=== PATIENT | male | born 1955 | race Caucasian/White ===

== ENCOUNTER 2017-03-28 17:18 | Inpatient (IN) | payer OTHER ==
[~2017-03-28] VITALS: Ht 160 cm; Wt 82.6 kg
[2017-03-28] MEDS ORDERED: ALBUTEROL 0.083% NEBU SOLN 3 ML VIAL INH STA (17:51)
[2017-03-28] MEDS ORDERED: OSELTAMIVIR PHOSPHATE 75 MG CAP PO STA (18:10)
[2017-03-28] MEDS ORDERED: OMEP40CA41 PO (18:14)
[2017-03-28] MEDS ORDERED: ASPI-461 PO (18:14)
[2017-03-28] MEDS ORDERED: ULT50 PO (18:14)
[2017-03-28] MEDS ORDERED: HYDR-4383 PO (18:14)
[2017-03-28] MEDS ORDERED: LPR25 PO (18:14)
[2017-03-28] MEDS ORDERED: GABA1CAP4 PO (18:14)
[2017-03-28] MEDS ORDERED: LPT40 PO (18:14)
--- NOTE | 2017-03-28 18:33 | DIAGNOSTIC IMAGING REPORT ---
SINGLE VIEW CHEST CLINICAL HISTORY: Dyspnea. FINDINGS: An AP, portable, upright chest radiograph is compared to study dated 07/19/2014. The examination is degraded by portable technique and patient rotation. The cardiomediastinal silhouette is unremarkable. Emphysema and chronic interstitial thickening are similar to previous. There is patchy airspace consolidation at the left lung base. The right lung appears clear. No large pleural effusion or pneumothorax is seen. The skeletal structures are osteopenic. The bony thorax is grossly intact. IMPRESSION: 1. Emphysema. 2. Patchy airspace consolidation is seen at the left lung base. Correlate clinically for evidence of pneumonia/aspiration pneumonitis. Radiographic follow-up to resolution is recommended. Electronically signed by: Pasquale Andrea M.D. 03/28/2017 6:32 PM Dictated Date/Time: 03/28/2017 6:31 PM
[2017-03-28 19:01] LABS: BASO % 0.5 %; BASO ABS # 0.03 K/uL (0-0.2); EOS % 1.4 %; EOS ABS # 0.09 K/uL (0-0.5); HEMATOCRIT 38.6 % (42-52); HEMOGLOBIN 13.5 g/dL (14.0-18.0); IG# 0.02 K/uL (0.00-0.02); LYMPH % 18.8 %; LYMPH ABS # 1.21 K/uL (1.2-3.4); MEAN CELL VOLUME 100.5 fL (80-100); MEAN CORPUSCULAR HEMOGLOBIN 35.2 pg (25-34); MEAN PLATELET VOLUME 9.1 fL (7.4-10.4); MONO % 16.6 %; MONO ABS # 1.07 K/uL (0.11-0.59); NEUT % 62.4 %; NEUT ABS # 4.03 K/uL (1.4-6.5); PLATELET COUNT 229 K/uL (130-400); RED CELL DISTRIBUTION WIDTH CV 12.7 % (11.5-14.5); RED CELL DISTRIBUTION WIDTH SD 46.1 fL (36.4-46.3); WHITE BLOOD COUNT 6.45 K/uL (4.8-10.8)
[2017-03-28] MEDS ORDERED: LEVAQUIN 750MG / 150ML D5W IV STA (19:08)
[2017-03-28] MEDS ORDERED: SODIUM CHLORIDE 0.9% 1000ML 1,000 ML IV STA (19:08)
[2017-03-28 19:09] LABS: INR 1.1 (0.9-1.1); PTT PATIENT 23.3 SECONDS (21.0-31.0)
[2017-03-28 19:24] LABS: INFLUENZA B ANTIGEN Neg for Influ B (NEG)
[2017-03-28 19:29] LABS: ALBUMIN 3.6 gm/dl (3.4-5.0); ALT/SGPT 27 U/L (12-78); BLOOD UREA NITROGEN 17 mg/dl (7-18); CARBON DIOXIDE 26 mmol/L (21-32); GLUCOSE 93 mg/dl (70-99); POTASSIUM 4.1 mmol/L (3.5-5.1); SODIUM 134 mmol/L (136-145)
[2017-03-28 19:33] LABS: ALKALINE PHOSPHATASE 83 U/L (45-117); AST/SGOT 25 U/L (15-37); TOTAL PROTEIN 7.8 gm/dl (6.4-8.2)
--- NOTE | 2017-03-28 20:06 | History and Physical ---
History & Physical Date & Time of Service: Mar 28, 2017 at 19:50 Chief Complaint: Cold, Shakey, Low Pulse Ox Primary Care Physician: No Doctor, Assigned History of Present Illness Source: patient, family 61 year old male with CAD, COPD, GERD with bleeding ulcers, previous TIA, chronic back pain referred from urgent care with persistent cough and hypoxia. Patient went to bed feeling well, woke up at 2am with persistent dry cough, associated with trouble breathing and lightheadedness. No falls 2/2 to dizziness. No chest pain or palpitations. He describes having chills, but did not measure temp. Denies any sore throat, nasal congestion, sinus pressure, but does have significant myalgias. Was feeling nauseous but no vomiting. Appetite diminished and patient admits to minimal fluid intake, but no abdominal discomfort. Decreased urine output, but no UTI symptoms. No change in BM. Patient has chronic knee swelling, which worsened recently, but no significant lower leg swelling. He describes orthopnea, but no PND. Describes recent weight gain. Patient called son to take him to urgent care in the afternoon, and son noted he was struggling to breath and had increased work of breathing with conversation and ambulation. Patient denies feeling dyspneic at baseline, but does so with coughing. Urgent care referred to hospital for sats of 86% at rest post breathing treatment. Sick contacts include daughter with bronchitis and her boyfriend who has the flu. ROS is unremarkable except as noted above. Past Medical/Surgical History Medical Problems: CAD COPD GERD with bleeding ulcers Carotid stenosis TIA Osteoarthritis Chronic lower back pain Slipped intervertebral disc Surgical Problems: Back surgery Tonsillectomy Family History Diabetes mellitus Heart disease Mom had DM, cardiac issues. Dad had HTN Social History Smoking Status: Current Every Day Smoker (smokes 1/2 ppd x 50 years) Smokeless Tobacco Use: No Drug Use: marijuana Marital Status: single Occupational Status: unemployed Multi-Drug Resistant Organisms History of MDRO: No Allergies Coded Allergies: Propoxyphene (Verified Allergy, Intermediate, unsure, 01/07/14) RASH Home Medications Scheduled Aspirin (Aspirin), 81 MG PO DAILY Atorvastatin (Lipitor), 40 MG PO DAILY Gabapentin (Gabapentin), 300 MG PO TID Hydrocodone/Acetaminophen ([place] 10/325 Tab), 1 TAB PO Q6H Metoprolol Tartrate (Lopressor), 25 MG PO DAILY Omeprazole (Prilosec), 40 MG PO DAILY Tramadol HCl (Tramadol HCl), 50 MG PO BID Physical Exam Vital Signs Date Time Temp Pulse Resp B/P (MAP) Pulse Ox O2 Delivery O2 Flow Rate FiO2 03/28/17 19:05 121 21 107/75 95 Nasal Cannula 3.0 03/28/17 18:19 95 Nasal Cannula 2.0 03/28/17 17:52 107 03/28/17 17:39 91 Room Air 03/28/17 17:38 109 22 110/78 88 Room Air 03/28/17 17:22 37.2 121 26 116/75 91 Room Air General Appearance: WD/WN, + mild distress (seconcary to peristent coughing) Head: normocephalic, atraumatic Eyes: normal inspection ENT: hearing grossly normal, pharynx normal, + pertinent finding (moist mucous membranes) Neck: supple, no adenopathy Respiratory/Chest: no respiratory distress, no accessory muscle use, + decreased breath sounds, + rales Cardiovascular: regular rate, rhythm, no edema, normal peripheral pulses Abdomen/GI: normal bowel sounds, non tender, soft Back: normal inspection, + pertinent finding (chornic pain on palpation, unchanged from baseline) Extremities/Musculoskelatal: no calf tenderness, normal capillary refill, no pedal edema Neurologic/Psych: alert, normal mood/affect, oriented x 3 Skin: normal color, warm/dry, no rash Diagnostics Laboratory Results Results Past 24 Hours Test 03/28/17 18:40 03/28/17 19:10 Range/Units White Blood Count 6.45 4.8-10.8 K/uL Red Blood Count 3.84 4.7-6.1 M/uL Hemoglobin 13.5 14.0-18.0 g/dL Hematocrit 38.6 42-52 % Mean Corpuscular Volume 100.5 80-100 fL Mean Corpuscular Hemoglobin 35.2 25-34 pg Mean Corpuscular Hemoglobin Concent 35.0 32-36 g/dl Platelet Count 229 130-400 K/uL Mean Platelet Volume 9.1 7.4-10.4 fL Neutrophils (%) (Auto) 62.4 % Lymphocytes (%) (Auto) 18.8 % Monocytes (%) (Auto) 16.6 % Eosinophils (%) (Auto) 1.4 % Basophils (%) (Auto) 0.5 % Neutrophils # (Auto) 4.03 1.4-6.5 K/uL Lymphocytes # (Auto) 1.21 1.2-3.4 K/uL Monocytes # (Auto) 1.07 0.11-0.59 K/uL Eosinophils # (Auto) 0.09 0-0.5 K/uL Basophils # (Auto) 0.03 0-0.2 K/uL RDW Standard Deviation 46.1 36.4-46.3 fL RDW Coefficient of Variation 12.7 11.5-14.5 % Immature Granulocyte % (Auto) 0.3 % Immature Granulocyte # (Auto) 0.02 0.00-0.02 K/uL Prothrombin Time 11.2 9.0-12.0 SECONDS Prothromb Time International Ratio 1.1 0.9-1.1 Activated Partial Thromboplast Time 23.3 21.0-31.0 SECONDS Partial Thromboplastin Ratio 0.9 Sodium Level 134 136-145 mmol/L Potassium Level 4.1 3.5-5.1 mmol/L Chloride Level 101 98-107 mmol/L Carbon Dioxide Level 26 21-32 mmol/L Anion Gap 7.0 3-11 mmol/L Blood Urea Nitrogen 17 7-18 mg/dl Creatinine 1.10 0.60-1.40 mg/dl Est Creatinine Clear Calc Drug Dose 67.0 ml/min Estimated GFR () 83.5 Estimated GFR (Non- 72.1 BUN/Creatinine Ratio 15.6 10-20 Random Glucose 93 70-99 mg/dl Calcium Level 9.0 8.5-10.1 mg/dl Total Bilirubin 0.6 0.2-1 mg/dl Aspartate Amino Transf (AST/SGOT) 25 15-37 U/L Alanine Aminotransferase (ALT/SGPT) 27 12-78 U/L Alkaline Phosphatase 83 45-117 U/L Troponin I < 0.015 0-0.045 ng/ml Total Protein 7.8 6.4-8.2 gm/dl Albumin 3.6 3.4-5.0 gm/dl Globulin 4.2 2.5-4.0 gm/dl Albumin/Globulin Ratio 0.9 0.9-2 Influenza Type A Antigen POS for Influ A NEG Influenza Type B Antigen Neg for Influ B NEG Urine Color DK YELLOW Urine Appearance CLEAR CLEAR Urine pH 6.0 4.5-7.5 Urine Specific Okay 1.032 1.000-1.030 Urine Protein TRACE NEG Urine Glucose (UA) NEG NEG Urine Ketones 1+ NEG Urine Occult Blood NEG NEG Urine Nitrite NEG NEG Urine Bilirubin NEG NEG Urine Urobilinogen POS NEG Urine Leukocyte Esterase NEG NEG Urine WBC (Auto) 1-5 0-5 /hpf Urine RBC (Auto) 0-4 0-4 /hpf Urine Hyaline Casts (Auto) 1-5 0-5 /lpf Urine Epithelial Cells (Auto) 10-20 0-5 /lpf Urine Bacteria (Auto) NEG NEG Diagnostic Radiology SINGLE VIEW CHEST CLINICAL HISTORY: Dyspnea. FINDINGS: An AP, portable, upright chest radiograph is compared to study dated 07/19/2014. The examination is degraded by portable technique and patient rotation. The cardiomediastinal silhouette is unremarkable. Emphysema and chronic interstitial thickening are similar to previous. There is patchy airspace consolidation at the left lung base. The right lung appears clear. No large pleural effusion or pneumothorax is seen. The skeletal structures are osteopenic. The bony thorax is grossly intact. IMPRESSION: 1. Emphysema. 2. Patchy airspace consolidation is seen at the left lung base. Correlate clinically for evidence of pneumonia/aspiration pneumonitis. Radiographic follow-up to resolution is recommended. Impression Assessment and Plan 61 year old male with CAD, COPD, GERD with bleeding ulcers, previous TIA, chronic back pain referred from urgent care with persistent cough and hypoxia. COPD exacerbation secondary to pneumonia with acute hypoxic respiratory failure - CXR: patchy airspace consolidation seen at the left lung base concerning for pneumonia/aspiration pneumonitis. - O2 via NC per protocol, wean as tolerated - PO Levaquin - Prednisone 40mg daily - DuoNebs - Trend CBC, procal ordered Influenza A - Tamiflu CAD - Continue Aspirin, metoprolol, atrovastatin GERD with h/o bleeding ulcers - PO pantoprazole Chronic back pain - Continue home meds: gabapentin, Gladwin, tramadol Tobacco Abuse - smoking cessation education provided - Nicotine patch ordered VTE ppx - Enoxaparin SC FULL CODE Resident Physician Supervision Note: I was present with Dr. Gurrola during the history and exam. I discussed the case with the resident and agree with the findings and plan as documented in the note. Any exceptions or clarifications are listed here: 61 y/o M Hx COPD, CAD - presenting with URI symptoms - hypoxic on arrival to ER - (+) influ A and PNM confirmed on CXR. Pt states all symptoms were of acute onset early AM OE AAO x 3 S1,2 R, tachy Poor air movement, wheezing in all bennett NT, ND No CCE P: Will treat for INflu, PNM and COPD exacerbation Levaquin should be adequate coverage as timing of PNM does not support a post viral process - should be kept in mind if improvement is minimal It may be that this individual will require home 02 No current evidence of ACS - cont ASA, Bblocker, Statin Smoking cessation is advised Documented By: Mundo Saenz Level of Care Med/Surg Advanced Directives Existing Advance Directive: No Existing Living Will: No Existing Power of Binder Stripper Machine: No Existing Health Care Proxy: Yes (Son Milad) Resuscitation Status FULL RESUSCITATION VTE Prophylaxis VTE Risk Assessment Done? Y/N: Yes Risk Level: Moderate Given or contraindicated: Enoxaparin (Lovenox)SQ Resident Tracking Resident Involvement: Resident Care Provided Care Provided: Adult Hospital Medicine
[2017-03-28] MEDS ORDERED: ENOXAPARIN 40 MG/0.4 ML SYR SQ SCH (20:45)
[2017-03-28] MEDS ORDERED: POLYETHYLENE (MIRALAX) 17 GM PACK PO PRN (20:45)
[2017-03-28] MEDS ORDERED: ONDANSETRON INJ 2 MG/ML 2 ML VIAL IV PRN (20:45)
[2017-03-28] MEDS ORDERED: ALUMINUM/MAGNESIUM/SIMETH (MAALOX MAX) 30 ML UDC PO PRN (20:45)
[2017-03-28] MEDS ORDERED: MAGNESIUM HYDROXIDE SUSP 30 ML UDC PO PRN (20:45)
[2017-03-28] MEDS ORDERED: ACETAMINOPHEN 325 MG TAB PO PRN (20:45)
[2017-03-28 22:22] VITALS: O2SAT 95; Ht 160 cm; Wt 82.6 kg
[2017-03-28 22:50] VITALS: BP 101/63; PULSE 105; TEMP 36.9; O2SAT 92
--- NOTE | 2017-03-28 23:10 | EMERGENCY ROOM VISIT NOTE ---
History Report prepared by Jaylen: Ayleen Rojas Under the Supervision of: Dr. Sebas Adame D.O. First contact with patient: 17:43 Chief Complaint: RESPIRATORY PROBLEMS Stated Complaint: COLD, SHAKEY, LOW PULSE OX Nursing Triage Summary: Pt was seen at [facility]. Given Neb for wheezing and RA Sat 88%. Pt sounded worse after per reports from [facility] Relative.ai. History of Present Illness The patient is a 61 year old male who presents to the Emergency Room with complaints of worsening respiratory problems since 2am today. The patient states that he developed cough, congestion, rhinorrhea, chills, nausea, shortness of breath, dizziness, and generalized body aches. This has worsened throughout the day. He rates his pain as a 9/10 in severity. He went to [facility] and states that he had a fever there. He was found to be 88% on room air. He was sent to the ED for further evaluation. The patient has a history of COPD. Pt denies change in vision, sore throat, chest pain, vomiting, diarrhea, abdominal pain, pain with urination, and melena. His family has been sick with the flu. He was tested for the flu at [facility] and it was negative. Source of History: patient Onset: earlier today Position: other (global) Symptom Intensity: 9/10 Quality: ache Timing: worsening Associated Symptoms: + fevers, + chills, + cough, + SOB, + nausea, No sorethroat, No chest pain, No vomiting, No abdominal pain, No melena, No diarrhea, No urinary symptoms Note: Pt notes congestion, rhinorrhea, dizziness, and generalized body aches. Review of Systems See HPI for pertinent positives & negatives. A total of 10 systems reviewed and were otherwise negative. Past Medical & Surgical Medical Problems: (1) Chronic lower back pain (2) COPD exacerbation (3) Influenza (4) Pneumonia (5) Slipped intervertebral disc Surgical Problems: (1) Previous back surgery Family History Diabetes mellitus Heart disease Social History Smoking Status: Current Every Day Smoker Drug Use: marijuana Marital Status: single Occupation Status: unemployed Current/Historical Medications Scheduled Aspirin (Aspirin), 81 MG PO DAILY Atorvastatin (Lipitor), 40 MG PO DAILY Gabapentin (Gabapentin), 300 MG PO TID Hydrocodone/Acetaminophen ([place] 10/325 Tab), 1 TAB PO Q6H Metoprolol Tartrate (Lopressor), 25 MG PO DAILY Omeprazole (Prilosec), 40 MG PO DAILY Tramadol HCl (Tramadol HCl), 50 MG PO BID Allergies Coded Allergies: Propoxyphene (Verified Allergy, Intermediate, unsure, 01/07/14) RASH Physical Exam Vital Signs Date Time Temp Pulse Resp B/P (MAP) Pulse Ox O2 Delivery O2 Flow Rate FiO2 03/28/17 19:05 121 21 107/75 95 Nasal Cannula 3.0 03/28/17 18:19 95 Nasal Cannula 2.0 03/28/17 17:52 107 03/28/17 17:39 91 Room Air 03/28/17 17:38 109 22 110/78 88 Room Air 03/28/17 17:22 37.2 121 26 116/75 91 Room Air Physical Exam GENERAL: Sitting up in bed, alert, disheveled, ill appearing, minimal distress, non-toxic EYE EXAM: normal conjunctiva. OROPHARYNX: no exudate, no erythema, lips, buccal mucosa, and tongue normal and mucous membranes are moist NECK: supple, no nuchal rigidity, no adenopathy, non-tender LUNGS: Coarse breath sounds bilateral bases. Normal chest wall mechanics HEART: Tachycardic, no murmurs, S1 normal and S2 normal ABDOMEN: abdomen soft, non-tender, normo-active bowel sounds, no masses, no rebound or guarding. BACK: Back is symmetrical on inspection and there is no deformity, no midline tenderness, no CVA tenderness. SKIN: no rashes and no bruising UPPER EXTREMITIES: upper extremities are grossly normal. LOWER EXTREMITIES: No pitting edema. Calves equal bilaterally. NEURO EXAM: Normal sensorium, cranial nerves II-XII grossly intact, normal speech, no gross weakness of arms, no gross weakness of legs. Medical Decision & Procedures ER Provider Diagnostic Interpretation: Radiology results as stated below per my review and the radiologist's interpretation: SINGLE VIEW CHEST CLINICAL HISTORY: Dyspnea. FINDINGS: An AP, portable, upright chest radiograph is compared to study dated 07/19/2014. The examination is degraded by portable technique and patient rotation. The cardiomediastinal silhouette is unremarkable. Emphysema and chronic interstitial thickening are similar to previous. There is patchy airspace consolidation at the left lung base. The right lung appears clear. No large pleural effusion or pneumothorax is seen. The skeletal structures are osteopenic. The bony thorax is grossly intact. IMPRESSION: 1. Emphysema. 2. Patchy airspace consolidation is seen at the left lung base. Correlate clinically for evidence of pneumonia/aspiration pneumonitis. Radiographic follow-up to resolution is recommended. Electronically signed by: Pasquale Andrea M.D. 03/28/2017 6:32 PM Dictated Date/Time: 03/28/2017 6:31 PM Laboratory Results 03/28/17 18:40 Red Blood Count 3.84, Mean Corpuscular Volume 100.5, Mean Corpuscular Hemoglobin 35.2, Mean Corpuscular Hemoglobin Concent 35.0, Mean Platelet Volume 9.1, Neutrophils (%) (Auto) 62.4, Lymphocytes (%) (Auto) 18.8, Monocytes (%) ( Auto) 16.6, Eosinophils (%) (Auto) 1.4, Basophils (%) (Auto) 0.5, Neutrophils # (Auto) 4.03, Lymphocytes # (Auto) 1.21, Monocytes # (Auto) 1.07, Eosinophils # ( Auto) 0.09, Basophils # (Auto) 0.03 03/28/17 18:40 Test 03/28/17 18:40 03/28/17 19:10 White Blood Count 6.45 K/uL (4.8-10.8) Red Blood Count 3.84 M/uL (4.7-6.1) Hemoglobin 13.5 g/dL (14.0-18.0) Hematocrit 38.6 % (42-52) Mean Corpuscular Volume 100.5 fL (80-100) Mean Corpuscular Hemoglobin 35.2 pg (25-34) Mean Corpuscular Hemoglobin Concent 35.0 g/dl (32-36) Platelet Count 229 K/uL (130-400) Mean Platelet Volume 9.1 fL (7.4-10.4) Neutrophils (%) (Auto) 62.4 % Lymphocytes (%) (Auto) 18.8 % Monocytes (%) (Auto) 16.6 % Eosinophils (%) (Auto) 1.4 % Basophils (%) (Auto) 0.5 % Neutrophils # (Auto) 4.03 K/uL (1.4-6.5) Lymphocytes # (Auto) 1.21 K/uL (1.2-3.4) Monocytes # (Auto) 1.07 K/uL (0.11-0.59) Eosinophils # (Auto) 0.09 K/uL (0-0.5) Basophils # (Auto) 0.03 K/uL (0-0.2) RDW Standard Deviation 46.1 fL (36.4-46.3) RDW Coefficient of Variation 12.7 % (11.5-14.5) Immature Granulocyte % (Auto) 0.3 % Immature Granulocyte # (Auto) 0.02 K/uL (0.00-0.02) Prothrombin Time 11.2 SECONDS (9.0-12.0) Prothromb Time International Ratio 1.1 (0.9-1.1) Activated Partial Thromboplast Time 23.3 SECONDS (21.0-31.0) Partial Thromboplastin Ratio 0.9 Anion Gap 7.0 mmol/L (3-11) Est Creatinine Clear Calc Drug Dose 67.0 ml/min Estimated GFR () 83.5 Estimated GFR (Non- 72.1 BUN/Creatinine Ratio 15.6 (10-20) Calcium Level 9.0 mg/dl (8.5-10.1) Total Bilirubin 0.6 mg/dl (0.2-1) Aspartate Amino Transf (AST/SGOT) 25 U/L (15-37) Alanine Aminotransferase (ALT/SGPT) 27 U/L (12-78) Alkaline Phosphatase 83 U/L (45-117) Troponin I < 0.015 ng/ml (0-0.045) Total Protein 7.8 gm/dl (6.4-8.2) Albumin 3.6 gm/dl (3.4-5.0) Globulin 4.2 gm/dl (2.5-4.0) Albumin/Globulin Ratio 0.9 (0.9-2) Influenza Type A Antigen POS for Influ A (NEG) Influenza Type B Antigen Neg for Influ B (NEG) Urine Color DK YELLOW Urine Appearance CLEAR (CLEAR) Urine pH 6.0 (4.5-7.5) Urine Specific [place] 1.032 (1.000-1.030) Urine Protein TRACE (NEG) Urine Glucose (UA) NEG (NEG) Urine Ketones 1+ (NEG) Urine Occult Blood NEG (NEG) Urine Nitrite NEG (NEG) Urine Bilirubin NEG (NEG) Urine Urobilinogen POS (NEG) Urine Leukocyte Esterase NEG (NEG) Urine WBC (Auto) 1-5 /hpf (0-5) Urine RBC (Auto) 0-4 /hpf (0-4) Urine Hyaline Casts (Auto) 1-5 /lpf (0-5) Urine Epithelial Cells (Auto) 10-20 /lpf (0-5) Urine Bacteria (Auto) NEG (NEG) Laboratory results per my review. Medications Administered Medications (Trade) Dose Ordered Sig/Darshan Route Start Time Stop Time Status Last Admin Dose Admin Albuterol Sulfate (Ventolin 0.083% 2.5MG/3ML Neb) 2.5 mg NOW STAT INH 03/28/17 17:51 03/28/17 17:55 DC 03/28/17 18:25 2.5 MG Oseltamivir Phosphate (Tamiflu Cap) 75 mg NOW STAT PO 03/28/17 18:10 03/28/17 18:11 DC 03/28/17 18:25 75 MG Sodium Chloride 1,000 ml @ 999 mls/hr Q1H1M STAT IV 03/28/17 19:08 03/28/17 20:08 DC 03/28/17 19:38 999 MLS/HR Levofloxacin (Levaquin / D5W) 750 mg NOW STAT IV 03/28/17 19:08 03/28/17 19:09 DC 03/28/17 19:38 750 MG ECG Indication: weakness Rate (beats per minute): 99 Rhythm: normal sinus Findings: RBBB, left axis deviation Change: Patient's electrocardiogram interpreted by me. ED Course ED COURSE: Vital signs were reviewed and showed hypoxic, tachycardic. The patients medical record was reviewed The above diagnostic studies were performed and reviewed. ED treatments and interventions as stated above. 1743: The patient was evaluated in room C11B. A complete history and physical examination was performed. 175: Albuterol sulfate 2.5 mg INH 0: Tamiflu 75 mg PO 1907: Levofloxacin 750 mg IV, NSS 1000 ml @ 999 mls/hr IV 4: Upon reevaluation, the patient is resting more comfortably. I discussed my findings with the patient and he understands and agrees with the treatment plan. Based on the patients age, coexisting illnesses, exam and lab findings the decision to treat as an inpatient was made. The patient remained stable while under my care. The patient will be evaluated for further management. 1926: I spoke with Dr. Saenz. We discussed the patient's case. The patient will be evaluated by the [facility] for further management. Medical Decision Differential diagnoses includes but is not limited to pneumonia, bronchitis, COPD/Asthma exacerbation, pneumothorax, pulmonary embolism, congestive heart failure, acute coronary syndrome. Patient is a 61-year-old male who presents to ER for shortness of breath and hypoxia. Patient is to symptoms starting within the past 24 hours and productive cough. CBC all BMP, LFTs, bilirubin and troponin was negative. UA was unremarkable. Influenza A was positive. Chest x-ray supports a pneumonia. Patient was given Tamiflu and Levaquin. Due to the hypoxia his discussed with internal medicine patient was admitted for pneumonia associated with hypoxia and influenza. Medication Reconcilliation Current Medication List: was personally reviewed by me Blood Pressure Screening Patient's blood pressure: Normal blood pressure Consults Time Called: 1924 Consulting Physician: Dr. Saezn Returned Call: [address] Saenz. We discussed the patient's case. The patient will be evaluated by the [facility] for further management. Impression Primary Impression: Influenza Additional Impressions: Hypoxia Pneumonia Scribe Attestation The scribe's documentation has been prepared under my direction and personally reviewed by me in its entirety. I confirm that the note above accurately reflects all work, treatment, procedures, and medical decision making performed by me. Departure Information Dispostion Being Evaluated By Hospitalist Referrals No Doctor, Assigned (PCP) Patient Instructions My [facility] Problem Qualifiers Additional Impressions: Pneumonia Pneumonia type: due to unspecified organism Laterality: unspecified laterality Lung location: unspecified part of lung Qualified Codes: J18.9 - Pneumonia, unspecified organism
[2017-03-28] MEDS ORDERED: IV FLUIDS COMPLETED PRN (23:45)
[2017-03-29] MEDS: HYDROCODONE/ACETAMI 10/325 TAB PO SCH ×3 (02:45→14:44)
[2017-03-29] MEDS: GABAPENTIN 300 MG CAP PO SCH ×3 (05:33→14:44)
[2017-03-29] MEDS: TRAMADOL HCL 50 MG TAB PO SCH ×2 (05:34→08:41)
[2017-03-29 06:18] LABS: HEMATOCRIT 37.7 % (42-52); HEMOGLOBIN 12.6 g/dL (14.0-18.0); MEAN CELL VOLUME 101.3 fL (80-100); MEAN CORPUSCULAR HEMOGLOBIN 33.9 pg (25-34); MEAN CORPUSCULAR HGB CONC 33.4 g/dl (32-36); MEAN PLATELET VOLUME 9.2 fL (7.4-10.4); PLATELET COUNT 206 K/uL (130-400); RED CELL DISTRIBUTION WIDTH SD 47.9 fL (36.4-46.3)
--- NOTE | 2017-03-29 06:51 | Family Medicine Progress Note ---
Progress Note Date of Service Mar 29, 2017.
[2017-03-29 06:56] LABS: CREATININE 1.01 mg/dl (0.60-1.40); POTASSIUM 3.7 mmol/L (3.5-5.1)
[2017-03-29] MEDS: ALBUT/IPRATROP 3MG/0.5MG NEB 3 ML VIAL INH SCH ×3 (07:25→11:41)
[2017-03-29 07:34] VITALS: PULSE 110; O2SAT 89
[2017-03-29 07:43] VITALS: BP 125/74; PULSE 93; TEMP 36.7; O2SAT 100
[2017-03-29] MEDS ORDERED: ASPIRIN 81 MG ECTAB PO SCH (08:00)
[2017-03-29] MEDS ORDERED: OSELTAMIVIR PHOSPHATE 75 MG CAP PO SCH (08:00)
[2017-03-29] MEDS ORDERED: PANTOprazole SOD 40 MG TAB PO SCH (08:00)
[2017-03-29] MEDS ORDERED: ATORVASTATIN 40 MG TAB PO SCH (08:00)
[2017-03-29] MEDS ORDERED: METOPROLOL TARTRATE 25 MG TAB PO SCH (08:00)
[2017-03-29] MEDS ORDERED: NICOTINE 14 MG/24 HR TDSY TD SCH (08:00)
[2017-03-29] MEDS ORDERED: LEVOFLOXACIN 750 MG TAB PO SCH (11:00)
[2017-03-29 11:44] VITALS: PULSE 91; O2SAT 91
[2017-03-29] MEDS ORDERED: LVQ750 PO (14:06)
[2017-03-29] MEDS ORDERED: PRD20 PO (14:06)
[2017-03-29] MEDS ORDERED: TMF75 PO (14:06)
--- NOTE | 2017-03-29 14:14 | Discharge Instructions ---
Discharge Instructions Date of Service Mar 29, 2017. Admission Reason for Admission: Copd Exacerbation; Influenza; Pneumonia Discharge Discharge Diagnosis / Problem: Flu and Pneumonia Discharge Goals Goal(s): Improve function, Improve disease control Activity Recommendations Activity Limitations: per Instructions/Follow-up section . Instructions / Follow-Up Instructions / Follow-Up You were diagnosed with the flu and pneumonia while in the hospital We will be discharging you with medication to treat the flu as well as the pneumonia. Please take these as prescribed. You may return to work when you feel that you are able to. I would take the new few days to recover from your illness. Please rest and drink plenty of fluids. Please follow up with your PCP next week for further management of your illness. If you experience any worsening shortness of breath, chest pain or dizziness then please come back to the emergency department. Current Hospital Diet Patient's current hospital diet: AHA Diet (Heart Healthy) Discharge Diet Recommended Diet: Regular Diet Pending Studies Studies pending at discharge: no Medical Emergencies . Who to Call and When: Medical Emergencies: If at any time you feel your situation is an emergency, please call 911 immediately. . Non-Emergent Contact Non-Emergency issues call your: Primary Care Provider . . "Provider Documentation" section prepared by Elroy Noe. . VTE Core Measure Inpt VTE Proph given/why not?: Enoxaparin (Lovenox)SQ
[2017-03-29] MEDS ORDERED: VNTHFA/IN INH (14:21)
[2017-03-29 14:29] VITALS: BP 125/74; PULSE 91; TEMP 36.7; O2SAT 91
--- NOTE | 2017-03-29 16:31 | Discharge Summary ---
Discharge Summary Date of Service Mar 29, 2017. Discharge Summary Admission Date: Mar 28, 2017 at 20:49 Discharge Date: Mar 29, 2017 Discharge Disposition: Home Principal Diagnosis: Flu and Pneumonia Medication Reconciliation New Medications: Albuterol Hfa (Ventolin Hfa) 200 Puffs/14840 Mcg Aers 2-4 PUFFS INH Q6H PRN for Shortness of Breath, #1 INHALER Levofloxacin (Levofloxacin) 750 Mg Tab 750 MG PO DAILY@11 for 6 Days, #6 TAB Oseltamivir Phosphate (Tamiflu) 75 Mg Cap 75 MG PO BID for 5 Days, #9 CAP Prednisone (Prednisone) 20 Mg Tab 40 MG PO HS for 5 Days, #10 TAB Continued Medications: Aspirin (Aspirin) 81 Mg Tab 81 MG PO DAILY Atorvastatin (Lipitor) 40 Mg Tab 40 MG PO DAILY Gabapentin (Gabapentin) 300 Mg Cap 300 MG PO TID Hydrocodone/Acetaminophen ([place] 10/325 Tab) 1 Tab Tab 1 TAB PO Q6H Metoprolol Tartrate (Lopressor) 25 Mg Tab 25 MG PO DAILY Omeprazole (Prilosec) 40 Mg Cap 40 MG PO DAILY Tramadol HCl (Tramadol HCl) 50 Mg Tab 50 MG PO BID Discharge Exam Patient feeling much better Still with a persistent cough Has been ambulating and tolerating PO Lives with daughter who helps looks after him Review of Systems: Constitutional: No fever, No chills Respiratory: + cough, No sputum, No shortness of breath, No dyspnea on exertion Cardiovascular: No chest pain, No edema, No palpitations Abdomen: No pain, No nausea, No vomiting, No diarrhea, No constipation Musculoskeletal: No joint pain, No muscle pain Genitourinary - Male: No hematuria, No dysuria Physical Exam: General Appearance: WD/WN, no apparent distress ENT: hearing grossly normal, pharynx normal Neck: supple, no JVD, trachea midline Respiratory/Chest: no respiratory distress, no accessory muscle use, + crackles (mild crackles at the bases) Cardiovascular: regular rate, rhythm, no edema, normal peripheral pulses Abdomen / GI: normal bowel sounds, non tender, soft Extremities: normal inspection, no calf tenderness, normal range of motion, non-tender Neurologic/Psychiatric: no motor/sensory deficits, normal mood/affect, oriented x 3 Skin: normal color, warm/dry, no rash Hospital Course 61 year old male with CAD, COPD, GERD with bleeding ulcers, previous TIA, chronic back pain referred from urgent care with persistent cough and hypoxia. COPD exacerbation secondary to pneumonia with acute hypoxic respiratory failure - CXR: patchy airspace consolidation seen at the left lung base concerning for pneumonia/aspiration pneumonitis. - O2 via NC per protocol, wean as tolerated - PO Levaquin discharged on 7 day course - Prednisone 40mg daily ----> discharged on 40mg daily for 5 days - Discharged with albuterol inhaler prn for shortness of breath - CBC normal and procal normal Influenza A - Tamiflu---> discharged to finish 5 day course CAD - Continue Aspirin, metoprolol, atrovastatin GERD with h/o bleeding ulcers - PO pantoprazole Chronic back pain - Continue home meds: gabapentin, [place], tramadol Tobacco Abuse - smoking cessation education provided - Nicotine patch ordered Dispo: discharged home with care of daughter, will follow up with PCP next week Total Time Spent: Less than 30 minutes This includes examination of the patient, discharge planning, medication reconciliation, and communication with other providers. Discharge Instructions Please refer to the electronic Patient Visit Report (Discharge Instructions) for additional information. History Resident Physician Supervision Note: I was present with Dr. Noe during the history and exam. I discussed the case with the resident and agree with the findings and plan as documented in the note. Any exceptions or clarifications are listed here. Pt evaluated following ambulation around the floors with a cane (100+ft). Pt reports significant improvement in SOB to baseline and decreased myalgias and fatigue. General Appearance: no apparent distress, obese Respiratory: chest non-tender, no respiratory distress, decreased breath sounds , crackles (b/l bases, mildly) Cardiovascular: normal peripheral pulses, regular rate, rhythm, no murmur Gastrointestinal: normal bowel sounds, non tender, soft, no organomegaly Assessment/Plan 61 y/o male h/o COPD, CAD, GERD, TIA p/w cough and hypoxia COPD exacerbation w/ underlying PNA and influenza - complete course of levofloxacin, Tamiflu, prednisone burst. Albuterol PRN CAD - continue ASA, metoprolol, atrovastatin GERD with h/o bleeding ulcers - resume pantoprazole
== END 2017-03-29 15:04 | disposition home or self-care (01) | DRG 193 ==
LOC: C.EDB 17:20 → C.MS4W 20:49 → ENRESERV 21:39
PROVIDERS: ADMIT Internal Medicine; ATTEND Internal Medicine
DX: J10.00 Influenza due to other identified influenza virus with unspecified type of pneumonia (principal); J96.01 Acute respiratory failure with hypoxia; J44.0 Chronic obstructive pulmonary disease with (acute) lower respiratory infection; J44.1 Chronic obstructive pulmonary disease with (acute) exacerbation; J69.0 Pneumonitis due to inhalation of food and vomit; I25.10 Atherosclerotic heart disease of native coronary artery without angina pectoris; K21.9 Gastro-esophageal reflux disease without esophagitis; G89.29 Other chronic pain; M54.9 Dorsalgia, unspecified; F17.200 Nicotine dependence, unspecified, uncomplicated; F12.90 Cannabis use, unspecified, uncomplicated; Z86.73 Personal history of transient ischemic attack (TIA), and cerebral infarction without residual deficits; Z87.19 Personal history of other diseases of the digestive system; Z79.82 Long term (current) use of aspirin; Z79.891 Long term (current) use of opiate analgesic; Z79.899 Other long term (current) drug therapy; Z82.49 Family history of ischemic heart disease and other diseases of the circulatory system; Z83.3 Family history of diabetes mellitus

== ENCOUNTER 2018-03-04 09:10 | Inpatient (IN) ==
[2018-03-04] MEDS ORDERED: ACETAMINOPHEN 500 MG TAB PO STA (09:22)
[2018-03-04] MEDS ORDERED: ONDANSETRON INJ 2 MG/ML 2 ML VIAL IV STA (09:22)
[2018-03-04] MEDS ORDERED: ALBUTEROL 0.083% NEBU SOLN 3 ML VIAL NEB STA ×2 (09:22→10:14)
[2018-03-04] MEDS ORDERED: SODIUM CHLORIDE 0.9% 500 ML IV SCH (09:30)
[2018-03-04] MEDS: HYDROmorphone INJ 0.5 MG/0.5 ML SYR IV PRN ×3 (09:36→15:09)
[2018-03-04 09:38] LABS: Appearance Urine Clear (Clear); Bilirubin Urine Negative (Negative); Color Urine Yellow; Glucose Urine UA Negative (Negative); Ketones Urine Negative (Negative); Leukocyte Esterase Urine Negative (Negative); Nitrite Urine Negative (Negative); Protein Urine Negative (Negative); Specific Gravity Urine 1.008 (1.000-1.030); Urobilinogen Urine Negative (Negative)
[2018-03-04 09:40] LABS: Basophils # (auto) 0.06 K/uL (0-0.2); Basophils % (auto) 0.4 %; Eosinophils # (auto) 0.33 K/uL (0-0.5); Eosinophils % (auto) 2.3 %; Hematocrit (blood only) 38.8 % (42-52); Hemoglobin 12.7 g/dL (14.0-18.0); Immature Granulocytes # (auto) 0.06 K/uL (0.00-0.02); Immature Granulocytes % (auto) 0.4 %; Lymphocytes # (auto) 1.69 K/uL (1.2-3.4); Lymphocytes % (auto) 11.8 %; Mean Corpuscular Hgb Conc 32.7 g/dL (32-36); Mean Corpuscular Volume 102.1 fL (80-100); Monocytes # (auto) 1.58 K/uL (0.11-0.59); Monocytes % (auto) 11.1 %; Neutrophils # (auto) 10.57 K/uL (1.4-6.5); Platelet Count 307 K/uL (130-400); RDW Coefficient of Variation 13.9 % (11.5-14.5); RDW Standard Deviation 51.6 fL (36.4-46.3); White Blood Count 14.29 K/uL (4.8-10.8)
--- NOTE | 2018-03-04 09:56 | XRay Report ---
XR chest 1V portable CLINICAL HISTORY: Fever COMPARISON STUDY: 03/28/2017 FINDINGS: The cardiac and mediastinal contours remain stable. There is persistent interstitial thicke david. There is no lobar consolidation. There are no pleural effusions. Postsurgical changes are prese nt within the cervical spine.[ IMPRESSION: Persistent interstitial thickening, most pronounced at the left lung base. Given the stab ility, this is likely chronic. If there is clinical concern over the presence of an acute inflammator y process, then radiographic follow-up should be obtained. Electronically signed by: Alton Purcell M.D. 03/04/2018 9:55 AM
[2018-03-04 10:01] LABS: Alanine Aminotransferase 19 U/L (12-78); Albumin Level 3.8 gm/dl (3.4-5.0); Aspartate Aminotransferase 12 U/L (15-37); BUN Creatinine Ratio 14.5 (10-20); Blood Urea Nitrogen 14 mg/dl (7-18); Carbon Dioxide 24 mmol/L (21-32); Chloride 104 mmol/L (98-107); Creatinine Clr Calc Pharmacy 75.3 ml/min; Est GFR (African American) 95.4; Est GFR (Non-African American) 82.3; Glucose 109 mg/dl (70-99); Potassium 3.8 mmol/L (3.5-5.1); Sodium 138 mmol/L (136-145)
[2018-03-04 10:06] LABS: Alkaline Phosphatase 89 U/L (45-117); Bilirubin,Total 0.4 mg/dl (0.2-1); Globulin 3.9 gm/dl (2.5-4.0); Total Protein 7.7 gm/dl (6.4-8.2); Troponin I < 0.015 ng/ml (0-0.045)
[2018-03-04] MEDS ORDERED: PIPERACILLIN/TAZOBACTAM 4.5 GM/120 ML BAG IV ONE (10:14)
[2018-03-04] MEDS ORDERED: levoFLOXacin 500 MG TAB PO STA (10:14)
[2018-03-04] MEDS ORDERED: PIPERACILL/TAZOBAC CONSULT ACTIVE PRN (10:14)
[2018-03-04] MEDS ORDERED: SODIUM CHLORIDE 0.9% 1000ML 500 ML IV ONE (10:15)
[2018-03-04] MEDS ORDERED: levoFLOXacin 250 MG TABLET PO ONE (10:17)
[2018-03-04] MEDS ORDERED: SODIUM CHLORIDE 0.9% 1000ML 1,000 ML IV ONE (10:54)
[2018-03-04] MEDS ORDERED: OPTIRAY 320 125ml IV PRN (11:10)
--- NOTE | 2018-03-04 11:19 | CT Scan Report ---
CT ANGIOGRAM OF THE CHEST CLINICAL HISTORY: Atypical chest pain COMPARISON STUDY: Chest x-ray dated 03/04/2018 TECHNIQUE: Following the IV administration of 94 mL of Optiray-320, CT angiogram of the thorax was pe rformed from the thoracic inlet to the lung bases utilizing the pulmonary embolus protocol. Images ar e reviewed in the axial, sagittal, and coronal planes. IV contrast was administered without complicat ion. MIP imaging was performed. A dose lowering technique was utilized adhering to the principles of ALARA. CT DOSE: 475.15 mGycm FINDINGS: There is a hiatal hernia present. There is mild distal esophageal thickening. There is a small amount of fluid within the distal esophagus. There are mildly enlarged mediastinal lymph nodes measuring up to 12 mm in short axis. There is no ev idence of pathologic hilar adenopathy. There is a right axillary lymph node the upper limits of wilder l in size. There was no evidence of thoracic aortic dilatation. There were no pulmonary artery filling defects to indicate acute pulmonary embolism. No pleural effusions are visualized. There is respiratory motion artifact. There is dependent atelectatic change. There is pulmonary emphy sema. There is subpleural interstitial thickening. IMPRESSION: 1. No evidence of acute pulmonary embolism 2. Mild unexplained mediastinal lymphadenopathy 3. Emphysema with subpleural interstitial thickening 4. Hiatal hernia with distal esophageal thickening Electronically signed by: Alton Purcell M.D. 03/04/2018 11:17 AM
--- NOTE | 2018-03-04 11:36 | History & Physical Report ---
Date of Service March 04, 2018 Assessment & Plan (1) Sepsis: Pt has decreased blood pressure and urine output in er, with WBC of 14 thousand and CXR changes may make this sepsis from pneumonia (2) Pneumonia: will have treatment for pneumonia with pseudomonas risk, Cefepime and Levaquin, will do MRSA nasal swab and pending blood cultures (3) COPD exacerbation: PT sounds like a mild COPD exacerbation, will have on duonebs and recommend outpt diagnositic evaluation, son provided information that he gave his dad his Edouard mcbride and his father had improved breathing. 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 He is unaware of any formal testing for thrombophilia however at this time History of Present Illness Primary Care Provider: Gideon Lopez DO Patient presents with weakness shortness of breath and low blood pressure. He feels similar to when he was here with pneumonia. The patient does not know much about his own health. 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 In the ER patient did have low blood pressure elevated white blood cell count chronic changes on his chest x-ray which could be pneumonitis his clinical exam is consistent with possible sepsis and COPD he otherwise denies any other medical problems outside of his normal chronic musculoskeletal back pain Allergies Allergy/AdvReac Type Severity Reaction Status Date / Time propoxyphene Allergy Intermediate unsure Verified 03/04/18 09:34 Home Medications Home Medications Medication Instructions Recorded Confirmed Type apixaban [Eliquis] 5 mg PO BID 03/04/18 03/04/18 History aspirin [Aspir-Low] 81 mg PO QAM 03/04/18 03/04/18 History atorvastatin 40 mg PO QAM 03/04/18 03/04/18 History cyclobenzaprine 10 mg PO BID 03/04/18 03/04/18 History furosemide 40 mg PO QAM 03/04/18 03/04/18 History hydrocodone-acetaminophen 1 tab PO Q6H PRN 03/04/18 03/04/18 History metformin 500 mg PO BID 03/04/18 03/04/18 History metoprolol succinate 25 mg PO BID 03/04/18 03/04/18 History omeprazole 40 mg PO QAM 03/04/18 03/04/18 History tamsulosin 0.4 mg PO BID 03/04/18 03/04/18 History Past Med/Surg History Medical History Chronic lower back pain (Chronic) Acute exacerbation of chronic low back pain (Acute) Back strain (Acute) COPD exacerbation Chronic lower back pain (Acute) Fall (Acute) Hypertension (Acute) Hypoxia (Acute) Influenza Low back pain (Acute) Neck pain (Acute) Pneumonia TIA (transient ischemic attack) Thrombophilia Surgical History Previous back surgery Social History marital status: Single Current Living Situation: Alone current occupational status: unemployed Feels Safe at Home: Yes Smoking Status: Current some day smoker Review of Systems ROS: well nourished well developed. No double vision blurry vision No problems with speech or patient has difficulty swallowing due to sore throat No palpitations, chest pain or pressure No dyspnea on exertion and some audible wheezing No abdominal pain nausea vomiting diarrhea changes in appetite or weight No burning urine urine frequency darkening of color No new focal joint pain or muscle pain chronic back pain No skin rashes or oral lesions No unusual bruising or bleeding No new focused back pain or new numbness or new loss of strength he does get weakness of his legs with persistent standing or walking No changes in memory or confusion Physical Exam 2 Vital Signs (Past 24 Hours): Last Vital Signs Temp 36.9 C 03/04/18 10:15 Pulse 94 H 03/04/18 11:13 Resp 16 03/04/18 11:13 BP 91/63 L 03/04/18 11:13 Pulse Ox 92 03/04/18 11:13 The patient appeared well nourished and normally developed. He is in mild distress Vital signs as documented. Blood pressure is low he did however take his medications including diuretic and metoprolol this a.m. Head exam is unremarkable. No scleral icterus or corneal arcus noted posterior pharynx is extremely dry mucous membrane erythema without exudate Neck is without jugular venous distension, thyromegaly, or lymphademopathy there is a scar in the sternal notch which he says is from cervical spine surgery Lungs are diminished breath sounds throughout coarse expiratory wheezing in the left lung decreased air movement in the right lung Cardiac exam reveals Rhythm is regular. First and second heart sounds normal. No murmurs, rubs or gallops. Abdominal exam reveals normal bowel sounds, no masses, no organomegaly mildly protuberant abdomen which he says is normal for him Extremities are nonedematous and both pedal pulses are normal. No swelling cords or Homans sign Neurologic exam is A&Ox3, no focal deficits, strength is equal bilateral but he fatigues easily Skin is warm Dry without bruises or lesions Results & Data Diagnostic Findings CT chest IMPRESSION: 1. No evidence of acute pulmonary embolism 2. Mild unexplained mediastinal lymphadenopathy 3. Emphysema with subpleural interstitial thickening 4. Hiatal hernia with distal esophageal thickening
[2018-03-04 13:55] LABS: Influenza A virus by PCR Neg for Influ A (Neg); Influenza B virus by PCR Neg for Influ B (Neg)
[2018-03-04] MEDS: SODIUM CHLORIDE 0.9% 1000ML 1,000 ML IV SCH (15:45)
[2018-03-04] MEDS ORDERED: HYDROmorphone INJ 0.5 MG/0.5 ML SYR IV PRN (20:03)
[2018-03-04] MEDS ORDERED: GLUCAGON FOR INJ 1 MG VIAL SQ PRN (20:03)
[2018-03-04] MEDS ORDERED: CARBOHYDRATES FOR HYPOGLYCEMIA PO PRN (20:03)
[2018-03-04] MEDS ORDERED: DEXTROSE 50% 50 ML SYRINGE IV PRN (20:03)
[2018-03-04] MEDS ORDERED: ONDANSETRON INJ 2 MG/ML 2 ML VIAL IV PRN (20:03)
[2018-03-04] MEDS ORDERED: GLUCOSE 40% GEL 15 GM TUBE PO PRN (20:03)
[2018-03-04] MEDS ORDERED: GLUCOSE 10 TABS/TUBE PO PRN (20:03)
[2018-03-04] MEDS ORDERED: ACETAMINOPHEN 325 MG TAB PO PRN (20:03)
[2018-03-04] MEDS: CYCLOBENZAPRINE HCL 10 MG TAB PO SCH (21:23)
[2018-03-04] MEDS: INSULIN ASPART 100 UNITS/ML 3 ML PEN SC SCH (21:23)
[2018-03-04] MEDS: APIXABAN 5 MG TABLET PO SCH (21:23)
[2018-03-04] MEDS: CEFEPIME 2,000 MG in SYRINGE 7.5 ML IV SCH (21:23)
[2018-03-04] MEDS: SENNA 8.6 MG TAB PO SCH (22:10)
[2018-03-05] MEDS: SODIUM CHLORIDE 0.9% 1000ML 1,000 ML IV SCH ×2 (00:23→08:16)
[2018-03-05] MEDS: CEFEPIME 2,000 MG in SYRINGE 7.5 ML IV SCH ×2 (04:58→13:28)
[2018-03-05] MEDS: ALBUT/IPRATROP 3MG/0.5MG NEB 3 ML VIAL NEB SCH ×3 (07:03→19:35)
[2018-03-05 07:35] LABS: BUN Creatinine Ratio 12.9 (10-20); Calcium 8.5 mg/dl (8.5-10.1); Creatinine Clr Calc Pharmacy 76.9 ml/min; Est GFR (African American) 97.8; Est GFR (Non-African American) 84.4; Potassium 3.9 mmol/L (3.5-5.1)
[2018-03-05] MEDS: TRAMADOL HCL 50 MG TABLET PO PRN (07:46)
[2018-03-05] MEDS: METOPROLOL SUCC 25MG EXT REL TAB PO SCH ×2 (07:47→20:04)
[2018-03-05] MEDS: CYCLOBENZAPRINE HCL 10 MG TAB PO SCH ×2 (07:47→20:02)
[2018-03-05] MEDS: SENNA 8.6 MG TAB PO SCH ×2 (07:47→20:04)
[2018-03-05] MEDS: APIXABAN 5 MG TABLET PO SCH ×2 (07:47→20:03)
[2018-03-05] MEDS: ASPIRIN 81 MG ECTAB PO SCH (07:48)
[2018-03-05] MEDS: INSULIN ASPART 100 UNITS/ML 3 ML PEN SC SCH ×4 (07:50→20:03)
[2018-03-05] MEDS: PANTOprazole 40 MG TAB PO SCH (08:13)
[2018-03-05 08:37] LABS: Estimated Average Glucose 134 mg/dl
[2018-03-05 08:46] LABS: Basophils # (auto) 0.03 K/uL (0-0.2); Basophils % (auto) 0.3 %; Eosinophils # (auto) 0.46 K/uL (0-0.5); Eosinophils % (auto) 4.5 %; Hematocrit (blood only) 34.2 % (42-52); Immature Granulocytes # (auto) 0.07 K/uL (0.00-0.02); Immature Granulocytes % (auto) 0.7 %; Lymphocytes # (auto) 2.19 K/uL (1.2-3.4); Lymphocytes % (auto) 21.6 %; Mean Corpuscular Volume 103.6 fL (80-100); Mean Platelet Volume 9.9 fL (7.4-10.4); Monocytes % (auto) 10.8 %; Neutrophils # (auto) 6.29 K/uL (1.4-6.5); Neutrophils % (auto) 62.1 %; Platelet Count 253 K/uL (130-400); RDW Coefficient of Variation 13.9 % (11.5-14.5); RDW Standard Deviation 52.4 fL (36.4-46.3); White Blood Count 10.14 K/uL (4.8-10.8)
[2018-03-05 08:47] LABS: Mean Corpuscular Hgb Conc 32.2 g/dL (32-36)
[2018-03-05] MEDS: LEVOFLOXACIN/D5W 750 MG/150 ML BAG IV SCH (09:57)
[2018-03-05] MEDS: HYDROCODONE/ACETAMINOPHEN 10/325 TAB PO PRN ×2 (11:56→21:39)
--- NOTE | 2018-03-05 14:30 | Family Medicine Progress Note ---
Date of Service March 05, 2018 Assessment & Plan (1) Sepsis: (1) Sepsis: - Initially presented with hypotension, elevated WBC, and concerning lung exam - Significant improvement with IV Cefepime and IV Levaquin - NSS @ 125mls/hr - Believed to be 2/2 CAP / COPD exacerbation - Blood Cultures pending (2) Pneumonia: - Initial hypoxic respiratory failure - CXR: Persistent interstitial thickening, most pronounced at the left lung base. Given the stability, this is likely chronic. If there is clinical concern over the presence of an acute inflammatory process, then radiographic follow-up should be obtained. - CTA Chest: 1. No evidence of acute pulmonary embolism 2. Mild unexplained mediastinal lymphadenopathy 3. Emphysema with subpleural interstitial thickening 4. Hiatal hernia with distal esophageal thickening - IV Levaquin (3) COPD exacerbation: - Emphysema on CTA Chest - IV Solumedrol 40mg IV q8h - Duonebs - IV Levaquin (4) Chronic lower back pain: - Continue home flexeril - PRN IV Dilaudid 0.5mg q3h (5) Hypertension: - Continue home metoprolol - Hold Lasix --> Resume tomorrow AM (6) Diabetes: - SSI - Hold home metformin (7) Hiatal hernia: - Continue home Omeprazole - Patient unaware of diagnosis seen on CTA Chest. Will have patient follow up with GI as outpatient for endoscopy evaluation due to distal esophageal thickening and hernia with GERD symptoms. Patient states he has previously had gastric ulcers with endoscopic evaluation at least 15 years ago. (8) DVT prophylaxis: - Continue home Eliquis (indication was previous DVT/PE in April 2017) (2) Pneumonia: (3) COPD exacerbation: (4) Chronic lower back pain: (5) Diabetes: (6) Hiatal hernia: (7) DVT prophylaxis: Supervising Physician Co-Signing Physician Notes I personally examined the patient and verified all cody points of history and exam, discussed case, and agree with decision making with Dr Alarcon. Feeling much better, still wheezing, but breathing is easier. Vitals noted, he is 90% on room air at rest. In general he is awake alert oriented x3 fatigued appearing but otherwise in no acute distress. HEENT normal cephalic atraumatic mucous membranes are moist. Lungs are diminished air entry with faint scattered expiratory wheezing. Septic picture now improved COPD exacerbation�continue nebulizers distill antibiotics down to Levaquin alone , steroids to help with the wheezing, continue to wean oxygen as possible. Hopefully home tomorrow Physical Exam 2 Vital Signs (Past 24 Hours): Last Vital Signs Temp 36.6 C 03/05/18 11:40 Pulse 80 03/05/18 11:40 Resp 18 03/05/18 11:40 BP 125/75 03/05/18 11:40 Pulse Ox 96 03/05/18 11:40 Resident Activity Tracking Resident Involvement: Resident Care Provided Care Provided: [facility] Medicine _ (1) Pneumonia Aspiration pneumonia type: Laterality: right Lung location: lower lobe of lung Pneumonia type: due to unspecified organism Qualified Code(s): J18.1 - Lobar pneumonia, unspecified organism
--- NOTE | 2018-03-05 15:14 | Emergency Department Note ---
Entered by Rola Strauss acting as a scribe for History of Present Illness General Chief complaint: Illness Time Seen by Provider: 03/04/18 09:16 Source: patient History of Present Illness Onset (ago): day(s) (this morning) Pain Consistency: + other (sudden) Maximum Pain Intensity: 8 Quality: + other (illness) Relieved By: not by medication (pain medication) Associated symptoms: + denies other symptoms (diarrhea), + cough, + fever/ chills (chills) and + other (body aches, back ache) The patient is a 62 year old male who presents to the Emergency Room with complaints of sudden illness starting this morning. The patient states that last night he woke up in the middle of the night and thought he had to move his bowels. He states that he was certain that he was going to have diarrhea, but when he tried to go, he didn�t have to. He states that when he woke up this morning he was having body aches, chills, and a cough. The patient complains of a back ache, but notes that he always has that. He notes that he took one of his pain medications 15 minutes before the ambulance arrived this morning. The patient denies ever having this before, getting his flu shot this year, taking Tylenol/Ibuprofen, and being around anyone who has been ill. Home Medications Home Medications Medication Instructions Recorded Confirmed Type apixaban [Eliquis] 5 mg PO BID 03/04/18 03/04/18 History aspirin [Aspir-Low] 81 mg PO QAM 03/04/18 03/04/18 History atorvastatin 40 mg PO QAM 03/04/18 03/04/18 History cyclobenzaprine 10 mg PO BID 03/04/18 03/04/18 History furosemide 40 mg PO QAM 03/04/18 03/04/18 History hydrocodone-acetaminophen 1 tab PO Q6H PRN 03/04/18 03/04/18 History metformin 500 mg PO BID 03/04/18 03/04/18 History metoprolol succinate 25 mg PO BID 03/04/18 03/04/18 History omeprazole 40 mg PO QAM 03/04/18 03/04/18 History tamsulosin 0.4 mg PO BID 03/04/18 03/04/18 History Allergies Allergy/AdvReac Type Severity Reaction Status Date / Time propoxyphene Allergy Intermediate unsure Verified 03/04/18 09:34 Past Med/Surg History Medical History Chronic lower back pain (Chronic) Acute exacerbation of chronic low back pain (Acute) Back strain (Acute) COPD exacerbation Chronic lower back pain (Acute) Fall (Acute) Hypertension (Acute) Hypoxia (Acute) Influenza Low back pain (Acute) Neck pain (Acute) Pneumonia TIA (transient ischemic attack) Thrombophilia Surgical History Previous back surgery Social History marital status: Single Current Living Situation: Alone current occupational status: unemployed Other Information That Helps Us Care for You: No Feels Safe at Home: Yes Safety Concerns: Feels Safe At This Time Smoking Status: Current some day smoker Tobacco Type: cigarettes Cigarettes per Day: 3 Do You Dip or Chew Tobacco: No Hx Alcohol Use: No Hx Substance Use: No Beliefs That Will Affect Care: None Communication Ability: Effective Review of Systems See HPI for pertinent positives & negatives. and A total of 10 systems reviewed and were otherwise negative Physical Exam Vital Signs Vital Signs - 24 hr 03/04/18 15:26 03/04/18 15:32 03/04/18 16:02 Temperature Temperature Source Pulse Rate 83 90 76 Pulse Rate [Right Finger] Pulse Rhythm [Right Finger] Pulse Strength [Right Finger] Respiratory Rate 18 22 17 Respiratory Effort / Characteristics Respiratory Depth Respiratory Pattern Blood Pressure 96/52 L 102/63 117/60 Blood Pressure [Left Arm] Blood Pressure Mean 66 76 79 Blood Pressure Mean [Left Arm] Blood Pressure Position [Left Arm] Pulse Oximetry 98 98 96 Oxygen Delivery Method Oxygen Flow Rate 03/04/18 16:31 03/04/18 17:31 03/04/18 18:26 Temperature Temperature Source Pulse Rate 69 68 126 H Pulse Rate [Right Finger] Pulse Rhythm [Right Finger] Pulse Strength [Right Finger] Respiratory Rate 15 12 27 H Respiratory Effort / Characteristics Respiratory Depth Respiratory Pattern Blood Pressure 128/74 101/72 126/72 Blood Pressure [Left Arm] Blood Pressure Mean 92 81 90 Blood Pressure Mean [Left Arm] Blood Pressure Position [Left Arm] Pulse Oximetry 98 96 97 Oxygen Delivery Method Oxygen Flow Rate 03/04/18 19:15 03/04/18 20:10 03/04/18 23:10 Temperature 36.5 C 36.9 C Temperature Source Oral Oral Pulse Rate Pulse Rate [Right Finger] 66 70 Pulse Rhythm [Right Finger] Regular Pulse Strength [Right Finger] Normal Respiratory Rate 18 20 Respiratory Effort / Characteristics Spontaneous Spontaneous Labored Respiratory Depth Normal Normal Respiratory Pattern Regular Regular Blood Pressure Blood Pressure [Left Arm] 114/69 113/66 Blood Pressure Mean Blood Pressure Mean [Left Arm] 84 81 Blood Pressure Position [Left Arm] Lying Pulse Oximetry 98 96 Oxygen Delivery Method Nasal Cannula Nasal Cannula Oxygen Flow Rate 2 2 03/04/18 23:49 03/05/18 00:03 03/05/18 04:26 Temperature 36.9 C Temperature Source Oral Pulse Rate 69 Pulse Rate [Right Finger] 80 Pulse Rhythm [Right Finger] Pulse Strength [Right Finger] Respiratory Rate 20 Respiratory Effort / Characteristics Labored Respiratory Depth Normal Respiratory Pattern Regular Blood Pressure Blood Pressure [Left Arm] 111/53 L Blood Pressure Mean Blood Pressure Mean [Left Arm] 72 Blood Pressure Position [Left Arm] Lying Pulse Oximetry 97 Oxygen Delivery Method Nasal Cannula Nasal Cannula Oxygen Flow Rate 2 3 03/05/18 07:04 03/05/18 07:15 03/05/18 07:21 Temperature 36.6 C Temperature Source Oral Pulse Rate 60 Pulse Rate [Right Finger] 73 69 Pulse Rhythm [Right Finger] Pulse Strength [Right Finger] Respiratory Rate 16 20 Respiratory Effort / Characteristics Spontaneous Respiratory Depth Respiratory Pattern Blood Pressure Blood Pressure [Left Arm] 130/78 Blood Pressure Mean Blood Pressure Mean [Left Arm] 95 Blood Pressure Position [Left Arm] Pulse Oximetry 98 97 Oxygen Delivery Method Nasal Cannula Nasal Cannula Oxygen Flow Rate 3 2 03/05/18 08:00 03/05/18 11:23 03/05/18 11:40 Temperature 36.6 C Temperature Source Oral Pulse Rate Pulse Rate [Right Finger] 89 80 Pulse Rhythm [Right Finger] Pulse Strength [Right Finger] Respiratory Rate 16 18 Respiratory Effort / Characteristics SOB on Exertion Non-Labored Spontaneous Respiratory Depth Respiratory Pattern Blood Pressure Blood Pressure [Left Arm] 125/75 Blood Pressure Mean Blood Pressure Mean [Left Arm] 91 Blood Pressure Position [Left Arm] Pulse Oximetry 91 96 Oxygen Delivery Method Room Air Nasal Cannula Nasal Cannula Room Air Oxygen Flow Rate 2 2 03/05/18 12:00 Temperature Temperature Source Pulse Rate Pulse Rate [Right Finger] Pulse Rhythm [Right Finger] Pulse Strength [Right Finger] Respiratory Rate Respiratory Effort / Characteristics Non-Labored Spontaneous Respiratory Depth Normal Respiratory Pattern Regular Blood Pressure Blood Pressure [Left Arm] Blood Pressure Mean Blood Pressure Mean [Left Arm] Blood Pressure Position [Left Arm] Pulse Oximetry Oxygen Delivery Method Nasal Cannula Oxygen Flow Rate 2 GENERAL: Awake, alert, well-appearing, in no distress HENT: Normocephalic, atraumatic. Oropharynx unremarkable. EYES: Normal conjunctiva. Sclera non-icteric. NECK: Supple. No nuchal rigidity. FROM. No masses. RESPIRATORY: Clear to auscultation. No wheezes. No rales. Normal respiratory effort. CARDIAC: Normal rate. Normal rhythm. No murmurs. No rubs. Extremities warm and well perfused. Pulses equal. No JVD. GI: Soft, non-distended. Mild diffuse tenderness to palpation. No rebound or guarding. No masses. RECTAL: Deferred. MUSCULOSKELETAL: Atraumatic. Chest examination reveals no tenderness. The back is symmetrical on inspection without obvious abnormality. There is no CVA tenderness to palpation. No joint edema. LOWER EXTREMITIES: Calves are equal size bilaterally and non-tender. No edema. No discoloration. NEURO: Normal sensorium. No sensory or motor deficits noted. Course 0918: Past medical records reviewed. The patient was evaluated in room C12B, and a complete history and physical examination were performed. 1026: I reevaluated the patient and updated him on his test results. I discussed the treatment plan with him. He verbally agrees and understands. 1053: I reviewed the patient's case with Dr. Marycarmen WINTER Hospitalist. He will evaluate the patient for further management. Consultations Consultation #1: I reviewed the patient's case with Dr. Marycarmen WINTER Hospitalist. He will evaluate the patient for further management. Time: 10:53 Administered Medications Hydrocodone Bitart/Acetaminophen ([place] 10/325) 1 tab PO Q6H PRN PRN Reason: Pain Stop: 03/18/18 20:02 Last Admin: 03/05/18 11:56 Dose: 1 tab Albuterol (Duoneb) 3 ml NEB QIDR JUSTO Stop: 04/04/18 07:59 Last Admin: 03/05/18 11:22 Dose: 3 ml Admin: 03/05/18 07:03 Dose: 3 ml Apixaban (Eliquis) 5 mg PO BID [facility] Stop: 04/03/18 20:59 Last Admin: 03/05/18 07:47 Dose: 5 mg Admin: 03/04/18 21:23 Dose: 5 mg Aspirin (Ecotrin Ectab) 81 mg PO QAM JUSTO Stop: 04/04/18 08:59 Last Admin: 03/05/18 07:48 Dose: 81 mg Cyclobenzaprine HCl (Flexeril) 10 mg PO BID JUSTO Stop: 04/03/18 20:59 Last Admin: 03/05/18 07:47 Dose: 10 mg Admin: 03/04/18 21:23 Dose: 10 mg Levofloxacin/Dextrose (Levaquin/D5w) 750 mg in 150 mls @ 100 mls/hr IV Q24H JUSTO Stop: 03/11/18 09:59 Last Infusion: 03/05/18 11:48 Dose: 0 mls/hr Admin: 03/05/18 09:57 Dose: 100 mls/hr Cefepime HCl 2,000 mg/ Syringe 20 mls @ 5.5 mls/min IV Q8H JUSTO Stop: 03/11/18 20:59 Last Admin: 03/05/18 13:28 Dose: 5.5 mls/min Admin: 03/05/18 04:58 Dose: 5.5 mls/min Admin: 03/04/18 21:23 Dose: 5.5 mls/min Insulin Aspart (Novolog Flexpen) 0 units SC ACHS [facility] Stop: 04/03/18 20:59 Last Admin: 03/05/18 11:57 Dose: Not Given Admin: 03/05/18 07:50 Dose: Not Given Admin: 03/04/18 21:23 Dose: Not Given Ioversol (Optiray 320 125ml) 94 ml IV ONCE PRN PRN Reason: Interaction Checking Stop: 03/08/18 11:09 Last Admin: 03/04/18 11:11 Dose: 94 ml Metoprolol Succinate (Toprol Xl) 25 mg PO BID [facility] Stop: 04/04/18 08:59 Last Admin: 03/05/18 07:47 Dose: 25 mg Pantoprazole Sodium (Protonix) 40 mg PO DAILY [facility] Stop: 04/04/18 08:59 Last Admin: 03/05/18 08:13 Dose: 40 mg Sennosides (Senokot) 8.6 mg PO BID JUSTO Stop: 04/03/18 21:44 Last Admin: 03/05/18 07:47 Dose: 8.6 mg Admin: 03/04/18 22:10 Dose: 8.6 mg Tramadol HCl (Ultram) 100 mg PO Q6 PRN PRN Reason: Pain Stop: 04/03/18 21:37 Last Admin: 03/05/18 07:46 Dose: 100 mg Discontinued Medications Acetaminophen (Tylenol) 1,000 mg PO NOW STA Stop: 03/04/18 09:23 Last Admin: 03/04/18 09:37 Dose: 1,000 mg Albuterol (Ventolin 0.083% 2.5mg/3ml) 2.5 mg NEB NOW STA Stop: 03/04/18 09:23 Last Admin: 03/04/18 09:37 Dose: 2.5 mg Albuterol (Ventolin 0.083% 2.5mg/3ml) 2.5 mg NEB NOW STA Stop: 03/04/18 10:15 Last Admin: 03/04/18 10:18 Dose: 2.5 mg Hydromorphone HCl (Dilaudid) 0.5 mg IV Q15M PRN PRN Reason: Pain Stop: 03/18/18 09:21 Last Admin: 03/04/18 15:09 Dose: 0.5 mg Admin: 03/04/18 10:12 Dose: 0.5 mg Admin: 03/04/18 09:36 Dose: 0.5 mg Sodium Chloride (Nss) 500 mls @ 999 mls/hr IV .Q31M JUSTO Stop: 03/04/18 10:00 Last Infusion: 03/04/18 10:07 Dose: 0 mls/hr Admin: 03/04/18 09:36 Dose: 999 mls/hr Piperacillin Sod/Tazobactam Sod (Zosyn) 4.5 gm in 120 mls @ 240 mls/hr IV NOW ONE Stop: 03/04/18 10:43 Last Infusion: 03/04/18 10:49 Dose: 0 mls/hr Admin: 03/04/18 10:19 Dose: 240 mls/hr Sodium Chloride (Nss 1000ml) 500 mls @ 999 mls/hr IV .Q31M ONE Stop: 03/04/18 10:45 Last Infusion: 03/04/18 11:01 Dose: 0 mls/hr Admin: 03/04/18 10:30 Dose: 999 mls/hr Sodium Chloride (Nss 1000ml) 1,000 mls @ 999 mls/hr IV .Q1H1M ONE Stop: 03/04/18 11:54 Last Infusion: 03/04/18 12:31 Dose: 0 mls/hr Admin: 03/04/18 11:18 Dose: 999 mls/hr Sodium Chloride (Nss 1000ml) 1,000 mls @ 125 mls/hr IV .Q8H JUSTO Stop: 03/05/18 05:44 Last Infusion: 03/05/18 01:13 Dose: Admin: 03/04/18 15:45 Dose: 125 mls/hr Sodium Chloride (Nss 1000ml) 1,000 mls @ 125 mls/hr IV .Q8H JUSTO Stop: 03/05/18 12:02 Last Admin: 03/05/18 08:16 Dose: Not Given Infusion: 03/05/18 08:14 Dose: 0 mls/hr Admin: 03/05/18 00:23 Dose: 125 mls/hr Levofloxacin (Levaquin) 500 mg PO NOW STA Stop: 03/04/18 10:15 Last Admin: 03/04/18 10:19 Dose: Not Given Levofloxacin (Levaquin) Confirm Administered Dose 500 mg PO .STK-MED ONE Stop: 03/04/18 10:18 Last Admin: 03/04/18 10:19 Dose: 500 mg Ondansetron HCl (Zofran) 4 mg IV NOW STA Stop: 03/04/18 09:23 Last Admin: 03/04/18 09:36 Dose: 4 mg Medical Decision Making Differential Diagnosis Differential diagnosis: Etiologies such as biliary colic, cholecystitis, hepatitis, pancreatitis, cardiac disease, pancreatitis, gastritis, peptic ulcer disease, appendicitis, cystitis, diverticulitis, mesenteric ischemia, inflammatory bowel disease, ileus , bowel obstruction, testicular torsion, aortic pathology, shingles, as well as others were considered. Medical Records Attestation: I reviewed the patient's medical records. Home Medications Current Medication List: was personally reviewed by me Laboratory Data Attestation: I reviewed the patient's lab results. Result diagrams: 03/05/18 06:38 03/05/18 06:38 Lab Results 03/04/18 03/04/18 03/04/18 Range/Units 09:00 09:00 09:00 WBC 14.29 H (4.8-10.8) K/uL RBC 3.80 L (4.7-6.1) M/uL Hgb 12.7 L (14.0-18.0) g/dL Hct 38.8 L (42-52) % MCV 102.1 H (80-100) fL MCH 33.4 (25-34) pg MCHC 32.7 (32-36) g/dL RDW Std Deviation 51.6 H (36.4-46.3) fL RDW Coeff of [place] 13.9 (11.5-14.5) % Plt Count 307 (130-400) K/uL MPV 10.0 (7.4-10.4) fL Immature Gran % (Auto) 0.4 % Neut % (Auto) 74.0 % Lymph % (Auto) 11.8 % [place] % (Auto) 11.1 % Eos % (Auto) 2.3 % Baso % (Auto) 0.4 % Immature Gran # (Auto) 0.06 H (0.00-0.02) K/uL Neut # (Auto) 10.57 H (1.4-6.5) K/uL Lymph # (Auto) 1.69 (1.2-3.4) K/uL [place] # (Auto) 1.58 H (0.11-0.59) K/uL Eos # (Auto) 0.33 (0-0.5) K/uL Baso # (Auto) 0.06 (0-0.2) K/uL Sodium 138 (136-145) mmol/L Potassium 3.8 (3.5-5.1) mmol/L Chloride 104 (98-107) mmol/L Carbon Dioxide 24 (21-32) mmol/L Anion Gap 10.0 (3-11) BUN 14 (7-18) mg/dl Creatinine 0.98 (0.6-1.4) mg/dl Est Cr Clr Drug Dosing 75.3 ml/min Est GFR ( Amer) 95.4 Est GFR (Non-Af Amer) 82.3 BUN/Creatinine Ratio 14.5 (10-20) Glucose 109 H (70-99) mg/dl POC Glucose (70-99) Estimat Average Glucose mg/dl Hemoglobin A1c (4.5-5.6) % POC Lactic Acid Jony (0.90-1.70) mmol/L Calcium 9.0 (8.5-10.1) mg/dl Total Bilirubin 0.4 (0.2-1) mg/dl AST 12 L (15-37) U/L ALT 19 (12-78) U/L Alkaline Phosphatase 89 (45-117) U/L Troponin I < 0.015 (0-0.045) ng/ml Total Protein 7.7 (6.4-8.2) gm/dl Albumin 3.8 (3.4-5.0) gm/dl Globulin 3.9 (2.5-4.0) gm/dl Albumin/Globulin Ratio 1.0 (0.9-2) Procalcitonin (0-0.5) ng/ml Urine Color Urine Appearance (Clear) Urine pH (4.5-7.5) Ur Specific [place] (1.000-1.030) Urine Protein (Negative) Urine Glucose (UA) (Negative) Urine Ketones (Negative) Urine Blood (Negative) Urine Nitrite (Negative) Urine Bilirubin (Negative) Urine Urobilinogen (Negative) Ur Leukocyte Esterase (Negative) Influenza Type A Ag Neg for Influ A (Neg) Influenza Type A (PCR) (Neg) Influenza Type B Ag Neg for Influ B (Neg) Influenza Type B (PCR) (Neg) 03/04/18 03/04/18 03/04/18 Range/Units 09:00 09:14 10:03 WBC (4.8-10.8) K/uL RBC (4.7-6.1) M/uL Hgb (14.0-18.0) g/dL Hct (42-52) % MCV (80-100) fL MCH (25-34) pg MCHC (32-36) g/dL RDW Std Deviation (36.4-46.3) fL RDW Coeff of [place]ore[place] (11.5-14.5) % Plt Count (130-400) K/uL MPV (7.4-10.4) fL Immature Gran % (Auto) % Neut % (Auto) % Lymph % (Auto) % [place] % (Auto) % Eos % (Auto) % Baso % (Auto) % Immature Gran # (Auto) (0.00-0.02) K/uL Neut # (Auto) (1.4-6.5) K/uL Lymph # (Auto) (1.2-3.4) K/uL [place] # (Auto) (0.11-0.59) K/uL Eos # (Auto) (0-0.5) K/uL Baso # (Auto) (0-0.2) K/uL Sodium (136-145) mmol/L Potassium (3.5-5.1) mmol/L Chloride (98-107) mmol/L Carbon Dioxide (21-32) mmol/L Anion Gap (3-11) BUN (7-18) mg/dl Creatinine (0.6-1.4) mg/dl Est Cr Clr Drug Dosing ml/min Est GFR ( Amer) Est GFR (Non-Af Amer) BUN/Creatinine Ratio (10-20) Glucose (70-99) mg/dl POC Glucose (70-99) Estimat Average Glucose mg/dl Hemoglobin A1c (4.5-5.6) % POC Lactic Acid Jony 2.08 H (0.90-1.70) mmol/L Calcium (8.5-10.1) mg/dl Total Bilirubin (0.2-1) mg/dl AST (15-37) U/L ALT (12-78) U/L Alkaline Phosphatase (45-117) U/L Troponin I (0-0.045) ng/ml Total Protein (6.4-8.2) gm/dl Albumin (3.4-5.0) gm/dl Globulin (2.5-4.0) gm/dl Albumin/Globulin Ratio (0.9-2) Procalcitonin (0-0.5) ng/ml Urine Color Yellow Urine Appearance Clear (Clear) Urine pH 5.0 (4.5-7.5) Ur Specific [place] 1.008 (1.000-1.030) Urine Protein Negative (Negative) Urine Glucose (UA) Negative (Negative) Urine Ketones Negative (Negative) Urine Blood Negative (Negative) Urine Nitrite Negative (Negative) Urine Bilirubin Negative (Negative) Urine Urobilinogen Negative (Negative) Ur Leukocyte Esterase Negative (Negative) Influenza Type A Ag (Neg) Influenza Type A (PCR) Neg for Influ A (Neg) Influenza Type B Ag (Neg) Influenza Type B (PCR) Neg for Influ B (Neg) 03/04/18 03/04/18 03/05/18 Range/Units 20:12 21:03 06:38 WBC (4.8-10.8) K/uL RBC (4.7-6.1) M/uL Hgb (14.0-18.0) g/dL Hct (42-52) % MCV (80-100) fL MCH (25-34) pg MCHC (32-36) g/dL RDW Std Deviation (36.4-46.3) fL RDW Coeff of [place]oree (11.5-14.5) % Plt Count (130-400) K/uL MPV (7.4-10.4) fL Immature Gran % (Auto) % Neut % (Auto) % Lymph % (Auto) % [place] % (Auto) % Eos % (Auto) % Baso % (Auto) % Immature Gran # (Auto) (0.00-0.02) K/uL Neut # (Auto) (1.4-6.5) K/uL Lymph # (Auto) (1.2-3.4) K/uL [place] # (Auto) (0.11-0.59) K/uL Eos # (Auto) (0-0.5) K/uL Baso # (Auto) (0-0.2) K/uL Sodium 139 (136-145) mmol/L Potassium 3.9 (3.5-5.1) mmol/L Chloride 108 H (98-107) mmol/L Carbon Dioxide 26 (21-32) mmol/L Anion Gap 5.0 (3-11) BUN 12 (7-18) mg/dl Creatinine 0.96 (0.6-1.4) mg/dl Est Cr Clr Drug Dosing 76.9 ml/min Est GFR ( Amer) 97.8 Est GFR (Non-Af Amer) 84.4 BUN/Creatinine Ratio 12.9 (10-20) Glucose 103 H (70-99) mg/dl POC Glucose 128 H (70-99) Estimat Average Glucose mg/dl Hemoglobin A1c (4.5-5.6) % POC Lactic Acid Jony (0.90-1.70) mmol/L Calcium 8.5 (8.5-10.1) mg/dl Total Bilirubin (0.2-1) mg/dl AST (15-37) U/L ALT (12-78) U/L Alkaline Phosphatase (45-117) U/L Troponin I (0-0.045) ng/ml Total Protein (6.4-8.2) gm/dl Albumin (3.4-5.0) gm/dl Globulin (2.5-4.0) gm/dl Albumin/Globulin Ratio (0.9-2) Procalcitonin < 0.05 (0-0.5) ng/ml Urine Color Urine Appearance (Clear) Urine pH (4.5-7.5) Ur Specific [place] (1.000-1.030) Urine Protein (Negative) Urine Glucose (UA) (Negative) Urine Ketones (Negative) Urine Blood (Negative) Urine Nitrite (Negative) Urine Bilirubin (Negative) Urine Urobilinogen (Negative) Ur Leukocyte Esterase (Negative) Influenza Type A Ag (Neg) Influenza Type A (PCR) (Neg) Influenza Type B Ag (Neg) Influenza Type B (PCR) (Neg) 03/05/18 03/05/18 03/05/18 Range/Units 06:38 06:38 07:31 WBC 10.14 (4.8-10.8) K/uL RBC 3.30 L (4.7-6.1) M/uL Hgb 11.0 L (14.0-18.0) g/dL Hct 34.2 L (42-52) % MCV 103.6 H (80-100) fL MCH 33.3 (25-34) pg MCHC 32.2 (32-36) g/dL RDW Std Deviation 52.4 H (36.4-46.3) fL RDW Coeff of [place]ore[place] 13.9 (11.5-14.5) % Plt Count 253 (130-400) K/uL MPV 9.9 (7.4-10.4) fL Immature Gran % (Auto) 0.7 % Neut % (Auto) 62.1 % Lymph % (Auto) 21.6 % [place] % (Auto) 10.8 % Eos % (Auto) 4.5 % Baso % (Auto) 0.3 % Immature Gran # (Auto) 0.07 H (0.00-0.02) K/uL Neut # (Auto) 6.29 (1.4-6.5) K/uL Lymph # (Auto) 2.19 (1.2-3.4) K/uL [place] # (Auto) 1.10 H (0.11-0.59) K/uL Eos # (Auto) 0.46 (0-0.5) K/uL Baso # (Auto) 0.03 (0-0.2) K/uL Sodium (136-145) mmol/L Potassium (3.5-5.1) mmol/L Chloride (98-107) mmol/L Carbon Dioxide (21-32) mmol/L Anion Gap (3-11) BUN (7-18) mg/dl Creatinine (0.6-1.4) mg/dl Est Cr Clr Drug Dosing ml/min Est GFR ( Amer) Est GFR (Non-Af Amer) BUN/Creatinine Ratio (10-20) Glucose (70-99) mg/dl POC Glucose 106 H (70-99) Estimat Average Glucose 134 mg/dl Hemoglobin A1c 6.3 H (4.5-5.6) % POC Lactic Acid Jony (0.90-1.70) mmol/L Calcium (8.5-10.1) mg/dl Total Bilirubin (0.2-1) mg/dl AST (15-37) U/L ALT (12-78) U/L Alkaline Phosphatase (45-117) U/L Troponin I (0-0.045) ng/ml Total Protein (6.4-8.2) gm/dl Albumin (3.4-5.0) gm/dl Globulin (2.5-4.0) gm/dl Albumin/Globulin Ratio (0.9-2) Procalcitonin (0-0.5) ng/ml Urine Color Urine Appearance (Clear) Urine pH (4.5-7.5) Ur Specific [place] (1.000-1.030) Urine Protein (Negative) Urine Glucose (UA) (Negative) Urine Ketones (Negative) Urine Blood (Negative) Urine Nitrite (Negative) Urine Bilirubin (Negative) Urine Urobilinogen (Negative) Ur Leukocyte Esterase (Negative) Influenza Type A Ag (Neg) Influenza Type A (PCR) (Neg) Influenza Type B Ag (Neg) Influenza Type B (PCR) (Neg) 03/05/18 Range/Units 11:22 WBC (4.8-10.8) K/uL RBC (4.7-6.1) M/uL Hgb (14.0-18.0) g/dL Hct (42-52) % MCV (80-100) fL MCH (25-34) pg MCHC (32-36) g/dL RDW Std Deviation (36.4-46.3) fL RDW Coeff of [place]oree (11.5-14.5) % Plt Count (130-400) K/uL MPV (7.4-10.4) fL Immature Gran % (Auto) % Neut % (Auto) % Lymph % (Auto) % [place] % (Auto) % Eos % (Auto) % Baso % (Auto) % Immature Gran # (Auto) (0.00-0.02) K/uL Neut # (Auto) (1.4-6.5) K/uL Lymph # (Auto) (1.2-3.4) K/uL [place] # (Auto) (0.11-0.59) K/uL Eos # (Auto) (0-0.5) K/uL Baso # (Auto) (0-0.2) K/uL Sodium (136-145) mmol/L Potassium (3.5-5.1) mmol/L Chloride (98-107) mmol/L Carbon Dioxide (21-32) mmol/L Anion Gap (3-11) BUN (7-18) mg/dl Creatinine (0.6-1.4) mg/dl Est Cr Clr Drug Dosing ml/min Est GFR ( Amer) Est GFR (Non-Af Amer) BUN/Creatinine Ratio (10-20) Glucose (70-99) mg/dl POC Glucose 133 H (70-99) Estimat Average Glucose mg/dl Hemoglobin A1c (4.5-5.6) % POC Lactic Acid Jony (0.90-1.70) mmol/L Calcium (8.5-10.1) mg/dl Total Bilirubin (0.2-1) mg/dl AST (15-37) U/L ALT (12-78) U/L Alkaline Phosphatase (45-117) U/L Troponin I (0-0.045) ng/ml Total Protein (6.4-8.2) gm/dl Albumin (3.4-5.0) gm/dl Globulin (2.5-4.0) gm/dl Albumin/Globulin Ratio (0.9-2) Procalcitonin (0-0.5) ng/ml Urine Color Urine Appearance (Clear) Urine pH (4.5-7.5) Ur Specific [place] (1.000-1.030) Urine Protein (Negative) Urine Glucose (UA) (Negative) Urine Ketones (Negative) Urine Blood (Negative) Urine Nitrite (Negative) Urine Bilirubin (Negative) Urine Urobilinogen (Negative) Ur Leukocyte Esterase (Negative) Influenza Type A Ag (Neg) Influenza Type A (PCR) (Neg) Influenza Type B Ag (Neg) Influenza Type B (PCR) (Neg) Imaging Data Radiologist's Impression: Radiology results as stated below per my review and the radiologist's interpretation: XR chest 1V portable CLINICAL HISTORY: Fever COMPARISON STUDY: 03/28/2017 FINDINGS: The cardiac and mediastinal contours remain stable. There is persistent interstitial thickening. There is no lobar consolidation. There are no pleural effusions. Postsurgical changes are present within the cervical spine.[ IMPRESSION: Persistent interstitial thickening, most pronounced at the left lung base. Given the stability, this is likely chronic. If there is clinical concern over the presence of an acute inflammatory process, then radiographic follow-up should be obtained. Electronically signed by: Alton Purcell M.D. 03/04/2018 9:[address] ANGIOGRAM OF THE CHEST CLINICAL HISTORY: Atypical chest pain COMPARISON STUDY: Chest x-ray dated 03/04/2018 TECHNIQUE: Following the IV administration of 94 mL of [id number]-320, CT angiogram of the thorax was performed from the thoracic inlet to the lung bases utilizing the pulmonary embolus protocol. Images are reviewed in the axial, sagittal, and coronal planes. IV contrast was administered without complication. MIP imaging was performed. A dose lowering technique was utilized adhering to the principles of ALARA. CT DOSE: 475.15 mGycm FINDINGS: There is a hiatal hernia present. There is mild distal esophageal thickening. There is a small amount of fluid within the distal esophagus. There are mildly enlarged mediastinal lymph nodes measuring up to 12 mm in short axis. There is no evidence of pathologic hilar adenopathy. There is a right axillary lymph node the upper limits of normal in size. There was no evidence of thoracic aortic dilatation. There were no pulmonary artery filling defects to indicate acute pulmonary embolism. No pleural effusions are visualized. There is respiratory motion artifact. There is dependent atelectatic change. There is pulmonary emphysema. There is subpleural interstitial thickening. IMPRESSION: 1. No evidence of acute pulmonary embolism 2. Mild unexplained mediastinal lymphadenopathy 3. Emphysema with subpleural interstitial thickening 4. Hiatal hernia with distal esophageal thickening Electronically signed by: Alton Purcell M.D. 03/04/2018 11:17 AM ECG Data Attestation: I personally reviewed and interpreted this ECG as follows: Indication: abdominal pain Rate (beats per minute): 109 Rhythm: sinus tachycardia Findings: + RBBB; no ST depression and no ST elevation Blood Pressure Blood Pressure Findings: Low blood pressure Blood Pressure Disposition: further management by hospitalist MDM Narrative This is a 62-year-old male who presents to the emergency department complaining of shortness of breath. Patient appears to have pneumonia on his chest x-ray. He is also hypotensive and was given breathing treatments as well as Solu- Medrol as well as breathing treatments. Repeat examination revealed improvement the patient's symptoms. I did discuss the case with the hospitalist service who agreed to admit the patient. Patient was in agreement with the treatment plan. Impression & Plan Hypotension, Pneumonia Discharge Plan Visit Data *Final* Discharge Date/Time: 03/04/18 18:31 Chief Complaint: Illness ED Provider: Rubin Simmons Discharge Problem: Hypotension, Pneumonia Patient Disposition: Admitted As Inpatient Discharge Instructions Interventions: ED Discharge Assessment Last Done: 03/04/18 18:31 The scribe's documentation has been prepared under my direction and personally reviewed by me in its entirety. I confirm that the note above accurately reflects all work, treatment, procedures, and medical decision making performed by me.
[2018-03-05] MEDS: methylPREDNISolone 40 MG in SYRINGE 0 ML IV SCH (21:39)
[2018-03-06] MEDS: methylPREDNISolone 40 MG in SYRINGE 0 ML IV SCH ×2 (05:38→13:35)
[2018-03-06] MEDS: ALBUT/IPRATROP 3MG/0.5MG NEB 3 ML VIAL NEB SCH ×3 (07:03→11:23)
[2018-03-06 07:04] LABS: Hematocrit (blood only) 36.8 % (42-52); Mean Corpuscular Hgb Conc 32.6 g/dL (32-36); Mean Corpuscular Volume 101.9 fL (80-100); Mean Platelet Volume 9.5 fL (7.4-10.4); Platelet Count 258 K/uL (130-400); RDW Coefficient of Variation 13.7 % (11.5-14.5); RDW Standard Deviation 51.3 fL (36.4-46.3); Red Blood Count 3.61 M/uL (4.7-6.1); White Blood Count 8.22 K/uL (4.8-10.8)
[2018-03-06] MEDS: SODIUM CHLORIDE 0.9% 1000ML 1,000 ML IV SCH (07:05)
[2018-03-06 07:30] LABS: BUN Creatinine Ratio 12.8 (10-20); Calcium 9.3 mg/dl (8.5-10.1); Creatinine Clr Calc Pharmacy 70.2 ml/min; Est GFR (African American) 85.8; Potassium 4.3 mmol/L (3.5-5.1)
[2018-03-06] MEDS: INSULIN ASPART 100 UNITS/ML 3 ML PEN SC SCH ×2 (08:37→12:23)
[2018-03-06] MEDS: APIXABAN 5 MG TABLET PO SCH (08:37)
[2018-03-06] MEDS: METOPROLOL SUCC 25MG EXT REL TAB PO SCH (08:38)
[2018-03-06] MEDS: PANTOprazole 40 MG TAB PO SCH (08:38)
[2018-03-06] MEDS: ASPIRIN 81 MG ECTAB PO SCH (08:38)
[2018-03-06] MEDS: SENNA 8.6 MG TAB PO SCH (08:38)
[2018-03-06] MEDS: CYCLOBENZAPRINE HCL 10 MG TAB PO SCH (08:38)
[2018-03-06] MEDS: HYDROCODONE/ACETAMINOPHEN 10/325 TAB PO PRN (08:42)
[2018-03-06] MEDS: TRAMADOL HCL 50 MG TABLET PO PRN (09:55)
[2018-03-06] MEDS: LEVOFLOXACIN/D5W 750 MG/150 ML BAG IV SCH (09:56)
--- NOTE | 2018-03-06 15:14 | Discharge Summary ---
Date of Service March 06, 2018 Admission HPI Per Admitting Provider Patient presents with weakness shortness of breath and low blood pressure. He feels similar to when he was here with pneumonia. The patient does not know much about his own health. 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 In the ER patient did have low blood pressure elevated white blood cell count chronic changes on his chest x-ray which could be pneumonitis his clinical exam is consistent with possible sepsis and COPD he otherwise denies any other medical problems outside of his normal chronic musculoskeletal back pain Admission Exam Per Admitting Provider The patient appeared well nourished and normally developed. He is in mild distress Vital signs as documented. Blood pressure is low he did however take his medications including diuretic and metoprolol this a.m. Head exam is unremarkable. No scleral icterus or corneal arcus noted posterior pharynx is extremely dry mucous membrane erythema without exudate Neck is without jugular venous distension, thyromegaly, or lymphademopathy there is a scar in the sternal notch which he says is from cervical spine surgery Lungs are diminished breath sounds throughout coarse expiratory wheezing in the left lung decreased air movement in the right lung Cardiac exam reveals Rhythm is regular. First and second heart sounds normal. No murmurs, rubs or gallops. Abdominal exam reveals normal bowel sounds, no masses, no organomegaly mildly protuberant abdomen which he says is normal for him Extremities are nonedematous and both pedal pulses are normal. No swelling cords or Homans sign Neurologic exam is A&Ox3, no focal deficits, strength is equal bilateral but he fatigues easily Skin is warm Dry without bruises or lesions Principal Diagnosis Pneumonia Discharge Exam General: In NAD CV: RRR, no m/r/g Pulm: bibasilar wheezing appreciated, equal breath sounds bilaterally Abdomen: +BS, NTTP in all quadrants, non-distended LE: no LE pitting edema, no calf tenderness to palpation Discharge Data Allergies Allergy/AdvReac Type Severity Reaction Status Date / Time propoxyphene Allergy Intermediate unsure Verified 03/04/18 09:34 Consultations 03/04/18 10:54 ED Decision to Admit Stat 03/04/18 20:03 Consult Case Management - Discharge Planning Routine Ordered Studies 03/04/18 10:13 CT angio chest PE protocol Stat Hospital Course (1) Sepsis: (1) Sepsis: 2/2 PNA - Initially presented with hypotension, elevated WBC, hypoxia and concerning lung exam - improved throughout hospitalization - CXR: Persistent interstitial thickening, most pronounced at the left lung base. - CTA Chest: 1. No evidence of acute pulmonary embolism 2. Mild unexplained mediastinal lymphadenopathy 3. Emphysema with subpleural interstitial thickening 4. Hiatal hernia with distal esophageal thickening - Received IV Cefepime and IV Levaquin --> narrowed to levaquin given clinical improvement --> discharged with zithromax - Received IVF initially for hypotension - Blood Cultures NGTD (3) COPD exacerbation: pt unaware of COPD hx - Emphysema on CTA Chest - Received IV Solumedrol 40mg IV q8h --> transitioned to prednisone taper course on discharge - Received Duonebs -->discharged with albuterol inh prn - Started on spiriva - recommend PCP follow up with PFT to further evaluate extent of COPD and treatment (4) Chronic lower back pain: - Continued home flexeril and PRN IV Dilaudid 0.5mg q3h (5) Hypertension: - Continued home metoprolol; lasix was held due to initial hypotension and restarted on discharge (6) Diabetes: - SSI home metformin was held but restarted on discharge (7) Hiatal hernia: - Continued home Omeprazole - Patient unaware of diagnosis seen on CTA Chest. Will have patient follow up with GI as outpatient for endoscopy evaluation due to distal esophageal thickening and hernia with GERD symptoms. Patient states he has previously had gastric ulcers with endoscopic evaluation at least 15 years ago. (8) DVT prophylaxis: - Continued home Eliquis (indication was previous DVT/PE in April 2017) (2) Pneumonia: (3) COPD exacerbation: (4) Chronic lower back pain: (5) Diabetes: (6) Hiatal hernia: (7) DVT prophylaxis: Total Time Total Time Spent Total Time Spent (In Minutes): <30 Discharge Plan Discharge Items Patient Disposition: Home - Self-Care Reason For Visit: SEPSIS Discharge Diagnosis: Pneumonia Condition: Good Discharge Goals: Decrease discomfort, Diagnostic testing and Therapeutic intervention Activity: Resume your previous activity Non-emergency contact: Primary Care Provider Call non-emergency contact if: you have any medication questions, your symptoms worsen and your temperature is above 100.5 Follow-up/Referrals: Gideon Lopez DO [Primary Care Provider] - 03/11/18 2:30 pm (Please, follow up with Dr. Lopez on Sunday at 2:30 pm. *If you need to change this appointment, call the office at [phone].) Diet: Carb Consistent or DM2 Addtl Provider Instructions: Please take azithromycin 500mg (2 pills tomorrow) then 250mg daily for the next 4 days Take prednisone 40mg (4 pills of 10mg each) for the next 2 days starting tomorrow (03/07-03/08) then 30mg (3 pills) for the following 2 days (03/09-03/10) then 20mg (2 pills) for the next 2 days (03/11-03/12) then 10mg (1 pill) for the next 2 days (03/13-03/14) Please use albuterol inhaler prescribed as needed 2 puffs every 4-6 hours Usse spiriva inhaler 2 puffs daily regardless of whether or not you feel short of breath Please continue taking your remaining home medications as prescribed prior to your hospitalization Follow up with your primary care doctor in 1-2 days and discuss having a pulmonary function test for concern of having copd Prescriptions: New prednisone 10 mg tablet 10 mg PO DAILY Qty: 20 RF: 0 azithromycin [Zithromax Z-Jose De Jesus] 250 mg tablet See Label Instructions .ROUTE .COMPLEX Qty: 6 RF: 0 tiotropium bromide [Spiriva Respimat] 2.5 mcg/actuation mist 2 inha INH DAILY Qty: 4 RF: 0 albuterol sulfate 90 mcg/actuation HFA aerosol inhaler 2 inha INH QID PRN (Reason: shortness of breath or wheezing) Qty: 8 RF: 0 Continue cyclobenzaprine 10 mg tablet 10 mg PO BID RF: 0 furosemide 40 mg tablet 40 mg PO QAM RF: 0 atorvastatin 40 mg tablet 40 mg PO QAM RF: 0 metformin 500 mg tablet 500 mg PO BID RF: 0 hydrocodone-acetaminophen 10-325 mg tablet 1 tab PO Q6H PRN (Reason: Pain) RF: 0 omeprazole 40 mg capsule,delayed release(DR/EC) 40 mg PO QAM RF: 0 aspirin 81 mg tablet,delayed release (DR/EC) 81 mg PO QAM RF: 0 tamsulosin 0.4 mg capsule 0.4 mg PO BID RF: 0 metoprolol succinate 25 mg tablet extended release 24 hr 25 mg PO BID RF: 0 apixaban 5 mg tablet 5 mg PO BID RF: 0 Visit Report Forms: My [facility] Stand-Alone Forms: My [facility] Discharge Orders: Discharge Order (Routine); Ordered 03/06/18 Ordered By: Colton Giraldo Admission Data Admit Date/Time: 03/04/18 11:16 Attending Provider: Sebas Preston Admit Provider: Juan Jose Castro Primary Care Provider: Gideon Lopez Other Providers: Juan Jose Castro Service: Telemetry Other Interventions: Discharge Summary Assessment (RN) Last Done: 03/06/18 14:06 Pending Studies at Discharge: No DC Date/Time DO NOT enter until pt leaves facility: 03/06/18 15:30 Supervising Physician Co-Signing Physician Notes I personally examined the patient and verified all cody points of history and exam, discussed case, and agree with decision making with Dr Giraldo. Feeling better, breathing better wants to go home Vitals noted, in general he is in no distress, his lungs are somewhat quiet overall clear may be a faint scattered wheeze better than before no accessory muscle use good effort Presumed COPD exacerbation�stable for home. Finish out a course of Zithromax tapering steroids, treat empirically as moderate COPD with Spiriva daily and as needed albuterol, PFTs as an outpatient once it can be arranged. Resident Activity Tracking Resident Involvement: Resident Care Provided Care Provided: Adult Hospital Medicine
== END 2018-03-06 15:30 | disposition home or self-care (01) ==
LOC: ED 09:10 → 2N 11:16 → SUATTDRO 11:16 → 2N 18:31

== ENCOUNTER 2018-12-09 14:39 | Inpatient (IN) ==
[2018-12-09] MEDS ORDERED: SODIUM CHLORIDE 0.9% 500 ML IV ONE ×2 (14:55→17:33)
[2018-12-09 15:09] LABS: Hematocrit (blood only) 45.4 % (42-52); Hemoglobin 15.4 g/dL (14.0-18.0); Mean Corpuscular Hgb Conc 33.9 g/dL (32-36); Mean Corpuscular Volume 103.2 fL (80-100); Mean Platelet Volume 10.3 fL (7.4-10.4); Nucleated RBC # (auto) 0.17 K/uL (0-0); Nucleated RBC % (auto) 1.9 %; Platelet Count 152 K/uL (130-400); RDW Coefficient of Variation 15.7 % (11.5-14.5); RDW Standard Deviation 59.6 fL (36.4-46.3); White Blood Count 9.21 K/uL (4.8-10.8)
--- NOTE | 2018-12-09 15:27 | XRay Report ---
XR chest 1V portable CLINICAL HISTORY: Atypical chest pain COMPARISON STUDY: 09/16/2018 FINDINGS: The cardiac and mediastinal contours remain stable. There is mild chronic asymmetric inters titial thickening. There is no focal pulmonary consolidation. There is no overt failure. There are no pleural effusions. Postsurgical changes are present within the cervical spine.[ IMPRESSION: Stable mild asymmetric interstitial thickening. No acute findings. Electronically signed by: Alton Purcell M.D. 12/09/2018 3:26 PM
--- NOTE | 2018-12-09 15:38 | Emergency Department Note ---
Entered by Marian Carrillo acting as a scribe for History of Present Illness General Chief complaint: Hyperglycemia Time Seen by Provider: 12/09/18 14:39 Source: patient History of Present Illness Provider complaint: Hyperglycemia Onset (ago): hour(s) 2 Radiation: non-radiation Relieved By: + none Exacerbated By: + none Associated symptoms: + denies other symptoms (Diarrhea), + cough and + syncope; no fever/chills and no nausea/vomiting The patient is a 63 year old male who presents to the Emergency Room with complaints of hyperglycemia that began about 2 hours ago. According to EMS the patient experienced a syncopal episode where his eyes rolled back in his eyes. The patient states the symptoms do not radiate anywhere else on the body and are not relieved nor exacerbated by anything specific. The patient reports experiencing a cough but denies any fever/chills. The patient denies experiencing any nausea/vomiting/diarrhea. The patient mentioned that he is on 20mg of Prednisone 3x daily for a brain aneurysm and the patient denies taking Insulin. Home Medications Home Medications Medication Instructions Recorded Confirmed Type apixaban 5 mg PO BID 03/04/18 12/09/18 History aspirin 81 mg PO QAM 03/04/18 12/09/18 History atorvastatin 40 mg PO QAM 03/04/18 12/09/18 History furosemide 40 mg PO QAM 03/04/18 12/09/18 History hydrocodone-acetaminophen 1 tab PO Q6H PRN 03/04/18 12/09/18 History metoprolol succinate 25 mg PO QAM 03/04/18 12/09/18 History omeprazole 40 mg PO QAM 03/04/18 12/09/18 History tamsulosin 0.8 mg PO HS 03/04/18 12/09/18 History sennosides [Senokot] 8.6 mg PO HS #30 tab 09/16/18 12/09/18 Rx metformin 500 mg tablet 500 mg PO TID tab 10/07/18 12/09/18 History docusate sodium [Colace] 200 mg PO HS 10/10/18 12/09/18 History prednisone 20 mg tablet 20 mg PO TID 30 Days #90 tab 10/29/18 12/09/18 Rx topiramate 25 mg tablet 25 mg PO BID 90 Days #180 tab 12/02/18 12/09/18 Rx albuterol sulfate 2 inha INH QID PRN 12/09/18 12/09/18 History cyclobenzaprine 5 mg PO TID PRN 12/09/18 12/09/18 History Allergies Allergy/AdvReac Type Severity Reaction Status Date / Time propoxyphene Allergy Intermediate unsure Verified 12/09/18 17:21 acetaminophen Allergy . Verified 12/09/18 17:21 [From [facility]] Past Med/Surg History Medical History Back strain Chronic lower back pain Chronic obstructive pulmonary disease last exacerbation 3 wks ago during humidity. [facility] Hypertension Hypoxia Neck pain PVD (peripheral vascular disease) Ruptured lumbar disc TIA (transient ischemic attack) Thrombophilia Surgical History History of back surgery History of eye surgery History of neck surgery Hx of tonsillectomy Family History Unknown Diabetes Mother Diabetes Heart disease Father Hypertension Social History Preferred Language: [place] Verdean Communication Ability: Effective Assistant Corporation Counsel Required: No Beliefs That Will Affect Care: None marital status: Current Living Situation: Family Current Living Situation Comment: WITH SON current occupational status: unemployed and retired Other Information That Helps Us Care for You: No Feels Safe at Home: Yes Safety Concerns: Feels Safe At This Time Smoking Status: Former smoker Tobacco Type: cigarettes ; Cigarettes Per Day: 1/2 PPD ; Do You Dip or Chew Tobacco: Yes ; Smoking End Date: 11/09/18 ; Second Hand Exposure: Yes ; Tobacco Cessation Education Requested by Patient: No (refused) Hx Alcohol Use: Yes Alcohol type: beer Hx Substance Use: Yes substance use type: marijuana Last Used Substance: Days (ago) Last Used Substance Other:: about a week Review of Systems See HPI for pertinent positives & negatives. and A total of 10 systems reviewed and were otherwise negative Physical Exam Vital Signs Vital Signs - 24 hr 12/09/18 14:52 12/09/18 14:54 12/09/18 15:15 Temperature 36.6 C Temperature Source Oral Sepsis Recent Fever Within 48 Hours No Sepsis New/Unexplained Change in Mental Status No Sepsis Action Taken by Nursing No Action Required Pulse Rate 114 H 136 H 115 H Pulse Rate from SpO2 Sensor 114 H 115 H Respiratory Rate 18 18 18 Blood Pressure 110/73 110/73 Blood Pressure Mean 85 85 Pulse Oximetry 92 93 92 Oxygen Delivery Method Room Air 12/09/18 15:30 12/09/18 15:38 12/09/18 15:39 Temperature Temperature Source Sepsis Recent Fever Within 48 Hours Sepsis New/Unexplained Change in Mental Status Sepsis Action Taken by Nursing Pulse Rate 114 H 115 H 112 H Pulse Rate from SpO2 Sensor 116 H 116 H 112 H Respiratory Rate 20 19 17 Blood Pressure 141/88 H Blood Pressure Mean 105 Pulse Oximetry 92 95 94 Oxygen Delivery Method Room Air 12/09/18 16:00 12/09/18 16:01 12/09/18 17:44 Temperature Temperature Source Sepsis Recent Fever Within 48 Hours Sepsis New/Unexplained Change in Mental Status Sepsis Action Taken by Nursing Pulse Rate 103 H 105 H 103 H Pulse Rate from SpO2 Sensor 103 H 106 H Respiratory Rate 17 15 27 H Blood Pressure 116/86 Blood Pressure Mean 96 Pulse Oximetry 94 94 Oxygen Delivery Method 12/09/18 17:45 12/09/18 17:46 12/09/18 18:00 Temperature Temperature Source Sepsis Recent Fever Within 48 Hours Sepsis New/Unexplained Change in Mental Status Sepsis Action Taken by Nursing Pulse Rate 99 H 99 H 84 Pulse Rate from SpO2 Sensor 101 H 98 H 88 Respiratory Rate 18 17 17 Blood Pressure 169/93 H 169/100 H Blood Pressure Mean 118 123 Pulse Oximetry 95 95 94 Oxygen Delivery Method 12/09/18 18:01 12/09/18 18:30 12/09/18 19:13 Temperature Temperature Source Sepsis Recent Fever Within 48 Hours Sepsis New/Unexplained Change in Mental Status Sepsis Action Taken by Nursing Pulse Rate 90 88 Pulse Rate from SpO2 Sensor 91 H 90 86 Respiratory Rate 16 16 Blood Pressure 197/147 H 178/111 H Blood Pressure Mean 163 133 Pulse Oximetry 95 95 94 Oxygen Delivery Method GENERAL: Awake, alert, fatigued-appearing, in no distress HENT: Normocephalic, atraumatic. Oropharynx with dry mucous membranes and otherwise unremarkable. EYES: Normal conjunctiva. Sclera non-icteric. EOMI. No nystamgus. PEARRL. NECK: Supple. No nuchal rigidity. FROM. No JVD. RESPIRATORY: CTAB. CARDIAC: Tachycardic rate, normal rhythm. Extremities warm and well perfused. Pulses equal. ABDOMEN: Soft, non-distended. No tenderness to palpation. No rebound or guarding. No masses. RECTAL: Deferred. MUSCULOSKELETAL: Chest examination reveals no tenderness. The back is symmetrical on inspection without obvious abnormality. There is no CVA tenderness to palpation. No joint edema. LOWER EXTREMITIES: Calves are equal size bilaterally and non-tender. No edema. No discoloration. NEURO: Normal sensorium. No sensory or motor deficits noted. 4+/5 strength of left lower extremity strength otherwise 5/5 strength and SILT. Cerebellar function intact, including finger to nose, alternating palms. SKIN: No rash or jaundice noted. Course 1445: Past medical records reviewed. The patient was evaluated in room C10. A complete history and physical exam was performed. 1644: I reevaluated and discussed test results with the patient. The patient is agreeable to stay in the hospital. 1732: I spoke with Dr. Bettencourt- Hospitalist about the patient's case and he will accept the patient for further evaluation. Administered Medications Hydrocodone Bitart/Acetaminophen (Amory 10/325) 1 tab PO Q6H PRN PRN Reason: Pain Stop: 12/23/18 20:38 Last Admin: 12/10/18 00:16 Dose: 1 tab Documented by: [id number] Apixaban (Eliquis) 5 mg PO BID JUSTO Stop: 01/08/19 20:59 Last Admin: 12/09/18 21:49 Dose: 5 mg Documented by: [id number] Docusate Sodium (Colace) 200 mg PO HS JUSTO Stop: 01/08/19 20:59 Last Admin: 12/09/18 21:40 Dose: Not Given Documented by: [id number] Potassium Chloride/Dextrose/Sod Cl (D5nss + 20meq Kcl) 20 meq in 1,000 mls @ 125 mls/hr IV .Q8H JUSTO Stop: 01/08/19 22:15 Last Admin: 12/09/18 22:54 Dose: 125 mls/hr Documented by: [id number] Ioversol (Optiray 320 125ml) 119 ml IV ONCE PRN PRN Reason: Interaction Checking Stop: 12/13/18 16:25 Last Admin: 12/09/18 16:27 Dose: 119 ml Documented by: [id number] Prednisone (Prednisone) 20 mg PO BID [facility] Stop: 01/08/19 20:59 Last Admin: 12/09/18 21:41 Dose: 20 mg Documented by: [id number] Sennosides (Senokot) 8.6 mg PO HS [facility] Stop: 01/08/19 20:59 Last Admin: 12/09/18 21:41 Dose: Not Given Documented by: [id number] Tamsulosin HCl (Flomax) 0.8 mg PO [facility] Stop: 01/08/19 20:59 Last Admin: 12/09/18 21:41 Dose: 0.8 mg Documented by: [id number] Topiramate (Topamax) 25 mg PO BID [facility] Stop: 01/08/19 20:59 Last Admin: 12/09/18 21:41 Dose: 25 mg Documented by: [id number] Discontinued Medications Sodium Chloride (Nss) 500 mls @ 999 mls/hr IV .Q31M ONE Stop: 12/09/18 15:25 Last Infusion: 12/09/18 16:10 Dose: 0 mls/hr Documented by: [id number] Admin: 12/09/18 15:38 Dose: 999 mls/hr Documented by: [id number] Sodium Chloride (Nss) 500 mls @ 999 mls/hr IV .Q31M ONE Stop: 12/09/18 18:03 Last Infusion: 12/09/18 18:49 Dose: 0 mls/hr Documented by: [id number] Admin: 12/09/18 17:43 Dose: 999 mls/hr Documented by: [id number] Sodium Chloride (Nss 1000ml) 1,000 mls @ 999 mls/hr IV .Q1H1M ONE Stop: 12/09/18 20:18 Last Infusion: 12/09/18 22:54 Dose: 0 mls/hr Documented by: [id number] Admin: 12/09/18 21:34 Dose: 999 mls/hr Documented by: [id number] Insulin Human Regular 250 (units/ Sodium Chloride) 250 mls @ 2 mls/hr IV .Q24H JUSTO; Protocol Stop: 01/08/19 21:29 Last Admin: 12/09/18 21:49 Dose: 2 units/hr, 2 mls/hr Documented by: [id number] Cosigned by: [id number] Sodium Chloride (Nss 1000ml) 1,000 mls @ 999 mls/hr IV .Q1H1M JUSTO Stop: 12/09/18 22:15 Last Admin: 12/09/18 21:53 Dose: Not Given Documented by: [id number] Insulin Human Regular 5 units/ (Syringe) 5 mls @ 30 mls/min IV NOW ONE Stop: 12/09/18 21:31 Last Admin: 12/09/18 21:48 Dose: 30 mls/min Documented by: [id number] Cosigned by: [id number] Insulin Aspart (Novolog Flexpen) 0 units SC ONE ONE Stop: 12/09/18 22:31 Last Admin: 12/09/18 23:08 Dose: Not Given Documented by: [id number] Cosigned by: [id number] Medical Decision Making Differential Diagnosis Differential diagnosis: Etiologies such as vasovagal event, infection, anemia, hypoglycemia, hypovolemia, electrolyte abnormalities, dysrhythmias, cardiac ischemia, cardiac tamponade, valvular heart disease, structural heart disease, seizure, vascular stenosis/dissection, pulmonary embolism, intracerebral event, toxicological process, neurologic event, as well as others were entertained. Medical Records Attestation: I reviewed the patient's medical records. Home Medications Current Medication List: was personally reviewed by me Laboratory Data Attestation: I reviewed the patient's lab results. Result diagrams: 12/09/18 15:02 12/09/18 16:52 Lab Results 12/09/18 12/09/18 12/09/18 Range/Units 15:02 15:02 15:02 WBC 9.21 (4.8-10.8) K/uL RBC 4.40 L (4.7-6.1) M/uL Hgb 15.4 (14.0-18.0) g/dL Hct 45.4 (42-52) % MCV 103.2 H (80-100) fL MCH 35.0 H (25-34) pg MCHC 33.9 (32-36) g/dL RDW Std Deviation 59.6 H (36.4-46.3) fL RDW Coeff of Loree 15.7 H (11.5-14.5) % Plt Count 152 (130-400) K/uL MPV 10.3 (7.4-10.4) fL Absolute Nucleated RBC 0.17 H (0-0) K/uL Nucleated RBC % (auto) 1.9 % Neutrophils % (Manual) 82.3 % Lymphocytes % (Manual) 6.2 % Monocytes % (Manual) 5.3 % Myelocytes % (Man) 6.2 % Neutrophils # (Manual) 7.58 H (1.4-6.5) K/uL Total Absolute Neuts 7.58 H (1.4-6.5) K/uL Lymphocytes # (Manual) 0.57 L (1.2-3.4) K/uL Total Abs Lymphocytes 0.57 L (1.2-3.4) K/uL Monocytes # (Manual) 0.49 (0.11-0.59) K/uL Myelocytes # (Manual) 0.57 H (0-0) K/uL Sodium 127 L (136-145) mmol/L Potassium (3.5-5.1) mmol/L Chloride 91 L (98-107) mmol/L Carbon Dioxide 25 (21-32) mmol/L Anion Gap 11.0 (3-11) BUN 39 H (7-18) mg/dl Creatinine 1.72 H (0.6-1.4) mg/dl Est Cr Clr Drug Dosing 46.8 ml/min Est GFR ( Amer) 48.0 Est GFR (Non-Af Amer) 41.4 BUN/Creatinine Ratio 22.5 H (10-20) Glucose 610 H* (70-99) mg/dl POC Glucose (70-99) Osmolality 320 H (280-300) mOsm/kg Calcium 9.2 (8.5-10.1) mg/dl Phosphorus 3.4 (2.5-4.9) mg/dl Magnesium (1.8-2.4) mg/dl Total Bilirubin 0.6 (0.2-1) mg/dl Direct Bilirubin (0-0.2) mg/dl AST (15-37) U/L ALT 63 (12-78) U/L Alkaline Phosphatase 71 (45-117) U/L Troponin I 0.018 (0-0.045) ng/ml Total Protein 7.4 (6.4-8.2) gm/dl Albumin 3.4 (3.4-5.0) gm/dl Globulin 4.0 (2.5-4.0) gm/dl Albumin/Globulin Ratio 0.9 (0.9-2) Lipase 144 (73-393) U/L Beta-Hydroxybutyric Acd TNP TSH 0.653 (0.300-4.500) uIu/ml Urine Color Urine Appearance (Clear) Urine pH (4.5-7.5) Ur Specific [place] (1.000-1.030) Urine Protein (Negative) Urine Glucose (UA) (Negative) Urine Ketones (Negative) Urine Blood (Negative) Urine Nitrite (Negative) Urine Bilirubin (Negative) Urine Urobilinogen (Negative) Ur Leukocyte Esterase (Negative) 12/09/18 12/09/18 12/09/18 Range/Units 15:02 15:41 16:52 WBC (4.8-10.8) K/uL RBC (4.7-6.1) M/uL Hgb (14.0-18.0) g/dL Hct (42-52) % MCV (80-100) fL MCH (25-34) pg MCHC (32-36) g/dL RDW Std Deviation (36.4-46.3) fL RDW Coeff of Loree (11.5-14.5) % Plt Count (130-400) K/uL MPV (7.4-10.4) fL Absolute Nucleated RBC (0-0) K/uL Nucleated RBC % (auto) % Neutrophils % (Manual) % Lymphocytes % (Manual) % Monocytes % (Manual) % Myelocytes % (Man) % Neutrophils # (Manual) (1.4-6.5) K/uL Total Absolute Neuts (1.4-6.5) K/uL Lymphocytes # (Manual) (1.2-3.4) K/uL Total Abs Lymphocytes (1.2-3.4) K/uL Monocytes # (Manual) (0.11-0.59) K/uL Myelocytes # (Manual) (0-0) K/uL Sodium (136-145) mmol/L Potassium 4.3 (3.5-5.1) mmol/L Chloride (98-107) mmol/L Carbon Dioxide (21-32) mmol/L Anion Gap (3-11) BUN (7-18) mg/dl Creatinine (0.6-1.4) mg/dl Est Cr Clr Drug Dosing ml/min Est GFR ( Amer) Est GFR (Non-Af Amer) BUN/Creatinine Ratio (10-20) Glucose (70-99) mg/dl POC Glucose (70-99) Osmolality (280-300) mOsm/kg Calcium (8.5-10.1) mg/dl Phosphorus Cancelled (2.5-4.9) mg/dl Magnesium 2.0 (1.8-2.4) mg/dl Total Bilirubin (0.2-1) mg/dl Direct Bilirubin 0.1 (0-0.2) mg/dl AST 12 L (15-37) U/L ALT (12-78) U/L Alkaline Phosphatase (45-117) U/L Troponin I (0-0.045) ng/ml Total Protein (6.4-8.2) gm/dl Albumin (3.4-5.0) gm/dl Globulin (2.5-4.0) gm/dl Albumin/Globulin Ratio (0.9-2) Lipase (73-393) U/L Beta-Hydroxybutyric Acd TSH Cancelled (0.300-4.500) uIu/ml Urine Color Yellow Urine Appearance Clear (Clear) Urine pH 5.0 (4.5-7.5) Ur Specific [place] 1.030 (1.000-1.030) Urine Protein Negative (Negative) Urine Glucose (UA) 3+ H (Negative) Urine Ketones Negative (Negative) Urine Blood Negative (Negative) Urine Nitrite Negative (Negative) Urine Bilirubin Negative (Negative) Urine Urobilinogen Negative (Negative) Ur Leukocyte Esterase Negative (Negative) 12/09/18 12/09/18 Range/Units 17:18 19:12 WBC (4.8-10.8) K/uL RBC (4.7-6.1) M/uL Hgb (14.0-18.0) g/dL Hct (42-52) % MCV (80-100) fL MCH (25-34) pg MCHC (32-36) g/dL RDW Std Deviation (36.4-46.3) fL RDW Coeff of Loree (11.5-14.5) % Plt Count (130-400) K/uL MPV (7.4-10.4) fL Absolute Nucleated RBC (0-0) K/uL Nucleated RBC % (auto) % Neutrophils % (Manual) % Lymphocytes % (Manual) % Monocytes % (Manual) % Myelocytes % (Man) % Neutrophils # (Manual) (1.4-6.5) K/uL Total Absolute Neuts (1.4-6.5) K/uL Lymphocytes # (Manual) (1.2-3.4) K/uL Total Abs Lymphocytes (1.2-3.4) K/uL Monocytes # (Manual) (0.11-0.59) K/uL Myelocytes # (Manual) (0-0) K/uL Sodium (136-145) mmol/L Potassium (3.5-5.1) mmol/L Chloride (98-107) mmol/L Carbon Dioxide (21-32) mmol/L Anion Gap (3-11) BUN (7-18) mg/dl Creatinine (0.6-1.4) mg/dl Est Cr Clr Drug Dosing ml/min Est GFR ( Amer) Est GFR (Non-Af Amer) BUN/Creatinine Ratio (10-20) Glucose (70-99) mg/dl POC Glucose 413 H* 377 H* (70-99) Osmolality (280-300) mOsm/kg Calcium (8.5-10.1) mg/dl Phosphorus (2.5-4.9) mg/dl Magnesium (1.8-2.4) mg/dl Total Bilirubin (0.2-1) mg/dl Direct Bilirubin (0-0.2) mg/dl AST (15-37) U/L ALT (12-78) U/L Alkaline Phosphatase (45-117) U/L Troponin I (0-0.045) ng/ml Total Protein (6.4-8.2) gm/dl Albumin (3.4-5.0) gm/dl Globulin (2.5-4.0) gm/dl Albumin/Globulin Ratio (0.9-2) Lipase (73-393) U/L Beta-Hydroxybutyric Acd TSH (0.300-4.500) uIu/ml Urine Color Urine Appearance (Clear) Urine pH (4.5-7.5) Ur Specific [place] (1.000-1.030) Urine Protein (Negative) Urine Glucose (UA) (Negative) Urine Ketones (Negative) Urine Blood (Negative) Urine Nitrite (Negative) Urine Bilirubin (Negative) Urine Urobilinogen (Negative) Ur Leukocyte Esterase (Negative) Imaging Data Radiologist's Impression: Radiology results as stated below per my review and the radiologist's interpretation: XR chest 1V portable CLINICAL HISTORY: Atypical chest pain COMPARISON STUDY: 09/16/2018 FINDINGS: The cardiac and mediastinal contours remain stable. There is mild chronic asymmetric interstitial thickening. There is no focal pulmonary consolidation. There is no overt failure. There are no pleural effusions. Postsurgical changes are present within the cervical spine.[ IMPRESSION: Stable mild asymmetric interstitial thickening. No acute findings. Electronically signed by: Alton Purcell M.D. 12/09/2018 3:[address] angio head w con CLINICAL HISTORY: 63 years-old Male presenting with syncope, h/o temporal arteritis. TECHNIQUE: Multidetector CT angiography of the head was performed after the administration of intravenous contrast. 3-D volumetric and/or maximum intensity projection (MIP) images were subsequently reconstructed for review. IV contrast: 119 mL of Optiray 320. One or more dose lowering techniques were used cons istent with the principles of ALARA (as low as reasonably achievable), including automatic exposure control, mA or kV adjustment to individual patient size, and/or use of iterative reconstruction. COMPARISON: 09/16/2018. CT DOSE (mGy.cm): The estimated cumulative dose is 1146.53. FINDINGS: Cruise Staff Member topogram: Anterior cervical fusion hardware. Anterior circulation: Atherosclerosis of the cavernous segments of the internal carotid arteries. Intracranial portions of the internal carotid arteries patent to the level of the termini. 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 Anterior cerebral arteries patent. Middle cerebral arteries patent. Redemonstration of the saccular outpouching at the left middle cerebral artery bifurcation measuring 2 x 2 mm. This is unchanged from prior. Anterior communicating artery patent. Posterior circulation: Codominant vertebral arteries. Intradural portions of the vertebral arteries patent. Posterior inferior cerebellar arteries patent. Basilar artery patent. Anterior inferior cerebellar arteries poorly visualized. Superior cerebellar arteries patent. Posterior cerebral arteries patent. Right posterior communicating artery (P-comm) patent. Left P-comm hypoplastic or apl astic. Dural venous sinuses: Patent. Other: Poor opacification of the anterior branch of the left temporal artery. Right temporal artery patent. Calvarium intact. IMPRESSION: 1. Poor opacification of the anterior branch of the left temporal artery could imply occlusion or stenoses. This appearance is new from prior. 2. 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 3. No evidence of focal vessel occlusion or significant stenosis of the intracranial arteries. Electronically signed by: Bijan Cisneros M.D. 12/09/2018 4:[address] angio neck with con CLINICAL HISTORY: Syncope. History of temporal arteritis COMPARISON STUDY: 09/16/2018 TECHNIQUE: CT angiography was performed from the aortic arch to the skull base. MIP imaging was performed. The patient was scanned in a dynamic helical fashion during intravenous administration of 119 cc of Optiray 320. A dose lowering technique was utilized adhering to the principles of ALARA. CT DOSE: Technique: CT angiogram of the carotid and vertebral arteries was obtained using intravenous contrast and 3-D reconstruction. NASCET criteria was utilized. Findings: The right carotid revealed no evidence of aneurysm and no evidence of dissection. There is no evidence of hemodynamic significant stenosis. The left carotid revealed no evidence of hemodynamic significant stenosis. There is no evidence of aneurysm. There is no evidence of dissection. Atheromatous changes are present in both carotid bulbs There is no evidence of hemodynamically significant vertebral stenosis. There is no evidence of vertebral dissection. IMPRESSION: 1. Atheromatous changes of both carotid bulbs. No evidence of hemodynamically significant carotid stenosis 2. No evidence of vertebral artery stenosis 3. No evidence of dissection Electronically signed by: Alton Purcell M.D. 12/09/2018 4:[address] head/brain wo con CLINICAL HISTORY: Syncope. History of temporal arteritis. COMPARISON STUDY: 09/16/2018 TECHNIQUE: Axial CT of the brain is performed from the vertex to the skull base. IV contrast was not administered for this examination. A dose lowering technique was utilized adhering to the principles of ALARA. CT DOSE: 1146.53 mGy.cm FINDINGS: No intra or extra-axial mass lesions are visualized. There is no CT evidence of acute cortical infarction. There is no evidence of midline shift. There is no acute hemorrhage. No calvarial fractures are visualized. There are patchy minor matter hypodensities likely on a small vessel basis. There is no evidence of pathologic ventricular dilatation. There is no evidence of acute sinusitis IMPRESSION: No acute intracranial findings Electronically signed by: Alotn Purcell M.D. 12/09/2018 4:44 PM ECG Data Attestation: I personally reviewed and interpreted this ECG as follows: Indication: other (Hyperglycemia) Rate (beats per minute): 125 Rhythm: sinus tachycardia Findings: + RBBB and + left axis deviation; no PAC, no PVC and no acute ischemic change Blood Pressure Blood Pressure Findings: Normal blood pressure Blood Pressure Disposition: further management by hospitalist OMAR Dsouza The patient is a pleasant 63-year-old gentleman with a past medical history of NIDDM 2, temporal arteritis on prednisone for the past 3 months at 60 mg daily. Who presents emergency department with syncopal episode after he attempted to walk to the bathroom per hpi. On arrival the patient is fatigued appearing but no acute distress, afebrile, tachycardic in 120s and otherwise stable vital signs. The patient appears chronically dry. Patient has no new focal neuro deficits but does have persistence of left lower extremity weakness for which he has been undergoing physical therapy. EKG demonstrates right bundle branch block with no overt acute ischemia. CXR negative for acute process. WBC, H/H, platelets wnl. Glucose 610 however chemistry without acidosis. Serum Osm only lightly elevated at 320 therefore not c/w HHS. Cr 1.7 increased from september c/w patient's clinically dry appearance. Sodium 127 corrects to ~135 given hyperglycemia. LFTs and electrolytes unremarkable. Electrolytes and LFTs oth erwise unremarkable Troponin negative. CT head and CTA head and neck performed and demonstrates "poor opacification of the anterior branch of the left temporal artery could imply occlusion or stenoses" and is new from prior, in the setting of his diagnosis of temporal arteritis already on prednisone. 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 Results reviewed with the patient and he is agreeable with plan for admission for further control of his glucose and hydration. Of note, he does clearly express that he "hates needles" and will not use SC insulin. He also refuses it here. Thus will defer glucose correction to admitting team. Case d/w Dr. Bettencourt, [facility] hospitalist, who will evaluate the patient for admission. Impression & Plan Syncope, Temporal arteritis, Acute on chronic renal insufficiency, Acute dehydration, Acute hyperglycemia Discharge Plan Visit Data *Final* Discharge Date/Time: 12/09/18 20:06 Chief Complaint: Hyperglycemia ED Provider: Efren Gomez Discharge Problem: Syncope, Temporal arteritis, Acute on chronic renal insufficiency, Acute dehydration, Acute hyperglycemia Patient Disposition: Admitted As Inpatient Discharge Instructions Interventions: ED Discharge Assessment Last Done: 12/09/18 20:06 The scribe's documentation has been prepared under my direction and personally reviewed by me in its entirety. I confirm that the note above accurately reflects all work, treatment, procedures, and medical decision making performed by me.
[2018-12-09 16:07] LABS: Appearance Urine Clear (Clear); Bilirubin Urine Negative (Negative); Blood Urine Negative (Negative); Color Urine Yellow; Glucose Urine UA 3+ (Negative); Ketones Urine Negative (Negative); Leukocyte Esterase Urine Negative (Negative); Nitrite Urine Negative (Negative); Protein Urine Negative (Negative); Urobilinogen Urine Negative (Negative)
[2018-12-09 16:14] LABS: Alanine Aminotransferase 63 U/L (12-78); Albumin Globulin Ratio 0.9 (0.9-2); Albumin Level 3.4 gm/dl (3.4-5.0); Alkaline Phosphatase 71 U/L (45-117); BUN Creatinine Ratio 22.5 (10-20); Bilirubin,Total 0.6 mg/dl (0.2-1); Blood Urea Nitrogen 39 mg/dl (7-18); Calcium 9.2 mg/dl (8.5-10.1); Carbon Dioxide 25 mmol/L (21-32); Chloride 91 mmol/L (98-107); Creatinine Clr Calc Pharmacy 46.8 ml/min; Est GFR (Non-African American) 41.4; Glucose 610 mg/dl (70-99); Lipase 144 U/L (73-393); Phosphorus 3.4 mg/dl (2.5-4.9); Sodium 127 mmol/L (136-145); Thyroid Stimulating Hormone 0.653 uIu/ml (0.300-4.500); Total Protein 7.4 gm/dl (6.4-8.2); Troponin I 0.018 ng/ml (0-0.045)
[2018-12-09] MEDS ORDERED: OPTIRAY 320 125ml IV PRN (16:26)
--- NOTE | 2018-12-09 16:45 | CT Scan Report ---
CT head/brain wo con CLINICAL HISTORY: Syncope. History of temporal arteritis. COMPARISON STUDY: 09/16/2018 TECHNIQUE: Axial CT of the brain is performed from the vertex to the skull base. IV contrast was not administered for this examination. A dose lowering technique was utilized adhering to the principles of ALARA. CT DOSE: 1146.53 mGy.cm FINDINGS: No intra or extra-axial mass lesions are visualized. There is no CT evidence of acute cortical infarc tion. There is no evidence of midline shift. There is no acute hemorrhage. No calvarial fractures ar e visualized. There are patchy minor matter hypodensities likely on a small vessel basis. There is no evidence of pathologic ventricular dilatation. There is no evidence of acute sinusitis IMPRESSION: No acute intracranial findings Electronically signed by: Alton Purcell M.D. 12/09/2018 4:44 PM
--- NOTE | 2018-12-09 16:48 | CT Scan Report ---
CT angio head w con CLINICAL HISTORY: 63 years-old Male presenting with syncope, h/o temporal arteritis. TECHNIQUE: Multidetector CT angiography of the head was performed after the administration of intrave nous contrast. 3-D volumetric and/or maximum intensity projection (MIP) images were subsequently sg nstructed for review. IV contrast: 119 mL of Optiray 320. One or more dose lowering techniques were u sed consistent with the principles of ALARA (as low as reasonably achievable), including automatic ex posure control, mA or kV adjustment to individual patient size, and/or use of iterative reconstructio n. COMPARISON: 09/16/2018. CT DOSE (mGy.cm): The estimated cumulative dose is 1146.53. FINDINGS: Mica Patcher topogram: Anterior cervical fusion hardware. Anterior circulation: Atherosclerosis of the cavernous segments of the internal carotid arteries. Int racranial portions of the internal carotid arteries patent to the level of the termini. A questionabl e blister type aneurysm may be present at the left internal carotid artery in the cavernous segment, unchanged. Anterior cerebral arteries patent. Middle cerebral arteries patent. Redemonstration of the saccular outpouching at the left middle cerebral artery bifurcation measuring 2 x 2 mm. This is unch anged from prior. Anterior communicating artery patent. Posterior circulation: Codominant vertebral arteries. Intradural portions of the vertebral arteries p atent. Posterior inferior cerebellar arteries patent. Basilar artery patent. Anterior inferior cerebe llar arteries poorly visualized. Superior cerebellar arteries patent. Posterior cerebral arteries pat ent. Right posterior communicating artery (P-comm) patent. Left P-comm hypoplastic or aplastic. Dural venous sinuses: Patent. Other: Poor opacification of the anterior branch of the left temporal artery. Right temporal artery p atent. Calvarium intact. IMPRESSION: 1. Poor opacification of the anterior branch of the left temporal artery could imply occlusion or st enoses. This appearance is new from prior. 2. 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 3. No evidence of focal vessel occlusion or significant stenosis of the intracranial arteries. Electronically signed by: Bijan Cisneros M.D. 12/09/2018 4:47 PM
--- NOTE | 2018-12-09 16:49 | CT Scan Report ---
CT angio neck with con CLINICAL HISTORY: Syncope. History of temporal arteritis COMPARISON STUDY: 09/16/2018 TECHNIQUE: CT angiography was performed from the aortic arch to the skull base. MIP imaging was perfo rmed. The patient was scanned in a dynamic helical fashion during intravenous administration of 119 c c of Optiray 320. A dose lowering technique was utilized adhering to the principles of ALARA. CT DOSE: Technique: CT angiogram of the carotid and vertebral arteries was obtained using intravenous contrast and 3-D reconstruction. NASCET criteria was utilized. Findings: The right carotid revealed no evidence of aneurysm and no evidence of dissection. There is no evidenc e of hemodynamic significant stenosis. The left carotid revealed no evidence of hemodynamic significant stenosis. There is no evidence of an eurysm. There is no evidence of dissection. Atheromatous changes are present in both carotid bulbs There is no evidence of hemodynamically significant vertebral stenosis. There is no evidence of verte bral dissection. IMPRESSION: 1. Atheromatous changes of both carotid bulbs. No evidence of hemodynamically significant carotid brandon nosis 2. No evidence of vertebral artery stenosis 3. No evidence of dissection Electronically signed by: Alton Purcell M.D. 12/09/2018 4:48 PM
[2018-12-09 17:20] LABS: ALC (manual) 0.57 K/uL (1.2-3.4); ANC (manual) 7.58 K/uL (1.4-6.5); Lymphocytes # (manual) 0.57 K/uL (1.2-3.4); Lymphocytes % (manual) 6.2 %; Monocytes # (manual) 0.49 K/uL (0.11-0.59); Monocytes % (manual) 5.3 %; Myelocytes # (manual) 0.57 K/uL (0-0); Myelocytes % (manual) 6.2 %; Neutrophils # (manual) 7.58 K/uL (1.4-6.5); Neutrophils % (manual) 82.3 %
[2018-12-09 17:28] LABS: Bilirubin Direct 0.1 mg/dl (0-0.2)
[2018-12-09 17:46] LABS: Potassium 4.3 mmol/L (3.5-5.1)
[2018-12-09] MEDS: SODIUM CHLORIDE 0.9% 1000ML 1,000 ML IV ONE ×2 (20:03→21:34)
[2018-12-09] MEDS ORDERED: ALUMINUM/MAGNESIUM SUSP 30 ML UDC PO PRN (20:39)
[2018-12-09] MEDS ORDERED: ONDANSETRON INJ 2 MG/ML 2 ML VIAL IV PRN (20:39)
[2018-12-09] MEDS ORDERED: SODIUM CHLORIDE 0.9% 1000ML 1,000 ML IV SCH ×2 (20:39→21:15)
[2018-12-09] MEDS ORDERED: MAGNESIUM HYDROXIDE SUSP 30 ML UDC PO PRN (20:39)
[2018-12-09] MEDS ORDERED: CYCLOBENZAPRINE HCL 5 MG TAB PO PRN (20:39)
[2018-12-09] MEDS ORDERED: ALBUTEROL HFA 8 GM INHALER INH PRN (20:39)
[2018-12-09] MEDS ORDERED: INSULIN HUMAN REGULAR PER UNIT 5 UNITS in SYRINGE 4.95 ML IV ONE (21:30)
[2018-12-09] MEDS ORDERED: INSULIN REGULAR 250 UNITS in SODIUM CHLORIDE 0.9% 247.5 ML IV SCH (21:30)
--- NOTE | 2018-12-09 21:36 | History & Physical Report ---
Date of Service December 09, 2018 Assessment & Plan (1) Acute hyperglycemia: Given his prior A1c on record is 6.1%, I suspect his current hyperglycemia spiraled out of control because of his steroids for the presumed temporal arteritis. At this point he definitely appears to be in the vicious cycle of hyperglycemic dehydration. Will need to utilize aggressive IV fluids, as well as conservative IV insulin with close follow-up, to correct his volume deficit and then correct the hyperglycemia. We will give an additional liter of saline, and then put him on D5 saline with 20 of K per liter at 125 an hour adjusting as needed, and start an insulin drip a little bit lower than stress factors would suggest with a 5 unit bolus and then starting the drip at 2 units an hour, so as to not overcorrect with insulin rather than correcting the volume deficit as well. See below otherwise (2) Acute dehydration: Fluids as above, although he is listed as having valvular heart disease including aortic stenosis, he denies ever having had pulmonary edema that he is aware of, his family member who also used to work in a fpc and seems to have some clinical acuity also does not recall him ever having had pulmonary edema. Obviously he needs aggressive fluids for his primary problem, will does need to watch him closely. (3) Acute on chronic renal insufficiency: Due to volume depletionanticipate improvement with IV fluids (4) Headache: This seems to be the crux of his issue. He started with severe headaches in about September, there was significant concern about temporal arteritis, although the headache seems to be more frontal or bitemporal rather than unilateral, and while he describes visual problems, he mostly describes them as preceding floaters or blurred vision as often as it is during the headache. He had a temporal artery biopsy that was negative, and although these can have false negatives, clinically I wonder if the headaches are more migrainous. Patient also notes that he was on steroids for a while with no improvement in the headache, and that once neurology started him on Topamax he is started to have an improvement in his headache pattern. We will drop the prednisone slightly to 40 mg total on the day instead of 60 while getting this issue better sorted out, and ask neurology for some input on the etiology of the headache. (5) Type 2 diabetes mellitus: Last A1c in February was 6.1, it is likely that his abrupt worsening relates to the steroids. We will reduce steroids slightly as above to allow for a little bit easier sugar control but still suppress inflammation if there truly is a vasculitis at play, otherwise insulin drip as above. Patient was extremely adamant that he would not allow subcutaneous insulin. I discussed that if were able to get him off of the steroids is likely that we could affect reasonable control with oral agents alone, and that right now he is so metabolically out of control that an insulin drip makes sense clinically as well, but we did discuss there could be a "in between" where insulin is still needed but the drip is no longer necessary that for a short period of time subcu may be the best option. 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 Continue anticoagulation (7) Cerebral aneurysm: He has been seen at tertiary care, while apparently there is an approximately 1% risk of rupture with his type of aneurysm on reviewing the consult note, the patient notes that the overall conclusion was that intervention would be more risk than benefit. (8) Coronary artery disease: Asymptomatic. Continue home meds (9) Valvular heart disease: See aboveshe is listed as having aortic stenosis but denies ever having had pulmonary edema. Given his cardinal presenting problems require significant IV fluids, and people who are hyperglycemic dehydration with type 2 diabetes can often be 8 to 10 L down, we will continue with IV fluids, more gently than if he did not have concern on valvular heart disease, but will mostly does watch him closely and stop fluids should he start to show any signs of developing pulmonary edema. (10) Back pain: Chronic. Continue home meds (11) Anxiety: (12) Asthma: Seems to be asymptomatic (13) Right bundle branch block: (14) DVT prophylaxis: Anticoagulated as per his chronic venous thromboembolic disease (15) Discharge planning issues: Admit to [facility] under the [facility] hospitalist service. Once we have him doing better I anticipate that he will be able to be discharged to home, likely with home nursing and outpatient PT. He immediately shows 0 interest in even consideration for a rehab stay. He recently moved to the [facility], and would like to establish a PCP in [facility]. Will ask navigator to help us with this as well. History of Present Illness Primary Care Provider: NO PCP Allergies Allergy/AdvReac Type Severity Reaction Status Date / Time propoxyphene Allergy Intermediate unsure Verified 12/09/18 17:21 acetaminophen Allergy . Verified 12/09/18 17:21 [From Nghia] Home Medications Home Medications Medication Instructions Recorded Confirmed Type apixaban 5 mg PO BID 03/04/18 12/09/18 History aspirin 81 mg PO QAM 03/04/18 12/09/18 History atorvastatin 40 mg PO QAM 03/04/18 12/09/18 History furosemide 40 mg PO QAM 03/04/18 12/09/18 History hydrocodone-acetaminophen 1 tab PO Q6H PRN 03/04/18 12/09/18 History metoprolol succinate 25 mg PO QAM 03/04/18 12/09/18 History omeprazole 40 mg PO QAM 03/04/18 12/09/18 History tamsulosin 0.8 mg PO HS 03/04/18 12/09/18 History sennosides [Senokot] 8.6 mg PO HS #30 tab 09/16/18 12/09/18 Rx metformin 500 mg tablet 500 mg PO TID tab 10/07/18 12/09/18 History docusate sodium [Colace] 200 mg PO HS 10/10/18 12/09/18 History prednisone 20 mg tablet 20 mg PO TID 30 Days #90 tab 10/29/18 12/09/18 Rx topiramate 25 mg tablet 25 mg PO BID 90 Days #180 tab 12/02/18 12/09/18 Rx albuterol sulfate 2 inha INH QID PRN 12/09/18 12/09/18 History cyclobenzaprine 5 mg PO TID PRN 12/09/18 12/09/18 History Past Med/Surg History Medical History Back strain Chronic lower back pain Chronic obstructive pulmonary disease last exacerbation 3 wks ago [address] [facility] Hypertension Hypoxia Neck pain PVD (peripheral vascular disease) Ruptured lumbar disc TIA (transient ischemic attack) Thrombophilia Surgical History History of back surgery 1979' History of eye surgery History of neck surgery Hx of tonsillectomy Family History Unknown Diabetes Mother Diabetes Heart disease Father Hypertension Social History Preferred Language: Japanese Communication Ability: Effective Auto Bumper Straightener Required: No Beliefs That Will Affect Care: None marital status: Current Living Situation: Family Current Living Situation Comment: WITH SON current occupational status: unemployed and retired Other Information That Helps Us Care for You: No Feels Safe at Home: Yes Safety Concerns: Feels Safe At This Time Smoking Status: Former smoker Tobacco Type: cigarettes ; Cigarettes Per Day: 1/2 PPD ; Do You Dip or Chew Tobacco: Yes ; Smoking End Date: 11/09/18 ; Second Hand Exposure: Yes ; Tobacco Cessation Education Requested by Patient: No (refused) Hx Alcohol Use: Yes Alcohol type: beer Hx Substance Use: Yes substance use type: marijuana Last Used Substance: Days (ago) Last Used Substance Other:: about a week Results & Data Vital Signs (Past 12 Hours) Vital Signs Temp Pulse Pulse Resp BP BP Pulse Ox 12/09/18 20:49 97.7 F 108 H 20 149/95 H 96 12/09/18 20:06 90 18 178/111 H 93 12/09/18 19:13 178/111 H 94 12/09/18 18:30 88 16 197/147 H 95 12/09/18 18:01 90 16 95 12/09/18 18:00 84 17 169/100 H 94 12/09/18 17:46 99 H 17 95 12/09/18 17:45 99 H 18 169/93 H 95 12/09/18 17:44 103 H 27 H 12/09/18 16:01 105 H 15 94 12/09/18 16:00 103 H 17 116/86 94 12/09/18 15:39 112 H 17 94 12/09/18 15:38 115 H 19 141/88 H 95 12/09/18 15:30 114 H 20 92 12/09/18 15:15 115 H 18 92 12/09/18 14:54 97.9 F 136 H 18 110/73 93 12/09/18 14:52 114 H 18 110/73 92 Code Status & VTE Plan VTE Prophylaxis Plan VTE Prophylaxis will be ordered: Yes PG Care Time/CCT Total # of Minutes Spent Total Time Spent with Patient: Total time spent is greater than 50% in coordination of care (as documented) at patient's floor/unit and/or counseling patient:
[2018-12-09] MEDS: DOCUSATE SODIUM 100 MG CAP PO SCH (21:40)
[2018-12-09] MEDS: TOPIRAMATE 25 MG TAB PO SCH (21:41)
[2018-12-09] MEDS: TAMSULOSIN HCL 0.4 MG CAP PO SCH (21:41)
[2018-12-09] MEDS: SENNA 8.6 MG TAB PO SCH (21:41)
[2018-12-09] MEDS: predniSONE 20 MG TAB PO SCH (21:41)
[2018-12-09] MEDS ORDERED: GLUCOSE 10 TABS/TUBE PO PRN (21:45)
[2018-12-09] MEDS ORDERED: GLUCAGON FOR INJ 1 MG VIAL IM PRN (21:45)
[2018-12-09] MEDS ORDERED: DEXTROSE 50% 50 ML SYRINGE IV PRN (21:45)
[2018-12-09] MEDS ORDERED: CARBOHYDRATES FOR HYPOGLYCEMIA PO PRN (21:45)
[2018-12-09] MEDS ORDERED: GLUCOSE 40% GEL 15 GM TUBE PO PRN (21:45)
[2018-12-09] MEDS: APIXABAN 5 MG TABLET PO SCH (21:49)
[2018-12-09] MEDS ORDERED: D5NSS + 20MEQ KCL 20 MEQ/1,000 ML BAG IV SCH (22:16)
[2018-12-09] MEDS ORDERED: Nursing to Pharmacy Communication ONE (22:24)
[2018-12-09] MEDS ORDERED: INSULIN ASPART 100 UNITS/ML 3 ML PEN SC ONE (22:30)
[2018-12-10] MEDS: HYDROCODONE/ACETAMINOPHEN 10/325 TAB PO PRN ×4 (00:16→21:35)
[2018-12-10] MEDS ORDERED: D5NSS + 20MEQ KCL 20 MEQ/1,000 ML BAG IV SCH (04:39)
[2018-12-10 06:24] LABS: Estimated Average Glucose 243 mg/dl; Hemoglobin A1C 10.1 % (4.5-5.6)
[2018-12-10] MEDS ORDERED: INSULIN ASPART 100 UNITS/ML 3 ML PEN SC SCH ×2 (07:30)
[2018-12-10] MEDS: APIXABAN 5 MG TABLET PO SCH ×2 (08:05→20:54)
[2018-12-10] MEDS: ASPIRIN 81 MG ECTAB PO SCH (08:05)
[2018-12-10] MEDS: METOPROLOL SUCC 25MG EXT REL TAB PO SCH (08:05)
[2018-12-10] MEDS: ATORVASTATIN 40 MG TAB PO SCH (08:06)
[2018-12-10] MEDS: PANTOprazole 40 MG TAB PO SCH (08:07)
[2018-12-10] MEDS: TOPIRAMATE 25 MG TAB PO SCH ×2 (08:07→20:55)
[2018-12-10] MEDS: predniSONE 20 MG TAB PO SCH ×2 (08:07→20:54)
[2018-12-10] MEDS: INSULIN ASPART 100 UNITS/ML 3 ML PEN SC SCH ×5 (09:10→21:32)
[2018-12-10 10:02] LABS: Hematocrit (blood only) 40.9 % (42-52); Hemoglobin 13.9 g/dL (14.0-18.0); Mean Corpuscular Hemoglobin 34.1 pg (25-34); Mean Corpuscular Volume 100.2 fL (80-100); Mean Platelet Volume 9.6 fL (7.4-10.4); Nucleated RBC # (auto) 0.11 K/uL (0-0); Nucleated RBC % (auto) 1.1 %; Platelet Count 143 K/uL (130-400); RDW Coefficient of Variation 15.8 % (11.5-14.5); Red Blood Count 4.08 M/uL (4.7-6.1); White Blood Count 9.91 K/uL (4.8-10.8)
[2018-12-10 10:21] LABS: Basophils # (auto) 0.08 K/uL (0-0.2); Basophils % (auto) 0.8 %; Eosinophils # (auto) 0.03 K/uL (0-0.5); Eosinophils % (auto) 0.3 %; Immature Granulocytes # (auto) 0.91 K/uL (0.00-0.02); Immature Granulocytes % (auto) 9.2 %; Lymphocytes # (auto) 1.24 K/uL (1.2-3.4); Lymphocytes % (auto) 12.5 %; Monocytes # (auto) 0.78 K/uL (0.11-0.59); Monocytes % (auto) 7.9 %; Neutrophils # (auto) 6.87 K/uL (1.4-6.5); Neutrophils % (auto) 69.3 %
[2018-12-10 10:34] LABS: BUN Creatinine Ratio 24.1 (10-20); Calcium 8.9 mg/dl (8.5-10.1); Creatinine Clr Calc Pharmacy 59.5 ml/min; Est GFR (Non-African American) 62.1; Potassium 4.1 mmol/L (3.5-5.1)
[2018-12-10] MEDS: SODIUM CHLOR 0.45% + 20MEQ KCL 20 MEQ/1,000 ML BAG IV SCH ×2 (11:16→19:26)
--- NOTE | 2018-12-10 19:46 | Hospitalist Progress Note ---
Date of Service December 10, 2018 Assessment & Plan (1) Acute hyperglycemia: Given his prior A1c on record is 6.3%, I suspect his current hyperglycemia spiraled out of control because of his steroids for the presumed temporal arteritis. Presented with hyperglycemic dehydration causing an altered mental status/near syncopal event. He is improved dramatically with IV fluids. Sugar control much better. Discussed that with his prior A1c was good, current is bad, more than likely as we wean him off of the steroids we will be able to back down on glycemic controlprior to the prednisone he was on no meds. We had an extensive discussion on the critical importance of lifestyle in controlling type 2 diabetes. We also discussed (see below) weaning steroids will need to be a slow processbecause of this we will initiate oral glycemic control in the hospital, with the hopes that it can be slowly weaned as the steroids are weaned. (2) Acute dehydration: F new for now. Continue oral intake. No signs or symptoms of pulmonary edema. (3) Acute on chronic renal insufficiency: Due to volume depletionimproved with IV fluids. Repeat tomorrow. (4) Headache: This seems to be the crux of his issues. He started with severe headaches in about September, there was significant concern about temporal arteritis, however since then the pattern has not been really consistent with temporal arteritis. Biopsy was negative. Headaches seem to be more of a migrainous or thunderclap etiology. Discussed with neurology who also agrees this seems unlikely to be temporal arteritis. We will slowly wean prednisone over approximately the next 4 to 6 weeks (given that he was on it for quite a while) and have him followed closely while steroids are being weaned. Neurology did harbor concerns about potential malignant or metabolic etiologies for the thunderclap headaches. Will need to determine his status with cancer screenings, he does have chest x-ray without worrisome findings, head CT without worrisome findings as it relates to malignancy, will send a peripheral smear, and consider further work-up from there, although this could also be pursued as an outpatient. (5) Type 2 diabetes mellitus: Last A1c in February was 6.1, it is likely that his abrupt worsening relates to the steroids. See above otherwise. Will start metformin and glipizide for now with the hopes that they can be weaned as the steroids are weaned. 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 Chronically anticoagulatedcontinue (7) Cerebral aneurysm: He has been seen at tertiary care, while apparently there is an approximately 1% risk of rupture with his type of aneurysm on reviewing the consult note, the patient notes that the overall conclusion was that intervention would be more risk than benefit. (8) Coronary artery disease: No symptoms todaycontinue home meds (9) Valvular heart disease: he is listed as having aortic stenosis but denies ever having had pulmonary edema. Appearing stable in spite of IV fluids (10) Back pain: Chronic. Continue home meds (11) Anxiety: (12) Asthma: Seems to be asymptomatic (13) Right bundle branch block: (14) DVT prophylaxis: Anticoagulated as per his chronic venous thromboembolic disease (15) Discharge planning issues: Improving nicely, stable on MedSurg, anticipate home hopefully as soon as tomorrow. Case management has him set up with a PCP locally now that he is moved to this area, he will definitely need close follow-up with PCP and neurology as it relates to his headaches/sugar control/weaning of prednisone. Subjective feeling much better eating/drinking ok. getting around ok voiding well no headache today case d/w neurology input appreciated pt notes that he thinks the steroids were causing him problems Review of Systems Review of Systems: All systems reviewed & are unremarkable except as noted in HPI & below Physical Exam Physical Exam: gen [id number] pleasant nad heent nc at mmm breathing unlabored no accessory muscles good effort skin no pallor or icterus no focal neuro deficits Results & Data Vital Signs (Past 12 Hours) Vital Signs Temp Pulse Resp BP Pulse Ox 12/10/18 15:31 97.9 F 94 H 18 134/80 94 PG Care Time/CCT Total # of Minutes Spent Total Time Spent with Patient: Total time spent is greater than 50% in coordination of care (as documented) at patient's floor/unit and/or counseling patient:
[2018-12-10] MEDS: TAMSULOSIN HCL 0.4 MG CAP PO SCH (20:54)
[2018-12-10] MEDS: DOCUSATE SODIUM 100 MG CAP PO SCH (20:54)
[2018-12-10] MEDS: SENNA 8.6 MG TAB PO SCH (20:55)
--- NOTE | 2018-12-10 23:15 | Neurology Consultation ---
Date of Consultation December 10, 2018 Assessment & Plan (1) Thunderclap headache: Jared Uribe is a 63 yo man w/ PMH of DM, tobacco abuse, CAD, COPD, h/o DVT on apixaban, CKD, and chronic LBP whom neurology was consulted on for ongoing headaches. # Thunderclap headaches: new headache type in a person >50 yo is concerning for a secondary cause of headache. His elevated ESR, smoking history and + CATALINA are concerning for a possible underlying malignancy or autoimmune process as the cause of his headaches. He was unwilling to describe the characteristics of his previous headaches but was insistent that these were different and much more severe (always >10/10 in pain) with last headache yesterday per patient report. If truly thunderclap, this raises the concern for RCVS (pt did admit to using marijuana on a regular basis for his chronic pain, which is a known risk factor). - recommend checking B12, TSH, peripheral smear - make sure he is up to date on cancer screenings - consider rheumatology consult for positive CATALINA - repeat MRI brain with and without contrast. If pt was not taking apixaban at home, would also consider obtaining an MRV brain to r/o CVST - outpatient ophtho for dilated fundoscopic exam - continue topamax for now; can increase to 25mg qAM/50mg qPM and follow up with Dr Gillespie as previously scheduled - would wean prednisone as unlikely to represent temporal arteritis (normal biopsy, normal platelets) Thank you for this interesting consult. Please call with any questions. Present on Admission?: Yes History of Present Illness Attending Physician: Sebas Preston DO Jared Uribe is a 63 yo man w/ PMH of DM, tobacco abuse, CAD, COPD, h/o DVT on apixaban, CKD, and chronic LBP whom neurology was consulted on for ongoing headaches. He reports that he first started to get these current headaches about 3-4 months ago. He had previously had occasional "mild headaches" that improved with OTC medications but this headache was different. This headache is bifrontal in location, sharp in character, onset of pain to most severe intensity occurs over seconds, and has no associated nausea, vomiting or phonophobia; there is associated photophobia. Pain will last hours at a time. No clear triggers noted. He denies any vision loss but does have floaters. Denies any new numbness, tingling, weakness or hearing loss with headache onset. Denies any weight loss, new cough, fever, chills, change in medication, recent trauma, rashes, jaw claudication or shoulder pain. He does endorse night sweats and chronic low back pain that causes him weakness in his LLE. He had previously seen Dr Gillespie for these headaches and was started on topamax. He had reported improvement in headaches with this but then wasn't able to afford it for insurance reasons over the summer. He also had a temporal artery biopsy performed given c/f possible temporal arteritis in the setting of elevated ESR that returned as normal. His prior lab work is notable for ESR 55, MCV 100.2, Na 130, Cl 97, Cr 1.23, glucose 150-290s, A1c 10.1, UA no infection, CATALINA positive. MRI brain in 08/2018 per my read showed normal brain parenchyma with ?abnormal bone marrow in the skull, no stroke or contrast enhancing lesions noted. Despite a negative biopsy, he was started on steroids and continues on it currently (40mg prednisone daily). CTH on 12/09/18 showed no acute intracranial abnormality, no hemorrhage. CTA head and neck per my read did not show any beading, large vessel occlusion or high grade stenosis; there was a small 2-3 mm aneurysm in the left MCA near the bifurcation. CTA: IMPRESSION: 1. Poor opacification of the anterior branch of the left temporal artery could imply occlusion or stenoses. This appearance is new from prior. 2. 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 3. No evidence of focal vessel occlusion or significant stenosis of the intracranial arteries. Allergies Allergy/AdvReac Type Severity Reaction Status Date / Time propoxyphene Allergy Intermediate unsure Verified 12/09/18 17:21 acetaminophen Allergy . Verified 12/09/18 17:21 [From [facility]] Home Medications Home Medications Medication Instructions Recorded Confirmed Type apixaban 5 mg PO BID 03/04/18 12/09/18 History aspirin 81 mg PO QAM 03/04/18 12/09/18 History atorvastatin 40 mg PO QAM 03/04/18 12/09/18 History furosemide 40 mg PO QAM 03/04/18 12/09/18 History hydrocodone-acetaminophen 1 tab PO Q6H PRN 03/04/18 12/09/18 History metoprolol succinate 25 mg PO QAM 03/04/18 12/09/18 History omeprazole 40 mg PO QAM 03/04/18 12/09/18 History tamsulosin 0.8 mg PO HS 03/04/18 12/09/18 History sennosides [Senokot] 8.6 mg PO HS #30 tab 09/16/18 12/09/18 Rx metformin 500 mg tablet 500 mg PO TID tab 10/07/18 12/09/18 History docusate sodium [Colace] 200 mg PO HS 10/10/18 12/09/18 History prednisone 20 mg tablet 20 mg PO TID 30 Days #90 tab 10/29/18 12/09/18 Rx topiramate 25 mg tablet 25 mg PO BID 90 Days #180 tab 12/02/18 12/09/18 Rx albuterol sulfate 2 inha INH QID PRN 12/09/18 12/09/18 History cyclobenzaprine 5 mg PO TID PRN 12/09/18 12/09/18 History Patient History Medical History Back strain Chronic lower back pain Chronic obstructive pulmonary disease last exacerbation 3 wks ago during humidity. 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 Beliefs That Will Affect Care: None marital status: Single Current Living Situation: Family Current Living Situation Comment: WITH SON current occupational status: unemployed and retired Other Information That Helps Us Care for You: No Feels Safe at Home: Yes Safety Concerns: Feels Safe At This Time Smoking Status: Former smoker Tobacco Type: cigarettes ; Cigarettes Per Day: 1/2 PPD ; Do You Dip or Chew Tobacco: Yes ; Smoking End Date: 11/09/18 ; Second Hand Exposure: Yes ; Tobacco Cessation Education Requested by Patient: No (refused) Hx Alcohol Use: Yes Alcohol type: beer Hx Substance Use: Yes substance use type: marijuana Last Used Substance: Days (ago) Last Used Substance Other:: about a week Review of Systems Review of Systems: All systems reviewed & are unremarkable except as noted in HPI & below Physical Exam Physical Exam: General Exam: GEN: NAD, sitting in bed. HEENT: No conjunctival injection, no rhinorrhea. CV: RRR, no peripheral edema PULM: Nonlabored respirations on room air. Neuro Exam: MS: Awake and Alert. Oriented to person, place, and month/year. Speech fluent and appropriate without dysarthria or paraphasic errors. Language intact including naming, comprehension, repetition. Cognition and memory grossly intact. Attention intact. No neglect. CN: Visual bennett full. No extinction to double simultaneous stimuli. Pt unwilling to have fundoscopic exam performed (did not want light shined in eyes). Pupils equal (reactivity noted with ambient light in room, did not want light in eyes). EOMI without nystagmus. Facial sensation intact to LT. Facial muscles full and symmetric. Hearing intact to conversation. Uvula midline with symmetric palatal elevation. Shoulder shrug normal. Tongue midline. MOTOR: Normal bulk and tone. No pronator drift. BUE strength 5/5 at deltoids, biceps, triceps, wrist flexors and extensors, and finger flexors bilaterally. RLE strength 5/5 at iliopsoas, hamstrings, quadriceps, tibialis anterior, and gastrocnemius bilaterally. LLE 5-/5 at iliopsoas, TA and gastrocnemius (possibly 2/2 pain) REFLEXES: 1+ at biceps, triceps, brachioradialis, patella and trace Achilles bilaterally. Flexor plantar responses bilaterally. SENSORY: Intact to LT, vibration and temperature throughout. No extinction to double simultaneous stimuli. COORDINATION: No dysmetria or ataxia on [id number] bilaterally. Normal [place] bilaterally. GAIT: Patient unwilling to walk. Results & Data Vital Signs (Past 12 Hours) Vital Signs Temp Pulse Resp BP BP Pulse Ox 12/10/18 23:10 36.7 C 94 H 16 130/79 93 12/10/18 15:31 36.6 C 94 H 18 134/80 94 PG Care Time/CCT Total # of Minutes Spent Total Time Spent with Patient: Total time spent is greater than 50% in coordination of care (as documented) at patient's floor/unit and/or counseling patient:
[2018-12-11] MEDS: SODIUM CHLOR 0.45% + 20MEQ KCL 20 MEQ/1,000 ML BAG IV SCH ×3 (03:46→19:41)
[2018-12-11 06:31] LABS: BUN Creatinine Ratio 23.6 (10-20); Calcium 8.8 mg/dl (8.5-10.1); Creatinine Clr Calc Pharmacy 62.6 ml/min; Est GFR (African American) 76.4; Potassium 4.4 mmol/L (3.5-5.1)
[2018-12-11] MEDS: METOPROLOL SUCC 25MG EXT REL TAB PO SCH (07:36)
[2018-12-11] MEDS: APIXABAN 5 MG TABLET PO SCH ×2 (07:37→21:30)
[2018-12-11] MEDS: predniSONE 20 MG TAB PO SCH ×2 (07:37→21:30)
[2018-12-11] MEDS: PANTOprazole 40 MG TAB PO SCH (07:37)
[2018-12-11] MEDS: ATORVASTATIN 40 MG TAB PO SCH (07:38)
[2018-12-11] MEDS: TOPIRAMATE 25 MG TAB PO SCH ×2 (07:38→21:32)
[2018-12-11] MEDS: ASPIRIN 81 MG ECTAB PO SCH (07:38)
[2018-12-11] MEDS: glyBURIDE 2.5 MG TAB PO SCH (08:33)
[2018-12-11] MEDS: HYDROCODONE/ACETAMINOPHEN 10/325 TAB PO PRN ×3 (08:33→21:32)
[2018-12-11] MEDS: INSULIN ASPART 100 UNITS/ML 3 ML PEN SC SCH ×4 (08:57→21:34)
--- NOTE | 2018-12-11 16:33 | Hospitalist Progress Note ---
Date of Service December 11, 2018 Assessment & Plan (1) Acute hyperglycemia: Given his prior A1c on record is 6.3%, I suspect his current hyperglycemia spiraled out of control because of his steroids for the presumed temporal arteritis. Presented with hyperglycemic dehydration causing an altered mental status/near syncopal event. He is improved dramatically with IV fluids. Sugar control much better. Discussed that with his prior A1c was good, current is bad, more than likely as we wean him off of the steroids we will be able to back down on glycemic controlprior to the prednisone he was on no meds. We had an extensive discussion on the critical importance of lifestyle in controlling type 2 diabetes. We also discussed (see below) weaning steroids will need to be a slow processbecause of this we will initiate oral glycemic control in the hospital, with the hopes that it can be slowly weaned as the steroids are weaned. (2) Acute dehydration: F new for now. Continue oral intake. No signs or symptoms of pulmonary edema. (3) Acute on chronic renal insufficiency: Due to volume depletionimproved with IV fluids. Repeat tomorrow. (4) Headache: This seems to be the crux of his issues. He started with severe headaches in about September, there was significant concern about temporal arteritis, however since then the pattern has not been really consistent with temporal arteritis. Biopsy was negative. Headaches seem to be more of a migrainous or thunderclap etiology. Discussed with neurology who also agrees this seems unlikely to be temporal arteritis. We will slowly wean prednisone over approximately the next 4 to 6 weeks (given that he was on it for quite a while) and have him followed closely while steroids are being weaned. Neurology did harbor concerns about potential malignant or metabolic etiologies for the thunderclap headaches. Will need to determine his status with cancer screenings, he does have chest x-ray without worrisome findings, head CT without worrisome findings as it relates to malignancy, will send a peripheral smear, and consider further work-up from there, although this could also be pursued as an outpatient. (5) Type 2 diabetes mellitus: Last A1c in February was 6.1, it is likely that his abrupt worsening relates to the steroids. See above otherwise. Will start metformin and glipizide for now with the hopes that they can be weaned as the steroids are weaned. 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 Chronically anticoagulatedcontinue (7) Cerebral aneurysm: He has been seen at tertiary care, while apparently there is an approximately 1% risk of rupture with his type of aneurysm on reviewing the consult note, the patient notes that the overall conclusion was that intervention would be more risk than benefit. (8) Coronary artery disease: No symptoms todaycontinue home meds (9) Valvular heart disease: he is listed as having aortic stenosis but denies ever having had pulmonary edema. Appearing stable in spite of IV fluids (10) Back pain: Chronic. Continue home meds (11) Anxiety: (12) Asthma: Seems to be asymptomatic (13) Right bundle branch block: (14) DVT prophylaxis: Anticoagulated as per his chronic venous thromboembolic disease (15) Discharge planning issues: Improving nicely, stable on MedSurg, anticipate home hopefully as soon as tomorrow. Case management has him set up with a PCP locally now that he is moved to this area, he will definitely need close follow-up with PCP and neurology as it relates to his headaches/sugar control/weaning of prednisone. Subjective Patient seen and examined at the bed. Slowly improving. Patient denies fever chills chest pain shortness of breath abdominal pain frequency urgency. His sugar is better controlled. Review of Systems Review of Systems: All systems reviewed & are unremarkable except as noted in HPI & below Physical Exam Constitutional: WD/WN, vitals as above Eyes: PERRL, conjunctivae normal, anicteric sclerae ENMT: external ear and nose normal, oropharynx normal Neck: trachea midline, no thyromegaly Respiratory: normal respiratory effort, lungs clear to auscultation Cardiovascular: RRR, no murmur, no edema Gastrointestinal (Abdomen): normal bowel sounds, soft, nontender, no hepatosplenomegaly Musculoskeletal: no cyanosis or clubbing, extremities motor strength 5/5 Skin: no rashes, warm and dry Neurologic: patellar DTR's 2+ bilat, sensation intact Psychiatric: A+Ox3, euthymic affect Lymphatic: no cervical or axillary lymphadenopathy Results & Data Vital Signs (Past 12 Hours) Vital Signs Temp Pulse Resp BP Pulse Ox 12/11/18 15:16 36.6 C 102 H 18 151/83 H 95 12/11/18 08:17 105 H 12/11/18 07:15 36.6 C 112 H 18 112/82 95 PG Care Time/CCT Total # of Minutes Spent Total Time Spent with Patient: Total time spent is greater than 50% in coordination of care (as documented) at patient's floor/unit and/or counseling patient:
--- NOTE | 2018-12-11 16:37 | Neurology Progress Note ---
Date of Service December 11, 2018 Assessment & Plan (1) Thunderclap headache: Jared Uribe is a 63 yo man w/ PMH of DM, tobacco abuse, CAD, COPD, h/o DVT on apixaban, CKD, and chronic LBP whom neurology was consulted on for ongoing headaches. # Thunderclap headaches: new headache type in a person >50 yo is concerning for a secondary cause of headache. His elevated ESR, smoking history and + CATALINA are concerning for a possible underlying malignancy or autoimmune process as the cause of his headaches. He was unwilling to describe the characteristics of his previous headaches but was insistent that these were different and much more severe (always >10/10 in pain) with last headache yesterday per patient report. If truly thunderclap, this raises the concern for RCVS (pt did admit to using marijuana on a regular basis for his chronic pain, which is a known risk factor). - recommend checking B12, TSH - make sure he is up to date on cancer screenings (can be done as an outpatient) - consider rheumatology consult for positive CATALINA (can be done as an outpatient) - repeat MRI brain with and without contrast. 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 Given that he also has a headache at the same time, there would be some concern for elevated ICP, however he refuses to have a lumbar puncture performed. Would recommend having an MRI of the brain performed with both axial and sagittal T2 flair. He will definitely need to see ophthalmology as an outpatient for evaluation, as well as eye patches and possibly prism glasses. -If MRI shows signs of elevated ICP, could consider cause of headaches to include idiopathic intracranial hyper tension and could treat with acetazolamide (Topamax also has some carbonic anhydrase activity which may explain why his headaches are improving) Thank you for this interesting consult. Please call with any questions. Subjective Jared reports that he is doing much better today and is in a better mood. He had one brief headache this morning that resolved on its own without any treatment. He has been up and walking around and denies any complaints at this time. He is working on getting a PCP set up and is interested in following up with ophthalmology as an outpatient. Review of Systems Review of Systems: All systems reviewed & are unremarkable except as noted in HPI & below Physical Exam Physical Exam: GEN: NAD, walking around room. HEENT: No conjunctival injection, no rhinorrhea. CV: RRR, no peripheral edema PULM: Nonlabored respirations on room air. Neuro Exam: MS: Awake and Alert. Oriented to person, place, and month/year. Speech fluent and appropriate without dysarthria or paraphasic errors. Language intact including naming, comprehension, repetition. Cognition and memory grossly intact. Attention intact. No neglect. CN: Visual bennett full. No extinction to double simultaneous stimuli. Unable to visualize fundi. Pupils equal, round and reactive to light. EOM testing showed no nystagmus but was notable for bilateral 6th nerve palsies more noticeable in the left eye. Facial sensation intact to LT. Facial muscles full and symmetric. Hearing intact to conversation. Uvula midline with symmetric palatal elevation. Shoulder shrug normal. Tongue midline. MOTOR: Normal bulk and tone. No pronator drift. BUE strength 5/5 at deltoids, biceps, triceps, wrist flexors and extensors, and finger flexors bilaterally. RLE strength 5/5 at iliopsoas, hamstrings, quadriceps, tibialis anterior, and gastrocnemius bilaterally. LLE 5-/5 at iliopsoas, TA and gastrocnemius (possibly 2/2 pain) REFLEXES: 1+ at biceps, triceps, brachioradialis, patella and trace Achilles bilaterally. Flexor plantar responses bilaterally. SENSORY: Intact to LT, vibration and temperature throughout. No extinction to double simultaneous stimuli. COORDINATION: No dysmetria or ataxia on [id number] bilaterally. Normal [place] bilaterally. GAIT: Normal gait and armswing. Results & Data Vital Signs (Past 12 Hours) Vital Signs Temp Pulse Resp BP Pulse Ox 12/11/18 15:16 36.6 C 102 H 18 151/83 H 95 12/11/18 08:17 105 H 12/11/18 07:15 36.6 C 112 H 18 112/82 95 Laboratory Results Peripheral smear showed increase in immature cells but was essentially normal. Chest x-ray showed interstitial thickening but no signs of pneumonia or spiculated mass. PG Care Time/CCT Total # of Minutes Spent Total Time Spent with Patient: Total time spent is greater than 50% in coordination of care (as documented) at patient's floor/unit and/or counseling patient:
[2018-12-11] MEDS: DOCUSATE SODIUM 100 MG CAP PO SCH (21:29)
[2018-12-11] MEDS: TAMSULOSIN HCL 0.4 MG CAP PO SCH (21:31)
[2018-12-11] MEDS: SENNA 8.6 MG TAB PO SCH (21:31)
[2018-12-12] MEDS: SODIUM CHLOR 0.45% + 20MEQ KCL 20 MEQ/1,000 ML BAG IV SCH ×2 (04:22→10:09)
[2018-12-12 07:09] LABS: Calcium 8.5 mg/dl (8.5-10.1); Creatinine Clr Calc Pharmacy 63.7 ml/min; Est GFR (African American) 78.1; Est GFR (Non-African American) 67.4; Potassium 4.7 mmol/L (3.5-5.1)
[2018-12-12] MEDS: predniSONE 20 MG TAB PO SCH (07:32)
[2018-12-12] MEDS: METOPROLOL SUCC 25MG EXT REL TAB PO SCH (07:32)
[2018-12-12] MEDS: PANTOprazole 40 MG TAB PO SCH (07:33)
[2018-12-12] MEDS: ASPIRIN 81 MG ECTAB PO SCH (07:33)
[2018-12-12] MEDS: ATORVASTATIN 40 MG TAB PO SCH (07:33)
[2018-12-12] MEDS: glyBURIDE 2.5 MG TAB PO SCH (07:33)
[2018-12-12] MEDS: APIXABAN 5 MG TABLET PO SCH (07:33)
[2018-12-12] MEDS: TOPIRAMATE 25 MG TAB PO SCH (07:33)
[2018-12-12] MEDS: HYDROCODONE/ACETAMINOPHEN 10/325 TAB PO PRN ×2 (08:23→17:17)
[2018-12-12] MEDS: INSULIN ASPART 100 UNITS/ML 3 ML PEN SC SCH ×2 (08:51→12:28)
--- NOTE | 2018-12-12 15:54 | Neurology Progress Note ---
Date of Service December 12, 2018 Assessment & Plan (1) Thunderclap headache: Jared Uribe is a 63 yo man w/ PMH of DM, tobacco abuse, CAD, COPD, h/o DVT on apixaban, CKD, and chronic LBP whom neurology was consulted on for ongoing headaches. # Thunderclap headaches: new headache type in a person >50 yo is concerning for a secondary cause of headache. His elevated ESR, smoking history and + CATALINA are concerning for a possible underlying malignancy or autoimmune process as the cause of his headaches. He was unwilling to describe the characteristics of his previous headaches but was insistent that these were different and much more severe (always >10/10 in pain) with last headache 12/11 per patient report. If truly thunderclap, this raises the concern for RCVS (pt did admit to using marijuana on a regular basis for his chronic pain, which is a known risk f actor). - recommend checking B12, TSH - make sure he is up to date on cancer screenings (can be done as an outpatient) - consider rheumatology consult for positive CATALINA (can be done as an outpatient) - repeat MRI brain with and without contrast with thin cuts through the orbit. If pt was not taking apixaban at home, would also consider obtaining an MRV brain to r/o CVST. After discussion with the patient, he is okay with having this done as an outpatient. - continue topamax for now; can increase to 25mg qAM/50mg qPM and follow up with Dr Gillespie as previously scheduled. Can continue up titration, goal dose 150 mg total per day. - would wean prednisone as unlikely to represent temporal arteritis (normal biopsy, normal platelets) #Bilateral 6th nerve palsy, worse on the left: Differential includes trauma, vascular lesions, tumor, elevated ICP or other infectious or vasculitic options. Given that he also has a headache at the same time, there would be some concern for elevated ICP, however he refuses to have a lumbar puncture performed. Would recommend having an MRI of the brain performed with both axial and sagittal T2 flair. He will definitely need to see ophthalmology as an outpatient for evaluation, as well as consider eye patches and possibly prism glasses. -If MRI shows signs of elevated ICP, could consider cause of headaches to include idiopathic intracranial hyper tension and could treat with acetazolamide (Topamax also has some carbonic anhydrase activity which may explain why his headaches are improving). Patient again endorses that he would refuse to have a lumbar puncture for reason. Thank you for this interesting consult. Please call with any questions. Subjective No acute events overnight. He denies having any further headache. Reports that he is anxious to get home I would prefer having remainder of testing done as an outpatient. He will follow-up with Dr. Romero as previously scheduled and call if he has any questions. Denies any diplopia on examination. Review of Systems Review of Systems: All systems reviewed & are unremarkable except as noted in HPI & below Physical Exam Physical Exam: GEN: NAD, walking around room. HEENT: No conjunctival injection, no rhinorrhea. CV: RRR, no peripheral edema PULM: Nonlabored respirations on room air. Neuro Exam: MS: Awake and Alert. Oriented to person, place, and month/year. Speech fluent and appropriate without dysarthria or paraphasic errors. Language intact including naming, comprehension, repetition. Cognition and memory grossly intact. Attention intact. No neglect. CN: Visual bennett full. No extinction to double simultaneous stimuli. Unable to visualize fundi. Pupils equal, round and reactive to light. EOM testing showed no nystagmus but was notable for bilateral 6th nerve palsies more noticeable in the left eye. Facial sensation intact to LT. Facial muscles full and symmetric. Hearing intact to conversation. Uvula midline with symmetric palatal elevation. Shoulder shrug normal. Tongue midline. MOTOR: Normal bulk and tone. No pronator drift. BUE strength 5/5 at deltoids, biceps, triceps, wrist flexors and extensors, and finger flexors bilaterally. RLE strength 5/5 at iliopsoas, hamstrings, quadriceps, tibialis anterior, and gastrocnemius bilaterally. LLE 5-/5 at iliopsoas, TA and gastrocnemius (possibly 2/2 pain) REFLEXES: 1+ at biceps, triceps, brachioradialis, patella and trace Achilles bilaterally. Flexor plantar responses bilaterally. SENSORY: Intact to LT, vibration and temperature throughout. No extinction to double simultaneous stimuli. COORDINATION: No dysmetria or ataxia on [id number] bilaterally. Normal [place] bilaterally. GAIT: Normal gait and armswing. Results & Data Vital Signs (Past 12 Hours) Vital Signs Temp Pulse Resp BP Pulse Ox 12/12/18 07:20 36.4 C L 103 H 18 136/84 93 PG Care Time/CCT Total # of Minutes Spent Total Time Spent with Patient: Total time spent is greater than 50% in coordination of care (as documented) at patient's floor/unit and/or counseling patient:
--- NOTE | 2018-12-12 17:17 | Hospitalist Progress Note ---
Date of Service December 12, 2018 Assessment & Plan (1) Acute hyperglycemia: Given his prior A1c on record is 6.3%, I suspect his current hyperglycemia spiraled out of control because of his steroids for the presumed temporal arteritis. Presented with hyperglycemic dehydration causing an altered mental status/near syncopal event. He is improved dramatically with IV fluids. Sugar control much better. Discussed that with his prior A1c was good, current is bad, more than likely as we wean him off of the steroids we will be able to back down on glycemic controlprior to the prednisone he was on no meds. We had an extensive discussion on the critical importance of lifestyle in controlling type 2 diabetes. We also discussed (see below) weaning steroids will need to be a slow processbecause of this we will initiate oral glycemic control in the hospital, with the hopes that it can be slowly weaned as the steroids are weaned. The major concern is patient noncompliance and refusal of insulin which would be the best option for him at home for better glycemic control. Patient accepted to take Prandin 1 mg 3 times a day with meal. Patient understands that if he does not have meal or he is not hungry and want to have meal that he should not take Prandin. Patient understands that he is going to continue with his Metformin 500 mg p.o. 3 times daily. (2) Acute dehydration: F new for now. Continue oral intake. No signs or symptoms of pulmonary edema. (3) Acute on chronic renal insufficiency: Due to volume depletionimproved with IV fluids. Repeat tomorrow. (4) Headache: This seems to be the crux of his issues. He started with severe headaches in about September, there was significant concern about temporal arteritis, however since then the pattern has not been really consistent with temporal arteritis. Biopsy was negative. Headaches seem to be more of a migrainous or thunderclap etiology. Discussed with neurology who also agrees this seems unlikely to be temporal arteritis. We will slowly wean prednisone over approximately the next 4 to 6 weeks (given that he was on it for quite a while) and have him followed closely while steroids are being weaned. Neurology did harbor concerns about potential malignant or metabolic etiologies for the thunderclap headaches. Will need to determine his status with cancer screenings, he does have chest x-ray without worrisome findings, head CT without worrisome findings as it relates to malignancy, will send a peripheral smear, and consider further work-up from there, although this could also be pursued as an outpatient. Patient was advised to follow-up with neurology, rheumatology, ophthalmology, his primary care physician for the cancer work-up and MRI of the brain with and without contrast to determine if there is elevation of intracranial pressure. (5) Type 2 diabetes mellitus: Last A1c in February was 6.1, it is likely that his abrupt worsening relates to the steroids. See above otherwise. Will start metformin and glipizide for now with the hopes that they can be weaned as the steroids are weaned. 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 Chronically antic oagulatedcontinue (7) Cerebral aneurysm: He has been seen at tertiary care, while apparently there is an approximately 1% risk of rupture with his type of aneurysm on reviewing the consult note, the patient notes that the overall conclusion was that intervention would be more risk than benefit. (8) Coronary artery disease: No symptoms todaycontinue home meds (9) Valvular heart disease: he is listed as having aortic stenosis but denies ever having had pulmonary edema. Appearing stable in spite of IV fluids (10) Back pain: Chronic. Continue home meds (11) Anxiety: (12) Asthma: Seems to be asymptomatic (13) Right bundle branch block: Current difference from September 16, [address] segment elevation or depression. There were some nonspecific T wave abnormalities in the anterior leads most likely caused by tachycardia and increased demand patient denied any chest pain. Present on Admission?: Yes (14) DVT prophylaxis: Anticoagulated as per his chronic venous thromboembolic disease (15) Discharge planning issues: Improving nicely, stable on MedSurg, anticipate home hopefully as soon as tomorrow. Case management has him set up with a PCP locally now that he is moved to this area, he will definitely need close follow-up with PCP and neurology as it relates to his headaches/sugar control/weaning of prednisone. Subjective Patient seen and examined at the bed. Slowly improving. Patient was advised to stay in the hospital to complete MRI of the brain as recommended by neurology but he refused. Patient stated that he is willing to do MRI of the brain with and without contrast as an outpatient and to follow-up with ophthalmology, neurology and rheumatology as an outpatient. Patient is alert oriented and capable to make informed decision. Patient autonomy was ordered and he is going to be discharged home with recommendation to follow-up with ophthalmology, neurology, rheumatology and for his PCP to do cancer work-up. Patient also needs to have MRI of the brain with and without contrast as per recommendation of the urology to determine if he has elevated intracranial pressure. Patient also refused to follow instructions in regard of insulin. He refused any possibility to inject himself with insulin and accepted only pills. Patient is aware that effective glycemic control will not be achieved with pills only. Patient is aware that he has to check his blood sugar 4 times a day and to follow-up with his primary care physician within 1 week. Patient denies fever chills chest pain shortness of breath abdominal pain frequency urgency. His sugar is better controlled. Review of Systems Review of Systems: All systems reviewed & are unremarkable except as noted in HPI & below Physical Exam Constitutional: WD/WN, vitals as above Eyes: PERRL, conjunctivae normal, anicteric sclerae ENMT: external ear and nose normal, oropharynx normal Neck: trachea midline, no thyromegaly Respiratory: normal respiratory effort, lungs clear to auscultation Cardiovascular: RRR, no murmur, no edema Gastrointestinal (Abdomen): normal bowel sounds, soft, nontender, no hepatosplenomegaly Musculoskeletal: no cyanosis or clubbing, extremities motor strength 5/5 Skin: no rashes, warm and dry Neurologic: patellar DTR's 2+ bilat, sensation intact Psychiatric: A+Ox3, euthymic affect Lymphatic: no cervical or axillary lymphadenopathy Results & Data Vital Signs (Past 12 Hours) Vital Signs Temp Pulse Resp BP BP Pulse Ox 12/12/18 17:03 36.4 C L 103 H 18 145/85 H 136/84 93 12/12/18 07:20 36.4 C L 103 H 18 136/84 93 PG Care Time/CCT Total # of Minutes Spent Total Time Spent with Patient: Total time spent is greater than 50% in coordination of care (as documented) at patient's floor/unit and/or counseling patient:
--- NOTE | 2018-12-12 17:30 | Discharge Summary ---
Date of Service December 12, 2018 Principal Diagnosis none Discharge Exam Constitutional WD/WN, vitals as above Eyes PERRL, conjunctivae normal, anicteric sclerae ENMT external ear and nose normal, oropharynx normal Neck trachea midline, no thyromegaly Respiratory normal respiratory effort, lungs clear to auscultation Cardiovascular RRR, no murmur, no edema Gastrointestinal (Abdomen) normal bowel sounds, soft, nontender, no hepatosplenomegaly Musculoskeletal no cyanosis or clubbing, extremities motor strength 5/5 Skin no rashes, warm and dry Neurologic patellar DTR's 2+ bilat, sensation intact Psychiatric A+Ox3, euthymic affect Lymphatic no cervical or axillary lymphadenopathy Discharge Data Allergies Allergy/AdvReac Type Severity Reaction Status Date / Time propoxyphene Allergy Intermediate unsure Verified 12/09/18 17:21 acetaminophen Allergy . Verified 12/09/18 17:21 [From [facility]] Consultations 12/09/18 17:06 ED Decision to Admit Stat 12/09/18 21:29 Consult Neurology Routine Ordered Studies 12/09/18 14:57 CT angio head w con Stat CT angio neck with con Stat CT head/brain wo con Stat 12/12/18 15:46 MR brain wo/w con Stat Hospital Course (1) Acute hyperglycemia: Given his prior A1c on record is 6.3%, I suspect his current hyperglycemia spiraled out of control because of his steroids for the presumed temporal arteritis. Presented with hyperglycemic dehydration causing an altered mental status/near syncopal event. He is improved dramatically with IV fluids. Sugar control much better. Discussed that with his prior A1c was good, current is bad, more than likely as we wean him off of the steroids we will be able to back down on glycemic controlprior to the prednisone he was on no meds. We had an extensive discussion on the critical importance of lifestyle in controlling type 2 diabetes. We also discussed (see below) weaning steroids will need to be a slow processbecause of this we will initiate oral glycemic control in the hospital, with the hopes that it can be slowly weaned as the steroids are weaned. The major concern is patient noncompliance and refusal of insulin which would be the best option for him at home for better glycemic control. Patient accepted to take Prandin 1 mg 3 times a day with meal. Patient understands that if he does not have meal or he is not hungry and want to have meal that he should not take Prandin. Patient understands that he is going to continue with his Metformin 500 mg p.o. 3 times daily. (2) Acute dehydration: F new for now. Continue oral intake. No signs or symptoms of pulmonary edema. (3) Acute on chronic renal insufficiency: Due to volume depletionimproved with IV fluids. Repeat tomorrow. (4) Headache: This seems to be the crux of his issues. He started with severe headaches in about September, there was significant concern about temporal arteritis, however since then the pattern has not been really consistent with temporal arteritis. Biopsy was negative. Headaches seem to be more of a migrainous or thunderclap etiology. Discussed with neurology who also agrees this seems unlikely to be temporal arteritis. We will slowly wean prednisone over approximately the next 4 to 6 weeks (given that he was on it for quite a while) and have him followed closely while steroids are being weaned. Neurology did harbor concerns about potential malignant or metabolic etiologies for the thunderclap headaches. Will need to determine his status with cancer screenings, he does have chest x-ray without worrisome findings, head CT without worrisome findings as it relates to malignancy, will send a peripheral smear, and consider further work-up from there, although this could also be pursued as an outpatient. Patient was advised to follow-up with neurology, rheumatology, ophthalmology, his primary care physician for the cancer work-up and MRI of the brain with and without contrast to determine if there is elevation of intracranial pressure. (5) Type 2 diabetes mellitus: Last A1c in February was 6.1, it is likely that his abrupt worsening relates to the steroids. See above otherwise. Will start metformin and glipizide for now with the hopes that they can be weaned as the steroids are weaned. 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 Chronically anticoagulatedcontinue (7) Cerebral aneurysm: He has been seen at tertiary care, while apparently there is an approximately 1% risk of rupture with his type of aneurysm on reviewing the consult note, the patient notes that the overall conclusion was that intervention would be more risk than benefit. (8) Coronary artery disease: No symptoms todaycontinue home meds (9) Valvular heart disease: he is listed as having aortic stenosis but denies ever having had pulmonary edema. Appearing stable in spite of IV fluids (10) Back pain: Chronic. Continue home meds (11) Anxiety: (12) Asthma: Seems to be asymptomatic (13) Right bundle branch block: Current difference from September 16, [address] segment elevation or depression. There were some nonspecific T wave abnormalities in the anterior leads most likely caused by tachycardia and increased demand patient denied any chest pain. (14) DVT prophylaxis: Anticoagulated as per his chronic venous thromboembolic disease (15) Discharge planning issues: Improving nicely, stable on MedSurg, anticipate home hopefully as soon as tomorrow. Case management has him set up with a PCP locally now that he is moved to this area, he will definitely need close follow-up with PCP and neurology as it relates to his headaches/sugar control/weaning of prednisone. Total Time Total Time Spent Total Time Spent (In Minutes): over 30 min Discharge Plan Discharge Items Patient Disposition: Home - Self-Care Reason For Visit: HYPERGLYCEMIC DEHYDRATION,HEADACHE Discharge Diagnosis: uncontrolled diabetes mellitus Condition on Discharge: Good Health Concerns: noncompliance with regimens Activity: Resume your previous activity Non-emergency contact: Primary Care Provider Call non-emergency contact if: you have any medication questions, your symptoms worsen, your pain is not controlled, your pain is worsening, your pain is unusual for you, your pain is concerning for you, you have a fever and your rectal temperature is above 100.4 Follow-up/Referrals: Kobe Feliz MD [Outside Practitioners] - 12/18/18 10:45 am (Please, follow up at [facility] with Dr. Crawley's associate, Dr. Kobe Feliz, on SundayDecember 18 at at 10:45 am. *The office is located at [address] [place] [address] in [facility]. If you need to change this appointment, call the office at [phone]. THERE WERE NO OPENINGS WITH DR. CRAWLEY OR ANY OF THE OTHER PROVIDERS IN THE [facility] OFFICE. HOWEVER, PER THE [facility] NUCLEAR MEDICINE TECHNOLOGIST, YOU CAN HAVE YOUR INITIAL/POST HOSPITAL VISIT WITH DR. FELIZ AND THEN FOLLOW UP WITH DR. CRAWLEY.) Diet: Carb Consistent or DM2 and Heart Healthy Addtl Attending Provider Instructions: Please follow up with your PCP within 7 days. You will need to check your sugar four times a day and bring the log to your PCP. We will start you on new medication called Repaglinide or Prandin. Repaglinide or Prandine take only if you have a meal. Do not take medication more then three times a day. Do not take medication if you are not having a meal.You will be taper off Prednisone. Please follow up the instructions given on the prescription. We started you on Topamax for headache. Please follow the directions closely. You need to increase your medication as written on the prescription. The behavioral health case manager will call you to set up appointment with ophthalmology, rheumatology, neurology , MRI of the brain and your PCP. Pending Studies at Discharge: No Stand-Alone Forms: My [facility] Medications and DC Order Prescriptions: New prednisone 10 mg tablet 10 mg PO DAILY Qty: 20 RF: 0 repaglinide [Prandin] 1 mg tablet 1 mg PO TID Qty: 90 RF: 0 topiramate [Topamax] 25 mg tablet 25 mg PO DAILY 30 Days Qty: 70 RF: 0 Continued furosemide 40 mg tablet 40 mg PO QAM RF: 0 atorvastatin 40 mg tablet 40 mg PO QAM RF: 0 hydrocodone-acetaminophen 10-325 mg tablet 1 tab PO Q6H PRN (Reason: Pain) RF: 0 omeprazole 40 mg capsule,delayed release(DR/EC) 40 mg PO QAM RF: 0 aspirin 81 mg tablet,delayed release (DR/EC) 81 mg PO QAM RF: 0 tamsulosin 0.4 mg capsule 0.8 mg PO HS RF: 0 metoprolol succinate 25 mg tablet extended release 24 hr 25 mg PO QAM RF: 0 apixaban 5 mg tablet 5 mg PO BID RF: 0 metformin 500 mg tablet 500 mg PO TID RF: 0 sennosides [Senokot] 8.6 mg tablet 8.6 mg PO HS Qty: 30 RF: 0 docusate sodium [Colace] 100 mg capsule 200 mg PO HS RF: 0 albuterol sulfate 90 mcg/actuation HFA aerosol inhaler 2 inha INH QID PRN (Reason: Shortness Of Breath Or Wheezing) RF: 0 cyclobenzaprine 5 mg tablet 5 mg PO TID PRN (Reason: Muscle Spasm) RF: 0 Discontinued prednisone 20 mg tablet 20 mg PO TID 30 Days Qty: 90 RF: 5 topiramate [Topamax] 25 mg tablet 25 mg PO BID 90 Days Qty: 180 RF: 5 Discharge Orders: Discharge Order (Routine); Ordered 12/12/18 Ordered By: Deyanira Blair/Other Patient Handouts: Diabetes Care Home Complications, Diabetes Resources, Diabetes Type 2 Coping, Blood Sugar Check, Diabetes Healthy Meals, Diabetes Carbs, Diabetes Exercise Benefits, Diabetes Exercise Get Started, Diabetes Activity Tips, Diabetes Living Life, Diabetes Manage A1C Test Admission Data Admit Date/Time: 12/09/18 19:18 Attending Provider: Deyanira Gutierrez Admit Provider: Sebas Preston Primary Care Provider: Deshawn Crawley Other Providers: Mikhail Bettencourt ; Ulises Gillespie
--- NOTE | 2018-12-25 16:02 | Pharmacy Report ---
Pharmacy Progress Note - Date of Service December 12, 2018 - Progress Note I spoke with Mr Uribe today at the request of Dr Gutierrez. This patient has an elevated A1c (>10) and will be discharged today on Prednisone. He has required correctional and prandial insulin this admission in the form of Novolog . He also received Glyburide daily this admission, but despite these interventions his BSGs remained in the 180's to low 200s range. It would be advisable for him to go home on some form of insulin therapy. I recommended going home of either a sulfonylurea (glipizide) + metformin + sliding scale insulin for times when BSGs are > 200. However the patient was adamant that he will absolutely not inject insulin. I did enquire as to whether he would consider once daily insulin or once weekly injection (GLP-1 agonist) however he sternly stated "I will not inject myself period." He has a son that lives with him but is unable to assist him with insulin administration. Despite multiple attempts to convince him that doing so would be in his best interest he refused. He did however agree to test his BSG at least once daily. I advised he check multiple times daily. I advised that BSGs in the 200s are high and that BSGs in the 300s are worrisome and should prompt a phone call to his PCP to obtain advise as this can lead to dehydration, weakness, and electrolyte abnormalities that can have serious consequences. He repeated understanding. His daughter was also present in the room for this discussion. I reviewed this information with Dr Gutierrez. Provided recommendations for discharge on either sulfonylurea (glipizide 5mg daily) or repaglinide 1mg w/ each meal up to 3 x daily (this dose must be omitted if the meal is skipped). I would also combine this medication with metformin 500mg PO BID as at a minimum pt's with A1c > 9 should receive 2 agents. One must be cognisant of the fact that Prednisone will be tapered slowly and that eventually he may require this regimen to be altered. Thank you for engaging the clinical pharmacy consult service in the care of this patient. Please let us know if we can be of further assistance.
== END 2018-12-12 17:28 | disposition home or self-care (01) | DRG 639 ==
LOC: ED 14:39 → SUATTDRO 19:18 → 3W 19:18

== ENCOUNTER 2020-05-05 10:51 | Observation (INO) ==
[2020-05-05] MEDS ORDERED: SODIUM CHLORIDE 0.9% 1000ML 1,000 ML IV STA (11:29)
[2020-05-05] MEDS ORDERED: FAMOTIDINE 20MG IV PUSH 20 MG/5 ML SYR IV STA (11:31)
[2020-05-05] MEDS ORDERED: DEXAMETHASONE SOD INJ 10 MG/ML VIAL IV ONE (11:31)
[2020-05-05] MEDS ORDERED: PROCHLORPERAZINE 2 ML IV ONE (11:31)
[2020-05-05] MEDS ORDERED: ACETAMINOPHEN 1,000 MG/100 ML VIAL IV STA (11:35)
[2020-05-05 11:46] LABS: Basophils # (auto) 0.03 K/uL (0-0.2); Basophils % (auto) 0.3 %; Eosinophils # (auto) 0.04 K/uL (0-0.5); Eosinophils % (auto) 0.4 %; Hematocrit (blood only) 36.8 % (42-52); Hemoglobin 12.6 g/dL (14.0-18.0); Immature Granulocytes # (auto) 0.03 K/uL (0.00-0.02); Immature Granulocytes % (auto) 0.3 %; Lymphocytes # (auto) 0.91 K/uL (1.2-3.4); Lymphocytes % (auto) 8.6 %; Mean Corpuscular Hemoglobin 34.1 pg (25-34); Mean Corpuscular Hgb Conc 34.2 g/dL (32-36); Mean Corpuscular Volume 99.5 fL (80-100); Mean Platelet Volume 10.2 fL (7.4-10.4); Monocytes # (auto) 0.43 K/uL (0.11-0.59); Monocytes % (auto) 4.1 %; Neutrophils # (auto) 9.12 K/uL (1.4-6.5); Neutrophils % (auto) 86.3 %; Platelet Count 363 K/uL (130-400); RDW Coefficient of Variation 12.9 % (11.5-14.5); RDW Standard Deviation 46.9 fL (36.4-46.3); White Blood Count 10.56 K/uL (4.8-10.8)
--- NOTE | 2020-05-05 11:48 | XRay Report ---
XR chest 1V portable CLINICAL HISTORY: Atypical chest pain COMPARISON STUDY: 02/23/2020 FINDINGS: The cardiac and mediastinal contours remain stable. There is chronic interstitial thickenin g most pronounced the left lung base. There is no failure. There is no lobar consolidation. There are no pleural effusions. There are postsurgical changes present within the cervical spine.[ IMPRESSION: Chronic interstitial thickening. No acute findings. ACT 112: Negative or not required by law. Electronically signed by: Alton Purcell M.D. 05/05/2020 11:47 AM
[2020-05-05 11:53] LABS: Alanine Aminotransferase 16 U/L (12-78); Albumin Level 4.2 gm/dl (3.4-5.0); Aspartate Aminotransferase 8 U/L (15-37); BUN Creatinine Ratio 13.9 (10-20); Bilirubin Direct < 0.1 mg/dl (0-0.2); Blood Urea Nitrogen 27 mg/dl (7-18); Calcium 10.3 mg/dl (8.5-10.1); Carbon Dioxide 24 mmol/L (21-32); Chloride 106 mmol/L (98-107); Creatinine Clr Calc Pharmacy 36.1 ml/min; Est GFR (African American) 41.4; Est GFR (Non-African American) 35.8; Glucose 145 mg/dl (70-99); Lipase 62 U/L (73-393); Magnesium 2.5 mg/dl (1.8-2.4); Potassium 4.7 mmol/L (3.5-5.1); Sodium 137 mmol/L (136-145)
[2020-05-05 11:57] LABS: Albumin Globulin Ratio 0.8 (0.9-2); Alkaline Phosphatase 105 U/L (45-117); Bilirubin,Total 0.7 mg/dl (0.2-1); Globulin 5.2 gm/dl (2.5-4.0); Total Protein 9.5 gm/dl (6.4-8.2); Troponin I < 0.015 ng/ml (0-0.045)
--- NOTE | 2020-05-05 12:34 | CT Scan Report ---
CT SCAN OF THE BRAIN WITHOUT IV CONTRAST CLINICAL HISTORY: Headache. COMPARISON STUDY: CT of the brain dated 02/23/2020. TECHNIQUE: Unenhanced axial CT scan of the brain is performed from the vertex to the skull base. A do se lowering technique was utilized adhering to the principles of ALARA. CT DOSE: 788.63 mGycm FINDINGS: Brain parenchyma: There are age-related involutional changes noting mild subcortical and periventric ular microangiopathic change. There is no hemorrhage, mass effect, or evidence of acute territorial i schemia by CT criteria. Coleman-white matter differentiation is preserved. No extra-axial fluid collecti on is seen. Ventricles, sulci, cisterns: Prominent secondary to involutional change. Intracranial vasculature: There is atherosclerotic calcification of the cavernous carotid and vertebr al arteries. Calvarium: Unremarkable. Sinuses and mastoids: There is chronic deformity of the right maxillary antrum with trace mucosal thi ckening. There is also mild mucosal thickening in the left frontal sinus. The remaining visualized pa ranasal sinuses are clear. The mastoid air cells are well pneumatized. Orbits: The bony orbits are grossly intact. There are bilateral ocular lens implants. IMPRESSION: There is no hemorrhage, mass effect, or evidence of acute territorial ischemia by CT crit erniels. ACT 112: Negative or not required by law. Electronically signed by: Pasquale Andrea M.D. 05/05/2020 12:32 PM
--- NOTE | 2020-05-05 13:23 | Emergency Department Note ---
Impression & Plan Gastroenteritis, Headache, Dehydration, Renal insufficiency ED Provider Note NAME: KIRTI LEDESMA AGE: 64 SEX: M ARRIVES VIA: Ambulance INFORMANT: Patient, ED PROVIDER(S): Efren Gomez MD CHIEF COMPLAINT: Nausea, vomiting, diarrhea, body aches, headache. PLAN: Disposition: Admit MEDICAL DECISION MAKING: The patient is a pleasant 64-year-old gentleman with a past medical history of CKD, type 2 diabetes, history of cerebral aneurysm, history of possible temporal arteritis, chronic headaches on topiramate, history of DVT on Eliquis who presents emergency department with acute onset of nausea, vomiting, diarrhea, body aches and headache that began last night and persisted throughout the night into this morning. The patient denies any fevers, chills, cough, congestion, chest pain, shortness of breath, urinary symptoms. He reports feeling healthy yesterday morning and his symptoms did not begin until the evening. Of note, the patient did have a similar presentation to the emergency department in January 2020 was unremarkable imaging of the head and abdomen and pelvis and following improvement was able to go home. On arrival patient is uncomfortable but no acute distress, afebrile with stable vital signs. He appears clinically dry. He has no focal neurologic deficits. He has generalized abdominal discomfort without discrete tenderness. EKG without overt acute ischemia. Chest x-ray negative for acute cardi opulmonary process and demonstrates chronic interstitial thickening. CT the head negative for acute process. WBC and platelets within normal limits. H/H 12.6/36.8 similar to prior range of values. Creatinine 1.9 similar to previous value in January but is on the high end of the patient's range which usually is closer to 1. Electrolytes otherwise unremarkable. LFTs unremarkable. Troponin negative/undetectable. UA without convincing evidence of infection. COVID-19 RNA, HIMANSHU was negative. CT of the abdomen pelvis was performed and was negative for acute process. Patient was treated for his headache and nausea with IV fluid hydration, APAP, Compazine, dexamethasone, Pepcid. Upon reevaluation patient did feel improved in terms of his headache and nausea though still feeling weak and lightheaded with residual nausea present as well as slightly drowsy from his medications and lack of sleep the night before. Given the persistence of his symptoms in the setting of his acute on chronic renal insufficiency in setting of suspected gastroenteritis reasonable to admit the patient for further management. The patient was agreeable with this. Case was discussed with Peggy Wilson, [facility] PAC, with Dr. Horan, [facility] hospitalist who will evaluate the patient for admission. Triage Nursing notes reviewed and agree them. Prior medical records reviewed Vital Signs: reviewed and remarkable for tachycardia. Differential diagnosis: Gastroenteritis, food borne illness, infections, appendicitis, diverticulitis, inflammatory bowel disease, obstruction, GI bleed, biliary pathology, volvulus, as well as other pathologies. ER treatment provided: See below. Diagnostics interpreted by me: ECG: Normal sinus rhythm, 72 bpm, no ectopy, right bundle branch block, no overt ST elevation or depression, QTC 431, QS 120. Cardiac Monitoring: An order for continuous cardiac monitoring was placed and demonstrated normal sinus rhythm, 72 bpm, no ectopy. Laboratory studies: See below Imaging studies: XR chest 1V portable CLINICAL HISTORY: Atypical chest pain COMPARISON STUDY: 02/23/2020 FINDINGS: The cardiac and mediastinal contours remain stable. There is chronic interstitial thickening most pronounced the left lung base. There is no failure. There is no lobar consolidation. There are no pleural effusions. There are postsurgical changes present within the cervical spine.[ IMPRESSION: Chronic interstitial thickening. No acute findings. -- CT SCAN OF THE BRAIN WITHOUT IV CONTRAST CLINICAL HISTORY: Headache. COMPARISON STUDY: CT of the brain dated 02/23/2020. TECHNIQUE: Unenhanced axial CT scan of the brain is performed from the vertex to the skull base. A dose lowering technique was utilized adhering to the principles of ALARA. CT DOSE: 788.63 mGycm FINDINGS: Brain parenchyma: There are age-related involutional changes noting mild subcortical and periventricular microangiopathic change. There is no hemorrhage, mass effect, or evidence of acute territorial ischemia by CT criteria. Coleman- white matter differentiation is preserved. No extra-axial fluid collection is seen. Ventricles, sulci, cisterns: Prominent secondary to involutional change. Intracranial vasculature: There is atherosclerotic calcification of the cavern ous carotid and vertebral arteries. Calvarium: Unremarkable. Sinuses and mastoids: There is chronic deformity of the right maxillary antrum with trace mucosal thickening. There is also mild mucosal thickening in the left frontal sinus. The remaining visualized paranasal sinuses are clear. The mast oid air cells are well pneumatized. Orbits: The bony orbits are grossly intact. There are bilateral ocular lens implants. IMPRESSION: There is no hemorrhage, mass effect, or evidence of acute damian torial ischemia by CT criteria. -- CT SCAN OF THE ABDOMEN AND PELVIS WITHOUT CONTRAST CLINICAL HISTORY: abd pain, n/v/d COMPARISON STUDY: 02/15/2020 TECHNIQUE: CT scan of the abdomen and pelvis was performed from the lung bases to the proximal femurs. Images are reviewed in the axial, sagittal, and coronal planes. IV contrast was not administered for this examination. A dose lowering technique was utilized adhering to the principles of ALARA. CT DOSE: 701.76 mGycm FINDINGS: Lower chest: There is pulmonary emphysema and basilar atelectasis/interstitial lung disease. A small hiatal hernia Liver: The unenhanced liver is normal in size, contour, and attenuation. There is no intrahepatic biliary ductal dilatation. Gallbladder: Unremarkable. Spleen: Normal in size and attenuation. Pancreas: Unremarkable. Adrenal glands: Unremarkable. Kidneys: No renal, ureteral, or bladder calculi are visualized. Bowel: There are no transition zones to indicate bowel obstruction. There is no evidence of acute diverticulitis. There is no evidence of acute appendicitis. Peritoneum: There is no ascites. There is no free intraperitoneal air Vasculature: There is ectasia of the infrarenal abdominal aorta which measures 24 mm in diameter. There is aortoiliac atherosclerotic disease. Adenopathy: None. Pelvic viscera: There are prostatic calcifications. The prostate is minimally enlarged. Skeletal structures: No destructive osseous lesions are seen. IMPRESSION: 1. No acute intra-abdominal or pelvic findings 2. No evidence of bowel obstruction. No evidence of free air 3. No evidence of acute diverticulitis. No evidence of acute appendicitis 4. No renal, ureteral, or bladder calculi identified ACT 112: Negative or not required by law. Consultation(s): Case was discussed with Peggy Wilson, [facility] PAC, with Dr. Horan, [facility] hospitalist who will evaluate the patient for admission. HPI: 64/M arrives for evaluation of. ROS: See above HPI for pertinent positives & negatives. A total of 10 systems reviewed and were otherwise negative. PAST MEDICAL HISTORY:See Below PAST SURGICAL HISTORY:See Below FAMILY HISTORY:See Below SOCIAL HISTORY:See Below HOME MEDICATIONS:See Below ALLERGIES:See Below VITALS:See Below PHYSICAL EXAMINATION: GENERAL: Awake, alert, uncomfortable/fatigued-appearing, in no distress HENT: Normocephalic, atraumatic. Oropharynx with dry mucous membranes and otherwise unremarkable. EYES: Normal conjunctiva. Sclera non-icteric. EOMI. No nystamgus. PEARRL. NECK: Supple. No nuchal rigidity. FROM. No JVD. RESPIRATORY: Scant intermittent wheeze, otherwise, clear to auscultation. Normal respiratory effort. CARDIAC: Regular rate, normal rhythm. Extremities warm and well perfused. Pulses equal. ABDOMEN: Soft, non-distended. Generalized abdominal discomfort without discrete tenderness to palpation. No rebound or guarding. No masses. RECTAL: Deferred. MUSCULOSKELETAL: Chest examination reveals no tenderness. The back is symmetrical on inspection without obvious abnormality. There is no CVA tenderness to palpation. No joint edema. LOWER EXTREMITIES: Calves are equal size bilaterally and non-tender. No edema. No discoloration. NEURO: Normal sensorium. No sensory or motor deficits noted. SKIN: No rash or jaundice noted. Efren Gomez MD Past Med/Surg History Medical History Back strain Chronic lower back pain Chronic obstructive pulmonary disease last exacerbation 3 wks ago during humidity. [facility] CKD (chronic kidney disease), stage III COPD (chronic obstructive pulmonary disease) Diabetes mellitus, type II GERD (gastroesophageal reflux disease) History of DVT (deep vein thrombosis) HLD (hyperlipidemia) Hypertension Hypoxia Neck pain PVD (peripheral vascular disease) Ruptured lumbar disc Thrombophilia TIA (transient ischemic attack) Surgical History History of back surgery History of eye surgery History of neck surgery Hx of tonsillectomy Family History Unknown Diabetes Mother Diabetes Heart disease Father Hypertension Social History Smoking Status: Former smoker Tobacco Type: Cigarettes and Smokeless Tobacco (Dip or Chew) Cigarettes Per Day: 1/2 -1ppd x 30 years. Quit 2019. Still chewing tobacco; Second Hand Exposure: No; Do You Dip or Chew Tobacco: No; Tobacco Cessation Education Requested by Patient: No Hx Alcohol Use: Yes Alcohol type: beer Hx Substance Use: No Preferred Language: Latvian Communication Ability: Effective Chemistry Technical Officer Required: No Beliefs That Will Affect Care: None marital status: Single Current Living Situation: Family Current Living Situation Comment: lives with son and DIL current occupational status: unemployed and retired Feels Safe at Home: Yes Safety Concerns: Feels Safe At This Time Assistive Devices: Cane, Denture - Upper, Denture - Lower and Glasses Allergies Allergies Allergy/AdvReac Type Severity Reaction Status Date / Time propoxyphene Allergy Intermediate unsure Verified 05/05/20 13:54 acetaminophen Allergy . Verified 05/05/20 13:54 [From [facility]] Home Meds Home Medications Medication Instructions Recorded Confirmed apixaban 5 mg PO BID 03/04/18 05/05/20 aspirin 81 mg PO QAM 03/04/18 05/05/20 atorvastatin 40 mg PO QAM 03/04/18 05/05/20 metoprolol succinate 25 mg PO QAM 03/04/18 05/05/20 omeprazole 40 mg PO QAM 03/04/18 05/05/20 tamsulosin 0.8 mg PO HS 03/04/18 05/05/20 metformin 500 mg tablet 500 mg PO TID tab 10/07/18 05/05/20 albuterol sulfate 2 inha INH QID PRN 12/09/18 05/05/20 cyclosporine [Restasis] 1 drp OPB BID 05/05/20 05/05/20 furosemide 40 mg PO DAILY 05/05/20 05/05/20 gabapentin 100 mg PO TID 05/05/20 05/05/20 hydrocodone-acetaminophen 1 tab PO Q8H PRN 05/05/20 05/05/20 umeclidinium-vilanterol [Anoro 1 inh INHALATION DAILY 05/05/20 05/05/20 Ellipta] Previous Rx's Medication Instructions Recorded repaglinide [Prandin] 1 mg PO TID #90 tab 12/12/18 topiramate 50 mg tablet 50 mg PO BID #60 tab 11/04/19 duloxetine 60 mg capsule,delayed 60 mg PO DAILY 30 Days #30 cap 01/29/20 release pramipexole 0.5 mg tablet 0.5 mg PO .COMPLEX #30 tab 04/30/20 Results & Data (ED) Vital Signs Vital Signs - 24 hr 05/05/20 10:58 05/05/20 11:21 05/05/20 11:22 Temperature 36.7 C Temperature Source Oral Pulse Rate 77 69 Pulse Rate from SpO2 Sensor 70 Respiratory Rate 20 18 Blood Pressure 163/77 H 147/83 H Blood Pressure Mean 105 104 Pulse Oximetry 99 93 95 Oxygen Delivery Method Room Air Room Air Room Air Sepsis Recent Fever Within 48 Hours No Sepsis New/Unexplained Change in Mental Status N/A Sepsis Action Taken by Nursing No Action Required 05/05/20 11:30 05/05/20 12:00 05/05/20 12:32 Temperature Temperature Source Pulse Rate 75 108 H 58 L Pulse Rate from SpO2 Sensor 75 106 H 61 Respiratory Rate 16 22 14 Blood Pressure 151/83 H 147/84 H 163/64 H Blood Pressure Mean 105 105 97 Pulse Oximetry 92 93 97 Oxygen Delivery Method Room Air Room Air Room Air Sepsis Recent Fever Within 48 Hours Sepsis New/Unexplained Change in Mental Status Sepsis Action Taken by Nursing 05/05/20 13:00 05/05/20 13:30 05/05/20 14:00 Temperature Temperature Source Pulse Rate 86 77 73 Pulse Rate from SpO2 Sensor 74 77 75 Respiratory Rate 15 14 14 Blood Pressure 105/59 L 189/96 H 193/101 H Blood Pressure Mean 74 127 131 Pulse Oximetry 95 95 98 Oxygen Delivery Method Room Air Room Air Room Air Sepsis Recent Fever Within 48 Hours Sepsis New/Unexplained Change in Mental Status Sepsis Action Taken by Nursing 05/05/20 14:32 Temperature Temperature Source Pulse Rate 81 Pulse Rate from SpO2 Sensor 80 Respiratory Rate 17 Blood Pressure 169/83 H Blood Pressure Mean 111 Pulse Oximetry 95 Oxygen Delivery Method Room Air Sepsis Recent Fever Within 48 Hours Sepsis New/Unexplained Change in Mental Status Sepsis Action Taken by Nursing Laboratory Data Attestation: I reviewed the patient's lab results. Result diagrams: 05/05/20 11:00 05/05/20 11:00 Lab Results 05/05/20 05/05/20 05/05/20 Range/Units 11:00 11:00 11:52 WBC 10.56 (4.8-10.8) K/uL RBC 3.70 L (4.7-6.1) M/uL Hgb 12.6 L (14.0-18.0) g/dL Hct 36.8 L (42-52) % MCV 99.5 (80-100) fL MCH 34.1 H (25-34) pg MCHC 34.2 (32-36) g/dL RDW Std Deviation 46.9 H (36.4-46.3) fL RDW Coeff of Loree 12.9 (11.5-14.5) % Plt Count 363 (130-400) K/uL MPV 10.2 (7.4-10.4) fL Immature Gran % (Auto) 0.3 % Neut % (Auto) 86.3 % Lymph % (Auto) 8.6 % Ulster % (Auto) 4.1 % Eos % (Auto) 0.4 % Baso % (Auto) 0.3 % Neut # (Auto) 9.12 H (1.4-6.5) K/uL Lymph # (Auto) 0.91 L (1.2-3.4) K/uL Ulster # (Auto) 0.43 (0.11-0.59) K/uL Eos # (Auto) 0.04 (0-0.5) K/uL Baso # (Auto) 0.03 (0-0.2) K/uL Immature Gran # (Auto) 0.03 H (0.00-0.02) K/uL Sodium 137 (136-145) mmol/L Potassium 4.7 (3.5-5.1) mmol/L Chloride 106 (98-107) mmol/L Carbon Dioxide 24 (21-32) mmol/L Anion Gap 7.0 (3-11) BUN 27 H (7-18) mg/dl Creatinine 1.93 H (0.6-1.4) mg/dl Est Cr Clr Drug Dosing 36.1 ml/min Est GFR ( Amer) 41.4 Est GFR (Non-Af Amer) 35.8 BUN/Creatinine Ratio 13.9 (10-20) Glucose 145 H (70-99) mg/dl Calcium 10.3 H (8.5-10.1) mg/dl Phosphorus 3.0 (2.5-4.9) mg/dl Magnesium 2.5 H (1.8-2.4) mg/dl Total Bilirubin 0.7 (0.2-1) mg/dl Direct Bilirubin < 0.1 (0-0.2) mg/dl AST 8 L (15-37) U/L ALT 16 (12-78) U/L Alkaline Phosphatase 105 (45-117) U/L Troponin I < 0.015 (0-0.045) ng/ml Total Protein 9.5 H (6.4-8.2) gm/dl Albumin 4.2 (3.4-5.0) gm/dl Globulin 5.2 H (2.5-4.0) gm/dl Albumin/Globulin Ratio 0.8 L (0.9-2) Lipase 62 L (73-393) U/L COVID-19 Eval [facility] SARS-[facility]-2, RNA, NAAT (NEGATIVE) 05/05/20 Range/Units 11:52 WBC (4.8-10.8) K/uL RBC (4.7-6.1) M/uL Hgb (14.0-18.0) g/dL Hct (42-52) % MCV (80-100) fL MCH (25-34) pg MCHC (32-36) g/dL RDW Std Deviation (36.4-46.3) fL RDW Coeff of Loree (11.5-14.5) % Plt Count (130-400) K/uL MPV (7.4-10.4) fL Immature Gran % (Auto) % Neut % (Auto) % Lymph % (Auto) % Ulster % (Auto) % Eos % (Auto) % Baso % (Auto) % Neut # (Auto) (1.4-6.5) K/uL Lymph # (Auto) (1.2-3.4) K/uL Ulster # (Auto) (0.11-0.59) K/uL Eos # (Auto) (0-0.5) K/uL Baso # (Auto) (0-0.2) K/uL Immature Gran # (Auto) (0.00-0.02) K/uL Sodium (136-145) mmol/L Potassium (3.5-5.1) mmol/L Chloride (98-107) mmol/L Carbon Dioxide (21-32) mmol/L Anion Gap (3-11) BUN (7-18) mg/dl Creatinine (0.6-1.4) mg/dl Est Cr Clr Drug Dosing ml/min Est GFR ( Amer) Est GFR (Non-Af Amer) BUN/Creatinine Ratio (10-20) Glucose (70-99) mg/dl Calcium (8.5-10.1) mg/dl Phosphorus (2.5-4.9) mg/dl Magnesium (1.8-2.4) mg/dl Total Bilirubin (0.2-1) mg/dl Direct Bilirubin (0-0.2) mg/dl AST (15-37) U/L ALT (12-78) U/L Alkaline Phosphatase (45-117) U/L Troponin I (0-0.045) ng/ml Total Protein (6.4-8.2) gm/dl Albumin (3.4-5.0) gm/dl Globulin (2.5-4.0) gm/dl Albumin/Globulin Ratio (0.9-2) Lipase (73-393) U/L COVID-19 Eval Order SARS-CoV-2, RNA, NAAT NEGATIVE (NEGATIVE) Administered Medications Sodium Chloride (Nss 1000ml) 1,000 mls @ 125 mls/hr IV .Q8H JUSTO Stop: 05/06/20 08:14 Last Admin: 05/05/20 16:33 Dose: 125 mls/hr Documented by: [id number] Insulin Aspart (Insulin Aspart 100 Units/Ml 3 Ml Pen) 0 units SC ACHS JUSTO Stop: 06/04/20 16:29 Last Admin: 05/05/20 17:16 Dose: 4 units Documented by: [id number] Cosigned by: [id number] Discontinued Medications Apixaban (Apixaban 5 Mg Tablet) 5 mg PO ONE ONE Stop: 05/05/20 15:39 Last Admin: 05/05/20 15:57 Dose: 5 mg Documented by: [id number] Dexamethasone (Dexamethasone Sod Inj 10 Mg/Ml Vial) 10 mg IV NOW ONE Stop: 05/05/20 11:32 Last Admin: 05/05/20 11:49 Dose: 10 mg Documented by: [id number] Sodium Chloride (Nss 1000ml) 1,000 mls @ 999 mls/hr IV .Q1H1M STA Stop: 05/05/20 12:29 Last Infusion: 05/05/20 12:52 Dose: 0 mls/hr Documented by: [id number] Admin: 05/05/20 11:48 Dose: 999 mls/hr Documented by: [id number] Famotidine (Pepcid 20mg Iv Push) 20 mg in 5 mls @ 2.5 mls/min IV NOW STA Stop: 05/05/20 11:32 Last Admin: 05/05/20 11:49 Dose: 2.5 mls/min Documented by: [id number] Prochlorperazine (Compazine) 2 mls @ 1 mls/min IV ONE ONE Stop: 05/05/20 11:32 Last Admin: 05/05/20 11:49 Dose: 1 mls/min Documented by: [id number] Acetaminophen (Ofirmev) 1,000 mg in 100 mls @ 400 mls/hr IV NOW STA Stop: 05/05/20 11:49 Last Infusion: 05/05/20 12:11 Dose: 0 mls/hr Documented by: [id number] Admin: 05/05/20 11:48 Dose: 400 mls/hr Documented by: [id number] Metoprolol Succinate (Metoprolol Succ 25mg Ext Rel Tab) 25 mg PO ONE STA Stop: 05/05/20 15:39 Last Admin: 05/05/20 15:57 Dose: 25 mg Documented by: [id number] Discharge Plan Visit Data Chief Complaint: Vomiting ED Provider: Efren Gomez Discharge Problem: Gastroenteritis, Headache, Dehydration, Renal insufficiency Patient Disposition: Admitted As Inpatient Discharge Instructions Interventions: ED Discharge Assessment Last Done: 05/05/20 13:25 Discharge Problem: Headache Qualifiers: Headache type: unspecified Headache chronicity pattern: unspecified pattern Intractability: not intractable Qualified Code(s): R51.9 - Headache, unspecified
--- NOTE | 2020-05-05 14:35 | CT Scan Report ---
CT SCAN OF THE ABDOMEN AND PELVIS WITHOUT CONTRAST CLINICAL HISTORY: abd pain, n/v/d COMPARISON STUDY: 02/15/2020 TECHNIQUE: CT scan of the abdomen and pelvis was performed from the lung bases to the proximal femurs . Images are reviewed in the axial, sagittal, and coronal planes. IV contrast was not administered fo r this examination. A dose lowering technique was utilized adhering to the principles of ALARA. CT DOSE: 701.76 mGycm FINDINGS: Lower chest: There is pulmonary emphysema and basilar atelectasis/interstitial lung disease. A small hiatal hernia Liver: The unenhanced liver is normal in size, contour, and attenuation. There is no intrahepatic ar iary ductal dilatation. Gallbladder: Unremarkable. Spleen: Normal in size and attenuation. Pancreas: Unremarkable. Adrenal glands: Unremarkable. Kidneys: No renal, ureteral, or bladder calculi are visualized. Bowel: There are no transition zones to indicate bowel obstruction. There is no evidence of acute div erticulitis. There is no evidence of acute appendicitis. Peritoneum: There is no ascites. There is no free intraperitoneal air Vasculature: There is ectasia of the infrarenal abdominal aorta which measures 24 mm in diameter. The re is aortoiliac atherosclerotic disease. Adenopathy: None. Pelvic viscera: There are prostatic calcifications. The prostate is minimally enlarged. Skeletal structures: No destructive osseous lesions are seen. IMPRESSION: 1. No acute intra-abdominal or pelvic findings 2. No evidence of bowel obstruction. No evidence of free air 3. No evidence of acute diverticulitis. No evidence of acute appendicitis 4. No renal, ureteral, or bladder calculi identified ACT 112: Negative or not required by law. Electronically signed by: Alton Purcell M.D. 05/05/2020 2:34 PM
[2020-05-05] MEDS ORDERED: APIXABAN 5 MG TABLET PO ONE (15:38)
[2020-05-05] MEDS ORDERED: METOPROLOL SUCC 25MG EXT REL TAB PO STA (15:38)
--- NOTE | 2020-05-05 15:47 | History & Physical Report ---
Date of Service May 05, 2020 Assessment & Plan (1) Vomiting and diarrhea: Pt is 64 y/o M with PMH DM II, HTN, HLD, CKD III, depression, anxiety, COPD, GERD, chronic back pain on opioids, RLS, h/o bilateral DVT on chronic Eliquis, h/o recurrent GARCIA, tobacco use presented to ER with c/o N/V/D x 1 day. Denies fever/chills, abdominal pain In ER afebrile, P: 77, R: 20, BP: 163/77, 99% on RA. No leukocytosis, normal lipase. UA negative. Negative COVID 19 CT ABD/PELVIS: No acute intra-abdominal or pelvic findings. CXR: no acute findings In ER received 1L NSS, pepcid 20mg IV Pt with decreased nausea and denies further vomiting or diarrhea while in ER IVF Obtain stool studies, c-diff when pt has BM Drug screen Clear liquid diet CBC, BMP in am (2) Acute kidney injury superimposed on CKD: BUN: 27, Cr: 1.9. Had Cr: 1.6 in 03/2020 IVF Monitor renal functions, Avoid nephrotoxic agents when possible (3) Tachycardia: Noted to have sinus tachycardia, P: 108 in ER. Pt missed his metoprolol this morning along with dehydration IVF Dose metoprolol Monitor (4) Headache: H/O recurrent GARCIA's in past. Today with GARCIA In ER given IV Tylenol, Decadron 10mg IV, Compazine with resolution of GARCIA CT head: no acute findings Monitor (5) Hypertension: most recent BP: 126/92 Continue metoprolol Hold lasix (6) Diabetes mellitus, type II: A1c: 5.9 in 03/2020 Hold oral meds Novolog sliding scale per protocol (7) History of DVT (deep vein thrombosis): H/O bilateral DVT. On chronic Eliquis Continue Eliquis (8) COPD (chronic obstructive pulmonary disease): No signs of exacerbation Continue home inhalers (9) Chronic low back pain: On chronic narcotics Continue hydrocodone prn, continue gabapentin, cymbalta (10) GERD (gastroesophageal reflux disease): Continue PPI (11) RLS (restless legs syndrome): Continue Mirapex DVT Prophylaxis -On Eliquis Full Code as per discussion with pt Follows with Dr Pierce for routine care Pt was seen and care coordinated with Dr Horan. See addendum History of Present Illness Chief Complaint: N/V/D Primary Care Provider: Kobe Pierce MD Pt is 64 y/o M with PMH DM II, HTN, HLD, CKD III, depression, anxiety, COPD, GERD, chronic back pain on opioids, RLS, h/o bilateral DVT on chronic Eliquis, h/o recurrent GARCIA, tobacco use presented to ER with c/o N/V/D started last night. Pt states had numerous episodes of vomiting and diarrhea and was unable to keep fluids down. Denies abdominal pain. Also c/o GARCIA that feels like his prior GARCIA's. Was medicated in ER and GARCIA has resolved. Did not take am meds today. States has chronic cough, denies worsening. Denies fever/chills, diaphoresis, hematemesis, melena, dizziness, syncope, vision changes, neck pain, CP, SOB, orthopnea, palpitations, sore throat, choking, otalgia, rhinorrhea, paresthesias, weakness, extremity weakness, extremity edema, rashes, urinary symptoms. Allergies Allergy/AdvReac Type Severity Reaction Status Date / Time propoxyphene Allergy Intermediate unsure Verified 05/05/20 13:54 acetaminophen Allergy . Verified 05/05/20 13:54 [From [facility]] Home Medications Medication Instructions Recorded Confirmed Type apixaban 5 mg PO BID 03/04/18 05/05/20 History aspirin 81 mg PO QAM 03/04/18 05/05/20 History atorvastatin 40 mg PO QAM 03/04/18 05/05/20 History metoprolol succinate 25 mg PO QAM 03/04/18 05/05/20 History omeprazole 40 mg PO QAM 03/04/18 05/05/20 History tamsulosin 0.8 mg PO HS 03/04/18 05/05/20 History metformin 500 mg tablet 500 mg PO TID tab 10/07/18 05/05/20 History albuterol sulfate 2 inha INH QID PRN 12/09/18 05/05/20 History repaglinide [Prandin] 1 mg PO TID #90 tab 12/12/18 05/05/20 Rx topiramate 50 mg tablet 50 mg PO BID #60 tab 11/04/19 05/05/20 Rx duloxetine 60 mg capsule,delayed 60 mg PO DAILY 30 Days #30 cap 01/29/20 05/05/20 Rx release pramipexole 0.5 mg tablet 0.5 mg PO .COMPLEX #30 tab 04/30/20 05/05/20 Rx cyclosporine [Restasis] 1 drp OPB BID 05/05/20 05/05/20 History furosemide 40 mg PO DAILY 05/05/20 05/05/20 History gabapentin 100 mg PO TID 05/05/20 05/05/20 History hydrocodone-acetaminophen 1 tab PO Q8H PRN 05/05/20 05/05/20 History umeclidinium-vilanterol [Anoro 1 inh INHALATION DAILY 05/05/20 05/05/20 History Ellipta] Past Med/Surg History Medical History Back strain Chronic lower back pain Chronic obstructive pulmonary disease last exacerbation 3 wks ago [address]. [facility] CKD (chronic kidney disease), stage III COPD (chronic obstructive pulmonary disease) Diabetes mellitus, type II GERD (gastroesophageal reflux disease) History of DVT (deep vein thrombosis) HLD (hyperlipidemia) Hypertension Hypoxia Neck pain PVD (peripheral vascular disease) Ruptured lumbar disc Thrombophilia TIA (transient ischemic attack) Surgical History History of back surgery History of eye surgery History of neck surgery Hx of tonsillectomy Family History Unknown Diabetes Mother Diabetes Heart disease Father Hypertension Social History Smoking Status: Former smoker Tobacco Type: Cigarettes and Smokeless Tobacco (Dip or Chew) Cigarettes Per Day: 1/2 -1ppd x 30 years. Quit 2019. Still chewing tobacco; Second Hand Exposure: No; Do You Dip or Chew Tobacco: No; Tobacco Cessation Education Requested by Patient: No Hx Alcohol Use: Yes Alcohol type: beer Hx Substance Use: No Preferred Language: Upper Sorbian Communication Ability: Effective Psychologist Chief Required: No Beliefs That Will Affect Care: None marital status: Single Current Living Situation: Family Current Living Situation Comment: lives with son and DIL current occupational status: unemployed and retired Feels Safe at Home: Yes Safety Concerns: Feels Safe At This Time Assistive Devices: Cane, Denture - Upper, Denture - Lower and Glasses Review of Systems Review of Systems: All systems reviewed & are unremarkable except as noted in HPI & below Physical Exam Physical Exam: General: Currently sleepy from medications in ER, no distress, overweight Head: normocephalic, atraumatic Eyes: PERRL, EOM's intact, conjunctiva non-injected, anicteric ENT: normal inspection external ears, nose, mucous membranes dry Neck: supple, trachea midline Lungs: clear, no respiratory distress, no wheezing/rhonchi/rales CV: RRR, no murmur, no pretibial edema Abd: normal BS, soft, non-tender Ext: no cyanosis, no calf tenderness Neuro: Currently sleepy, arouses to voice, Oriented x 3, no focal deficits noted, normal affect Skin: warm, dry Results & Data Results & Data ([facility]) Vital Signs (Past 12 Hours) Vital Signs Temp Pulse Resp BP Pulse Ox 05/05/20 14:32 81 17 169/83 H 95 05/05/20 14:00 73 14 193/101 H 98 05/05/20 13:30 77 14 189/96 H 95 05/05/20 13:00 86 15 105/59 L 95 05/05/20 12:32 58 L 14 163/64 H 97 05/05/20 12:00 108 H 22 147/84 H 93 05/05/20 11:30 75 16 151/83 H 92 05/05/20 11:22 95 05/05/20 11:21 69 18 147/83 H 93 05/05/20 10:58 36.7 C 77 20 163/77 H 99 Laboratory Results Short CBC 05/05/20 Range/Units 11:00 WBC 10.56 (4.8-10.8) K/uL Hgb 12.6 L (14.0-18.0) g/dL Hct 36.8 L (42-52) % Plt Count 363 (130-400) K/uL BMP 05/05/20 11:00 Sodium 137 Potassium 4.7 Chloride 106 Carbon Dioxide 24 BUN 27 H Creatinine 1.93 H Glucose 145 H Calcium 10.3 H Cardiac Enzymes 05/05/20 Range/Units 11:00 Troponin I < 0.015 (0-0.045) ng/ml Liver Function 05/05/20 Range/Units 11:00 Total Bilirubin 0.7 (0.2-1) mg/dl Direct Bilirubin < 0.1 (0-0.2) mg/dl AST 8 L (15-37) U/L ALT 16 (12-78) U/L Alkaline Phosphatase 105 (45-117) U/L Albumin 4.2 (3.4-5.0) gm/dl Diagnostic Findings CT HEAD: IMPRESSION: There is no hemorrhage, mass effect, or evidence of acute territorial ischemia by CT criteria. CXR: IMPRESSION: Chronic interstitial thickening. No acute findings. CT ABD/PELVIS: IMPRESSION: 1. No acute intra-abdominal or pelvic findings 2. No evidence of bowel obstruction. No evidence of free air 3. No evidence of acute diverticulitis. No evidence of acute appendicitis 4. No renal, ureteral, or bladder calculi identified Code Status & VTE Plan VTE Prophylaxis Plan VTE Prophylaxis will be ordered: Yes Supervising Physician Co-Signing Physician Notes Patient is a 64-year-old male with history of diabetes mellitus, hypertension, CKD stage III and other medical problems presents with history of nausea, vomiting, diarrhea since 1 day duration. He admits to having some discomfort with bowel movement but currently denies any abdominal pain. He denies any recent travel, sick contact, exposure to Covid. CT abdomen was unremarkable. He denies any recent antibiotic use. He also states having headache which currently improved. Please review HPI for complete details of presentation. On exam patient is moderately built and nourished, no apparent distress, normocephalic atraumatic, lungs--decreased breath sounds, clear to auscultation, S1-S2, no murmur, no pedal edema, abdomen soft, nontender, normal bowel sounds, alert, awake, oriented, grossly no focal deficits. Patient is admitted for management of intractable nausea, vomiting, diarrhea, EDITH secondary to GI losses. Unremarkable source of GI symptoms. Agree with IV fluids, clear liquid diet today. Will obtain stool studies if diarrhea reoccurs. Hold Metformin for now. Covid screen negative. Will avoid any nephrotoxic agents and monitor renal function. Patient currently denies any IV drug use. Will obtain toxicology screen for completeness. I personally reviewed the record. Patient is interviewed and examined at bedside. Patient's care is coordinated with Anila Wilson PA-C. Please refer to the documentation above for details of patient's presentation and for discussion of other issues.
[2020-05-05] MEDS ORDERED: CARBOHYDRATES FOR HYPOGLYCEMIA PO PRN (16:15)
[2020-05-05] MEDS ORDERED: GLUCAGON FOR INJ 1 MG VIAL SQ PRN (16:15)
[2020-05-05] MEDS ORDERED: GLUCOSE 40% GEL 15 GM TUBE PO PRN (16:15)
[2020-05-05] MEDS ORDERED: DEXTROSE 50% 50 ML SYRINGE IV PRN (16:15)
[2020-05-05] MEDS ORDERED: ONDANSETRON INJ 2 MG/ML 2 ML VIAL IV PRN (16:15)
[2020-05-05] MEDS ORDERED: ALBUTEROL HFA 8 GM INHALER INH PRN (16:15)
[2020-05-05] MEDS ORDERED: GLUCOSE 10 TABS/TUBE PO PRN (16:15)
[2020-05-05 16:23] LABS: Appearance Urine Clear (Clear); Bilirubin Urine Negative (Negative); Blood Urine Negative (Negative); Color Urine Yellow; Glucose Urine UA Negative (Negative); Ketones Urine Negative (Negative); Leukocyte Esterase Urine Negative (Negative); Nitrite Urine Negative (Negative); Protein Urine Negative (Negative); Specific Gravity Urine 1.007 (1.000-1.030); Urobilinogen Urine Negative (Negative)
--- NOTE | 2020-05-05 16:24 | Electrocardiogram Report ---
Test Reason : Blood Pressure : / mmHG Vent. Rate : 072 BPM Atrial Rate : 072 BPM P-R Int : 126 ms QRS Dur : 120 ms QT Int : 394 ms P-R-T Axes : 058 -24 020 degrees QTc Int : 431 ms Normal sinus rhythm Right bundle branch block Abnormal ECG When compared with ECG of 23-FEB-2020 14:43, No significant change was found Confirmed by Juan Jose Joseph ([id number]) on 05/05/2020 4:24:02 PM Referred By: REFERRED SELF Confirmed By:Juan Jose Joseph
[2020-05-05] MEDS: SODIUM CHLORIDE 0.9% 1000ML 1,000 ML IV SCH (16:33)
[2020-05-05 16:54] LABS: Amphetamines+Metham, Urine Neg (Neg); Barbiturates, Urine Neg (Neg); Benzodiazepine, Urine Neg (Neg); Cocaine, Urine Neg (Neg); MDMA (Ecstacy), Urine Neg (Neg); Methadone, Urine Neg (Neg); Opiate, Urine Neg (Neg); Phencyclidine, Urine Neg (Neg)
[2020-05-05] MEDS: INSULIN ASPART 100 UNITS/ML 3 ML PEN SC SCH ×2 (17:16→20:21)
[2020-05-05] MEDS ORDERED: ACETAMINOPHEN 325 MG TAB PO PRN (18:28)
[2020-05-05] MEDS ORDERED: PRAMIPEXOLE DIHYDROCHLO 0.5 MG TAB PO SCH (19:00)
[2020-05-05] MEDS: APIXABAN 5 MG TABLET PO SCH (20:29)
[2020-05-05] MEDS: GABAPENTIN 100 MG CAP PO SCH (20:30)
[2020-05-05] MEDS: TOPIRAMATE 50 MG TAB PO SCH (20:30)
[2020-05-05] MEDS ORDERED: TAMSULOSIN HCL 0.4 MG CAP PO SCH (21:00)
[2020-05-05] MEDS: HYDROcodone/ACETAMINOPHEN 10/325 TAB PO PRN (21:30)
[2020-05-06] MEDS: SODIUM CHLORIDE 0.9% 1000ML 1,000 ML IV SCH (00:18)
[2020-05-06] MEDS ORDERED: MELATONIN 3 MG TAB PO PRN (00:30)
[2020-05-06] MEDS ORDERED: MELATONIN 3 MG TAB PO ONE (00:38)
[2020-05-06 05:45] LABS: Hematocrit (blood only) 30.7 % (42-52); Hemoglobin 10.3 g/dL (14.0-18.0); Mean Corpuscular Hemoglobin 33.9 pg (25-34); Mean Corpuscular Hgb Conc 33.6 g/dL (32-36); Mean Platelet Volume 9.6 fL (7.4-10.4); Platelet Count 278 K/uL (130-400); RDW Coefficient of Variation 13.3 % (11.5-14.5); RDW Standard Deviation 48.8 fL (36.4-46.3); Red Blood Count 3.04 M/uL (4.7-6.1); White Blood Count 10.69 K/uL (4.8-10.8)
[2020-05-06 06:23] LABS: Calcium 8.7 mg/dl (8.5-10.1); Est GFR (Non-African American) 40.5; Magnesium 2.4 mg/dl (1.8-2.4); Potassium 4.6 mmol/L (3.5-5.1)
[2020-05-06] MEDS: APIXABAN 5 MG TABLET PO SCH (08:13)
[2020-05-06] MEDS: TOPIRAMATE 50 MG TAB PO SCH (08:13)
[2020-05-06] MEDS: GABAPENTIN 100 MG CAP PO SCH (08:13)
[2020-05-06] MEDS: INSULIN ASPART 100 UNITS/ML 3 ML PEN SC SCH (08:14)
[2020-05-06] MEDS: HYDROcodone/ACETAMINOPHEN 10/325 TAB PO PRN (08:20)
[2020-05-06] MEDS ORDERED: UMECLIDINIUM/VILANTEROL 62.5/25MCG 7 PUFFS/INHALER INH SCH (09:00)
[2020-05-06] MEDS ORDERED: METOPROLOL SUCC 25MG EXT REL TAB PO SCH (09:00)
[2020-05-06] MEDS ORDERED: PANTOprazole 40 MG TAB PO SCH (09:00)
[2020-05-06] MEDS ORDERED: ATORVASTATIN 40 MG TAB PO SCH (09:00)
[2020-05-06] MEDS ORDERED: ASPIRIN 81 MG ECTAB PO SCH (09:00)
[2020-05-06] MEDS ORDERED: AZITHROMYCIN 500 MG in DEXTROSE 5% 250 ML IV SCH (09:00)
[2020-05-06] MEDS ORDERED: DULoxetine HCL 60 MG CAP PO SCH (09:00)
--- NOTE | 2020-05-06 11:11 | Hospitalist Progress Note ---
Date of Service May 06, 2020 Assessment & Plan (1) Vomiting and diarrhea: Patient is a 64 yr male with H/O PMH DM II, HTN, HLD, CKD III, depression, anxiety, COPD, GERD, chronic back pain on opioids, RLS, h/o bilateral DVT on chronic Eliquis, h/o recurrent GARCIA, tobacco use presented to ER with c/o N/V/D x 1 day. n Nausea, vomiting, diarrhea Likely secondary to cannabinoid hyperemesis syndrome Negative COVID 19 CT ABD/PELVIS: No acute intra-abdominal or pelvic findings. CXR: no acute findings Toxicology screen positive for marijuana Patient admits to trying marijuana for chronic pain which he plans to discontinue use secondary to intolerance Received IV fluids Advance diet as tolerated Plan to obtain stool studies if diarrhea reoccurs. (2) Acute kidney injury superimposed on CKD: Secondary to dehydration from above Creatinine near baseline today Received IV fluids Avoid nephrotoxic agents as able (3) Tachycardia: Sinus tachycardia Pt missed his metoprolol yesterday Continue metoprolol Monitor (4) Headache: H/O recurrent GARCIA's in past. CT head: no acute findings Resolved (5) Hypertension: Continue metoprolol Resume lasix as able (6) Diabetes mellitus, type II: A1c: 5.9 in 03/2020 Hold oral meds Novolog sliding scale per protocol (7) History of DVT (deep vein thrombosis): H/O bilateral DVT. On chronic Eliquis Continue Eliquis (8) COPD (chronic obstructive pulmonary disease): No signs of exacerbation Continue home inhalers (9) Chronic low back pain: On chronic narcotics Continue hydrocodone prn, continue gabapentin, cymbalta (10) GERD (gastroesophageal reflux disease): Continue PPI (11) RLS (restless legs syndrome): Continue Mirapex DVT P On Eliquis Code Status Full Code Disposition Tentative discharge home Follows with Dr Pierce for routine care Admission and Anticipated Discharge Date Admission Date: May 05, 2020 Subjective Patient is seen and examined at bedside States feeling much better today Nausea, vomiting, diarrhea resolved Offers no complaints Denies any chest pain, dyspnea, dizziness, abd pain Tolerating diet Admits to using marijuana Review of Systems Review of Systems: All systems reviewed & are unremarkable except as noted in HPI & below Physical Exam Physical Exam: Physical Exam: Vitals signs as noted above General Appearance:Moderately built and nourished, no apparent distress Head: normocephalic, Atraumatic Eyes: normal inspection, EOMI Neck: supple, Trachea midline Respiratory/Chest: Decreased breath sounds, CTA, No accessory muscle use Cardiovascular: S1, S2, No murmur Abdomen/GI:Soft, Non tender, Bowel sounds present Extremities/Musculoskelatal:normal inspection, no edema Neurologic/Psych:AAOX3, grossly no focal neurological deficits Skin: normal color, warm Results & Data Results & Data ([facility]) Vital Signs (Past 12 Hours) Vital Signs Temp Pulse Resp BP Pulse Ox 05/06/20 07:31 36.7 C 69 18 121/69 96 05/05/20 23:01 36.8 C 95 H 18 100/63 94 Laboratory Results Short CBC 05/05/20 05/06/20 Range/Units 11:00 05:29 WBC 10.56 10.69 (4.8-10.8) K/uL Hgb 12.6 L 10.3 L (14.0-18.0) g/dL Hct 36.8 L 30.7 L (42-52) % Plt Count 363 278 (130-400) K/uL BMP 05/05/20 05/06/20 11:00 05:29 Sodium 137 143 Potassium 4.7 4.6 Chloride 106 115 H Carbon Dioxide 24 24 BUN 27 H 24 H Creatinine 1.93 H 1.74 H Glucose 145 H 99 Calcium 10.3 H 8.7 D Cardiac Enzymes 05/05/20 Range/Units 11:00 Troponin I < 0.015 (0-0.045) ng/ml Liver Function 05/05/20 Range/Units 11:00 Total Bilirubin 0.7 (0.2-1) mg/dl Direct Bilirubin < 0.1 (0-0.2) mg/dl AST 8 L (15-37) U/L ALT 16 (12-78) U/L Alkaline Phosphatase 105 (45-117) U/L Albumin 4.2 (3.4-5.0) gm/dl Urine 05/05/20 Range/Units 16:00 Urine Color Yellow Urine Appearance Clear (Clear) Urine pH 7.0 (4.5-7.5) Ur Specific Wilmot 1.007 (1.000-1.030) Urine Protein Negative (Negative) Urine Glucose (UA) Negative (Negative) (1) Headache Headache chronicity pattern: unspecified pattern Headache type: unspecified Intractability: not intractable Qualified Code(s): R51.9 - Headache, unspecified
--- NOTE | 2020-05-06 11:19 | Discharge Summary ---
Date of Service May 06, 2020 Admission HPI Per Admitting Provider Pt is 64 y/o M with PMH DM II, HTN, HLD, CKD III, depression, anxiety, COPD, GERD, chronic back pain on opioids, RLS, h/o bilateral DVT on chronic Eliquis, h/o recurrent GARCIA, tobacco use presented to ER with c/o N/V/D started last night. Pt states had numerous episodes of vomiting and diarrhea and was unable to keep fluids down. Denies abdominal pain. Also c/o GARCIA that feels like his prior GARCIA's. Was medicated in ER and GARCIA has resolved. Did not take am meds today. States has chronic cough, denies worsening. Denies fever/chills, diaphoresis, hematemesis, melena, dizziness, syncope, vision changes, neck pain, CP, SOB, orthopnea, palpitations, sore throat, choking, otalgia, rhinorrhea, paresthesias, weakness, extremity weakness, extremity edema, rashes, urinary symptoms. Admission Exam Per Admitting Provider Physical Exam Physical Exam: General: Currently sleepy from medications in ER, no distress, overweight Head: normocephalic, atraumatic Eyes: PERRL, EOM's intact, conjunctiva non-injected, anicteric ENT: normal inspection external ears, nose, mucous membranes dry Neck: supple, trachea midline Lungs: clear, no respiratory distress, no wheezing/rhonchi/rales CV: RRR, no murmur, no pretibial edema Abd: normal BS, soft, non-tender Ext: no cyanosis, no calf tenderness Neuro: Currently sleepy, arouses to voice, Oriented x 3, no focal deficits noted, normal affect Skin: warm, dry Principal Diagnosis Cannabinoid hyperemesis syndrome Acute kidney injury Discharge Data Allergies Allergy/AdvReac Type Severity Reaction Status Date / Time propoxyphene Allergy Intermediate unsure Verified 05/05/20 13:54 acetaminophen Allergy . Verified 05/05/20 13:54 [From [facility]] Consultations 05/05/20 14:54 ED Decision to Admit Stat Procedures Performed CT ABD: 1. No acute intra-abdominal or pelvic findings 2. No evidence of bowel obstruction. No evidence of free air 3. No evidence of acute diverticulitis. No evidence of acute appendicitis 4. No renal, ureteral, or bladder calculi identified CT head: There is no hemorrhage, mass effect, or evidence of acute territorial ischemia by CT criteria. CXR: Chronic interstitial thickening. No acute findings. Ordered Studies 05/05/20 11:31 CT head/brain wo con Stat 05/05/20 13:48 CT abd pelvis wo con Stat Hospital Course (1) Vomiting and diarrhea: Patient is a 64 yr male with H/O PMH DM II, HTN, HLD, CKD III, depression, anxiety, COPD, GERD, chronic back pain on opioids, RLS, h/o bilateral DVT on chronic Eliquis, h/o recurrent GARCIA, tobacco use presented to ER with c/o N/V/D x 1 day. n Nausea, vomiting, diarrhea Likely secondary to cannabinoid hyperemesis syndrome Negative COVID 19 CT ABD/PELVIS: No acute intra-abdominal or pelvic findings. CXR: no acute findings Toxicology screen positive for marijuana Patient admits to trying marijuana for chronic pain which he plans to discontinue use secondary to intolerance Received IV fluids Advance diet as tolerated Plan to obtain stool studies if diarrhea reoccurs. (2) Acute kidney injury superimposed on CKD: Secondary to dehydration from above Creatinine near baseline today Received IV fluids Avoid nephrotoxic agents as able (3) Tachycardia: Sinus tachycardia Pt missed his metoprolol yesterday Continue metoprolol Monitor (4) Headache: H/O recurrent GARCIA's in past. CT head: no acute findings Resolved (5) Hypertension: Continue metoprolol Resume lasix as able (6) Diabetes mellitus, type II: A1c: 5.9 in 03/2020 Hold oral meds Novolog sliding scale per protocol (7) History of DVT (deep vein thrombosis): H/O bilateral DVT. On chronic Eliquis Continue Eliquis (8) COPD (chronic obstructive pulmonary disease): No signs of exacerbation Continue home inhalers (9) Chronic low back pain: On chronic narcotics Continue hydrocodone prn, continue gabapentin, cymbalta (10) GERD (gastroesophageal reflux disease): Continue PPI (11) RLS (restless legs syndrome): Continue Mirapex DVT P On Eliquis Code Status Full Code Disposition Tentative discharge home Follows with Dr Pierce for routine care Total Time Total Time Spent Total Time Spent (In Minutes): 34 minutes Total Time Includes: Examination of the Patient, Discharge Planning, Medication Reconciliation, Communication With Other Providers and Other Discharge Plan Discharge Items Patient Disposition: Home - Self-Care Reason For Visit: ILLNESS Discharge Diagnosis: Cannabinoid hyperemesis syndrome Acute kidney injury Activity: Per Instructions section Exercise/Sports: Gradually increase as tolerated Non-emergency contact: Primary Care Provider Call non-emergency contact if: you have any medication questions, your symptoms worsen, your pain is concerning for you and you have a fever Follow-up/Referrals: Kobe Pierce MD [Primary Care Provider] - (Date & Time 05/11/2020 12:00 PM Provider Refugio Suarez [facility] ) Diet: Carb Consistent or DM2 Addtl Attending Provider Instructions: Follow-up with your primary care physician Dr. Pierce on 05/11/2020 12:00 PM as scheduled Avoid using marijuana as recommended Avoid taking nonsteroidal anti-inflammatory medications like ibuprofen, naproxen etc as they can worsen your kidney function. Do not take Lasix (furosemide) today and tomorrow. Can resume on 05/08/20. Further instructions as per your primary care physician Seek immediate medical attention if your symptoms reoccur or worsen Pending Studies at Discharge: No Stand-Alone Forms: My [employer], Smoking Cessation Medications and DC Order Prescriptions: Continued duloxetine 60 mg capsule,delayed release(DR/EC) 60 mg PO DAILY 30 Days Qty: 30 RF: 5 topiramate 50 mg tablet 50 mg PO BID Qty: 60 RF: 5 pramipexole 0.5 mg tablet 0.5 mg PO .COMPLEX Qty: 30 RF: 5 atorvastatin 40 mg tablet 40 mg PO QAM RF: 0 omeprazole 40 mg capsule,delayed release(DR/EC) 40 mg PO QAM RF: 0 aspirin 81 mg tablet,delayed release (DR/EC) 81 mg PO QAM RF: 0 tamsulosin 0.4 mg capsule 0.8 mg PO HS RF: 0 metoprolol succinate 25 mg tablet extended release 24 hr 25 mg PO QAM RF: 0 apixaban 5 mg tablet 5 mg PO BID RF: 0 metformin 500 mg tablet 500 mg PO TID RF: 0 albuterol sulfate 90 mcg/actuation HFA aerosol inhaler 2 inha INH QID PRN (Reason: Shortness Of Breath Or Wheezing) RF: 0 repaglinide [Prandin] 1 mg tablet 1 mg PO TID Qty: 90 RF: 0 gabapentin 100 mg capsule 100 mg PO TID RF: 0 furosemide 40 mg tablet 40 mg PO DAILY RF: 0 Anoro Ellipta 62.5-25 mcg/actuation blister with device 1 inh INHALATION DAILY RF: 0 Restasis 0.05 % dropperette 1 drp OPB BID RF: 0 hydrocodone-acetaminophen 10-325 mg Tablet 1 tab PO Q8H PRN (Reason: Pain) RF: 0 Discharge Orders: Discharge Order (Routine); Ordered 05/06/20 Ordered By: Matias Horan Admission Data Admit Date/Time: 05/05/20 15:27 Attending Provider: Matias Horan Admit Provider: Matias Horan Primary Care Provider: Kobe Pierce Other Providers: Matias Horan Other Interventions: Discharge Summary Assessment (RN) Last Done: 05/06/20 11:40
[2020-05-08 00:21] LABS: Marijuana Quant, GCMS Urine 184 ng/mL (<5)
== END 2020-05-06 12:43 | disposition home or self-care (01) ==
LOC: ED 10:51 → 2N 10:51

== ENCOUNTER 2020-05-10 13:19 | Observation (INO) ==
[2020-05-10] MEDS ORDERED: HYDROmorphone INJ 0.5 MG/0.5 ML SYR IV STA ×2 (13:47→15:54)
[2020-05-10] MEDS ORDERED: ONDANSETRON INJ 2 MG/ML 2 ML VIAL IV STA (13:47)
--- NOTE | 2020-05-10 13:53 | Emergency Department Note ---
History of Present Illness General Chief complaint: Illness Stated complaint: SHAKING Time Seen by Provider: 05/10/20 13:32 Source: patient and family (Daughter who is at the bedside and driving) Mode of arrival: ambulatory Limitations: no limitations History of Present Illness Maximum Pain Intensity: 10 This patient comes in as described above. He was placed in room C8. He comes in because he said shaking mostly in his legs to start around 1040 its mostly when he moves he has had back pain to he has chronic back pain but it got worse today. He also fell and is unsure if he injured his back. He does have some chronic pain and weakness in his left leg but says it feels a little worse. He denies any change in bowel or bladder function. No numbness or weakness in the buttocks or perineal area. No dysuria or hematuria. No headache, neck pain,or stiffness. He typically gets headaches but has none now. No change in vision no difficulty speaking or swallowing. No acute numbness or weakness in his left arm or face. No chest pain or shortness of breath. No cough. No Covid exposure. He has not had Covid or the vaccine that he knows of. No nausea or vomiting or diarrhea he was in the hospital recently and says this has gotten better. He feels he is been keeping up with his fluids. No blood or melena stool. He does a history of chronic ruptured disc and chronic back pain. He is on a blood thinner with Eliquis for history of DVT. Reviewing his chart from the other day he had a CAT scan the head and neck which were unremarkable. Home Medications Medication Instructions Recorded Confirmed Type apixaban 5 mg PO BID 03/04/18 05/10/20 History aspirin 81 mg PO QAM 03/04/18 05/10/20 History atorvastatin 40 mg PO QAM 03/04/18 05/10/20 History metoprolol succinate 25 mg PO QAM 03/04/18 05/10/20 History omeprazole 40 mg PO QAM 03/04/18 05/10/20 History tamsulosin 0.8 mg PO HS 03/04/18 05/10/20 History albuterol sulfate 2 inha INH QID PRN 12/09/18 05/10/20 History topiramate 50 mg tablet 50 mg PO BID #60 tab 11/04/19 05/10/20 Rx duloxetine 60 mg capsule,delayed 60 mg PO DAILY 30 Days #30 cap 01/29/20 05/10/20 Rx release pramipexole 0.5 mg tablet 0.5 mg PO .COMPLEX #30 tab 04/30/20 05/10/20 Rx Anoro Ellipta 1 inh INHALATION DAILY 05/05/20 05/10/20 History Restasis 1 drp OPB BID 05/05/20 05/10/20 History furosemide 40 mg PO DAILY 05/05/20 05/10/20 History gabapentin 100 mg PO TID 05/05/20 05/10/20 History hydrocodone-acetaminophen 1 tab PO Q8H PRN 05/05/20 05/10/20 History metformin [Glucophage XR] 1,500 mg PO DAILY 05/10/20 05/10/20 History Allergies Allergy/AdvReac Type Severity Reaction Status Date / Time propoxyphene Allergy Intermediate unsure Verified 05/10/20 15:48 acetaminophen Allergy . Verified 05/10/20 15:48 [From [facility]] Past Med/Surg History Medical History Back strain Chronic lower back pain Chronic obstructive pulmonary disease last exacerbation 3 wks ago [address]. [facility] CKD (chronic kidney disease), stage III COPD (chronic obstructive pulmonary disease) Diabetes mellitus, type II GERD (gastroesophageal reflux disease) History of DVT (deep vein thrombosis) HLD (hyperlipidemia) Hypertension Hypoxia Neck pain PVD (peripheral vascular disease) Ruptured lumbar disc Thrombophilia TIA (transient ischemic attack) Surgical History History of back surgery History of eye surgery History of neck surgery Hx of tonsillectomy Family History Unknown Diabetes Mother Diabetes Heart disease Father Hypertension Social History Smoking Status: Former smoker Tobacco Type: Cigarettes and Smokeless Tobacco (Dip or Chew) Cigarettes Per Day: 1/2 -1ppd x 30 years. Quit 2019. Still chewing tobacco; Second Hand Exposure: No; Hx Alcohol Use: Yes Alcohol type: beer Hx Substance Use: No Preferred Language: Lithuanian Communication Ability: Effective Clinical Microbiologist Required: No Beliefs That Will Affect Care: None marital status: Single Current Living Situation: Family Current Living Situation Comment: with son and current occupational status: unemployed and retired Other Information That Helps Us Care for You: No Feels Safe at Home: Yes Safety Concerns: Feels Safe At This Time Assistive Devices: Walker Assistive Devices Comment: dentures not with patient, home walker not here Immunizations: Past medical historyhe has a history of an asymptomatic small aneurysm that he tells me they are watching. He has no headache at present Review of Systems A total of 10 systems reviewed and were otherwise negative Physical Exam Vital Signs Vital Signs - 24 hr 05/10/20 15:00 05/10/20 15:27 05/10/20 15:30 Pulse Rate 139 H 104 H 97 H Pulse Rate from SpO2 Sensor 96 H Respiratory Rate 20 21 15 Blood Pressure 129/90 110/83 Blood Pressure Mean 103 92 Pulse Oximetry 93 05/10/20 16:00 05/10/20 16:30 05/10/20 17:00 Pulse Rate 91 H 88 90 Pulse Rate from SpO2 Sensor 89 87 90 Respiratory Rate 13 13 Blood Pressure 120/81 107/65 95/73 L Blood Pressure Mean 94 79 80 Pulse Oximetry 91 90 91 05/10/20 17:30 05/10/20 18:00 Pulse Rate 83 86 Pulse Rate from SpO2 Sensor 82 83 Respiratory Rate 13 15 Blood Pressure 108/68 120/73 Blood Pressure Mean 81 88 Pulse Oximetry 91 94 General: Well developed well nourished middle-age male who appears nonill and in no acute distress, breathing comfortably on room air. Normal speech HEENT: Normal cephalic atraumatic. Pupils are equal round and reactive to light. Extraocular movements are intact. Oropharynx is pink with moist mucous membranes. No swelling of the mouth lips or tongue. Neck: Supple with a midline trachea. No meningeal signs or stiffness, no JVD or bruits. No Stridor. Chest: Clear to auscultation bilaterally. No wheezes or rhonchi. No increased work of breathing. Heart: Regular rate and rhythm without murmurs or gallops. Abdomen: Soft nontender, nondistended without rebound guarding or rigidity. Extremities: No cyanosis clubbing or edema. No calf tenderness or assymetry Spine/Back. Non tender to palpation. No CVA tenderness Skin: Good turgor without rashes. Neurologic exam: Cranial nerves two through 12 are intact. Motor and sensation are intact and symmetrical throughout. No shaking or tremor at this point. Course Administered Medications Hydrocodone Bitart/Acetaminophen (Hydrocodone/Acetaminophen 10/325 Tab) 1 tab PO Q8H PRN PRN Reason: Pain Stop: 05/24/20 21:06 Last Admin: 05/11/20 09:04 Dose: 1 tab Documented by: [id number] Admin: 05/10/20 21:48 Dose: 1 tab Documented by: [id number] Apixaban (Apixaban 5 Mg Tablet) 5 mg PO BID JUSTO Stop: 06/09/20 21:06 Last Admin: 05/11/20 08:58 Dose: 5 mg Documented by: [id number] Admin: 05/10/20 22:02 Dose: 5 mg Documented by: [id number] Aspirin (Aspirin 81 Mg Ectab) 81 mg PO QAM JUSTO Stop: 06/10/20 08:59 Last Admin: 05/11/20 08:59 Dose: 81 mg Documented by: [id number] Atorvastatin Calcium (Atorvastatin 40 Mg Tab) 40 mg PO QAM JUSTO Stop: 06/10/20 08:59 Last Admin: 05/11/20 08:57 Dose: 40 mg Documented by: [id number] Duloxetine HCl (Duloxetine Hcl 60 Mg Cap) 60 mg PO DAILY JUSTO Stop: 06/10/20 08:59 Last Admin: 05/11/20 08:57 Dose: 60 mg Documented by: [id number] Furosemide (Furosemide 40 Mg Tab) 40 mg PO DAILY JUSTO Stop: 06/10/20 08:59 Last Admin: 05/11/20 08:57 Dose: 40 mg Documented by: [id number] Gabapentin (Gabapentin 100 Mg Cap) 100 mg PO TID JUSTO Stop: 06/09/20 21:06 Last Admin: 05/11/20 14:38 Dose: 100 mg Documented by: [id number] Admin: 05/11/20 08:58 Dose: 100 mg Documented by: [id number] Admin: 05/10/20 22:01 Dose: 100 mg Documented by: [id number] Insulin Aspart (Insulin Aspart 100 Units/Ml 3 Ml Pen) 0 units SC ACHS JUSTO Stop: 06/09/20 21:06 Last Admin: 05/11/20 13:10 Dose: 2 units Documented by: [id number] Cosigned by: [id number] Admin: 05/11/20 09:02 Dose: 2 units Documented by: [id number] Cosigned by: [id number] Admin: 05/10/20 21:57 Dose: 1 units Documented by: [id number] Cosigned by: [id number] Lidocaine (Lidocaine 5% 1 Patch) 1 patch TD [facility] Stop: 06/10/20 10:44 Last Admin: 05/11/20 11:02 Dose: 1 patch Documented by: [id number] Metoprolol Succinate (Metoprolol Succ 25mg Ext Rel Tab) 25 mg PO [facility] Stop: 06/10/20 08:59 Last Admin: 05/11/20 08:59 Dose: 25 mg Documented by: [id number] Pantoprazole Sodium (Pantoprazole 40 Mg Tab) 40 mg PO [facility] Stop: 06/10/20 08:59 Last Admin: 05/11/20 08:59 Dose: 40 mg Documented by: [id number] Pramipexole Dihydrochloride (Pramipexole Dihydrochlo 0.5 Mg Tab) 0.5 mg PO [facility] Stop: 06/09/20 21:06 Last Admin: 05/10/20 22:01 Dose: 0.5 mg Documented by: [id number] Tamsulosin HCl (Tamsulosin Hcl 0.4 Mg Cap) 0.8 mg PO [facility] Stop: 06/09/20 21:06 Last Admin: 05/10/20 22:00 Dose: 0.8 mg Documented by: [id number] Topiramate (Topiramate 50 Mg Tab) 50 mg PO BID [facility] Stop: 06/09/20 21:06 Last Admin: 05/11/20 08:59 Dose: 50 mg Documented by: [id number] Admin: 05/10/20 22:02 Dose: 50 mg Documented by: [id number] Umeclidinium/Vilanterol (Umeclidinium/Vilanterol 62.5/25mcg 7 Puffs/Inhaler) 1 puffs INH DAILY [facility] Stop: 06/10/20 08:59 Last Admin: 05/11/20 09:00 Dose: 1 puffs Documented by: [id number] Discontinued Medications Hydromorphone HCl (Hydromorphone Inj 0.5 Mg/0.5 Ml Syr) 0.5 mg IV NOW RUST Stop: 05/10/20 13:48 Last Admin: 05/10/20 15:29 Dose: 0.5 mg Documented by: [id number] Hydromorphone HCl (Hydromorphone Inj 0.5 Mg/0.5 Ml Syr) 0.5 mg IV NOW STA Stop: 05/10/20 15:55 Last Admin: 05/10/20 16:08 Dose: 0.5 mg Documented by: [id number] Miscellaneous (Restasis~Order Awaiting Action) 1 ea N/A QS [facility] Stop: 06/10/20 00:00 Last Admin: 05/11/20 08:57 Dose: Not Given Documented by: [id number] Admin: 05/11/20 00:05 Dose: Not Given Documented by: [id number] Ondansetron HCl (Ondansetron Inj 2 Mg/Ml 2 Ml Vial) 4 mg IV NOW STA Stop: 05/10/20 13:48 Last Admin: 05/10/20 15:29 Dose: 4 mg Documented by: [id number] Medical Decision Making Differential Diagnosis Acute exacerbation chronic back pain, disc disease, cauda equina, sepsis, intra- abdominal process, aneurysm, cardiac disease, electrolyte or metabolic abnormality Medical Records Attestation: I reviewed the patient's medical records. Home Medications Current Medication List: was personally reviewed by me Laboratory Data Attestation: I reviewed the patient's lab results. Result diagrams: 05/10/20 14:48 05/10/20 14:48 Lab Results 05/10/20 05/10/20 05/10/20 Range/Units 14:30 14:48 14:48 WBC 9.92 (4.8-10.8) K/uL RBC 3.76 L (4.7-6.1) M/uL Hgb 12.8 L (14.0-18.0) g/dL Hct 37.8 L (42-52) % MCV 100.5 H (80-100) fL MCH 34.0 (25-34) pg MCHC 33.9 (32-36) g/dL RDW Std Deviation 47.4 H (36.4-46.3) fL RDW Coeff of Loree 13.0 (11.5-14.5) % Plt Count 295 (130-400) K/uL MPV 9.8 (7.4-10.4) fL Immature Gran % (Auto) 0.6 % Neut % (Auto) 55.6 % Lymph % (Auto) 25.0 % [place] % (Auto) 13.0 % Eos % (Auto) 5.3 % Baso % (Auto) 0.5 % Neut # (Auto) 5.51 (1.4-6.5) K/uL Lymph # (Auto) 2.48 (1.2-3.4) K/uL [place]ner # (Auto) 1.29 H (0.11-0.59) K/uL Eos # (Auto) 0.53 H (0-0.5) K/uL Baso # (Auto) 0.05 (0-0.2) K/uL Immature Gran # (Auto) 0.06 H (0.00-0.02) K/uL PT 10.5 (9.0-12.0) Seconds INR 1.0 (0.9-1.1) APTT 28.3 (21.0-31.0) Seconds PTT Ratio 1.1 Sodium (136-145) mmol/L Potassium (3.5-5.1) mmol/L Chloride (98-107) mmol/L Carbon Dioxide (21-32) mmol/L Anion Gap (3-11) BUN (7-18) mg/dl Creatinine (0.6-1.4) mg/dl Est Cr Clr Drug Dosing ml/min Est GFR ( Amer) Est GFR (Non-Af Amer) BUN/Creatinine Ratio (10-20) Glucose (70-99) mg/dl Lactate (0.4-2.0) mmol/L Calcium (8.5-10.1) mg/dl Magnesium (1.8-2.4) mg/dl Total Bilirubin (0.2-1) mg/dl AST (15-37) U/L ALT (12-78) U/L Alkaline Phosphatase (45-117) U/L Troponin I (0-0.045) ng/ml Total Protein (6.4-8.2) gm/dl Albumin (3.4-5.0) gm/dl Globulin (2.5-4.0) gm/dl Albumin/Globulin Ratio (0.9-2) Urine Color Yellow Urine Appearance Clear (Clear) Urine pH 6.0 (4.5-7.5) Ur Specific [place] 1.006 (1.000-1.030) Urine Protein Negative (Negative) Urine Glucose (UA) Negative (Negative) Urine Ketones Negative (Negative) Urine Blood Negative (Negative) Urine Nitrite Negative (Negative) Urine Bilirubin Negative (Negative) Urine Urobilinogen Negative (Negative) Ur Leukocyte Esterase Negative (Negative) COVID-19 Eval Order Hepatitis C Ab Screen (Neg) SARS-CoV-2, RNA, NAAT (NEGATIVE) 05/10/20 05/10/20 05/10/20 Range/Units 14:48 14:48 14:50 WBC (4.8-10.8) K/uL RBC (4.7-6.1) M/uL Hgb (14.0-18.0) g/dL Hct (42-52) % MCV (80-100) fL MCH (25-34) pg MCHC (32-36) g/dL RDW Std Deviation (36.4-46.3) fL RDW Coeff of Loree (11.5-14.5) % Plt Count (130-400) K/uL MPV (7.4-10.4) fL Immature Gran % (Auto) % Neut % (Auto) % Lymph % (Auto) % [place] % (Auto) % Eos % (Auto) % Baso % (Auto) % Neut # (Auto) (1.4-6.5) K/uL Lymph # (Auto) (1.2-3.4) K/uL [place]ner # (Auto) (0.11-0.59) K/uL Eos # (Auto) (0-0.5) K/uL Baso # (Auto) (0-0.2) K/uL Immature Gran # (Auto) (0.00-0.02) K/uL PT (9.0-12.0) Seconds INR (0.9-1.1) APTT (21.0-31.0) Seconds PTT Ratio Sodium 135 L (136-145) mmol/L Potassium 4.0 (3.5-5.1) mmol/L Chloride 105 (98-107) mmol/L Carbon Dioxide 25 (21-32) mmol/L Anion Gap 5.0 (3-11) BUN 24 H (7-18) mg/dl Creatinine 1.65 H (0.6-1.4) mg/dl Est Cr Clr Drug Dosing 41.3 ml/min Est GFR ( Amer) 50.1 Est GFR (Non-Af Amer) 43.2 BUN/Creatinine Ratio 14.2 (10-20) Glucose 97 (70-99) mg/dl Lactate 1.4 (0.4-2.0) mmol/L Calcium 10.0 (8.5-10.1) mg/dl Magnesium 2.2 (1.8-2.4) mg/dl Total Bilirubin 0.5 (0.2-1) mg/dl AST 11 L (15-37) U/L ALT 20 (12-78) U/L Alkaline Phosphatase 104 (45-117) U/L Troponin I < 0.015 (0-0.045) ng/ml Total Protein 9.5 H (6.4-8.2) gm/dl Albumin 4.1 (3.4-5.0) gm/dl Globulin 5.4 H (2.5-4.0) gm/dl Albumin/Globulin Ratio 0.8 L (0.9-2) Urine Color Urine Appearance (Clear) Urine pH (4.5-7.5) Ur Specific [place] (1.000-1.030) Urine Protein (Negative) Urine Glucose (UA) (Negative) Urine Ketones (Negative) Urine Blood (Negative) Urine Nitrite (Negative) Urine Bilirubin (Negative) Urine Urobilinogen (Negative) Ur Leukocyte Esterase (Negative) COVID-19 Eval Order Hepatitis C Ab Screen Neg (Neg) SARS-CoV-2, RNA, NAAT (NEGATIVE) 05/10/20 05/10/20 Range/Units 16:05 16:05 WBC (4.8-10.8) K/uL RBC (4.7-6.1) M/uL Hgb (14.0-18.0) g/dL Hct (42-52) % MCV (80-100) fL MCH (25-34) pg MCHC (32-36) g/dL RDW Std Deviation (36.4-46.3) fL RDW Coeff of Loree (11.5-14.5) % Plt Count (130-400) K/uL MPV (7.4-10.4) fL Immature Gran % (Auto) % Neut % (Auto) % Lymph % (Auto) % [place] % (Auto) % Eos % (Auto) % Baso % (Auto) % Neut # (Auto) (1.4-6.5) K/uL Lymph # (Auto) (1.2-3.4) K/uL [place] # (Auto) (0.11-0.59) K/uL Eos # (Auto) (0-0.5) K/uL Baso # (Auto) (0-0.2) K/uL Immature Gran # (Auto) (0.00-0.02) K/uL PT (9.0-12.0) Seconds INR (0.9-1.1) APTT (21.0-31.0) Seconds PTT Ratio Sodium (136-145) mmol/L Potassium (3.5-5.1) mmol/L Chloride (98-107) mmol/L Carbon Dioxide (21-32) mmol/L Anion Gap (3-11) BUN (7-18) mg/dl Creatinine (0.6-1.4) mg/dl Est Cr Clr Drug Dosing ml/min Est GFR ( Amer) Est GFR (Non-Af Amer) BUN/Creatinine Ratio (10-20) Glucose (70-99) mg/dl Lactate (0.4-2.0) mmol/L Calcium (8.5-10.1) mg/dl Magnesium (1.8-2.4) mg/dl Total Bilirubin (0.2-1) mg/dl AST (15-37) U/L ALT (12-78) U/L Alkaline Phosphatase (45-117) U/L Troponin I (0-0.045) ng/ml Total Protein (6.4-8.2) gm/dl Albumin (3.4-5.0) gm/dl Globulin (2.5-4.0) gm/dl Albumin/Globulin Ratio (0.9-2) Urine Color Urine Appearance (Clear) Urine pH (4.5-7.5) Ur Specific [place] (1.000-1.030) Urine Protein (Negative) Urine Glucose (UA) (Negative) Urine Ketones (Negative) Urine Blood (Negative) Urine Nitrite (Negative) Urine Bilirubin (Negative) Urine Urobilinogen (Negative) Ur Leukocyte Esterase (Negative) COVID-19 Eval Order Cov[facility] Hepatitis C Ab Screen (Neg) SARS-CoV-2, RNA, NAAT NEGATIVE (NEGATIVE) Imaging Data Radiologist's Impression: CT scan of the lumbar spine.. No acute fracture. Degenerative changes but no significant change compared to MRI on 09/16/18 ECG Data Attestation: I personally reviewed and interpreted this ECG as follows: Indication: + weakness Rate (beats per minute): 103 Rhythm: + sinus tachycardia ECG Intervals/blocks: + Incomplete right bundle branch block, + Normal QRS and + Normal MS ECG [place]: + Normal ECG ST segments: + Normal ST segments ECG Findings: no PACs and no PVCs Comparison ECG Date: from (02/20/20) Change: no significant change MDM Narrative This patient comes in as described above. He was placed on a cardiac nurse in room C7. He has been having shakiness mostly in his legs and some weakness. It seems like his chronic back pain is gotten worse. He has no change in bowel or bladder function to suggest cauda equina syndrome he has no significant neurologic deficits he is slightly weak in the left leg at baseline he tells me. With the shaking I was also concerned about possible sepsis he was in the hospital recently for GI issues which seem to have resolved. He does have a history of headaches and an aneurysm in his head but has no headache at all rig ht now and has a normal neurologic exam. IV access established he was given Dilaudid 0.5 mg IV for his back pain and Zofran 4 mg IV. His daughter is at the bedside and driving. I did do a CAT scan of his back. Given that he had a CAT scan of his abdomen head done within the last couple days I do not feel that we need to repeat those. Multiple blood testing including blood cultures and urinalysis and culture were obtained as well. He has no fever or white count to suggest infection. He is not significantly anemic and his hemoglobin is 12 up from 10 when last rechecked. His creatinine is mildly elevated at 1.6 however this is trending downward from last creatinine. He has no significant electrolyte or metabolic abnormalities. Urinalysis was negative. CT of the lumbar spine shows chronic changes but no acute findings. He did require additional 0.5 mg of Dilaudid IV. He seems fine at rest but when he stands up he has pain in his legs get shaky. He is on anticoagulation does not feel that he can go home he has had 2 doses of pain medication. He may need an MRI or further evaluation as well. I have consulted the [facility] hospitalist to see him. Continuous cardiac monitoring: An order was placed in EMR for continuous cardiac monitoring. 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
--- NOTE | 2020-05-10 13:58 | XRay Report ---
SINGLE VIEW CHEST CLINICAL HISTORY: Sepsis. FINDINGS: An AP, portable, upright chest radiograph is compared to study dated 05/05/2020. Correlation is made with chest CT dated 03/04/2018. The cardiomediastinal silhouette is unremarkable. Emphysema an d chronic interstitial thickening is similar to previous. Patchy airspace opacities are present at preston th lung bases. No large pleural effusion or pneumothorax is seen. The skeletal structures are osteope greta. The bony thorax is grossly intact. Fusion hardware is noted in the lower cervical spine. IMPRESSION: 1. Emphysema. 2. Patchy airspace opacities are present at both lung bases. Correlate clinically for evidence of an infectious/inflammatory pneumonitis. Radiographic follow-up to resolution is recommended. ACT 112: Negative or not required by law. Electronically signed by: Pasquale Andrea M.D. 05/10/2020 1:57 PM
[2020-05-10 14:58] LABS: Basophils # (auto) 0.05 K/uL (0-0.2); Basophils % (auto) 0.5 %; Eosinophils # (auto) 0.53 K/uL (0-0.5); Eosinophils % (auto) 5.3 %; Hematocrit (blood only) 37.8 % (42-52); Hemoglobin 12.8 g/dL (14.0-18.0); Immature Granulocytes # (auto) 0.06 K/uL (0.00-0.02); Immature Granulocytes % (auto) 0.6 %; Lymphocytes # (auto) 2.48 K/uL (1.2-3.4); Mean Corpuscular Hgb Conc 33.9 g/dL (32-36); Mean Corpuscular Volume 100.5 fL (80-100); Mean Platelet Volume 9.8 fL (7.4-10.4); Monocytes # (auto) 1.29 K/uL (0.11-0.59); Neutrophils # (auto) 5.51 K/uL (1.4-6.5); Neutrophils % (auto) 55.6 %; Platelet Count 295 K/uL (130-400); RDW Standard Deviation 47.4 fL (36.4-46.3); Red Blood Count 3.76 M/uL (4.7-6.1); White Blood Count 9.92 K/uL (4.8-10.8)
[2020-05-10 15:16] LABS: Appearance Urine Clear (Clear); Bilirubin Urine Negative (Negative); Blood Urine Negative (Negative); Color Urine Yellow; Glucose Urine UA Negative (Negative); Ketones Urine Negative (Negative); Leukocyte Esterase Urine Negative (Negative); Nitrite Urine Negative (Negative); Protein Urine Negative (Negative); Specific Gravity Urine 1.006 (1.000-1.030); Urobilinogen Urine Negative (Negative)
[2020-05-10 15:20] LABS: Alanine Aminotransferase 20 U/L (12-78); Albumin Level 4.1 gm/dl (3.4-5.0); Aspartate Aminotransferase 11 U/L (15-37); BUN Creatinine Ratio 14.2 (10-20); Blood Urea Nitrogen 24 mg/dl (7-18); Carbon Dioxide 25 mmol/L (21-32); Chloride 105 mmol/L (98-107); Creatinine Clr Calc Pharmacy 41.3 ml/min; Est GFR (African American) 50.1; Est GFR (Non-African American) 43.2; Glucose 97 mg/dl (70-99); Magnesium 2.2 mg/dl (1.8-2.4); Sodium 135 mmol/L (136-145)
[2020-05-10 15:24] LABS: Albumin Globulin Ratio 0.8 (0.9-2); Alkaline Phosphatase 104 U/L (45-117); Bilirubin,Total 0.5 mg/dl (0.2-1); Globulin 5.4 gm/dl (2.5-4.0); Total Protein 9.5 gm/dl (6.4-8.2); Troponin I < 0.015 ng/ml (0-0.045)
[2020-05-10 15:25] LABS: Partial Thromboplastin Ratio 1.1; Partial Thromboplastin Time 28.3 Seconds (21.0-31.0); Prothrombin Time 10.5 Seconds (9.0-12.0)
--- NOTE | 2020-05-10 16:02 | CT Scan Report ---
CT SCAN OF THE LUMBAR SPINE WITHOUT IV CONTRAST CLINICAL HISTORY: Low back pain. Left lower extremity radiculopathy. COMPARISON STUDY: CT scan of the lumbar spine dated 07/19/2014. MRI of the lumbar spine dated 9. TECHNIQUE: CT scan of the lumbar spine is performed from the lower thoracic spine to the sacrum. Imag es are reviewed in the axial, sagittal, and coronal planes. IV contrast was not administered for this examination. A dose lowering technique was utilized adhering to the principles of ALARA. CT DOSE: 675.11 mGy.cm FINDINGS: The skeletal structures are osteopenic. There is no evidence of fracture or malalignment in volving the lumbar spine. Vertebral body height and alignment are maintained throughout the lumbar sp ine. There is a minimal chronic superior endplate compression deformity of T12. The transverse and sp inous processes are intact. There is no spondylolysis. No lytic or blastic lesion is seen. Small ante rior and lateral marginal osteophytes are seen throughout. There is advanced disc space narrowing at L5-S1 with associated endplate sclerosis. There is a large posterior disc osteophyte complex at this level. There is bilateral subarticular stenosis at L5-S1 with significant bilateral neural foraminal stenosis and possible impingement on the exiting bilateral L5 nerve roots. There is also broad-based posterior disc bulge at L4-L5 which contribute to bilateral neural foraminal narrowing. The sacrum an d bony pelvis appear intact. The paraspinous soft tissues are normal as imaged. There is advanced ath erosclerotic calcification and ectasia of the abdominal aorta. No retroperitoneal lymphadenopathy is seen. IMPRESSION: 1. No acute bony abnormality is seen involving the lumbar spine. 2. Degenerative disc disease and spondylosis as above. This is likely not significantly changed from the 09/16/2018 MRI. ACT 112: Negative or not required by law. Dictated: 05/10/2020 3:22 PM Transcribed: 05/10/2020 3:49 PM [facility] [id number] [email or web address] Electronically signed by: Pasquale Andrea M.D. 05/10/2020 4:00 PM
--- NOTE | 2020-05-10 18:33 | History & Physical Report ---
Date of Service May 10, 2020 Assessment & Plan (1) Fall: (2) Ambulatory dysfunction: Present on admission after a fall due to legs weakness and shaking CT Lumbar spine showed no acute bony abnormality is seen involving the lumbar spine. Degenerative disc disease and spondylosis as above. This is likely not significantly changed from the 09/16/2018 MRI. 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 On chronic Eliquis Continue Eliquis COPD (chronic obstructive pulmonary disease): No signs of exacerbation Continue home inhalers Tobacco abuse counseling on tobacco cessation Will add nicotine patch if needed Chronic low back pain: On chronic narcotics Continue hydrocodone prn, continue gabapentin, cymbalta GERD (gastroesophageal reflux disease): Continue PPI RLS (restless legs syndrome): Continue Mirapex DVT px On Eliquis Code Status Full Code Disposition Consider inpatient rehab History of Present Illness Chief Complaint: Fall and ambulatory dysfunction Primary Care Provider: Kobe Pierce MD Pt is 64 y/o M with PMH DM II, HTN, HLD, CKD III, depression, anxiety, COPD, GERD, chronic back pain on opioids, RLS, h/o bilateral DVT on chronic Eliquis, h/o recurrent GARCIA, tobacco use presented to ER for fall an ambulatory dysfunction. Patient said today while walking back from the garbage can to his chair his leg got weak and fell quickly in the ground. He said his leg was shaking and got very weak. He quickly fell on his knee and put his hand down to avoid the impac. He said that he has a walker to use for long distance and a cane for short distance but today he did not use his cane. He said that he did not hit his head or his face. He said he could not get up because he felt so weak. He said his legs were shaking. He said that when he walks a lot, his legs feel numb and weak. Patient said he had back surgery 30 years ago that contributed to his weakness with the left lower extremity is worse than the right one. He said that he does not feel safe to go home because he is too weak to move around. He agreed to go to rehab. He said that he does have history of back and neck pain that see to get worse after the fall today. Denies fever/chills, diaphoresis, hematemesis, melena, dizziness, syncope, vision changes, CP, SOB, orthopnea, palpitations, sore throat, choking, otalgia, rhinorrhea, extremity edema, rashes, urinary symptoms. Allergies Allergy/AdvReac Type Severity Reaction Status Date / Time propoxyphene Allergy Intermediate unsure Verified 05/10/20 15:48 acetaminophen Allergy . Verified 05/10/20 15:48 [From [facility]] Home Medications Medication Instructions Recorded Confirmed Type apixaban 5 mg PO BID 03/04/18 05/10/20 History aspirin 81 mg PO QAM 03/04/18 05/10/20 History atorvastatin 40 mg PO QAM 03/04/18 05/10/20 History metoprolol succinate 25 mg PO QAM 03/04/18 05/10/20 History omeprazole 40 mg PO QAM 03/04/18 05/10/20 History tamsulosin 0.8 mg PO HS 03/04/18 05/10/20 History albuterol sulfate 2 inha INH QID PRN 12/09/18 05/10/20 History topiramate 50 mg tablet 50 mg PO BID #60 tab 11/04/19 05/10/20 Rx duloxetine 60 mg capsule,delayed 60 mg PO DAILY 30 Days #30 cap 01/29/20 05/10/20 Rx release pramipexole 0.5 mg tablet 0.5 mg PO .COMPLEX #30 tab 04/30/20 05/10/20 Rx Anoro Ellipta 1 inh INHALATION DAILY 05/05/20 05/10/20 History Restasis 1 drp OPB BID 05/05/20 05/10/20 History furosemide 40 mg PO DAILY 05/05/20 05/10/20 History gabapentin 100 mg PO TID 05/05/20 05/10/20 History hydrocodone-acetaminophen 1 tab PO Q8H PRN 05/05/20 05/10/20 History metformin [Glucophage XR] 1,500 mg PO DAILY 05/10/20 05/10/20 History Past Med/Surg History Medical History Back strain Chronic lower back pain Chronic obstructive pulmonary disease last exacerbation 3 wks ago during [address]. [facility] CKD (chronic kidney disease), stage III COPD (chronic obstructive pulmonary disease) Diabetes mellitus, type II GERD (gastroesophageal reflux disease) History of DVT (deep vein thrombosis) HLD (hyperlipidemia) Hypertension Hypoxia Neck pain PVD (peripheral vascular disease) Ruptured lumbar disc Thrombophilia TIA (transient ischemic attack) Surgical History History of back surgery History of eye surgery History of neck surgery Hx of tonsillectomy Family History Unknown Diabetes Mother Diabetes Heart disease Father Hypertension Social History Smoking Status: Former smoker Tobacco Type: Cigarettes and Smokeless Tobacco (Dip or Chew) Cigarettes Per Day: 1/2 -1ppd x 30 years. Quit 2019. Still chewing tobacco; Second Hand Exposure: No; Hx Alcohol Use: Yes Alcohol type: beer Hx Substance Use: No Preferred Language: Macedonian Communication Ability: Effective Corrosion Control Technician Required: No Beliefs That Will Affect Care: None marital status: Single Current Living Situation: Family Current Living Situation Comment: with son and current occupational status: unemployed and retired Other Information That Helps Us Care for You: No Feels Safe at Home: Yes Safety Concerns: Feels Safe At This Time Assistive Devices: Walker Assistive Devices Comment: dentures not with patient, home walker not here Review of Systems Review of Systems: All systems reviewed & are unremarkable except as noted in HPI & below Physical Exam Physical Exam: General- No acute distress Head- atraumatic Eyes- PERRL, EOMI, ENT- oropharynx clear Neck- supple, no JVD Lungs- clear to auscultation Heart- regular rhythm; no murmur Abdomen- normal bowel sounds, soft, nontender Extremities- no calf tenderness Neuro- alert, oriented x 3; PERRL, EOMI; no facial palsy; decrease motor strength in LLE 4/5 Skin- warm & dry Results & Data Results & Data ([facility]) Vital Signs (Past 12 Hours) Vital Signs Temp Pulse Resp BP Pulse Ox 05/10/20 18:00 86 15 120/73 94 05/10/20 17:30 83 13 108/68 91 05/10/20 17:00 90 95/73 L 91 05/10/20 16:30 88 13 107/65 90 05/10/20 16:00 91 H 13 120/81 91 05/10/20 15:30 97 H 15 110/83 93 05/10/20 15:27 104 H 21 129/90 05/10/20 15:00 139 H 20 05/10/20 14:30 110 H 17 05/10/20 13:20 36.4 C L 126 H 18 176/98 H [address] SCAN OF THE LUMBAR SPINE WITHOUT IV CONTRAST CLINICAL HISTORY: Low back pain. Left lower extremity radiculopathy. COMPARISON STUDY: CT scan of the lumbar spine dated 07/19/2014. MRI of the lumbar spine dated 09/16/2018. TECHNIQUE: CT scan of the lumbar spine is performed from the lower thoracic spine to the sacrum. Images are reviewed in the axial, sagittal, and coronal planes. IV contrast was not administered for this examination. A dose lowering technique was utilized adhering to the principles of ALARA. CT DOSE: 675.11 mGy.cm FINDINGS: The skeletal structures are osteopenic. There is no evidence of fracture or malalignment involving the lumbar spine. Vertebral body height and alignment are maintained throughout the lumbar spine. There is a minimal chronic superior endplate compression deformity of T12. The transverse and spinous processes are intact. There is no spondylolysis. No lytic or blastic lesion is seen. Small anterior and lateral marginal osteophytes are seen throughout. There is advanced disc space narrowing at L5-S1 with associated endplate sclerosis. There is a large posterior disc osteophyte complex at this level. There is bilateral subarticular stenosis at L5-S1 with significant bilateral neural foraminal stenosis and possible impingement on the exiting bilateral L5 nerve roots. There is also broad-based posterior disc bulge at L4-L5 which contribute to bilateral neural foraminal narrowing. The sacrum and bony pelvis appear intact. The paraspinous soft tissues are normal as imaged. There is advanced atherosclerotic calcification and ectasia of the abdominal aorta. No retroperitoneal lymphadenopathy is seen. IMPRESSION: 1. No acute bony abnormality is seen involving the lumbar spine. 2. Degenerative disc disease and spondylosis as above. This is likely not significantly changed from the 09/16/2018 MRI. ACT 112: Negative or not required by law. Dictated: 05/10/2020 3:22 PM Transcribed: 05/10/2020 3:49 PM [facility] [id number] [email or web address] Electronically signed by: Pasquale Andrea M.D. 05/10/2020 4:00 PM Dictated: 05/10/20 1522Transcribed: 05/10/20 1549 SINGLE VIEW CHEST CLINICAL HISTORY: Sepsis. FINDINGS: An AP, portable, upright chest radiograph is compared to study dated 05/05/2020. Correlation is made with chest CT dated 03/04/2018. The cardiomediastinal silhouette is unremarkable. Emphysema and chronic interstitial thickening is similar to previous. Patchy airspace opacities are present at both lung bases. No large pleural effusion or pneumothorax is seen. The skeletal structures are osteopenic. The bony thorax is grossly intact. Fusion hardware is noted in the lower cervical spine. IMPRESSION: 1. Emphysema. 2. Patchy airspace opacities are present at both lung bases. Correlate clinically for evidence of an infectious/inflammatory pneumonitis. Radiographic follow-up to resolution is recommended. ACT 112: Negative or not required by law. Electronically signed by: Pasquale Andrea M.D. 05/10/2020 1:57 PM Dictated: 05/10/20 1355Transcribed: 05/10/20 1355 Code Status & VTE Plan VTE Prophylaxis Plan VTE Prophylaxis will be ordered: Yes
[2020-05-10] MEDS ORDERED: ALBUTEROL HFA 8 GM INHALER INH PRN (21:07)
[2020-05-10] MEDS ORDERED: GLUCAGON FOR INJ 1 MG VIAL SQ PRN (21:07)
[2020-05-10] MEDS ORDERED: GLUCOSE 10 TABS/TUBE PO PRN (21:07)
[2020-05-10] MEDS ORDERED: GLUCOSE 40% GEL 15 GM TUBE PO PRN (21:07)
[2020-05-10] MEDS ORDERED: TAMSULOSIN HCL 0.4 MG CAP PO SCH (21:07)
[2020-05-10] MEDS ORDERED: PRAMIPEXOLE DIHYDROCHLO 0.5 MG TAB PO SCH (21:07)
[2020-05-10] MEDS ORDERED: DEXTROSE 50% 50 ML SYRINGE IV PRN (21:07)
[2020-05-10] MEDS ORDERED: CARBOHYDRATES FOR HYPOGLYCEMIA PO PRN (21:07)
[2020-05-10] MEDS: HYDROcodone/ACETAMINOPHEN 10/325 TAB PO PRN (21:48)
[2020-05-10] MEDS: INSULIN ASPART 100 UNITS/ML 3 ML PEN SC SCH (21:57)
[2020-05-10] MEDS: GABAPENTIN 100 MG CAP PO SCH (22:01)
[2020-05-10] MEDS: TOPIRAMATE 50 MG TAB PO SCH (22:02)
[2020-05-10] MEDS: APIXABAN 5 MG TABLET PO SCH (22:02)
[2020-05-11] MEDS: RESTASIS~ORDER AWAITING ACTION SCH ×2 (00:05→08:57)
--- NOTE | 2020-05-11 06:40 | Electrocardiogram Report ---
Test Reason : Blood Pressure : / mmHG Vent. Rate : 103 BPM Atrial Rate : 103 BPM P-R Int : 128 ms QRS Dur : 124 ms QT Int : 332 ms P-R-T Axes : 050 -26 029 degrees QTc Int : 434 ms Sinus tachycardia Right bundle branch block When compared with ECG of 05-MAY-2020 11:20, No significant change was found Confirmed by Brenden Knight ([id number]) on 05/11/2020 6:39:34 AM Referred By: REFERRED SELF Confirmed By:Brenden Knight
[2020-05-11] MEDS: GABAPENTIN 100 MG CAP PO SCH ×2 (08:58→14:38)
[2020-05-11] MEDS: APIXABAN 5 MG TABLET PO SCH (08:58)
[2020-05-11] MEDS: TOPIRAMATE 50 MG TAB PO SCH (08:59)
[2020-05-11] MEDS ORDERED: FUROSEMIDE 40 MG TAB PO SCH (09:00)
[2020-05-11] MEDS ORDERED: PANTOprazole 40 MG TAB PO SCH (09:00)
[2020-05-11] MEDS ORDERED: ATORVASTATIN 40 MG TAB PO SCH (09:00)
[2020-05-11] MEDS ORDERED: METOPROLOL SUCC 25MG EXT REL TAB PO SCH (09:00)
[2020-05-11] MEDS ORDERED: DULoxetine HCL 60 MG CAP PO SCH (09:00)
[2020-05-11] MEDS ORDERED: UMECLIDINIUM/VILANTEROL 62.5/25MCG 7 PUFFS/INHALER INH SCH (09:00)
[2020-05-11] MEDS ORDERED: ASPIRIN 81 MG ECTAB PO SCH (09:00)
[2020-05-11] MEDS: INSULIN ASPART 100 UNITS/ML 3 ML PEN SC SCH ×3 (09:02→16:31)
[2020-05-11] MEDS: HYDROcodone/ACETAMINOPHEN 10/325 TAB PO PRN (09:04)
[2020-05-11] MEDS ORDERED: LIDOCAINE 5% 1 PATCH TD SCH (10:45)
--- NOTE | 2020-05-11 15:10 | Hospitalist Progress Note ---
Date of Service May 11, 2020 Assessment & Plan (1) Fall: (2) Ambulatory dysfunction: Present on admission after a fall due to legs weakness and shaking CT Lumbar spine showed no acute bony abnormality is seen involving the lumbar spine. Degenerative disc disease and spondylosis as above. This is likely not significantly changed from the 09/16/2018 MRI. PT/OT eval Fall precaution Pt is on anticoagulant, if continue to be high risk of fall, will need to address assisted use of anticoagulant Consider inpatient rehab CKD stage 3 Creatinine 1.6 at baseline Avoid nephrotoxic agents as able Hypertension Continue metoprolol and lasix BP stable Diabetes mellitus, type II: Most recent A1c: 5.9 in 03/2020 Will hold hold oral meds Will start Novolog sliding scale per protocol History of DVT (deep vein thrombosis): H/O bilateral DVT. On chronic Eliquis Continue Eliquis COPD (chronic obstructive pulmonary disease): No signs of exacerbation Continue home inhalers Tobacco abuse counseling on tobacco cessation Will add nicotine patch if needed Chronic low back pain: On chronic narcotics Continue hydrocodone prn, continue gabapentin, cymbalta GERD (gastroesophageal reflux disease): Continue PPI RLS (restless legs syndrome): Continue Mirapex DVT px On Eliquis Code Status Full Code Disposition Consider inpatient rehab Admission and Anticipated Discharge Date Admission Date: May 10, 2020 Subjective Pt was seen and Physical Exam Physical Exam: General- No acute distress Head- atraumatic Eyes- PERRL, EOMI, ENT- oropharynx clear Neck- supple, no JVD Lungs- clear to auscultation Heart- regular rhythm; no murmur Abdomen- normal bowel sounds, soft, nontender Extremities- no calf tenderness Neuro- alert, oriented x 3; PERRL, EOMI; no facial palsy; decrease motor strength in LLE 4/5 Skin- warm & dry Results & Data Results & Data ([facility]) Vital Signs (Past 12 Hours) Vital Signs Temp Pulse Resp BP Pulse Ox 05/11/20 08:56 94 H 112/65 05/11/20 07:27 36.6 C 81 16 123/79 94
[2020-05-11] MEDS ORDERED: cycloSPORINE (RESTASIS) OPB SCH (21:00)
--- NOTE | 2020-05-17 01:20 | Discharge Summary ---
Date of Service May 11, 2020 Admission HPI Per Admitting Provider Pt is 64 y/o M with PMH DM II, HTN, HLD, CKD III, depression, anxiety, COPD, GERD, chronic back pain on opioids, RLS, h/o bilateral DVT on chronic Eliquis, h/o recurrent GARCIA, tobacco use presented to ER for fall an ambulatory dysfunction. Patient said today while walking back from the garbage can to his chair his leg got weak and fell quickly in the ground. He said his leg was shaking and got very weak. He quickly fell on his knee and put his hand down to avoid the impac. He said that he has a walker to use for long distance and a cane for short distance but today he did not use his cane. He said that he did not hit his head or his face. He said he could not get up because he felt so weak. He said his legs were shaking. He said that when he walks a lot, his legs feel numb and weak. Patient said he had back surgery 30 years ago that contributed to his weakness with the left lower extremity is worse than the right one. He said that he does not feel safe to go home because he is too weak to move around. He agreed to go to rehab. He said that he does have history of back and neck pain that see to get worse after the fall today. Denies fever/chills, diaphoresis, hematemesis, melena, dizziness, syncope, vision changes, CP, SOB, orthopnea, palpitations, sore throat, choking, otalgia, rhinorrhea, extremity edema, rashes, urinary symptoms. Admission Exam Per Admitting Provider General- No acute distress Head- atraumatic Eyes- PERRL, EOMI, ENT- oropharynx clear Neck- supple, no JVD Lungs- clear to auscultation Heart- regular rhythm; no murmur Abdomen- normal bowel sounds, soft, nontender Extremities- no calf tenderness Neuro- alert, oriented x 3; PERRL, EOMI; no facial palsy; decrease motor strength in LLE 4/5 Skin- warm & dry Principal Diagnosis Fall: Ambulatory dysfunction: CKD stage 3 Hypertension Diabetes mellitus, type II: History of DVT (deep vein thrombosis): COPD (chronic obstructive pulmonary disease): Tobacco abuse Chronic low back pain: GERD (gastroesophageal reflux disease): RLS (restless legs syndrome): Discharge Exam General- No acute distress Head- atraumatic Eyes- PERRL, EOMI, ENT- oropharynx clear Neck- supple, no JVD Lungs- clear to auscultation Heart- regular rhythm; no murmur Abdomen- normal bowel sounds, soft, nontender Extremities- no calf tenderness Neuro- alert, oriented x 3; PERRL, EOMI; no facial palsy; decrease motor strength in LLE 4/5 Skin- warm & dry Discharge Data Allergies Allergy/AdvReac Type Severity Reaction Status Date / Time propoxyphene Allergy Intermediate unsure Verified 05/10/20 15:48 acetaminophen Allergy . Verified 05/10/20 15:48 [From [facility]] Consultations 05/10/20 16:42 ED Decision to Admit Stat 05/10/20 21:07 Consult Case Management - Discharge Planning Routine Ordered Studies 05/10/20 13:45 CT lumbar spine wo con Stat CT SCAN OF THE LUMBAR SPINE WITHOUT IV CONTRAST CLINICAL HISTORY: Low back pain. Left lower extremity radiculopathy. COMPARISON STUDY: CT scan of the lumbar spine dated 07/19/2014. MRI of the lumbar spine dated 09/16/2018. TECHNIQUE: CT scan of the lumbar spine is performed from the lower thoracic spine to the sacrum. Images are reviewed in the axial, sagittal, and coronal planes. IV contrast was not administered for this examination. A dose lowering technique was utilized adhering to the principles of ALARA. CT DOSE: 675.11 mGy.cm FINDINGS: The skeletal structures are osteopenic. There is no evidence of fracture or malalignment involving the lumbar spine. Vertebral body height and alignment are maintained throughout the lumbar spine. There is a minimal chronic superior endplate compression deformity of T12. The transverse and spinous processes are intact. There is no spondylolysis. No lytic or blastic lesion is seen. Small anterior and lateral marginal osteophytes are seen throughout. There is advanced disc space narrowing at L5-S1 with associated endplate sclerosis. There is a large posterior disc osteophyte complex at this level. There is bilateral subarticular stenosis at L5-S1 with significant bilateral neural foraminal stenosis and possible impingement on the exiting bilateral L5 nerve roots. There is also broad-based posterior disc bulge at L4-L5 which contribute to bilateral neural foraminal narrowing. The sacrum and bony pelvis appear intact. The paraspinous soft tissues are normal as imaged. There is advanced atherosclerotic calcification and ectasia of the abdominal aorta. No retroperitoneal lymphadenopathy is seen. IMPRESSION: 1. No acute bony abnormality is seen involving the lumbar spine. 2. Degenerative disc disease and spondylosis as above. This is likely not significantly changed from the 09/16/2018 MRI. ACT 112: Negative or not required by law. Dictated: 05/10/2020 3:22 PM Transcribed: 05/10/2020 3:49 PM [facility] [id number] [email or web address] Electronically signed by: Pasquale Andrea M.D. 05/10/2020 4:00 PM Dictated: 05/10/20 1522Transcribed: 05/10/20 1549 SINGLE VIEW CHEST CLINICAL HISTORY: Sepsis. FINDINGS: An AP, portable, upright chest radiograph is compared to study dated 05/05/2020. Correlation is made with chest CT dated 03/04/2018. The cardiomediastinal silhouette is unremarkable. Emphysema and chronic interstitial thickening is similar to previous. Patchy airspace opacities are present at both lung bases. No large pleural effusion or pneumothorax is seen. The skeletal structures are osteopenic. The bony thorax is grossly intact. Fusion hardware is noted in the lower cervical spine. IMPRESSION: 1. Emphysema. 2. Patchy airspace opacities are present at both lung bases. Correlate clinically for evidence of an infectious/inflammatory pneumonitis. Radiographic follow-up to resolution is recommended. ACT 112: Negative or not required by law. Electronically signed by: Pasquale Andrea M.D. 05/10/2020 1:57 PM Dictated: 05/10/20 1355Transcribed: 05/10/20 1355 Hospital Course (1) Fall: (2) Ambulatory dysfunction: Present on admission after a fall due to legs weakness and shaking CT Lumbar spine showed no acute bony abnormality is seen involving the lumbar spine. Degenerative disc disease and spondylosis as above. This is likely not significantly changed from the 09/16/2018 MRI. PT/OT eval Fall precaution Pt is on anticoagulant, if continue to be high risk of fall, will need to address jail use of anticoagulant Consider inpatient rehab CKD stage 3 Creatinine 1.6 at baseline Avoid nephrotoxic agents as able Hypertension Continue metoprolol and lasix BP stable Diabetes mellitus, type II: Most recent A1c: 5.9 in 03/2020 Will hold hold oral meds Will start Novolog sliding scale per protocol History of DVT (deep vein thrombosis): H/O bilateral DVT. On chronic Eliquis Continue Eliquis COPD (chronic obstructive pulmonary disease): No signs of exacerbation Continue home inhalers Tobacco abuse counseling on tobacco cessation Will add nicotine patch if needed Chronic low back pain: On chronic narcotics Continue hydrocodone prn, continue gabapentin, cymbalta GERD (gastroesophageal reflux disease): Continue PPI RLS (restless legs syndrome): Continue Mirapex DVT px On Eliquis Code Status Full Code Disposition Consider inpatient rehab Total Time Total Time Spent Total Time Spent (In Minutes): 35 minutes Total Time Includes: Examination of the Patient, Discharge Planning, Medication Reconciliation, Communication With Other Providers and Other Discharge Plan Discharge Items Patient Disposition: Transfer Inpatient Rehab Fac Reason For Visit: fall Discharge Diagnosis: Fall: Ambulatory dysfunction: CKD stage 3 Hypertension Diabetes mellitus, type II: History of DVT (deep vein thrombosis): COPD (chronic obstructive pulmonary disease): Tobacco abuse Chronic low back pain: GERD (gastroesophageal reflux disease): RLS (restless legs syndrome): Activity: Resume your previous activity Non-emergency contact: Primary Care Provider Call non-emergency contact if: you have any medication questions Follow-up/Referrals: Kobe Pierce MD [Primary Care Provider] - Diet: Carb Consistent or DM2 Addtl Attending Provider Instructions: Follow up with your primary care provider once discharge from rehab Please call to schedule a follow up appointment with [facility] Continue physical and occupational therapy Fall precaution Continue monitor your sugar Do not drive or operate any machine while taking narcotic Please hold next dose of narcotic if you become drowsy and lethargy Pending Studies at Discharge: No Stand-Alone Forms: My [facility] Skilled Items Patient informed of condition?: Yes DNR: No Discharge Level of Care: Acute rehab Communicable Disease: No Discharge Prognosis: Stable Lines: None Urinary Catheter: No Medications and DC Order Prescriptions: New lidocaine 5 % Adhesive Patch,Medicated 1 patch transdermal QAM Qty: 5 RF: 0 Continued duloxetine 60 mg capsule,delayed release(DR/EC) 60 mg PO DAILY 30 Days Qty: 30 RF: 5 topiramate 50 mg tablet 50 mg PO BID Qty: 60 RF: 5 pramipexole 0.5 mg tablet 0.5 mg PO .COMPLEX Qty: 30 RF: 5 atorvastatin 40 mg tablet 40 mg PO QAM RF: 0 omeprazole 40 mg capsule,delayed release(DR/EC) 40 mg PO QAM RF: 0 aspirin 81 mg tablet,delayed release (DR/EC) 81 mg PO QAM RF: 0 tamsulosin 0.4 mg capsule 0.8 mg PO HS RF: 0 metoprolol succinate 25 mg tablet extended release 24 hr 25 mg PO QAM RF: 0 apixaban 5 mg tablet 5 mg PO BID RF: 0 albuterol sulfate 90 mcg/actuation HFA aerosol inhaler 2 inha INH QID PRN (Reason: Shortness Of Breath Or Wheezing) RF: 0 gabapentin 100 mg capsule 100 mg PO TID RF: 0 furosemide 40 mg tablet 40 mg PO DAILY RF: 0 Anoro Ellipta 62.5-25 mcg/actuation blister with device 1 inh INHALATION DAILY RF: 0 Restasis 0.05 % dropperette 1 drp OPB BID RF: 0 hydrocodone-acetaminophen 10-325 mg Tablet 1 tab PO Q8H PRN (Reason: Pain) RF: 0 metformin [Glucophage XR] 500 mg tablet extended release 24 hr 1,500 mg PO DAILY RF: 0 Discharge Orders: Discharge Order (Routine); Ordered 05/11/20 Ordered By: Franca Garner Admission Data Admit Date/Time: 05/10/20 18:17 Attending Provider: Franca Garner Admit Provider: Franca Garner Primary Care Provider: Kobe Pierce Other Providers: Franca Garner ; [facility] Other Interventions: Discharge Summary Assessment (RN) Last Done: 05/11/20 15:30
== END 2020-05-11 17:28 ==
LOC: ED 13:19 → 3W 13:19

== ENCOUNTER 2020-08-04 07:45 | Inpatient (IN) ==
[2020-08-04] MEDS ORDERED: cefTRIAXone SODIUM 2,000 MG/70 ML BAG IV STA (08:07)
[2020-08-04] MEDS ORDERED: ALBUT/IPRATROP 3MG/0.5MG NEB 3 ML VIAL INH STA (08:07)
[2020-08-04] MEDS ORDERED: methylPREDNISolone 125 MG/2 ML VIAL IV STA (08:07)
--- NOTE | 2020-08-04 08:13 | Emergency Department Note ---
Impression & Plan Hypoxia, COPD exacerbation, SOB (shortness of breath), Wheezing, EDITH (acute kidney injury), Acute bronchitis ED Provider Note NAME: KIRTI LEDESMA AGE: 65 SEX: M : 1955 ARRIVES VIA: Walk-In INFORMANT: [Patient] ED PROVIDER(S): [Pasquale Zamora MD] CHIEF COMPLAINT: Short of breath HISTORY OF PRESENT ILLNESS: The patient is a 65-year-old male who has felt poorly for 4 days. He is sneezing with a stuffy nose and a productive cough. He has had some chills and nausea. He feels short of breath. The patient states that he did see a [facility] provider last evening. He was given prescriptions for antibiotics and prednisone but has not been able to get them filled. Patient presents to the ER today because he feels much worse this morning. Patient does have COPD. He has an inhaler and nebulizer at home. He thinks he may have bronchitis or pneumonia. The patient has been vaccinated for COVID-19. The second immunization was given about a month ago. The patient denies chest pain. He is short of breath with exertion especially. There has been no diarrhea. He typically is prescribed antibiotics for this type of presentation and improves. REVIEW OF SYSTEMS: See HPI for pertinent positives and negatives. A total of ten systems were reviewed and were otherwise negative. PMHx/PSHx: See Below SOCIAL HISTORY: See Below. PHYSICAL EXAM: GENERAL: Patient is in mild respiratory distress. HEENT: No acute trauma, normocephalic atraumatic, mucous membranes moist, no nasal congestion, no scleral icterus. NECK: No stridor, no adenopathy, no meningismus, trachea is midline. LUNGS: Increased respiratory rate. He does speak in shorter sentences. He has wheezing with some rhonchi bilaterally. He has equal breath sounds bilaterally. He is in some mild respiratory distress standing at the bedside. HEART: Without murmurs gallops or rubs, tachycardic with a regular rhythm. ABDOMEN: Soft, nontender, bowel sounds positive, no hernias, no peritonitis. EXTREMITIES: No cyanosis or edema, full range of motion of all the joints withou t pain or difficulty, no signs for acute trauma. NEUROLOGIC: Oriented x 3, no acute motor or sensory deficits, no focal weakness. SKIN: No rash, no jaundice, no diaphoresis. DIFFERENTIAL DIAGNOSIS: Reactive airway disease, pneumonia, pneumothorax, COVID-19, COPD, CHF, infecti on, cardiac ischemia, pulmonary embolism, bronchitis, musculoskeletal, gastrointestinal, as well as other pathologies. EMERGENCY DEPARTMENT COURSE/PROCEDURES: ECG: Indication was shortness of breath. The ECG shows a sinus tachycardia with a rate of 102. There is a right bundle branch block. There is no ST elevation, no PVCs. The QTc is 466. Compared to an ECG from 10 May 2020, there is no significant change. Continuous Cardiac Monitoring: An order was placed for continuous cardiac monitoring. The monitor shows a rate of 105 with sinus tachycardia. Critical Care Note: I have personally spent 41 minutes of critical care time in the direct management of this patient. This includes bedside care, int erpretation of diagnostic studies, and testing, discussion with consultants, patient, and family members, and other required patient management activities. This 41 minutes is in excess of all separately billable procedures. MEDICAL DECISION MAKING: There is a mild leukocytosis, this could be consistent with infection or the stress of his presentation. The patient did have an anemia but this is baseline when looking back at previous testing. There was a normal platelet count. No coagulopathy. Renal panel testing does show acute kidney injury with a creatinine of 2.04. Lactic acid level was not elevated making sepsis less likely. No worrisome liver enzyme elevation. ECG shows a sinus tachycardia, no acute ischemia. Cardiac enzyme testing x1 is not consistent with acute cardiac injury. Covid testing returned negative. Chest film does not show CHF, pneumonia or pneumothorax. On exam, the patient did appear somewhat short of breath. He was wheezing. He was speaking in shorter sentences. The patient received a DuoNeb. He was given IV Solu-Medrol and IV saline. He was given IV ceftriaxone as empiric antibiotic coverage. He received IV Tylenol for pain and aches. The patient is in need of a hospital stay. He is hypoxic. He presents in some mild respiratory distress. He appears to have an acute bronchitis with a flare of COPD. I spoke to the patient, he does feel improved since treatment here in the ED. I spoke with case management. The on-call hospitalist was consulted. Past Med/Surg History Medical History Ambulatory dysfunction Back pain Back strain Chronic lower back pain Chronic obstructive pulmonary disease last exacerbation 3 wks ago during [address]. 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 Quit 2018. Still chewing tobacco; Second Hand Exposure: No; Hx Alcohol Use: Yes Alcohol type: beer Hx Substance Use: No Preferred Language: Comoran Communication Ability: Effective Record Center Specialist Required: No Beliefs That Will Affect Care: None marital status: Single Current Living Situation: Family Current Living Situation Comment: with son and current occupational status: unemployed and retired Feels Safe at Home: Yes Assistive Devices: Walker Allergies Allergies Allergy/AdvReac Type Severity Reaction Status Date / Time propoxyphene Allergy Intermediate unsure Verified 06/10/20 13:08 acetaminophen Allergy . Verified 06/10/20 13:08 [From [facility]] Home Meds Home Medications Medication Instructions Recorded Confirmed apixaban 5 mg PO BID 03/04/18 08/04/20 aspirin 81 mg PO QAM 03/04/18 08/04/20 atorvastatin 40 mg PO QAM 03/04/18 08/04/20 metoprolol succinate 0 mg PO QAM 03/04/18 08/04/20 omeprazole 40 mg PO QAM 03/04/18 08/04/20 tamsulosin 0.8 mg PO HS 03/04/18 08/04/20 albuterol sulfate 2 inha INH QID PRN 12/09/18 08/04/20 Anoro Ellipta 1 inh INHALATION DAILY 05/05/20 08/04/20 Restasis 1 drp OPB BID 05/05/20 08/04/20 furosemide 0 mg PO DAILY 05/05/20 08/04/20 gabapentin 100 mg PO TID 05/05/20 08/04/20 hydrocodone-acetaminophen 1 tab PO Q8H PRN 05/05/20 08/04/20 metformin [Glucophage XR] 1,500 mg PO DAILY 05/10/20 08/04/20 Previous Rx's Medication Instructions Recorded duloxetine 60 mg capsule,delayed 60 mg PO DAILY 30 Days #30 cap 01/29/20 release pramipexole 0.5 mg tablet 0.5 mg PO .COMPLEX #30 tab 04/30/20 topiramate 50 mg tablet 50 mg PO BID #60 tab 06/15/20 Results & Data (ED) Vital Signs Vital Signs - 24 hr 08/04/20 07:50 08/04/20 08:25 08/04/20 08:30 Temperature 37.4 C Temperature Source Temporal Artery Scan Pulse Rate 109 H 105 H 108 H Pulse Rate [Right Finger] Pulse Rate from SpO2 Sensor 109 H Pulse Rhythm Respiratory Rate 20 21 25 H Respiratory Effort / Characteristics Non-Labored Respiratory Depth Normal Blood Pressure 132/74 123/74 121/79 Blood Pressure Mean 93 90 93 Pulse Oximetry 94 98 Oxygen Delivery Method Room Air Oxygen Flow Rate Sepsis Recent Fever Within 48 Hours No Sepsis New/Unexplained Change in Mental Status No Sepsis Action Taken by Nursing No Action Required 08/04/20 08:31 08/04/20 08:59 08/04/20 09:00 Temperature Temperature Source Pulse Rate 103 H 111 H Pulse Rate [Right Finger] Pulse Rate from SpO2 Sensor 103 H Pulse Rhythm Respiratory Rate 24 26 H Respiratory Effort / Characteristics Spontaneous Respiratory Depth Blood Pressure 101/63 Blood Pressure Mean 75 Pulse Oximetry 98 91 Oxygen Delivery Method Room Air Oxygen Flow Rate Sepsis Recent Fever Within 48 Hours Sepsis New/Unexplained Change in Mental Status Sepsis Action Taken by Nursing 08/04/20 09:06 08/04/20 09:22 08/04/20 09:30 Temperature Temperature Source Pulse Rate 105 H 93 H Pulse Rate [Right Finger] 108 H Pulse Rate from SpO2 Sensor 95 H Pulse Rhythm Regular Respiratory Rate 20 22 18 Respiratory Effort / Characteristics Spontaneous SOB on Exertion Respiratory Depth Blood Pressure 105/60 Blood Pressure Mean 75 Pulse Oximetry 91 96 97 Oxygen Delivery Method Room Air Nasal Cannula Oxygen Flow Rate 2 Sepsis Recent Fever Within 48 Hours Sepsis New/Unexplained Change in Mental Status Sepsis Action Taken by Nursing 08/04/20 09:31 08/04/20 10:00 08/04/20 10:01 Temperature Temperature Source Pulse Rate 94 H 107 H 98 H Pulse Rate [Right Finger] Pulse Rate from SpO2 Sensor 98 H Pulse Rhythm Respiratory Rate 15 25 H 23 Respiratory Effort / Characteristics Respiratory Depth Blood Pressure 99/67 L Blood Pressure Mean 77 Pulse Oximetry 97 Oxygen Delivery Method Oxygen Flow Rate Sepsis Recent Fever Within 48 Hours Sepsis New/Unexplained Change in Mental Status Sepsis Action Taken by Nursing 08/04/20 10:30 08/04/20 10:31 08/04/20 10:44 Temperature 37.3 C Temperature Source Oral Pulse Rate 108 H Pulse Rate [Right Finger] Pulse Rate from SpO2 Sensor Pulse Rhythm Respiratory Rate 26 H 25 H Respiratory Effort / Characteristics Respiratory Depth Blood Pressure 110/79 Blood Pressure Mean 89 Pulse Oximetry Oxygen Delivery Method Oxygen Flow Rate Sepsis Recent Fever Within 48 Hours Sepsis New/Unexplained Change in Mental Status Sepsis Action Taken by Nursing 08/04/20 11:00 08/04/20 11:01 08/04/20 11:24 Temperature Temperature Source Pulse Rate 121 H 112 H Pulse Rate [Right Finger] Pulse Rate from SpO2 Sensor Pulse Rhythm Respiratory Rate 25 H 26 H Respiratory Effort / Characteristics Respiratory Depth Blood Pressure 116/86 Blood Pressure Mean 96 Pulse Oximetry 87 L Oxygen Delivery Method Room Air Oxygen Flow Rate Sepsis Recent Fever Within 48 Hours Sepsis New/Unexplained Change in Mental Status Sepsis Action Taken by Alf Medications Current Medication List: was personally reviewed by me Laboratory Data Attestation: I reviewed the patient's lab results. Result diagrams: 08/04/20 08:22 08/04/20 10:43 Lab Results 08/04/20 08/04/20 08/04/20 Range/Units 08:07 08:22 08:22 WBC 13.25 H (4.8-10.8) K/uL RBC 3.48 L (4.7-6.1) M/uL Hgb 11.7 L (14.0-18.0) g/dL Hct 35.3 L (42-52) % MCV 101.4 H (80-100) fL MCH 33.6 (25-34) pg MCHC 33.1 (32-36) g/dL RDW Std Deviation 50.0 H (36.4-46.3) fL RDW Coeff of Loree 13.5 (11.5-14.5) % Plt Count 316 (130-400) K/uL MPV 9.6 (7.4-10.4) fL Immature Gran % (Auto) 0.3 % Neut % (Auto) 77.8 % Lymph % (Auto) 11.4 % [place] % (Auto) 8.5 % Eos % (Auto) 1.5 % Baso % (Auto) 0.5 % Neut # (Auto) 10.32 H (1.4-6.5) K/uL Lymph # (Auto) 1.51 (1.2-3.4) K/uL [place] # (Auto) 1.12 H (0.11-0.59) K/uL Eos # (Auto) 0.20 (0-0.5) K/uL Baso # (Auto) 0.06 (0-0.2) K/uL Immature Gran # (Auto) 0.04 H (0.00-0.02) K/uL PT Cancelled INR Cancelled APTT Cancelled PTT Ratio Cancelled Sodium 133 L (136-145) mmol/L Potassium (3.5-5.1) mmol/L Chloride 99 (98-107) mmol/L Carbon Dioxide 24 (21-32) mmol/L Anion Gap 10.0 (3-11) BUN 37 H (7-18) mg/dl Creatinine 2.04 H (0.6-1.4) mg/dl Est Cr Clr Drug Dosing 33.7 ml/min Est GFR ( Amer) 38.5 ml/min Est GFR (Non-Af Amer) 33.2 ml/min BUN/Creatinine Ratio 17.9 (10-20) Glucose 114 H (70-99) mg/dl Lactate (0.4-2.0) mmol/L Calcium 9.4 (8.5-10.1) mg/dl Magnesium (1.8-2.4) mg/dl Total Bilirubin 0.6 (0.2-1) mg/dl AST (15-37) U/L ALT 19 (12-78) U/L Alkaline Phosphatase 97 (45-117) U/L Troponin I < 0.015 (0-0.045) ng/ml Total Protein 8.6 H (6.4-8.2) gm/dl Albumin 4.0 (3.4-5.0) gm/dl Globulin 4.6 H (2.5-4.0) gm/dl Albumin/Globulin Ratio 0.9 (0.9-2) COVID-19 Eval Order SARS-CoV-2 (PCR) (Negative) 08/04/20 08/04/20 08/04/20 Range/Units 08:55 08:55 09:00 WBC (4.8-10.8) K/uL RBC (4.7-6.1) M/uL Hgb (14.0-18.0) g/dL Hct (42-52) % MCV (80-100) fL MCH (25-34) pg MCHC (32-36) g/dL RDW Std Deviation (36.4-46.3) fL RDW Coeff of Loree (11.5-14.5) % Plt Count (130-400) K/uL MPV (7.4-10.4) fL Immature Gran % (Auto) % Neut % (Auto) % Lymph % (Auto) % [place] % (Auto) % Eos % (Auto) % Baso % (Auto) % Neut # (Auto) (1.4-6.5) K/uL Lymph # (Auto) (1.2-3.4) K/uL [place] # (Auto) (0.11-0.59) K/uL Eos # (Auto) (0-0.5) K/uL Baso # (Auto) (0-0.2) K/uL Immature Gran # (Auto) (0.00-0.02) K/uL PT INR APTT PTT Ratio Sodium (136-145) mmol/L Potassium (3.5-5.1) mmol/L Chloride (98-107) mmol/L Carbon Dioxide (21-32) mmol/L Anion Gap (3-11) BUN (7-18) mg/dl Creatinine (0.6-1.4) mg/dl Est Cr Clr Drug Dosing ml/min Est GFR ( Amer) ml/min Est GFR (Non-Af Amer) ml/min BUN/Creatinine Ratio (10-20) Glucose (70-99) mg/dl Lactate 1.6 (0.4-2.0) mmol/L Calcium (8.5-10.1) mg/dl Magnesium (1.8-2.4) mg/dl Total Bilirubin (0.2-1) mg/dl AST (15-37) U/L ALT (12-78) U/L Alkaline Phosphatase (45-117) U/L Troponin I (0-0.045) ng/ml Total Protein (6.4-8.2) gm/dl Albumin (3.4-5.0) gm/dl Globulin (2.5-4.0) gm/dl Albumin/Globulin Ratio (0.9-2) COVID-19 Eval Order Covid19 at [facility] SARS-CoV-2 (PCR) NEGATIVE (Negative) 08/04/20 08/04/20 Range/Units 10:09 10:43 WBC (4.8-10.8) K/uL RBC (4.7-6.1) M/uL Hgb (14.0-18.0) g/dL Hct (42-52) % MCV (80-100) fL MCH (25-34) pg MCHC (32-36) g/dL RDW Std Deviation (36.4-46.3) fL RDW Coeff of Loree (11.5-14.5) % Plt Count (130-400) K/uL MPV (7.4-10.4) fL Immature Gran % (Auto) % Neut % (Auto) % Lymph % (Auto) % [place] % (Auto) % Eos % (Auto) % Baso % (Auto) % Neut # (Auto) (1.4-6.5) K/uL Lymph # (Auto) (1.2-3.4) K/uL [place] # (Auto) (0.11-0.59) K/uL Eos # (Auto) (0-0.5) K/uL Baso # (Auto) (0-0.2) K/uL Immature Gran # (Auto) (0.00-0.02) K/uL PT 10.7 INR 1.1 APTT 27.9 PTT Ratio 1.1 Sodium (136-145) mmol/L Potassium 3.8 (3.5-5.1) mmol/L Chloride (98-107) mmol/L Carbon Dioxide (21-32) mmol/L Anion Gap (3-11) BUN (7-18) mg/dl Creatinine (0.6-1.4) mg/dl Est Cr Clr Drug Dosing ml/min Est GFR ( Amer) ml/min Est GFR (Non-Af Amer) ml/min BUN/Creatinine Ratio (10-20) Glucose (70-99) mg/dl Lactate (0.4-2.0) mmol/L Calcium (8.5-10.1) mg/dl Magnesium (1.8-2.4) mg/dl Total Bilirubin (0.2-1) mg/dl AST 15 (15-37) U/L ALT (12-78) U/L Alkaline Phosphatase (45-117) U/L Troponin I (0-0.045) ng/ml Total Protein (6.4-8.2) gm/dl Albumin (3.4-5.0) gm/dl Globulin (2.5-4.0) gm/dl Albumin/Globulin Ratio (0.9-2) COVID-19 Eval Order SARS-CoV-2 (PCR) (Negative) Administered Medications Discontinued Medications Acetaminophen (Acetaminophen 1000 Mg/100 Ml Iv) 1,000 mg IV NOW STA Stop: 08/04/20 08:34 Last Admin: 08/04/20 09:25 Dose: 1,000 mg Documented by: [id number] Albuterol (Albut/Ipratrop 3mg/0.5mg Neb 3 Ml Vial) 3 ml INH NOW STA Stop: 08/04/20 08:08 Last Admin: 08/04/20 09:21 Dose: 3 ml Documented by: [id number] Ceftriaxone Sodium (Rocephin) 2,000 mg in 70 mls @ 140 mls/hr IV NOW STA Stop: 08/04/20 08:36 Last Infusion: 08/04/20 09:25 Dose: 0 mls/hr Documented by: [id number] Admin: 08/04/20 08:49 Dose: 140 mls/hr Documented by: [id number] Sodium Chloride (Nss 1000ml) 1,000 mls @ 999 mls/hr IV .Q1H1M ONE Stop: 08/04/20 11:22 Last Admin: 08/04/20 10:42 Dose: 999 mls/hr Documented by: [id number] Methylprednisolone (Methylprednisolone 125 Mg/2 Ml Vial) 60 mg IV NOW STA Stop: 08/04/20 08:08 Last Admin: 08/04/20 08:48 Dose: 60 mg Documented by: [id number] Imaging Data Radiologist's Impression: Chest X-Ray 08/04/20 08:07 XR chest 1V portable HISTORY: Shortness of breath. COMPARISON: Chest 05/10/2020. FINDINGS: Cervical spinal fusion hardware is again noted. There is mild diffuse interstitial thickening, unchanged. This is most pronounced at the periphery. This is likely chronic. The heart is normal in size. No new focal lung consolidations. No pleural effusions. No pneumothorax. IMPRESSION: Mild diffuse interstitial thickening most pronounced within the periphery. This is similar to the prior study and is likely chronic. No new focal lung consolidations to suggest pneumonia. ACT 112: Negative or not required by law. Electronically signed by: Arash Garcia M.D. 08/04/2020 10:32 AM Discharge Plan Visit Data Chief Complaint: Illness Stated Complaint: STUFFY,COUGH,WHEEZING,POSS BRONCH/PNEUMON,SOB ED Provider: Pasquale Zamora Discharge Problem: Hypoxia, COPD exacerbation, SOB (shortness of breath), Wheezing, EDITH (acute kidney injury), Acute bronchitis Patient Disposition: Admitted As Inpatient Condition: Fair Forms Stand Alone Forms: My [facility] [place] [employer] Prescriptions Prescriptions: No Action duloxetine 60 mg capsule,delayed release(DR/EC) 60 mg PO DAILY 30 Days Qty: 30 RF: 5 topiramate 50 mg tablet 50 mg PO BID Qty: 60 RF: 5 pramipexole 0.5 mg tablet 0.5 mg PO .COMPLEX Qty: 30 RF: 5 atorvastatin 40 mg tablet 40 mg PO QAM RF: 0 omeprazole 40 mg capsule,delayed release(DR/EC) 40 mg PO QAM RF: 0 aspirin 81 mg tablet,delayed release (DR/EC) 81 mg PO QAM RF: 0 tamsulosin 0.4 mg capsule 0.8 mg PO HS RF: 0 metoprolol succinate 25 mg tablet extended release 24 hr 0 mg PO QAM RF: 0 apixaban 5 mg tablet 5 mg PO BID RF: 0 albuterol sulfate 90 mcg/actuation HFA aerosol inhaler 2 inha INH QID PRN (Reason: Shortness Of Breath Or Wheezing) RF: 0 gabapentin 100 mg capsule 100 mg PO TID RF: 0 furosemide 40 mg tablet 0 mg PO DAILY RF: 0 Anoro Ellipta 62.5-25 mcg/actuation blister with device 1 inh INHALATION DAILY RF: 0 Restasis 0.05 % dropperette 1 drp OPB BID RF: 0 hydrocodone-acetaminophen 10-325 mg Tablet 1 tab PO Q8H PRN (Reason: Pain) RF: 0 metformin [Glucophage XR] 500 mg tablet extended release 24 hr 1,500 mg PO DAILY RF: 0 Referrals Referrals: Kobe Pierce MD [Primary Care Provider] -
[2020-08-04] MEDS ORDERED: ACETAMINOPHEN 1000 MG/100 ML IV IV STA (08:33)
[2020-08-04 09:07] LABS: Basophils # (auto) 0.06 K/uL (0-0.2); Basophils % (auto) 0.5 %; Eosinophils % (auto) 1.5 %; Hematocrit (blood only) 35.3 % (42-52); Hemoglobin 11.7 g/dL (14.0-18.0); Immature Granulocytes # (auto) 0.04 K/uL (0.00-0.02); Immature Granulocytes % (auto) 0.3 %; Lymphocytes # (auto) 1.51 K/uL (1.2-3.4); Lymphocytes % (auto) 11.4 %; Mean Corpuscular Hemoglobin 33.6 pg (25-34); Mean Corpuscular Hgb Conc 33.1 g/dL (32-36); Mean Corpuscular Volume 101.4 fL (80-100); Mean Platelet Volume 9.6 fL (7.4-10.4); Monocytes # (auto) 1.12 K/uL (0.11-0.59); Monocytes % (auto) 8.5 %; Neutrophils # (auto) 10.32 K/uL (1.4-6.5); Neutrophils % (auto) 77.8 %; Platelet Count 316 K/uL (130-400); RDW Coefficient of Variation 13.5 % (11.5-14.5); Red Blood Count 3.48 M/uL (4.7-6.1); White Blood Count 13.25 K/uL (4.8-10.8)
[2020-08-04 10:08] LABS: Alanine Aminotransferase 19 U/L (12-78); Albumin Globulin Ratio 0.9 (0.9-2); Alkaline Phosphatase 97 U/L (45-117); BUN Creatinine Ratio 17.9 (10-20); Bilirubin,Total 0.6 mg/dl (0.2-1); Blood Urea Nitrogen 37 mg/dl (7-18); Calcium 9.4 mg/dl (8.5-10.1); Carbon Dioxide 24 mmol/L (21-32); Chloride 99 mmol/L (98-107); Creatinine Clr Calc Pharmacy 33.7 ml/min; Est GFR (African American) 38.5 ml/min; Est GFR (Non-African American) 33.2 ml/min; Globulin 4.6 gm/dl (2.5-4.0); Glucose 114 mg/dl (70-99); Sodium 133 mmol/L (136-145); Total Protein 8.6 gm/dl (6.4-8.2); Troponin I < 0.015 ng/ml (0-0.045)
[2020-08-04] MEDS ORDERED: SODIUM CHLORIDE 0.9% 1000ML 1,000 ML IV ONE (10:22)
--- NOTE | 2020-08-04 10:33 | XRay Report ---
XR chest 1V portable HISTORY: Shortness of breath. COMPARISON: Chest 05/10/2020. FINDINGS: Cervical spinal fusion hardware is again noted. There is mild diffuse interstitial thickeni ng, unchanged. This is most pronounced at the periphery. This is likely chronic. The heart is normal in size. No new focal lung consolidations. No pleural effusions. No pneumothorax. IMPRESSION: Mild diffuse interstitial thickening most pronounced within the periphery. This is similar to the los or study and is likely chronic. No new focal lung consolidations to suggest pneumonia. ACT 112: Negative or not required by law. Electronically signed by: Arash Garcia M.D. 08/04/2020 10:32 AM
[2020-08-04 10:39] LABS: INR 1.1 (0.9-1.1); Partial Thromboplastin Ratio 1.1; Partial Thromboplastin Time 27.9 Seconds (21.0-31.0); Prothrombin Time 10.7 Seconds (9.0-12.0)
[2020-08-04 11:35] LABS: Potassium 3.8 mmol/L (3.5-5.1)
--- NOTE | 2020-08-04 13:11 | History & Physical Report ---
Date of Service August 04, 2020 Assessment & Plan (1) COPD exacerbation: - Admit to med tele -patient does not typically wear O2 at baseline, currently requiring abdominal O2 due to being hypoxic on presentation at 87% on RA -received Solu-Medrol 60 mg IV x1, continue Solu-Medrol 40 mg IV tonight then transition to prednisone 40 mg daily tomorrow -Received IV ceftriaxone in the ER, transition to azithromycin p.o. tomorrow -WBC = 13 K -Negative lactate -COVID-19 negative on presentation, received the vaccine in April -Continue duo nebs q4h and q2h prn -CXR reviewed does not reveal signs concerning for pneumonia -Continue Anoro Ellipta (2) CAD (coronary artery disease): -Continue metoprolol 25 mg ER tomorrow, will give half dose of tartrate to cover now -Continue baby aspirin daily, atorvastatin 40 mg daily -Takes Lasix 40 mg daily as outpatient, given 1L NSS in the ER, missed med this morning, resume tomorrow (3) Diabetes mellitus, type II: - Check a1c with am labs, last 04/23/20 was 5.9 - Holding Po metformin 1500 mg daily - ISS with accgloria hilliard - Glycemic pharmacy consulted for use of iv steroids (4) GERD (gastroesophageal reflux disease): -Continue Protonix (5) History of DVT (deep vein thrombosis): -Continue Eliquis 5 mg daily (6) Migraine: -History of such, patient reports small aneurysm and has followed with neurosurgery as an outpatient, previously has seen Dr. Gillespie -Continue Topamax daily for migraine prevention (7) Chronic low back pain: -Continue hydrocodone 103 25 q8H, follows with Dr. Micheal Calvillo, DO and pain management as an outpatient and had received caudal epidural steroid injection on 06/24/2020. (8) Obesity (BMI 30.0-34.9): -BMI 31.0, diet and exercise to be encouraged -Heart healthy/diabetic diet DVT PPx: - Ivan martinez CODE: NR/DNI Dispo: From home, likely to remain in the hospital x 1-2 days History of Present Illness Primary Care Provider: Kobe Pierce MD This is a 65-year-old male with PMHx of COPD, emphysema, CAD, HTN, HLD, brain aneurysm, DM type II, GERD, DVT on Eliquis, thunderclap headache/migraine, lumbar DDD, who presents with acute worsening shortness of breath, cough, and clear/white sputum production x4 days. He feels significantly short of breath even with speaking today. He went to his PCP last evening for these complaints and he was given a prescription of antibiotic and prednisone however he saw the physician so late in the evening that his pharmacy was closed by the time he got there and was unable to start the medications. He denies fever chills or sweats. No reports that he has had similar symptoms before but has got pneumonia in hopes that he has not already. He lives at home with his son and [id number]. Neither of these family members have similar symptoms. Patient received a Covid vaccine about a month ago and completed the series, he is COVID-19 negative on admissi on. In the ER the patient received Solu-Medrol IV 60 mg, nebulizer treatment, 1 L NSS, and was placed on oxygen due to O2 sats of 87% on room air. His O2 sats are improved to 94-95% on 2 L. Allergies Allergy/AdvReac Type Severity Reaction Status Date / Time propoxyphene Allergy Intermediate unsure Verified 06/10/20 13:08 acetaminophen Allergy . Verified 06/10/20 13:08 [From [facility]] Home Medications Medication Instructions Recorded Confirmed Type apixaban 5 mg PO BID 03/04/18 08/04/20 History aspirin 81 mg PO QAM 03/04/18 08/04/20 History atorvastatin 40 mg PO QAM 03/04/18 08/04/20 History metoprolol succinate 0 mg PO QAM 03/04/18 08/04/20 History omeprazole 40 mg PO QAM 03/04/18 08/04/20 History tamsulosin 0.8 mg PO HS 03/04/18 08/04/20 History albuterol sulfate 2 inha INH QID PRN 12/09/18 08/04/20 History duloxetine 60 mg capsule,delayed 60 mg PO DAILY 30 Days #30 cap 01/29/20 08/04/20 Rx release pramipexole 0.5 mg tablet 0.5 mg PO .COMPLEX #30 tab 04/30/20 08/04/20 Rx Anoro Ellipta 1 inh INHALATION DAILY 05/05/20 08/04/20 History Restasis 1 drp OPB BID 05/05/20 08/04/20 History furosemide 0 mg PO DAILY 05/05/20 08/04/20 History gabapentin 100 mg PO TID 05/05/20 08/04/20 History hydrocodone-acetaminophen 1 tab PO Q8H PRN 05/05/20 08/04/20 History metformin [Glucophage XR] 1,500 mg PO DAILY 05/10/20 08/04/20 History topiramate 50 mg tablet 50 mg PO BID #60 tab 06/15/20 08/04/20 Rx Past Med/Surg History Medical History Ambulatory dysfunction Back pain Back strain Chronic lower back pain Chronic obstructive pulmonary disease last exacerbation 3 wks ago during [address]. 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 Quit 2019. 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 Required: No Beliefs That Will Affect Care: None marital status: Single Current Living Situation: Family Current Living Situation Comment: lives with son and dil current occupational status: unemployed and retired Other Information That Helps Us Care for You: No Feels Safe at Home: Yes Safety Concerns: Feels Safe At This Time Assistive Devices: Cane and Glasses Review of Systems Review of Systems: Constitutional: No fever, sweats or chills Eyes: No diplopia, no worsening or blurred vision ENT: normal hearing, no trouble swallowing Respiratory: Sign cough, + white sputum, + dyspnea at rest, speaking long sentences and on exertion Cardiovascular: No chest pain, tightness or palpitations Abdomen: No pain, nausea, vomiting, diarrhea or constipation Musculoskeletal: No joint pain, calf pain, swelling Neurologic: No weakness, numbness/tingling, or balance problems Psychiatric: No anxiety or depression Skin: No rash or itch Physical Exam Physical Exam: General: awake, alert, no apparent distress, + obese BMI 31 Head: Normocephalic, atraumatic ENT: PERRL, EOMI, no pharyngeal exudate, mucous membranes moist Chest: Diffuse coarse rales throughout, inspiratory and expiratory wheezing, on 2 L via NC with O2 sats at 94-95%. Cardiac: Regular rhythm, + slightly tachy no murmur, no JVD, normal peripheral pulses, good capillary refill Abdominal: NABS x 4 quadrants, soft, nondistended, nontender to palpation, no rebound or guarding Extremities: Normal inspection, no peripheral edema or erythema, calfs nontender to palpation Psych: Normal mood and affect Neuro: AAO x 3, strength intact bilaterally and rated 5/5, no motor deficits, speech is clear, no peripheral sensory deficits Results & Data Results & Data ([facility]) Vital Signs (Past 12 Hours) Vital Signs Temp Pulse Pulse Resp BP Pulse Ox 08/04/20 11:24 87 L 08/04/20 11:01 112 H 26 H 116/86 08/04/20 11:00 121 H 25 H 08/04/20 10:44 37.3 C 08/04/20 10:31 108 H 25 H 110/79 08/04/20 10:30 26 H 08/04/20 10:01 98 H 23 08/04/20 10:00 107 H 25 H 99/67 L 08/04/20 09:31 94 H 15 97 08/04/20 09:30 93 H 18 105/60 97 08/04/20 09:22 108 H 22 96 08/04/20 09:06 105 H 20 91 06/09/21 09:00 111 H 26 H 101/63 08/04/20 08:59 91 08/04/20 08:31 103 H 24 98 08/04/20 08:30 108 H 25 H 121/79 98 08/04/20 08:25 105 H 21 123/74 08/04/20 07:50 37.4 C 109 H 20 132/74 94 Diagnostic Findings Chest X-Ray 08/04/20 08:07 XR chest 1V portable HISTORY: Shortness of breath. COMPARISON: Chest 05/10/2020. FINDINGS: Cervical spinal fusion hardware is again noted. There is mild diffuse interstitial thickening, unchanged. This is most pronounced at the periphery. This is likely chronic. The heart is normal in size. No new focal lung consolidations. No pleural effusions. No pneumothorax. IMPRESSION: Mild diffuse interstitial thickening most pronounced within the periphery. This is similar to the prior study and is likely chronic. No new focal lung consolidations to suggest pneumonia. ACT 112: Negative or not required by law. Electronically signed by: Arash Garcia M.D. 08/04/2020 10:32 AM ECG Additional Comments: 04-AUG-2020 08:22:37 [facility]-EDSTAT ROUTINE RETRIEVAL Sinus tachycardia Incomplete right bundle branch block Borderline ECG When compared with ECG of 10-MAY-2020 14:07, No significant change was found 25mm/s 10mm/mV 150Hz 9.0.9 12SL 241 HD WIL: 12 Referred by: REFERRED SELF Unconfirmed Vent. rate 102 BPM NH interval 120 ms QRS duration 116 ms QT/QTc 358/466 ms Code Status & VTE Plan Code Status DNR/DNI-discussed with patient at bedside Supervising Physician Co-Signing Physician Notes 65 year old man with PMHx of COPD, emphysema, CAD, HTN, HLD, brain aneurysm, DM type II, GERD, DVT on Eliquis, thunderclap headache/migraine, lumbar DDD, who presents with acute worsening shortness of breath, cough, and clear/white sputum production x4 days History and physical exam performed by ma History notable for congestion, productive cough and shortness of breath for the past few days. Physical exam notable for global inspiratory and expiratory wheeze, nasal oxygen at 2 L/min Lab work notable for WBC of 13, Sodium of 133 CXR did not show any new focal consolidation -Acute hypoxic respiratory failure -COPD exacerbation Did meet SIRS criteria with leukocytosis, tachycardia and tachypnea on admission SIRS likely due to COPD exacerbation Continue duoneb q6h Got solumedrol. Continue today. Change to po prednisone tomorrow morning Azithromycin Continue oxygen supplementation and wean as tolerated Agree with plans as detailed by Mary Calderon PA-C
[2020-08-04] MEDS ORDERED: AZITHROMYCIN 250 MG TAB PO ONE ×2 (13:12→13:40)
[2020-08-04] MEDS ORDERED: GLUCOSE 10 TABS/TUBE PO PRN (14:32)
[2020-08-04] MEDS ORDERED: DEXTROSE 50% 50 ML SYRINGE IV PRN (14:32)
[2020-08-04] MEDS ORDERED: GLUCOSE 40% GEL 15 GM TUBE PO PRN (14:32)
[2020-08-04] MEDS ORDERED: METOPROLOL TARTRATE 25 MG TAB PO ONE (14:32)
[2020-08-04] MEDS ORDERED: ONDANSETRON INJ 2 MG/ML 2 ML VIAL IV PRN (14:32)
[2020-08-04] MEDS ORDERED: GLUCAGON FOR INJ 1 MG VIAL SQ PRN (14:32)
[2020-08-04] MEDS ORDERED: CARBOHYDRATES FOR HYPOGLYCEMIA PO PRN (14:32)
[2020-08-04] MEDS ORDERED: PHARMACY GLYCEMIC MGMT CONSULT PRN (14:40)
[2020-08-04] MEDS ORDERED: LEVALBUTEROL HCL 1.25 MG/3 ML NEB INH PRN (14:57)
--- NOTE | 2020-08-04 14:58 | Pharmacy Report ---
Pharmacy Glycemic Short Note 2 - Date of Service August 04, 2020 - Glycemic Short BSG Results (Last 24 hours): 08/04/20 08:22 Glucose 114 H OUTPATIENT ANTIDIABETIC REGIMEN: * metformin XR 1500 mg daily * A1c 5.9% per provider notes ASSESSMENT: * 65 year old male admitted with COPD exacerbation. Type 2 DM managed only on metformin at home. Started on steroids on admission, therefore anticipate steroid induced hyperglycemia * Plan to give one time Lantus x 1 now - receive solm 60 iv this AM and start SSI * Per notes, plan to change to PO prednisone tomorrow - may utilize [facility] to help with steroid coverage tomorrow PLAN FOR INPATIENT GLYCEMIC CONTROL: * Hold outpatient oral diabetes medications * Basal insulin * Lantus 15-20 units with dinner to cover steroids * Bolus insulin * NovoLog per scale ACHS or Q6hrs while NPO * Goal Range: Low 110 mg/dL - High 140 mg/dL * Correction Factor: 25 mg/dL/unit * Nutritional / Prandial insulin per carb ratio of 1 unit per 8 grams CHO consumed PLAN FOR DISCHARGE: * tbd
[2020-08-04] MEDS: HYDROcodone/ACETAMINOPHEN 10/325 TAB PO PRN (15:11)
[2020-08-04] MEDS: BENZONATATE 100 MG CAPSULE PO SCH ×2 (15:35→21:17)
[2020-08-04] MEDS: LEVALBUTEROL HCL 1.25 MG/3 ML NEB INH SCH ×2 (15:47→19:15)
[2020-08-04] MEDS: GABAPENTIN 100 MG CAP PO SCH ×2 (15:57→21:17)
[2020-08-04] MEDS: INSULIN ASPART 100 UNITS/ML 3 ML PEN SC SCH ×2 (17:59→21:17)
[2020-08-04] MEDS ORDERED: LANTUS PER UNIT CHARGE SQ SCH (18:00)
[2020-08-04] MEDS ORDERED: PNEUMOCOCCAL Polysaccharide Vaccine 25mcg/0.5mL vial/Syr IM ONE (21:00)
[2020-08-04] MEDS ORDERED: methylPREDNISolone 40 MG in SYRINGE 0 ML IV SCH (21:00)
[2020-08-04] MEDS: APIXABAN 5 MG TABLET PO SCH (21:16)
[2020-08-04] MEDS: PRAMIPEXOLE DIHYDROCHLO 0.5 MG TAB PO SCH (21:16)
[2020-08-04] MEDS: guaiFENesin 600 MG TABCR PO SCH (21:17)
[2020-08-04] MEDS: TAMSULOSIN HCL 0.4 MG CAP PO SCH (21:18)
[2020-08-04] MEDS: TOPIRAMATE 50 MG TAB PO SCH (21:18)
[2020-08-05] MEDS ORDERED: INSULIN ASPART 100 UNITS/ML 3 ML PEN SC SCH
[2020-08-05] MEDS: LEVALBUTEROL HCL 1.25 MG/3 ML NEB INH SCH ×4 (00:15→19:11)
[2020-08-05] MEDS: HYDROcodone/ACETAMINOPHEN 10/325 TAB PO PRN ×3 (01:39→17:49)
[2020-08-05 07:22] LABS: Hematocrit (blood only) 31.9 % (42-52); Hemoglobin 10.4 g/dL (14.0-18.0); Mean Corpuscular Hemoglobin 32.9 pg (25-34); Mean Corpuscular Hgb Conc 32.6 g/dL (32-36); Mean Corpuscular Volume 100.9 fL (80-100); Mean Platelet Volume 9.7 fL (7.4-10.4); Platelet Count 293 K/uL (130-400); RDW Coefficient of Variation 13.5 % (11.5-14.5); RDW Standard Deviation 49.5 fL (36.4-46.3); Red Blood Count 3.16 M/uL (4.7-6.1); White Blood Count 10.83 K/uL (4.8-10.8)
[2020-08-05 08:00] LABS: Albumin Level 3.4 gm/dl (3.4-5.0); BUN Creatinine Ratio 16.4 (10-20); Calcium 9.4 mg/dl (8.5-10.1); Creatinine Clr Calc Pharmacy 34.5 ml/min; Est GFR (African American) 39.7 ml/min; Est GFR (Non-African American) 34.2 ml/min; Magnesium 2.5 mg/dl (1.8-2.4); Potassium 4.1 mmol/L (3.5-5.1)
[2020-08-05 08:03] LABS: Albumin Globulin Ratio 0.7 (0.9-2); Bilirubin,Total 0.5 mg/dl (0.2-1); Globulin 4.6 gm/dl (2.5-4.0)
[2020-08-05 08:18] LABS: Estimated Average Glucose 134 mg/dl; Hemoglobin A1C 6.3 % (4.5-5.6)
[2020-08-05] MEDS: APIXABAN 5 MG TABLET PO SCH ×2 (08:50→21:02)
[2020-08-05] MEDS: guaiFENesin 600 MG TABCR PO SCH ×2 (08:50→21:02)
[2020-08-05] MEDS: BENZONATATE 100 MG CAPSULE PO SCH ×3 (08:50→21:02)
[2020-08-05] MEDS: GABAPENTIN 100 MG CAP PO SCH ×3 (08:50→21:02)
[2020-08-05] MEDS: FUROSEMIDE 40 MG TAB PO SCH (08:51)
[2020-08-05] MEDS: ATORVASTATIN 40 MG TAB PO SCH (08:51)
[2020-08-05] MEDS: ASPIRIN 81 MG ECTAB PO SCH (08:51)
[2020-08-05] MEDS: TOPIRAMATE 50 MG TAB PO SCH ×2 (08:51→21:02)
[2020-08-05] MEDS: PANTOprazole 40 MG TAB PO SCH (08:52)
[2020-08-05] MEDS: DULoxetine HCL 60 MG CAP PO SCH (08:52)
[2020-08-05] MEDS: AZITHROMYCIN 250 MG TAB PO SCH (08:55)
[2020-08-05] MEDS: METOPROLOL SUCC 25MG EXT REL TAB PO SCH (08:55)
[2020-08-05] MEDS: predniSONE 20 MG TAB PO SCH (08:55)
[2020-08-05] MEDS: INSULIN ASPART 100 UNITS/ML 3 ML PEN SC SCH ×4 (08:55→21:03)
[2020-08-05] MEDS: NovoLIN-N (NPH) PER UNIT CHARGE SQ SCH (09:00)
[2020-08-05] MEDS: UMECLIDINIUM/VILANTEROL 62.5/25MCG 7 PUFFS/INHALER INH SCH (09:04)
--- NOTE | 2020-08-05 09:08 | Hospitalist Progress Note ---
Date of Service August 05, 2020 Assessment & Plan (1) COPD exacerbation: Improving. Continue prednisone to complete 5 days of therapy Continue azithromycin Continue Anoro Ellipta Albuterol as needed wheezing Loratadine daily Wean off oxygen (2) CAD (coronary artery disease): Continue metoprolol 25 mg, aspirin 81 mg daily, atorvastatin 40 mg daily Continue home Lasix (3) Diabetes mellitus, type II: A1c 6.3 Holding Po metformin 1500 mg daily ISS with accuchecks achs (4) GERD (gastroesophageal reflux disease): Continue Protonix (5) History of DVT (deep vein thrombosis): Continue Eliquis 5 mg daily (6) Migraine: History of such, patient reports small aneurysm and has followed with neurosurgery as an outpatient, previously has seen Dr. Gillespie Continue Topamax daily for migraine prevention (7) Chronic low back pain: Continue hydrocodone 103 25 q8H, follows with Dr. Micheal Calvillo, DO and pain management as an outpatient and had received caudal epidural steroid injection on 06/24/2020. (8) Elevated serum creatinine: Evaluation of serial creatinine in the past few months is as follows 02/23/20 - 1.95 ([facility]) 04/23/20 - 1.6 (Epic) 05/05/20 - 1.93 ([facility]) 05/06/20 - 1.74 ([facility]) 05/10/20 - 1.65 ([facility]) 05/12/20 - 2.1 (Epic) 05/15/20 - 2.0 (Epic) 05/19/20 - 1.7 (Epic) Patient's creatinine trend suggest CKD3 Cr on admission was 2.04 and 1.99 today. This appears similar to recent trend I do not see that patient has been following with nephrology Avoid nephrotoxins Will plan nephrology follow up on discharge (9) Obesity (BMI 30.0-34.9): BMI 31.0 Lifestyle modification counselling done DVT PPx: Eliquis CODE:DNR/DNI Admission and Anticipated Discharge Date Admission Date: August 04, 2020 Subjective 65 year old man with PMHx of COPD, emphysema, CAD, HTN, HLD, brain aneurysm, DM type II, GERD, DVT on Eliquis, thunderclap headache/migraine, lumbar DDD, who presents with acute worsening shortness of breath, cough, and clear/white sputum production x4 days Being managed for COPD exacerbation. Patient seen and examined this morning. COVID-19 sinus congestion and shortness of breath. Still has productive cough. Reports mild chest tightness Review of Systems Review of Systems: All systems reviewed & are unremarkable except as noted in Subjective Physical Exam Constitutional: + well hydrated and + obese; no acute distress Eyes: PERRL, conjunctivae normal, anicteric sclerae ENMT: external ear and nose normal, oropharynx normal Respiratory: normal respiratory effort and + cough; no respiratory distress Mild expiratory wheeze. No crackles Cardiovascular: Rate/Rhythm: regular rate and regular rhythm S1 S2 Gastrointestinal (Abdomen): normal bowel sounds, soft, nontender, no hepatosplenomegaly Musculoskeletal: no cyanosis or clubbing, extremities motor strength 5/5 Neurologic: PERRL, EOMI, accommodation nl, no face palsy, no dysarthria Psychiatric: A+Ox3, euthymic affect Results & Data Results & Data ([facility]) Vital Signs (Past 12 Hours) Vital Signs Temp Pulse Pulse Resp BP Pulse Ox 08/05/20 07:20 36.4 C L 68 18 131/74 93 08/05/20 07:02 74 20 98 08/05/20 07:00 106 H 08/05/20 03:10 36.4 C L 84 18 115/67 93 08/05/20 01:10 70 22 94 08/04/20 23:33 71 08/04/20 22:54 36.6 C 78 20 116/67 94 Laboratory Results Abnormal lab results 08/04/20 08/04/20 08/05/20 Range/Units 16:46 20:51 00:08 WBC (4.8-10.8) K/uL RBC (4.7-6.1) M/uL Hgb (14.0-18.0) g/dL Hct (42-52) % MCV (80-100) fL RDW Std Deviation (36.4-46.3) fL Carbon Dioxide (21-32) mmol/L BUN (7-18) mg/dl Creatinine (0.6-1.4) mg/dl Glucose (70-99) mg/dl POC Glucose 160 H 156 H 136 H (70-99) mg/dl Hemoglobin A1c (4.5-5.6) % Magnesium (1.8-2.4) mg/dl AST (15-37) U/L Globulin (2.5-4.0) gm/dl Albumin/Globulin Ratio (0.9-2) 08/05/20 08/05/20 08/05/20 Range/Units 06:25 06:25 06:25 WBC 10.83 H (4.8-10.8) K/uL RBC 3.16 L (4.7-6.1) M/uL Hgb 10.4 L (14.0-18.0) g/dL Hct 31.9 L (42-52) % MCV 100.9 H (80-100) fL RDW Std Deviation 49.5 H (36.4-46.3) fL Carbon Dioxide 20 L (21-32) mmol/L BUN 33 H (7-18) mg/dl Creatinine 1.99 H (0.6-1.4) mg/dl Glucose 150 H (70-99) mg/dl POC Glucose (70-99) mg/dl Hemoglobin A1c 6.3 H (4.5-5.6) % Magnesium 2.5 H (1.8-2.4) mg/dl AST 12 L (15-37) U/L Globulin 4.6 H (2.5-4.0) gm/dl Albumin/Globulin Ratio 0.7 L (0.9-2) 08/05/20 Range/Units 07:58 WBC (4.8-10.8) K/uL RBC (4.7-6.1) M/uL Hgb (14.0-18.0) g/dL Hct (42-52) % MCV (80-100) fL RDW Std Deviation (36.4-46.3) fL Carbon Dioxide (21-32) mmol/L BUN (7-18) mg/dl Creatinine (0.6-1.4) mg/dl Glucose (70-99) mg/dl POC Glucose 149 H (70-99) mg/dl Hemoglobin A1c (4.5-5.6) % Magnesium (1.8-2.4) mg/dl AST (15-37) U/L Globulin (2.5-4.0) gm/dl Albumin/Globulin Ratio (0.9-2)
[2020-08-05] MEDS ORDERED: LORATADINE 10 MG TAB PO ONE (10:19)
[2020-08-05] MEDS ORDERED: RESTASIS OPB SCH (21:00)
[2020-08-05] MEDS ORDERED: cycloSPORINE (RESTASIS) OPB ONE (21:00)
[2020-08-05] MEDS: PRAMIPEXOLE DIHYDROCHLO 0.5 MG TAB PO SCH (21:01)
[2020-08-05] MEDS: TAMSULOSIN HCL 0.4 MG CAP PO SCH (21:02)
[2020-08-06] MEDS: LEVALBUTEROL HCL 1.25 MG/3 ML NEB INH SCH ×2 (01:13→07:30)
--- NOTE | 2020-08-06 05:53 | Electrocardiogram Report ---
Test Reason : Blood Pressure : / mmHG Vent. Rate : 102 BPM Atrial Rate : 102 BPM P-R Int : 120 ms QRS Dur : 128 ms QT Int : 358 ms P-R-T Axes : 052 -29 022 degrees QTc Int : 466 ms Sinus tachycardia Right bundle branch block Borderline ECG When compared with ECG of 10-MAY-2020 14:07, No significant change was found Confirmed by Brenden Knight ([id number]) on 08/06/2020 5:52:58 AM Referred By: REFERRED SELF Confirmed By:Brenden Knight
[2020-08-06] MEDS: HYDROcodone/ACETAMINOPHEN 10/325 TAB PO PRN (06:24)
[2020-08-06] MEDS: APIXABAN 5 MG TABLET PO SCH (08:38)
[2020-08-06] MEDS: GABAPENTIN 100 MG CAP PO SCH (08:39)
[2020-08-06] MEDS: DULoxetine HCL 60 MG CAP PO SCH (08:39)
[2020-08-06] MEDS: PANTOprazole 40 MG TAB PO SCH (08:39)
[2020-08-06] MEDS: BENZONATATE 100 MG CAPSULE PO SCH (08:39)
[2020-08-06] MEDS: ASPIRIN 81 MG ECTAB PO SCH (08:39)
[2020-08-06] MEDS: predniSONE 20 MG TAB PO SCH (08:39)
[2020-08-06] MEDS: FUROSEMIDE 40 MG TAB PO SCH (08:39)
[2020-08-06] MEDS: AZITHROMYCIN 250 MG TAB PO SCH (08:39)
[2020-08-06] MEDS: METOPROLOL SUCC 25MG EXT REL TAB PO SCH (08:39)
[2020-08-06] MEDS: UMECLIDINIUM/VILANTEROL 62.5/25MCG 7 PUFFS/INHALER INH SCH (08:39)
[2020-08-06] MEDS: guaiFENesin 600 MG TABCR PO SCH (08:39)
[2020-08-06] MEDS: ATORVASTATIN 40 MG TAB PO SCH (08:39)
[2020-08-06] MEDS: TOPIRAMATE 50 MG TAB PO SCH (08:39)
[2020-08-06] MEDS ORDERED: LORATADINE 10 MG TAB PO SCH (09:00)
[2020-08-06] MEDS: NovoLIN-N (NPH) PER UNIT CHARGE SQ SCH (09:22)
[2020-08-06] MEDS: INSULIN ASPART 100 UNITS/ML 3 ML PEN SC SCH (09:23)
[2020-08-06 09:32] LABS: Hematocrit (blood only) 33.2 % (42-52); Hemoglobin 10.6 g/dL (14.0-18.0); Mean Corpuscular Hemoglobin 32.6 pg (25-34); Mean Corpuscular Hgb Conc 31.9 g/dL (32-36); Mean Corpuscular Volume 102.2 fL (80-100); Mean Platelet Volume 9.5 fL (7.4-10.4); Platelet Count 355 K/uL (130-400); RDW Coefficient of Variation 13.7 % (11.5-14.5); RDW Standard Deviation 51.1 fL (36.4-46.3); Red Blood Count 3.25 M/uL (4.7-6.1); White Blood Count 11.91 K/uL (4.8-10.8)
[2020-08-06 10:01] LABS: Albumin Globulin Ratio 0.7 (0.9-2); Albumin Level 3.4 gm/dl (3.4-5.0); BUN Creatinine Ratio 17.6 (10-20); Bilirubin,Total 0.7 mg/dl (0.2-1); Calcium 9.4 mg/dl (8.5-10.1); Creatinine Clr Calc Pharmacy 31.8 ml/min; Est GFR (African American) 35.9 ml/min; Globulin 4.9 gm/dl (2.5-4.0); Total Protein 8.4 gm/dl (6.4-8.2)
--- NOTE | 2020-08-06 10:39 | Discharge Summary ---
Date of Service August 06, 2020 Admission HPI Per Admitting Provider This is a 65-year-old male with PMHx of COPD, emphysema, CAD, HTN, HLD, brain aneurysm, DM type II, GERD, DVT on Eliquis, thunderclap headache/migraine, lumbar DDD, who presents with acute worsening shortness of breath, cough, and clear/white sputum production x4 days. He feels significantly short of breath even with speaking today. He went to his PCP last evening for these complaints and he was given a prescription of antibiotic and prednisone however he saw the physician so late in the evening that his pharmacy was closed by the time he got there and was unable to start the medications. He denies fever chills or sweats. No reports that he has had similar symptoms before but has got pneumonia in hopes that he has not already. He lives at home with his son and [id number]. Neither of these family members have similar symptoms. Patient received a Covid vaccine about a month ago and completed the series, he is COVID-19 negative on admission. In the ER the patient received Solu-Medrol IV 60 mg, nebulizer treatment, 1 L NSS, and was placed on oxygen due to O2 sats of 87% on room air. His O2 sats are improved to 94-95% on 2 L. Admission Exam Per Admitting Provider General: awake, alert, no apparent distress, + obese BMI 31 Head: Normocephalic, atraumatic ENT: PERRL, EOMI, no pharyngeal exudate, mucous membranes moist Chest: Diffuse coarse rales throughout, inspiratory and expiratory wheezing, on 2 L via NC with O2 sats at 94-95%. Cardiac: Regular rhythm, + slightly tachy no murmur, no JVD, normal peripheral pulses, good capillary refill Abdominal: NABS x 4 quadrants, soft, nondistended, nontender to palpation, no rebound or guarding Extremities: Normal inspection, no peripheral edema or erythema, calfs nontender to palpation Psych: Normal mood and affect Neuro: AAO x 3, strength intact bilaterally and rated 5/5, no motor deficits, speech is clear, no peripheral sensory deficits Principal Diagnosis COPD exacerbation EDITH on CKD 3 Discharge Exam Constitutional + well hydrated and + obese; no acute distress Eyes PERRL, conjunctivae normal, anicteric sclerae ENMT external ear and nose normal, oropharynx normal Respiratory normal respiratory effort; no respiratory distress Auscultation: no crackles and no wheezes Cardiovascular Rate/Rhythm: regular rate and regular rhythm Gastrointestinal (Abdomen) normal bowel sounds, soft, nontender, no hepatosplenomegaly Musculoskeletal no cyanosis or clubbing, extremities motor strength 5/5 Neurologic PERRL, EOMI, accommodation nl, no face palsy, no dysarthria Psychiatric A+Ox3, euthymic affect Discharge Data Allergies Allergy/AdvReac Type Severity Reaction Status Date / Time propoxyphene Allergy Intermediate unsure Verified 06/10/20 13:08 acetaminophen Allergy . Verified 06/10/20 13:08 [From [facility]] Consultations 08/04/20 11:52 ED Decision to Admit Stat Hospital Course (1) COPD exacerbation: Presented with cough and shortness of breath. Required oxygen his oxygen saturation was 87% on room air Was managed with steroid, nebs and azithromycin Successfully weaned off oxygen 2 steps today did not show any need for oxygen with activity Continue prednisone and azithromycin for another 2 days to complete 5 days of therapy Continue Anoro Ellipta Albuterol as needed wheezing Patient to follow-up with PCP (2) CAD (coronary artery disease): Continue metoprolol 25 mg, aspirin 81 mg daily, atorvastatin 40 mg daily (3) Diabetes mellitus, type II: A1c 6.3 Holding Po metformin 1500 mg daily ISS with accucheckelena hilliard (4) GERD (gastroesophageal reflux disease): Continue Protonix (5) History of DVT (deep vein thrombosis): Continue Eliquis 5 mg daily (6) Migraine: History of such, patient reports small aneurysm and has followed with neurosurgery as an outpatient, previously has seen Dr. Gillespie Continue Topamax daily for migraine prevention (7) Chronic low back pain: Continue hydrocodone 103 25 q8H, follows with Dr. Micheal Calvillo, DO and pain management as an outpatient and had received caudal epidural steroid injection on 06/24/2020. (8) Elevated serum creatinine: Evaluation of serial creatinine in the past few months is as follows 02/23/20 - 1.95 ([employer]) 04/23/20 - 1.6 (Epic) 05/05/20 - 1.93 ([employer]) 05/06/20 - 1.74 ([employer]) 05/10/20 - 1.65 ([employer]) 05/12/20 - 2.1 (Epic) 05/15/20 - 2.0 (Epic) 05/19/20 - 1.7 (Epic) Patient's creatinine trend suggest CKD3 Cr on admission was 2.04, increased to 2.16 today. Patient advised to hold Lasix for tomorrow and to resume today after that at half the initial home dose. [Lasix decreased to 20 mg daily] Patient to get BMP next week and follow-up results with PCP. Patient needs Nephrology follow up. PCP to give referral Avoid nephrotoxins (9) Obesity (BMI 30.0-34.9): BMI 31.0 Lifestyle modification counselling done Total Time Total Time Spent Total Time Spent (In Minutes): 35 Total Time Includes: Examination of the Patient, Discharge Planning and Medication Reconciliation Discharge Plan Discharge Items Patient Disposition: Home - Self-Care Reason For Visit: COPD EXACERBATION Discharge Diagnosis: COPD exacerbation Elevated creatinine Condition on Discharge: Good Activity: Resume your previous activity Non-emergency contact: Primary Care Provider Call non-emergency contact if: you have any medication questions and your symptoms worsen Follow-up/Referrals: Kobe Pierce MD [Primary Care Provider] - (Date & Time 08/11/2020 11:00 AM Provider Kobe Pierce MD Department [facility] ) Diet: Carb Consistent or DM2 and Heart Healthy Ambulatory Orders: Basic Metabolic Panel (Routine) Timeframe: 20200810 Location: Determined by Patient Ordered By: Cornelia Trejo Attending Provider Instructions: Mr Uribe You came to the hospital complaining of shortness of breath and cough. You were evaluated and found to have COPD exacerbation. Your management nebulizers, steroids and antibiotics. Your symptoms resolved. Please complete remaining days of prednisone. Continue to use your inhalers as prescribed. Your serum creatinine was elevated. Your furosemide was reduced to 20mg daily. Please do the blood work called Basic Metabolic Panel next week and follow up the result with your Primary Doctor. Please ensure you follow up with Nephrology (Kidney Doctor) in the office Please ensure follow-up with your primary care doctor. It was a pleasure taking care of you Pending Studies at Discharge: No Stand-Alone Forms: My [facility] CEIN, Smoking Cessation Medications and DC Order Prescriptions: New azithromycin 250 mg Tablet 250 mg PO QAM 2 Days Qty: 2 RF: 0 prednisone 20 mg Tablet 40 mg PO QAM 2 Days Qty: 4 RF: 0 loratadine [Wal-itin] 10 mg Tablet 10 mg PO QAM 4 Days Qty: 4 RF: 0 Continued duloxetine 60 mg capsule,delayed release(DR/EC) 60 mg PO DAILY 30 Days Qty: 30 RF: 5 topiramate 50 mg tablet 50 mg PO BID Qty: 60 RF: 5 pramipexole 0.5 mg tablet 0.5 mg PO .COMPLEX Qty: 30 RF: 5 atorvastatin 40 mg tablet 40 mg PO QAM RF: 0 omeprazole 40 mg capsule,delayed release(DR/EC) 40 mg PO QAM RF: 0 aspirin 81 mg tablet,delayed release (DR/EC) 81 mg PO QAM RF: 0 tamsulosin 0.4 mg capsule 0.8 mg PO HS RF: 0 metoprolol succinate 25 mg tablet extended release 24 hr 0 mg PO QAM RF: 0 apixaban 5 mg tablet 5 mg PO BID RF: 0 albuterol sulfate 90 mcg/actuation HFA aerosol inhaler 2 inha INH QID PRN (Reason: Shortness Of Breath Or Wheezing) RF: 0 gabapentin 100 mg capsule 100 mg PO TID RF: 0 Anoro Ellipta 62.5-25 mcg/actuation blister with device 1 inh INHALATION DAILY RF: 0 Restasis 0.05 % dropperette 1 drp OPB BID RF: 0 hydrocodone-acetaminophen 10-325 mg Tablet 1 tab PO Q8H PRN (Reason: Pain) RF: 0 metformin [Glucophage XR] 500 mg tablet extended release 24 hr 1,500 mg PO DAILY RF: 0 Changed furosemide 40 mg tablet 20 mg PO DAILY Qty: 0 RF: 0 Discharge Orders: Discharge Order (Routine); Ordered 08/06/20 Ordered By: Cornelia Blair/Other Patient Handouts: Managing Type 2 Diabetes, A1C Admission Data Admit Date/Time: 08/04/20 12:00 Attending Provider: Cornelia Cuevas I. Admit Provider: Cornelia Cuevas I. Primary Care Provider: Kobe Pierce Other Providers: Cornelia Cuevas I. Other Interventions: Discharge Summary Assessment (RN) Last Done: 08/06/20 11:09
--- NOTE | 2020-08-15 06:52 | Coding Query ---
To promote full compliance with coding requirements relating to patient care, provider participation is requested in all cases of dye padder operator uncertainty. Please assist us with the question(s) below: Coding Question(s): The diagnoses below was documented in the H&P then subsequently fell off all further documentation. Please indicate if it is still a possible diagnosis or ruled out. Physician's Response(s): SIRS ( ) Diagnosed and POA ( ) Diagnosed and not POA ( ) Ruled out ( x ) Other (please specify) Met SIRS criteria on admission with leukocytosis and tachypnea, due to COPD exacerbation. POA ACUTE HYPOXIC RESPIRATORY FAILURE ( ) Diagnosed and POA ( ) Diagnosed and not POA ( ) Ruled out ( x ) Other (please specify) Diagnosed. Acute hypoxic respiratory failure noted in ER on admission MTDD
--- NOTE | 2020-08-15 06:53 | Coding Query ---
CODING QUERY To promote full compliance with coding requirements relating to patient care, provider participation is requested in all cases of natural resources technician uncertainty. Please assist us with the question(s) below: Please clarify the meaning of EDITH. EDITH is not a valid abbreviation. Thank you. ( ) Acute Kidney Injury ( ) Present on admission ( ) Not present on admission ( ) Unable to determine ( ) Acute Kidney Insufficiency ( ) Present on admission ( ) Not present on admission ( ) Unable to determine ( x ) Other (Specify):____Likely EDITH on CKD3 based on fluctuating Cr trend. Refer to discharge summary ( x ) Present on admission ( ) Not present on admission ( ) Unable to determine Principal Diagnosis: "that condition established after study, to be chiefly responsible for occasioning the admission of the patient to the hospital for care." Co-Existing Principal Diagnosis: "when two or more diagnoses equally meet the criteria for principal diagnosis as determined by the circumstances of admission, diagnostic work up, and/or therapy provided, and the Alphabetic Index, Tabular List, or another coding guideline does not provide sequencing direction, any one of the diagnoses may be sequenced first." "When the physician has documented what appears to be a current diagnosis in the body of the record, but has not included the diagnosis in the final diagnostic statement, the physician should be asked whether the diagnosis should be added." (Source Coding [facility] 2 QTR90. p3-4) [facility]
== END 2020-08-06 12:16 | disposition home or self-care (01) | DRG 190 ==
LOC: ED 07:45 → 2N 12:00

== ENCOUNTER 2021-01-23 21:30 | Inpatient (IN) ==
[2021-01-23] MEDS ORDERED: dexAMETHasone**PF** 10 MG/ML VIAL IV ONE (21:35)
[2021-01-23] MEDS ORDERED: REMDESIVIR 200 MG in SODIUM CHLORIDE 0.9% 210 ML IV STA ×2 (21:46→23:37)
[2021-01-23] MEDS ORDERED: SODIUM CHLORIDE 0.9% 10ML FLUSH IV SCH (22:00)
[2021-01-23 22:15] LABS: iSTAT Arterial Blood Gas HCO3 24 meg/L (19-24); iSTAT Arterial Blood Gas pCO2 38 mmHg (35-46); iSTAT Arterial Blood Gas pH 7.42 (7.35-7.45); iSTAT Arterial Blood Gas pO2 93 mmHg (80-95); iSTAT Carbon Dioxide 26 mmol/L (24-31); iSTAT Hematocrit 30 % (42-52); iSTAT Hemoglobin 10.2 g/dl (14.0-18.0); iSTAT Potassium 3.6 mmol/L (3.3-5.0); iSTAT Sodium 134 mmol/L (135-144)
--- NOTE | 2021-01-23 22:16 | Emergency Department Note ---
History of Present Illness General Chief complaint: Illness Stated complaint: Illness, Hypoxia Time Seen by Provider: 01/23/21 21:33 History of Present Illness This 65-year-old who tested positive for Covid 3 days ago presents to the ER complaining of worsening Covid and hypoxemia Location: Generalized Quality: Sick Severity: Moderate Duration: Past 3 days Timing: Started 3 days ago Context: Patient sats were in the 70s and family sent him in Modifying factors: better with albuterol; worse with activity Patient is vaccinated back in April but did not receive the booster. He does have COPD. He does not normally wear oxygen. Patient is on Eliquis for history of DVT. He has not missed a dose. Patient denies chest pain, abdominal pain, vomiting, diarrhea. Home Medications Medication Instructions Recorded Confirmed Type apixaban 5 mg tablet 5 mg PO BID 03/04/18 01/20/21 History aspirin 81 mg tablet,delayed 81 mg PO QAM 03/04/18 01/20/21 History release atorvastatin 40 mg tablet 40 mg PO QAM 03/04/18 01/20/21 History metoprolol succinate 25 mg 25 mg PO QAM 03/04/18 01/20/21 History tablet,extended release 24 hr omeprazole 40 mg capsule,delayed 40 mg PO QAM 03/04/18 01/20/21 History release tamsulosin 0.4 mg capsule 0.8 mg PO HS 03/04/18 01/20/21 History albuterol sulfate 90 mcg/actuation 2 inha INH QID PRN 12/09/18 01/20/21 History aerosol inhaler cyclosporine 0.05 % eye drops in a 1 drp OPB BID 05/05/20 01/20/21 History dropperette (Restasis) hydrocodone 10 mg-acetaminophen 1 tab PO Q8H PRN 05/05/20 01/20/21 History 325 mg tablet metformin 500 mg tablet,extended 1,000 mg PO DAILY 05/10/20 01/20/21 History release 24 hr (Glucophage XR) topiramate 50 mg tablet 50 mg PO BID #60 tab 06/15/20 01/20/21 Rx furosemide 40 mg tablet 20 mg PO DAILY #0 tab 08/06/20 01/20/21 Rx lidocaine 5 % topical patch 1 patch TOP DAILY PRN #15 ea 01/19/21 01/20/21 Rx methylprednisolone 4 mg tablets in See Rx Instructions .ROUTE 01/19/21 01/20/21 Rx a dose pack .COMPLEX #21 ea dexamethasone 6 mg tablet 6 mg PO DAILY #10 tab 01/20/21 Rx umeclidinium 62.5 mcg-vilanterol 1 inh INHALATION DAILY #60 ea 01/20/21 Rx 25 mcg/actuation powdr for inhalation (Anoro Ellipta) Allergies Allergy/AdvReac Type Severity Reaction Status Date / Time propoxyphene Allergy Intermediate unsure Verified 01/23/21 22:37 acetaminophen Allergy Unknown Unknown Verified 01/23/21 22:37 [From [facility]] Past Med/Surg History Medical History Ambulatory dysfunction Back pain Back strain Chronic lower back pain Chronic obstructive pulmonary disease last exacerbation 3 wks ago during humidity. Dr. SHERRIE GRIFFIN [facility] CKD (chronic kidney disease), stage III COPD (chronic obstructive pulmonary disease) Current use of long term care pharmacist anticoagulation Diabetes mellitus, type II GERD (gastroesophageal reflux disease) History of DVT (deep vein thrombosis) HLD (hyperlipidemia) Hypertension Hypoxia Neck pain PVD (peripheral vascular disease) Ruptured lumbar disc Thrombophilia TIA (transient ischemic attack) Surgical History History of back surgery History of eye surgery History of neck surgery Hx of tonsillectomy Family History Unknown Diabetes Mother Diabetes Heart disease Father Hypertension Social History Smoking Status: Never smoker Tobacco Type: Smokeless Tobacco (Dip or Chew) Cigarettes Per Day: 1/2 -1ppd x 30 years. Quit 2019. Still chewing tobacco; Second Hand Exposure: Yes; Hx Alcohol Use: Yes Alcohol type: beer Hx Substance Use: No Preferred Language: Macedonian Communication Ability: Effective Lining Stamper Required: No Beliefs That Will Affect Care: None marital status: Unknown Current Living Situation: Family Current Living Situation Comment: lives with son and dil current occupational status: unemployed and retired Feels Safe at Home: Yes Assistive Devices: None Review of Systems A total of 10 systems reviewed and were otherwise negative Physical Exam Vital Signs Vital Signs - 24 hr 01/23/21 21:35 01/23/21 22:05 Temperature 37.5 C Temperature Source Oral Pulse Rate 80 Respiratory Rate 95 H Respiratory Effort / Characteristics Non-Labored Non-Labored Blood Pressure 121/71 Blood Pressure Mean 87 Pulse Oximetry 97 Oxygen Delivery Method Nasal Cannula Oxygen Flow Rate 6 Sepsis Recent Fever Within 48 Hours Yes Sepsis New/Unexplained Change in Mental Status No Sepsis Action Taken by Nursing No Action Required VITALS: Vitals are noted on the nurse's note and reviewed by myself. Vital signs hypoxic on room air which improved on nasal cannula. GENERAL: Pleasant male ill-appearing SKIN: The skin was without rashes, erythema, edema, or bruising. There is no tenting of the skin. Capillary reflex less than 2 seconds. HEAD: Normocephalic atraumatic. EARS: External auditory canals clear EYES: Pupils equal round and reactive to light and accommodation. Conjunctivae without injection, sclerae without icterus. Extraocular movements intact. NOSE: Patent, turbinates without inflammation or discharge. MOUTH: Mucous membranes moist. Pharynx without erythema or exudate. Uvula midline. Airway patent. Tongue does not deviate. NECK: Supple without nuchal rigidity. No lymphadenopathy. No thyromegaly. Cervical spine is nontender. No JVD. HEART: Regular rate and rhythm LUNGS: Mild diffuse end expiratory wheezes, without rales or rhonchi. No retractions or accessory muscle use. ABDOMEN: Positive bowel sounds x 4. Normal tympanic percussion. Soft, nontender, without masses or organomegaly. Lake sign negative. No guarding or rebound tenderness. No CVA tenderness MUSCULOSKELETAL: No muscle atrophy, erythema, or edema noted. NEURO: Patient was alert and oriented to person place and time. Normal sensation to light and sharp touch. No focal neurological deficits. Course Administered Medications Discontinued Medications Dexamethasone Sodium Phosphate (DexamethasonePf 10 Mg/Ml Vial) 6 mg IV NOW ONE Stop: 01/23/21 21:36 Last Admin: 01/23/21 22:00 Dose: 6 mg Documented by: [id number] Medical Decision Making Medical Records Attestation: I reviewed the patient's medical records. Home Medications Current Medication List: was personally reviewed by me Laboratory Data Attestation: I reviewed the patient's lab results. Result diagrams: 01/23/21 21:40 01/23/21 21:40 Lab Results 01/23/21 01/23/21 01/23/21 Range/Units 21:40 21:40 21:40 WBC 9.60 (4.8-10.8) K/uL RBC 3.14 L (4.7-6.1) M/uL Hgb 10.3 L (14.0-18.0) g/dL POC Hgb (14.0-18.0) g/dl Hct 31.2 L (42-52) % POC Hct (42-52) % MCV 99.4 (80-100) fL MCH 32.8 (25-34) pg MCHC 33.0 (32-36) g/dL RDW Std Deviation 48.4 H (36.4-46.3) fL RDW Coeff of Loree 13.4 (11.5-14.5) % Plt Count 286 (130-400) K/uL MPV 9.5 (7.4-10.4) fL Immature Gran % (Auto) 0.3 % Neut % (Auto) 72.6 % Lymph % (Auto) 17.6 % [place] % (Auto) 9.4 % Eos % (Auto) 0.0 % Baso % (Auto) 0.1 % Neut # (Auto) 6.97 H (1.4-6.5) K/uL Lymph # (Auto) 1.69 (1.2-3.4) K/uL [place] # (Auto) 0.90 H (0.11-0.59) K/uL Eos # (Auto) 0.00 (0-0.5) K/uL Baso # (Auto) 0.01 (0-0.2) K/uL Immature Gran # (Auto) 0.03 H (0.00-0.02) K/uL PT 11.2 (9.0-12.0) Seconds INR 1.1 (0.9-1.1) APTT 29.0 (21.0-31.0) Seconds PTT Ratio 1.1 POC pH (7.35-7.45) POC pCO2 (35-46) mmHg POC pO2 (80-95) mmHg POC HCO3 (19-24) paty/L POC Total CO2 (24-31) mmol/L POC Base Excess (-9-1.8) paty/L POC ABG O2 Sat (90-95) % POC Sodium (135-144) mmol/L Sodium 134 L (136-145) mmol/L POC Potassium (3.3-5.0) mmol/L Potassium 3.6 (3.5-5.1) mmol/L Chloride 100 (98-107) mmol/L Carbon Dioxide 22 (21-32) mmol/L Anion Gap 12.0 H (3-11) BUN 34 H (7-18) mg/dl Creatinine 2.03 H (0.6-1.4) mg/dl Est Cr Clr Drug Dosing 35.1 ml/min Est GFR ( Amer) 38.7 ml/min Est GFR (Non-Af Amer) 33.4 ml/min BUN/Creatinine Ratio 16.8 (10-20) Glucose 108 H (70-99) mg/dl Calcium 8.6 (8.5-10.1) mg/dl Magnesium 1.7 L (1.8-2.4) mg/dl AST 36 (15-37) U/L ALT 23 (12-78) U/L Albumin 3.0 L (3.4-5.0) gm/dl 01/23/21 Range/Units 22:01 WBC (4.8-10.8) K/uL RBC (4.7-6.1) M/uL Hgb (14.0-18.0) g/dL POC Hgb 10.2 L (14.0-18.0) g/dl Hct (42-52) % POC Hct 30 L (42-52) % MCV (80-100) fL MCH (25-34) pg MCHC (32-36) g/dL RDW Std Deviation (36.4-46.3) fL RDW Coeff of Loree (11.5-14.5) % Plt Count (130-400) K/uL MPV (7.4-10.4) fL Immature Gran % (Auto) % Neut % (Auto) % Lymph % (Auto) % [place] % (Auto) % Eos % (Auto) % Baso % (Auto) % Neut # (Auto) (1.4-6.5) K/uL Lymph # (Auto) (1.2-3.4) K/uL [place] # (Auto) (0.11-0.59) K/uL Eos # (Auto) (0-0.5) K/uL Baso # (Auto) (0-0.2) K/uL Immature Gran # (Auto) (0.00-0.02) K/uL PT (9.0-12.0) Seconds INR (0.9-1.1) APTT (21.0-31.0) Seconds PTT Ratio POC pH 7.42 (7.35-7.45) POC pCO2 38 (35-46) mmHg POC pO2 93 (80-95) mmHg POC HCO3 24 (19-24) paty/L POC Total CO2 26 (24-31) mmol/L POC Base Excess 0.0 (-9-1.8) paty/L POC ABG O2 Sat 97.0 H (90-95) % POC Sodium 134 L (135-144) mmol/L Sodium (136-145) mmol/L POC Potassium 3.6 (3.3-5.0) mmol/L Potassium (3.5-5.1) mmol/L Chloride (98-107) mmol/L Carbon Dioxide (21-32) mmol/L Anion Gap (3-11) BUN (7-18) mg/dl Creatinine (0.6-1.4) mg/dl Est Cr Clr Drug Dosing ml/min Est GFR ( Amer) ml/min Est GFR (Non-Af Amer) ml/min BUN/Creatinine Ratio (10-20) Glucose (70-99) mg/dl Calcium (8.5-10.1) mg/dl Magnesium (1.8-2.4) mg/dl AST (15-37) U/L ALT (12-78) U/L Albumin (3.4-5.0) gm/dl Imaging Data Attestation: I personally reviewed and interpreted this imaging study as follows: Radiologist's Impression: Chest X-Ray 01/23/21 21:35 XR chest 1V portable CLINICAL HISTORY: SEPSIS. Evaluate cardiopulmonary status COMPARISON STUDY: 01/20/2021 TECHNIQUE: 1 view of the chest FINDINGS: Single frontal view of the chest demonstrates the cardiomediastinal silhouette to be within normal limits. Compared to the previous examination, there are now interstitial and alveolar opacities are present bilaterally. The findings are most characteristic of a viral type pneumonitis. Covid 19 pneumonia should be excluded. There is no evidence for pleural effusion. There is no evidence for vascular congestion. There is no acute osseous pathology. IMPRESSION: Compared to the previous examination, there are now patchy interstitial and alveolar opacities bilaterally characteristic of a viral type pneumonitis and probable early Covid 19 pneumonia. ACT 112: Negative or not required by law. Electronically signed by: Shay Perez M.D. 01/23/2021 10:17 PM MDM Narrative Prior records/ancillary studies reviewed. Triage Nursing notes reviewed. Additional history obtained from nursing. The patient's history was concerning for cold symptoms Differential diagnosis: Etiologies such as viral syndrome, pharyngitis, Covid, sepsis, bacteremia, bronchitis, allergies, otitis, pneumonia, influenza, as well as others were entertained. ER treatment provided: Dexamethasone, remdesivir per admission team's request, albuterol On reassessment the patient felt better. Diagnostics interpreted by me: EKG ordered for dyspnea EKG: Normal sinus, right bundle, no acute ST-T wave changes. Impression right bundle branch block interpreted by myself I think arrhythmia is unlikely. EKG shows no interval abnormalities such as QT prolongation or WPW. There are no findings to suggest Brugada syndrome. Cardiac monitoring in the emergency department reveals no tachycardic or bradycardic dysrhythmia. Hypertrophic cardiomyopathy was considered but there are no clear historical elements pointing toward this. EKG is not suggestive. The QRS voltage is not extremely large and there are no suggestive Q waves. The labs revealed positive Covid, ABG was reviewed Creatinine 2, stable per chart review Imaging studies: Chest x-ray as above Consultation: A consultation was placed with hospitalist, Dr. Scott. Patient was admitted to his service. This appears to be consistent with Covid pneumonia who is hypoxic. Patient will be admitted to hospitalist. Patient was started on dexamethasone and remdesivir per the hospitalist request. Patient is agreeable treatment plan admission. By the evaluation outlined above emergent etiologies such as otitis, meningitis, urinary tract infection, sepsis, bacteremia, as well as others were deemed relatively unlikely. The pt informed about the findings as listed above. All questions were answered and pleased with the treatment. The chart was completed utilizing [employer] voice recognition software. Grammatical errors, random word insertions, pronoun errors, and incomplete sentences are an occassional consequence of this system due to software limitations, ambient noise, and hardware issues. Any formal questions or concerns about the content, text, or information contained within the body of this dictation should be directly addressed to the physician physician assistant primary care for clarification. Impression & Plan COVID-19, Hypoxemia Discharge Plan Visit Data Chief Complaint: Illness Stated Complaint: Illness, Hypoxia ED Provider: Ulises Souza ED Midlevel Provider: Meera Avitia Discharge Problem: COVID-19, Hypoxemia Patient Disposition: Admitted As Inpatient Condition: Fair Forms Stand Alone Forms: My [facility] Prescriptions Prescriptions: No Action topiramate 50 mg tablet 50 mg PO BID Qty: 60 RF: 5 atorvastatin 40 mg tablet 40 mg PO QAM RF: 0 omeprazole 40 mg capsule,delayed release(DR/EC) 40 mg PO QAM RF: 0 aspirin 81 mg tablet,delayed release (DR/EC) 81 mg PO QAM RF: 0 tamsulosin 0.4 mg capsule 0.8 mg PO HS RF: 0 metoprolol succinate 25 mg tablet extended release 24 hr 25 mg PO QAM RF: 0 apixaban 5 mg tablet 5 mg PO BID RF: 0 albuterol sulfate 90 mcg/actuation HFA aerosol inhaler 2 inha INH QID PRN (Reason: Shortness Of Breath Or Wheezing) RF: 0 lidocaine 5 % adhesive patch,medicated 1 patch TOP DAILY PRN (Reason: pain) Qty: 15 RF: 0 methylprednisolone 4 mg tablets,dose pack See Rx Instructions .ROUTE .COMPLEX Qty: 21 RF: 0 dexamethasone 6 mg tablet 6 mg PO DAILY Qty: 10 RF: 0 Anoro Ellipta 62.5-25 mcg/actuation blister with device 1 inh INHALATION DAILY Qty: 60 RF: 0 Restasis 0.05 % dropperette 1 drp OPB BID RF: 0 hydrocodone-acetaminophen 10-325 mg Tablet 1 tab PO Q8H PRN (Reason: Pain) RF: 0 metformin [Glucophage XR] 500 mg tablet extended release 24 hr 1,000 mg PO DAILY RF: 0 furosemide 40 mg tablet 20 mg PO DAILY Qty: 0 RF: 0 Referrals Referrals: Kobe Pierce MD [Primary Care Provider] -
--- NOTE | 2021-01-23 22:18 | XRay Report ---
XR chest 1V portable CLINICAL HISTORY: SEPSIS. Evaluate cardiopulmonary status COMPARISON STUDY: 01/20/2021 TECHNIQUE: 1 view of the chest FINDINGS: Single frontal view of the chest demonstrates the cardiomediastinal silhouette to be within normal li mits. Compared to the previous examination, there are now interstitial and alveolar opacities are pre sent bilaterally. The findings are most characteristic of a viral type pneumonitis. Covid 19 pneumoni a should be excluded. There is no evidence for pleural effusion. There is no evidence for vascular co ngestion. There is no acute osseous pathology. IMPRESSION: Compared to the previous examination, there are now patchy interstitial and alveolar opac ities bilaterally characteristic of a viral type pneumonitis and probable early Covid 19 pneumonia. ACT 112: Negative or not required by law. Electronically signed by: Shay Perez M.D. 01/23/2021 10:17 PM
[2021-01-23 22:19] LABS: Basophils # (auto) 0.01 K/uL (0-0.2); Basophils % (auto) 0.1 %; Hematocrit (blood only) 31.2 % (42-52); Hemoglobin 10.3 g/dL (14.0-18.0); Immature Granulocytes # (auto) 0.03 K/uL (0.00-0.02); Immature Granulocytes % (auto) 0.3 %; Lymphocytes # (auto) 1.69 K/uL (1.2-3.4); Lymphocytes % (auto) 17.6 %; Mean Corpuscular Hemoglobin 32.8 pg (25-34); Mean Corpuscular Volume 99.4 fL (80-100); Mean Platelet Volume 9.5 fL (7.4-10.4); Monocytes % (auto) 9.4 %; Neutrophils # (auto) 6.97 K/uL (1.4-6.5); Neutrophils % (auto) 72.6 %; Platelet Count 286 K/uL (130-400); RDW Coefficient of Variation 13.4 % (11.5-14.5); RDW Standard Deviation 48.4 fL (36.4-46.3); Red Blood Count 3.14 M/uL (4.7-6.1)
[2021-01-23 22:30] LABS: INR 1.1 (0.9-1.1); Partial Thromboplastin Ratio 1.1; Prothrombin Time 11.2 Seconds (9.0-12.0)
[2021-01-23 22:36] LABS: BUN Creatinine Ratio 16.8 (10-20); Calcium 8.6 mg/dl (8.5-10.1); Creatinine Clr Calc Pharmacy 35.1 ml/min; Est GFR (African American) 38.7 ml/min; Est GFR (Non-African American) 33.4 ml/min; Magnesium 1.7 mg/dl (1.8-2.4); Potassium 3.6 mmol/L (3.5-5.1)
[2021-01-23 22:39] LABS: Albumin Globulin Ratio 0.6 (0.9-2); Bilirubin,Total 0.7 mg/dl (0.2-1); Globulin 4.9 gm/dl (2.5-4.0); Total Protein 7.9 gm/dl (6.4-8.2)
[2021-01-23] MEDS ORDERED: ALBUTEROL HFA 8 GM INHALER INH ONE (22:39)
[2021-01-24 01:24] LABS: Appearance Urine Clear (Clear); Bacteria Urine Automated Negative (Negative); Bilirubin Urine Negative (Negative); Blood Urine Negative (Negative); Color Urine Yellow; Epithelial Cell Urine Auto 0-5 /lpf (0-5); Glucose Urine UA Negative (Negative); Ketones Urine Negative (Negative); Leukocyte Esterase Urine Negative (Negative); Nitrite Urine Negative (Negative); Protein Urine 1+ (Negative); RBC Urine Automated 0-4 /hpf (0-4); Specific Gravity Urine 1.018 (1.000-1.030); Urobilinogen Urine Negative (Negative); pH Urine 5.5 (4.5-7.5)
[2021-01-24] MEDS ORDERED: SODIUM CHLORIDE 0.9% 1000ML 1,000 ML IV SCH (02:17)
[2021-01-24] MEDS ORDERED: LEVALBUTEROL HCL 1.25 MG/3 ML NEB NEB PRN (02:17)
[2021-01-24] MEDS ORDERED: LIDOCAINE 5% 1 PATCH TD PRN (02:17)
[2021-01-24] MEDS ORDERED: NITROGLYCERIN SL 0.4 MG/TAB TAB SL PRN (02:17)
--- NOTE | 2021-01-24 03:24 | History and Physical Report ---
DATE OF ADMISSION: 01/23/2021. CHIEF COMPLAINT: Ongoing illness, hypoxia. HISTORY OF PRESENT ILLNESS: This is a 65-year-old male with past medical history significant for type 2 diabetes, hyperlipidemia, COPD, history of giant cell arteritis, hypertension, CAD, GERD, stage III chronic kidney disease, lumbar degenerative disk disease, depression, history of DVT, tobacco use disorder, the patient has quit smoking 2 years ago, generalized anxiety disorder, who lives with his son and [id number], presents with ongoing illness. The patient was here on 01/19/2021 and 01/20/2021 with frequent falls. At that time, he was diagnosed with COVID and he refused admission. He is vaccinated with [place] vaccine, second dose was done in June as per the patient, he did not receive the booster dose. His daughter in law got COVID .Today his son sent him back to the hospital because oxygen saturation dropped to 81%, but the patient states he is doing fine, he does not have any symptoms. He has chronic cough from his COPD. Denies any chest pain, dizziness, or shortness of breath. Denies any headache. Denies any nausea or vomiting. Denies abdominal pain. Denies diarrhea. He says he is ambulating okay. He is somewhat weak, ambulating with a cane. Denies any body aches. No nausea or vomiting. No earache, no runny nose, no sore throat. In the ER, he is saturating okay on 4 liters. ALLERGIES: PROPOXYPHENE, DARVOCET. PAST MEDICAL HISTORY: As mentioned above. PAST SURGICAL HISTORY: Lumbosacral steroid shot, laminectomy, tonsillectomy, and adenoidectomy. MEDICATIONS: The patient is on albuterol 2 puffs inhalation q.i.d. p.r.n., Anoro Ellipta 1 inhalation daily, Eliquis 5 mg p.o. b.i.d., aspirin 81 mg p.o. a.m., atorvastatin 40 mg p.o. daily, dexamethasone 6 mg p.o. daily, furosemide 20 mg p.o. daily, glipizide 5 mg p.o. b.i.d., hydrocodone/acetaminophen 1 tab p.o. q. 8 hours p.r.n., lidocaine patch topical daily p.r.n., metformin 1000 mg p.o. daily, metoprolol succinate 25 mg p.o. a.m., omeprazole 40 mg p.o. a.m. Restasis one drop ophthalmic b.i.d., Flomax 0.8 mg p.o. at bedtime, topiramate 50 mg p.o. b.i.d. FAMILY HISTORY: No significant family history. SOCIAL HISTORY: , currently lives with son and family. Former smoker, quit in November 2018, smoked 1 pack a day for 30 years. Alcohol occasional. No drug use. REVIEW OF SYSTEMS: As per HPI. Rest of the review of systems is negative. PHYSICAL EXAMINATION: GENERAL: The patient is of moderate build, not in acute distress. VITAL SIGNS: Temperature 37.5, pulse 74, respiratory rate 18, blood pressure 123/68, oxygen 93% on 4 liters. HEENT: Pupils equal, round and reactive to light. Oral mucosa moist. NECK: No JVD, no neck masses. CARDIOVASCULAR: S1 and S2 heard. Regular rate and rhythm. No murmur, no gallop. RESPIRATORY SYSTEM: Normal AP diameter. No accessory muscle use. Occasional wheezing, no crackles. ABDOMEN: Soft, bowel sounds present, nontender, no distention. CENTRAL NERVOUS SYSTEM: Cranial nerves II-XII grossly intact, nonfocal. EXTREMITIES: No edema, no erythema. LABORATORY DATA: WBC 9.6, hemoglobin 10.3, hematocrit 31.2, platelets 286. PT 11.2, INR 1.1, APTT 29. Venous point of care pH 7.4, bicarbonate 24, oxygen 97%. Sodium 134, potassium 3.6, chloride 100, bicarbonate 22, BUN 34, creatinine 2, serum glucose 100. Lactate 1.1, calcium 8.6, magnesium 1.7, total bilirubin 0.7, AST 36, ALT 27, alkaline phosphatase 56. Procalcitonin 0.06. IMAGING DATA: Chest x-ray: Patchy interstitial and alveolar opacities bilaterally characteristic of viral pneumonitis and probably early COVID pneumonia. EKG: Normal sinus rhythm at a rate of 80, right bundle-branch block, no significant change. ASSESSMENT AND PLAN: This is a 65-year-old male who is vaccinated, but recently exposed to COVID. 1. He comes back with COVID. He was diagnosed on Sunday with COVID. Currently, the patient denies any symptoms, but he was hypoxic at home. The patient started on remdesivir and steroids, which will be continued. Follow the remdesivir labs. Supportive care. Continue his home inhalers. 2. History of chronic obstructive pulmonary disease: Quit smoking 2 years ago. Continue his home inhalers. Mild wheezing on exam. Currently on decadron. 3. History of deep venous thrombosis, on Eliquis, which will be continued. 4. History of diabetes: Hold his home p.o. medications. Placed him on Lantus insulin sliding scale. Follow the blood sugars. Follow HbA1c levels. 5. History of hyperlipidemia: On statin. 6. History of benign prostatic hypertrophy: The patient says he is not peeing much. Will continue his home Flomax. Will follow the bladder scan for any urinary retention. 7. Chronic kidney disease stage III: Baseline creatinine around 1.7-2.0, presently with a creatinine of 2. Will follow the labs. Avoid any nephrotoxic agents. 8. Hypertension: Continue the Toprol-XL. Will monitor the blood pressure. 9. History of coronary artery disease: On statin, beta abdelrahman, and aspirin. 10. Gastroesophageal reflux disease: On omeprazole. 11. Deep venous thrombosis prophylaxis: On Eliquis. DISPOSITION: Admit to [facility]. PT/OT prior to discharge. Social service to help with discharge planning. Job ID: [id number]
[2021-01-24] MEDS: APIXABAN 5 MG TABLET PO SCH ×3 (04:15→20:09)
[2021-01-24 05:46] LABS: Hematocrit (blood only) 30.1 % (42-52); Hemoglobin 9.8 g/dL (14.0-18.0); Immature Granulocytes # (auto) 0.03 K/uL (0.00-0.02); Immature Granulocytes % (auto) 0.3 %; Lymphocytes # (auto) 0.79 K/uL (1.2-3.4); Lymphocytes % (auto) 9.1 %; Mean Corpuscular Hemoglobin 32.3 pg (25-34); Mean Corpuscular Hgb Conc 32.6 g/dL (32-36); Mean Corpuscular Volume 99.3 fL (80-100); Mean Platelet Volume 9.6 fL (7.4-10.4); Monocytes # (auto) 0.62 K/uL (0.11-0.59); Monocytes % (auto) 7.2 %; Neutrophils # (auto) 7.21 K/uL (1.4-6.5); Neutrophils % (auto) 83.4 %; Platelet Count 282 K/uL (130-400); RDW Coefficient of Variation 13.5 % (11.5-14.5); RDW Standard Deviation 48.7 fL (36.4-46.3); Red Blood Count 3.03 M/uL (4.7-6.1); White Blood Count 8.65 K/uL (4.8-10.8)
[2021-01-24 06:11] LABS: Albumin Level 2.8 gm/dl (3.4-5.0); BUN Creatinine Ratio 18.8 (10-20); Bilirubin Direct 0.1 mg/dl (0-0.2); Calcium 8.3 mg/dl (8.5-10.1); Creatinine Clr Calc Pharmacy 41.9 ml/min; Est GFR (Non-African American) 41.4 ml/min; Magnesium 1.8 mg/dl (1.8-2.4); Potassium 3.9 mmol/L (3.5-5.1)
[2021-01-24 06:13] LABS: Bilirubin,Total 0.7 mg/dl (0.2-1); Total Protein 7.6 gm/dl (6.4-8.2)
[2021-01-24] MEDS: INSULIN ASPART 100 UNITS/ML 3 ML PEN SC SCH ×4 (07:34→20:47)
[2021-01-24] MEDS: FUROSEMIDE 20 MG TAB PO SCH (07:35)
[2021-01-24] MEDS: INSULIN GLARGINE SOLOSTAR 100 UNITS/ML 3 ML PEN SC SCH ×2 (07:36→20:49)
[2021-01-24] MEDS ORDERED: dexAMETHasone 6 MG in SYRINGE 0 ML IV SCH (09:00)
[2021-01-24] MEDS: UMECLIDINIUM/VILANTEROL 62.5/25MCG 7 PUFFS/INHALER INH SCH (09:09)
[2021-01-24] MEDS: dexAMETHasone 6 MG in SYRINGE 0 ML IV SCH (09:10)
[2021-01-24] MEDS: TOPIRAMATE 50 MG TAB PO SCH ×2 (09:10→20:10)
[2021-01-24] MEDS: METOPROLOL SUCC 25MG EXT REL TAB PO SCH (09:10)
[2021-01-24] MEDS: PANTOprazole 40 MG TAB PO SCH (09:10)
[2021-01-24] MEDS: ATORVASTATIN 40 MG TAB PO SCH (09:10)
[2021-01-24] MEDS: ASPIRIN 81 MG ECTAB PO SCH (09:10)
[2021-01-24] MEDS: HYDROcodone/ACETAMINOPHEN 10/325 TAB PO PRN (13:30)
--- NOTE | 2021-01-24 14:00 | Hospitalist Progress Note ---
Date of Service January 24, 2021 Assessment & Plan (1) Acute respiratory failure with hypoxia: (2) Pneumonia due to COVID-19 virus: (3) COPD (chronic obstructive pulmonary disease): (4) CKD (chronic kidney disease), stage III: (5) Fall: (6) Hypertension: Plan: Currently on 4 L/min of nasal oxygen. Continue oxygen supplementation and wean as tolerated Considered and self proning Incentive spirometry and flutter Continue dexamethasone and remdesivir. Monitor LFTs and renal function Patient will like to continue his home eliquis for DVT ppx and not lovenox as typically recommended for COVID Patient creatinine is at baseline. Discontinue IV fluids Had fall at home on 01/20 and was seen in ER. Declined admission at the time Fall precautions Get PT/OT eval Hold home antidiabetics Insulin regimen per protocol Continue home metoprolol succinate, aspirin, atorvastatin, Lasix Admission and Anticipated Discharge Date Admission Date: January 23, 2021 Subjective Patient seen and examined Reports cough Denied shortness of breath, chest pain Denies palpitations, dizziness Denies nausea, vomiting, anorexia, abdominal pain, diarrhea Denies dysuria, frequency, urgency. Physical Exam Constitutional: + well hydrated; no acute distress Eyes: PERRL, conjunctivae normal, anicteric sclerae ENMT: external ear and nose normal, oropharynx normal Respiratory: Not in respiratory distress, on 4 L/min nasal oxygen, diminished breath sounds Cardiovascular: RRR, S1-S2 Gastrointestinal (Abdomen): normal bowel sounds, soft, nontender, no hepatosplenomegaly Musculoskeletal: No pedal edema Neurologic: PERRL, EOMI, accommodation nl, no face palsy, no dysarthria Psychiatric: A+Ox3, euthymic affect Results & Data Results & Data ([facility]) Vital Signs (Past 12 Hours) Vital Signs Temp Pulse Pulse Resp BP BP Pulse Ox 01/24/21 12:00 96 01/24/21 11:30 18 96 01/24/21 08:30 19 96 01/24/21 08:03 36.7 C 67 18 127/79 90 01/24/21 08:00 65 01/24/21 06:40 65 19 90 01/24/21 06:33 86 L 01/24/21 06:20 71 19 86 L 01/24/21 06:10 74 16 89 L 01/24/21 06:00 56 L 18 132/72 91 01/24/21 05:00 63 16 135/84 95 01/24/21 04:00 63 17 92 01/24/21 03:00 64 23 157/84 H 94 01/24/21 02:17 01/24/21 02:00 62 19 133/72 93 Pulse Ox 01/24/21 12:00 01/24/21 11:30 01/24/21 08:30 01/24/21 08:03 01/24/21 08:00 01/24/21 06:40 01/24/21 06:33 01/24/21 06:20 01/24/21 06:10 01/24/21 06:00 01/24/21 05:00 01/24/21 04:00 01/24/21 03:00 01/24/21 02:17 92 01/24/21 02:00 Laboratory Results Abnormal lab results 01/23/21 01/23/21 01/23/21 Range/Units 21:40 21:40 22:01 RBC 3.14 L (4.7-6.1) M/uL Hgb 10.3 L (14.0-18.0) g/dL POC Hgb 10.2 L (14.0-18.0) g/dl Hct 31.2 L (42-52) % POC Hct 30 L (42-52) % RDW Std Deviation 48.4 H (36.4-46.3) fL Neut # (Auto) 6.97 H (1.4-6.5) K/uL Lymph # (Auto) (1.2-3.4) K/uL [place] # (Auto) 0.90 H (0.11-0.59) K/uL Immature Gran # (Auto) 0.03 H (0.00-0.02) K/uL POC ABG O2 Sat 97.0 H (90-95) % POC Sodium 134 L (135-144) mmol/L Sodium 134 L (136-145) mmol/L Anion Gap 12.0 H (3-11) BUN 34 H (7-18) mg/dl Creatinine 2.03 H (0.6-1.4) mg/dl Glucose 108 H (70-99) mg/dl POC Glucose (70-99) mg/dl Calcium (8.5-10.1) mg/dl Magnesium 1.7 L (1.8-2.4) mg/dl Albumin 3.0 L (3.4-5.0) gm/dl Globulin 4.9 H (2.5-4.0) gm/dl Albumin/Globulin Ratio 0.6 L (0.9-2) Urine Protein (Negative) 01/24/21 01/24/21 01/24/21 Range/Units 01:00 04:32 04:32 RBC 3.03 L (4.7-6.1) M/uL Hgb 9.8 L (14.0-18.0) g/dL POC Hgb (14.0-18.0) g/dl Hct 30.1 L (42-52) % POC Hct (42-52) % RDW Std Deviation 48.7 H (36.4-46.3) fL Neut # (Auto) 7.21 H (1.4-6.5) K/uL Lymph # (Auto) 0.79 L (1.2-3.4) K/uL [place] # (Auto) 0.62 H (0.11-0.59) K/uL Immature Gran # (Auto) 0.03 H (0.00-0.02) K/uL POC ABG O2 Sat (90-95) % POC Sodium (135-144) mmol/L Sodium 132 L (136-145) mmol/L Anion Gap (3-11) BUN 32 H (7-18) mg/dl Creatinine 1.70 H D (0.6-1.4) mg/dl Glucose 145 H (70-99) mg/dl POC Glucose (70-99) mg/dl Calcium 8.3 L (8.5-10.1) mg/dl Magnesium (1.8-2.4) mg/dl Albumin 2.8 L (3.4-5.0) gm/dl Globulin (2.5-4.0) gm/dl Albumin/Globulin Ratio (0.9-2) Urine Protein 1+ H (Negative) 01/24/21 01/24/21 Range/Units 07:31 11:46 RBC (4.7-6.1) M/uL Hgb (14.0-18.0) g/dL POC Hgb (14.0-18.0) g/dl Hct (42-52) % POC Hct (42-52) % RDW Std Deviation (36.4-46.3) fL Neut # (Auto) (1.4-6.5) K/uL Lymph # (Auto) (1.2-3.4) K/uL [place] # (Auto) (0.11-0.59) K/uL Immature Gran # (Auto) (0.00-0.02) K/uL POC ABG O2 Sat (90-95) % POC Sodium (135-144) mmol/L Sodium (136-145) mmol/L Anion Gap (3-11) BUN (7-18) mg/dl Creatinine (0.6-1.4) mg/dl Glucose (70-99) mg/dl POC Glucose 128 H 105 H (70-99) mg/dl Calcium (8.5-10.1) mg/dl Magnesium (1.8-2.4) mg/dl Albumin (3.4-5.0) gm/dl Globulin (2.5-4.0) gm/dl Albumin/Globulin Ratio (0.9-2) Urine Protein (Negative) (1) COPD (chronic obstructive pulmonary disease) COPD type: unspecified COPD Qualified Code(s): J44.9 - Chronic obstructive pulmonary disease, unspecified (2) Fall Encounter type: initial encounter Qualified Code(s): W19.XXXA - Unspecified fall, initial encounter
--- NOTE | 2021-01-24 14:24 | Electrocardiogram Report ---
Test Reason : Blood Pressure : / mmHG Vent. Rate : 080 BPM Atrial Rate : 080 BPM P-R Int : 112 ms QRS Dur : 128 ms QT Int : 374 ms P-R-T Axes : 048 -22 006 degrees QTc Int : 431 ms Normal sinus rhythm Right bundle branch block Abnormal ECG When compared with ECG of 20-JAN-2021 13:20, No significant change was found Confirmed by Fabricio Dickerson ([id number]) on 01/24/2021 2:24:08 PM Referred By: REFERRED SELF Confirmed By:Evan Dickerson
[2021-01-24] MEDS: REMDESIVIR 100 MG in SODIUM CHLORIDE 0.9% 230 ML IV SCH (20:06)
[2021-01-24] MEDS: TAMSULOSIN HCL 0.4 MG CAP PO SCH (20:10)
[2021-01-24] MEDS ORDERED: REMDESIVIR 100 MG in SODIUM CHLORIDE 0.9% 230 ML IV SCH (22:00)
[2021-01-24] MEDS: SODIUM CHLORIDE 0.9% 10ML FLUSH IV SCH (22:37)
[2021-01-25 06:20] LABS: Hematocrit (blood only) 30.8 % (42-52); Hemoglobin 10.1 g/dL (14.0-18.0); Mean Corpuscular Hgb Conc 32.8 g/dL (32-36); Mean Corpuscular Volume 97.5 fL (80-100); Mean Platelet Volume 9.1 fL (7.4-10.4); Platelet Count 284 K/uL (130-400); RDW Standard Deviation 46.1 fL (36.4-46.3); Red Blood Count 3.16 M/uL (4.7-6.1); White Blood Count 9.89 K/uL (4.8-10.8)
[2021-01-25 06:53] LABS: BUN Creatinine Ratio 20.3 (10-20); Calcium 8.8 mg/dl (8.5-10.1); Creatinine Clr Calc Pharmacy 38.7 ml/min; Est GFR (African American) 39.9 ml/min; Est GFR (Non-African American) 34.4 ml/min; Potassium 3.6 mmol/L (3.5-5.1)
[2021-01-25 06:57] LABS: C Reactive Protein 11.2 mg/dl (0-0.29)
[2021-01-25 07:25] LABS: D Dimer 840 ug/L FEU (0-500)
[2021-01-25] MEDS: INSULIN ASPART 100 UNITS/ML 3 ML PEN SC SCH ×4 (07:40→21:05)
[2021-01-25] MEDS: TOPIRAMATE 50 MG TAB PO SCH ×2 (08:25→21:24)
[2021-01-25] MEDS: APIXABAN 5 MG TABLET PO SCH ×2 (08:25→21:25)
[2021-01-25] MEDS: METOPROLOL SUCC 25MG EXT REL TAB PO SCH (08:26)
[2021-01-25] MEDS: ATORVASTATIN 40 MG TAB PO SCH (08:26)
[2021-01-25] MEDS: FUROSEMIDE 20 MG TAB PO SCH (08:27)
[2021-01-25] MEDS: UMECLIDINIUM/VILANTEROL 62.5/25MCG 7 PUFFS/INHALER INH SCH (08:27)
[2021-01-25] MEDS: ASPIRIN 81 MG ECTAB PO SCH (08:27)
[2021-01-25] MEDS: PANTOprazole 40 MG TAB PO SCH (08:27)
[2021-01-25] MEDS ORDERED: DEXAMETHASONE SOD INJ 4 MG/ML VIAL ONE (08:50)
[2021-01-25] MEDS: dexAMETHasone 6 MG in SYRINGE 0 ML IV SCH (08:58)
[2021-01-25] MEDS: HYDROcodone/ACETAMINOPHEN 10/325 TAB PO PRN ×2 (09:20→20:50)
[2021-01-25] MEDS: INSULIN GLARGINE SOLOSTAR 100 UNITS/ML 3 ML PEN SC SCH ×2 (09:27→21:05)
--- NOTE | 2021-01-25 12:48 | Hospitalist Progress Note ---
Date of Service January 25, 2021 Assessment & Plan (1) Acute respiratory failure with hypoxia: (2) Pneumonia due to COVID-19 virus: (3) COPD (chronic obstructive pulmonary disease): (4) CKD (chronic kidney disease), stage III: (5) Fall: (6) Hypertension: Plan: Continue oxygen supplementation Oxygen requirement increased in the past 24h Couseled again on self proning Continue Incentive spirometry and flutter Continue dexamethasone and remdesivir. Monitor LFTs and renal function Patient will like to continue his home eliquis for DVT ppx and not lovenox as typically recommended for COVID CRP is 11. I reviewed patient with Dr Germain. He recommends starting Baricitinib. I discussed this with patient and went over possible benefit and side effects. He agreed to start medications Patient creatinine is at baseline (Baseline 1.7-2) Had fall at home on 01/20 and was seen in ER. Declined admission at the time Fall precautions PT eval noted Hold home antidiabetics Insulin regimen per protocol Continue home metoprolol succinate, aspirin, atorvastatin, Lasix Admission and Anticipated Discharge Date Admission Date: January 23, 2021 Subjective Patient seen and examined Reports cough Denied shortness of breath at rest, chest pain. Reports some mild shortness of breath with exertion. Denies palpitations, dizziness Denies nausea, vomiting, anorexia, abdominal pain, diarrhea Denies dysuria, frequency, urgency. Physical Exam Constitutional: + well hydrated; no acute distress Eyes: PERRL, conjunctivae normal, anicteric sclerae ENMT: external ear and nose normal, oropharynx normal Respiratory: On nasal cannula. not in respiratory distress Diminished breath sounds Cardiovascular: RRR S1 S2 Gastrointestinal (Abdomen): normal bowel sounds, soft, nontender, no hepatosplenomegaly Musculoskeletal: no cyanosis or clubbing, extremities motor strength 5/5 Neurologic: PERRL, EOMI, accommodation nl, no face palsy, no dysarthria Psychiatric: A+Ox3, euthymic affect Results & Data Results & Data ([facility]) Vital Signs (Past 12 Hours) Vital Signs Temp Pulse Resp BP Pulse Ox 01/25/21 10:56 80 18 91 01/25/21 09:30 62 20 110/65 93 01/25/21 07:00 85 20 110/63 91 01/25/21 03:38 36.6 C 74 26 H 105/55 L 89 L Laboratory Results Abnormal lab results 01/24/21 01/24/21 01/25/21 Range/Units 17:45 20:26 06:05 RBC 3.16 L (4.7-6.1) M/uL Hgb 10.1 L (14.0-18.0) g/dL Hct 30.8 L (42-52) % D-Dimer (0-500) ug/L FEU BUN (7-18) mg/dl Creatinine (0.6-1.4) mg/dl BUN/Creatinine Ratio (10-20) Glucose (70-99) mg/dl POC Glucose 154 H 165 H (70-99) mg/dl C-Reactive Protein (0-0.29) mg/dl 01/25/21 01/25/21 01/25/21 Range/Units 06:05 06:05 07:33 RBC (4.7-6.1) M/uL Hgb (14.0-18.0) g/dL Hct (42-52) % D-Dimer 840 H* (0-500) ug/L FEU BUN 40 H (7-18) mg/dl Creatinine 1.98 H (0.6-1.4) mg/dl BUN/Creatinine Ratio 20.3 H (10-20) Glucose 114 H (70-99) mg/dl POC Glucose 103 H (70-99) mg/dl C-Reactive Protein 11.20 H (0-0.29) mg/dl 01/25/21 Range/Units 11:33 RBC (4.7-6.1) M/uL Hgb (14.0-18.0) g/dL Hct (42-52) % D-Dimer (0-500) ug/L FEU BUN (7-18) mg/dl Creatinine (0.6-1.4) mg/dl BUN/Creatinine Ratio (10-20) Glucose (70-99) mg/dl POC Glucose 119 H (70-99) mg/dl C-Reactive Protein (0-0.29) mg/dl (1) COPD (chronic obstructive pulmonary disease) COPD type: unspecified COPD Qualified Code(s): J44.9 - Chronic obstructive pulmonary disease, unspecified (2) Fall Encounter type: initial encounter Qualified Code(s): W19.XXXA - Unspecified fall, initial encounter
[2021-01-25] MEDS ORDERED: BARICITINIB COMMUNICATION ONE (12:53)
[2021-01-25] MEDS ORDERED: BARICITINIB 2 MG TAB PO SCH (13:15)
[2021-01-25] MEDS: BARICITINIB 2 MG TAB PO SCH (13:47)
[2021-01-25] MEDS: REMDESIVIR 100 MG in SODIUM CHLORIDE 0.9% 230 ML IV SCH (21:22)
[2021-01-25] MEDS: SODIUM CHLORIDE 0.9% 10ML FLUSH IV SCH (21:23)
[2021-01-25] MEDS: TAMSULOSIN HCL 0.4 MG CAP PO SCH (21:23)
[2021-01-26] MEDS: HYDROcodone/ACETAMINOPHEN 10/325 TAB PO PRN ×3 (05:19→22:12)
[2021-01-26 07:42] LABS: Hematocrit (blood only) 31.2 % (42-52); Hemoglobin 10.2 g/dL (14.0-18.0); Mean Corpuscular Hemoglobin 32.1 pg (25-34); Mean Corpuscular Hgb Conc 32.7 g/dL (32-36); Mean Corpuscular Volume 98.1 fL (80-100); Mean Platelet Volume 9.5 fL (7.4-10.4); Platelet Count 339 K/uL (130-400); RDW Coefficient of Variation 13.1 % (11.5-14.5); RDW Standard Deviation 47.5 fL (36.4-46.3); Red Blood Count 3.18 M/uL (4.7-6.1); White Blood Count 10.48 K/uL (4.8-10.8)
[2021-01-26 08:20] LABS: BUN Creatinine Ratio 19.4 (10-20); Calcium 8.7 mg/dl (8.5-10.1); Creatinine Clr Calc Pharmacy 40.4 ml/min; Est GFR (African American) 41.9 ml/min; Est GFR (Non-African American) 36.2 ml/min; Potassium 3.6 mmol/L (3.5-5.1)
[2021-01-26] MEDS: UMECLIDINIUM/VILANTEROL 62.5/25MCG 7 PUFFS/INHALER INH SCH (08:45)
[2021-01-26] MEDS: ASPIRIN 81 MG ECTAB PO SCH (08:46)
[2021-01-26] MEDS: PANTOprazole 40 MG TAB PO SCH (08:46)
[2021-01-26] MEDS: METOPROLOL SUCC 25MG EXT REL TAB PO SCH (08:46)
[2021-01-26] MEDS: TOPIRAMATE 50 MG TAB PO SCH ×2 (08:47→20:28)
[2021-01-26] MEDS: ATORVASTATIN 40 MG TAB PO SCH (08:47)
[2021-01-26] MEDS: APIXABAN 5 MG TABLET PO SCH ×2 (08:47→20:27)
[2021-01-26] MEDS: FUROSEMIDE 20 MG TAB PO SCH (08:47)
[2021-01-26] MEDS: INSULIN ASPART 100 UNITS/ML 3 ML PEN SC SCH ×4 (09:25→21:33)
[2021-01-26] MEDS: INSULIN GLARGINE SOLOSTAR 100 UNITS/ML 3 ML PEN SC SCH ×2 (09:27→21:33)
[2021-01-26] MEDS: dexAMETHasone 6 MG in SYRINGE 0 ML IV SCH (10:40)
[2021-01-26] MEDS: BARICITINIB 2 MG TAB PO SCH (14:08)
--- NOTE | 2021-01-26 14:22 | Hospitalist Progress Note ---
Date of Service January 26, 2021 Assessment & Plan (1) Acute respiratory failure with hypoxia: Plan: Second COVID-19 pneumonia. Continue remdesivir and dexamethasone. Started on baricitinib out of concern for cytokine storm with an elevated CRP of 11. (2) Pneumonia due to COVID-19 virus: Plan: Currently oxygenating 90% on 6 L/min via nasal cannula patient declines to prone. (3) COPD (chronic obstructive pulmonary disease): Plan: Chronic, stable, no wheezing. (4) CKD (chronic kidney disease), stage III: Plan: Patient is at baseline creatinine. Checked with pharmacy regarding the GFR cutoff that is appropriate for remdesivir. (5) Fall: Plan: likely 2/2 covid illness. PT/OT (6) Hypertension: Plan: chronic, stable, cont current therapy. (7) Diabetes mellitus, type II: Plan: Cont basal bolus insulin with correction factor and carb coverage. (8) DVT prophylaxis: Plan: Apixaban Full Code Dispo-cont hospitalization pending resolution of hypoxia. Morena Reveles DO [facility] Hospitalist Admission and Anticipated Discharge Date Admission Date: January 23, 2021 Subjective 65-year-old man with obesity and type 2 diabetes as well as COPD and history of tobacco use quitting smoking 2 years ago presented with Covid 19 infection. He is vaccinated x2 doses. He has a chronic cough from his COPD but denied any symptoms on admission. He was brought into the ER by his son and [id number] with whom he lives for hypoxia and was placed on 4 L/min oxygen supplementation. He does not use oxygen typically at baseline. Review of Systems Review of Systems: All systems reviewed and negative except as indicated above. Physical Exam Physical Exam: CONSTITUTIONAL: obese, vitals as above, generally well- appearing, NAD EYES: normal conjunctivae, no scleral icterus ENT: external ear and nose normal, MMM NECK: trachea midline RESPIRATORY: clear to auscultation bilaterally, no crackles, rales or wheezes, normal respiratory effort CARDIOVASCULAR: regular rate and rhythm, S1 and 2 heard without murmurs, gallops or rubs, no JVD, no peripheral edema GASTROINTESTINAL: soft, nontender, ND, no guarding. MUSCULOSKELETAL: strength 5/5 throughout, head is normocephalic and atraumatic, ambulating independently SKIN: warm and dry NEUROLOGIC: CN 2-12 grossly intact, normal cognition, normal speech, no tremor. No gross focal deficits. PSYCHIATRIC: alert cooperative and oriented to person, place and time. Results & Data Results & Data ([facility]) Vital Signs (Past 12 Hours) Vital Signs Temp Pulse Pulse Resp BP Pulse Ox 01/26/21 12:32 36.9 C 91 H 17 120/76 91 01/26/21 08:02 36.6 C 62 18 121/69 89 L 01/26/21 06:19 57 L 01/26/21 03:51 36.5 C 59 L 20 117/66 93 Laboratory Results Short CBC 01/26/21 Range/Units 07:00 WBC 10.48 (4.8-10.8) K/uL Hgb 10.2 L (14.0-18.0) g/dL Hct 31.2 L (42-52) % Plt Count 339 (130-400) K/uL BMP 01/26/21 07:00 Sodium 138 Potassium 3.6 Chloride 107 Carbon Dioxide 20 L BUN 37 H Creatinine 1.90 H Glucose 103 H Calcium 8.7 Liver Function 01/26/21 Range/Units 07:00 AST 26 (15-37) U/L ALT 21 (12-78) U/L Medications Administered Current Inpatient Medications Hydrocodone Bitart/Acetaminophen (Hydrocodone/Acetaminophen 10/325 Tab) 1 tab PO Q8H PRN PRN Reason: Pain Stop: 02/07/21 02:16 Last Admin: 01/26/21 14:17 Dose: 1 tab Documented by: Albuterol (Albuterol Hfa 8 Gm Inhaler) 2 puffs INH QID PRN PRN Reason: Shortness Of Breath Or Wheezin Stop: 02/23/21 02:16 Apixaban (Apixaban 5 Mg Tablet) 5 mg PO BID JUSTO Stop: 02/23/21 02:16 Last Admin: 01/26/21 08:47 Dose: 5 mg Documented by: Aspirin (Aspirin 81 Mg Ectab) 81 mg PO QAM JUSTO Stop: 02/23/21 08:59 Last Admin: 01/26/21 08:46 Dose: 81 mg Documented by: Atorvastatin Calcium (Atorvastatin 40 Mg Tab) 40 mg PO QAM JUSTO Stop: 02/23/21 08:59 Last Admin: 01/26/21 08:47 Dose: 40 mg Documented by: Baricitinib (Baricitinib 2 Mg Tab) 2 mg PO Q24H [facility] Stop: 02/08/21 13:29 Last Admin: 01/26/21 14:08 Dose: 2 mg Documented by: Furosemide (Furosemide 20 Mg Tab) 20 mg PO DAILY [facility] Stop: 02/23/21 08:59 Last Admin: 01/26/21 08:47 Dose: 20 mg Documented by: Remdesivir 100 mg/ Sodium (Chloride) 250 mls @ 250 mls/hr IV Q24H [facility]; Protocol Stop: 01/27/21 20:59 Last Infusion: 01/25/21 22:22 Dose: Infused Documented by: Dexamethasone 6 mg/ Syringe 1.5 mls @ 1 mls/min IV DAILY [facility] Stop: 02/03/21 08:59 Last Admin: 01/26/21 10:40 Dose: 1 mls/min Documented by: Insulin Aspart (Insulin Aspart 100 Units/Ml 3 Ml Pen) 0 units SC ACHS [facility] Stop: 02/23/21 07:29 Last Admin: 01/26/21 12:25 Dose: 5 units Documented by: Insulin Glargine (Insulin Glargine Solostar 100 Units/Ml 3 Ml Pen) 5 units SC BID [facility] Stop: 02/23/21 08:59 Last Admin: 01/26/21 09:27 Dose: 5 units Documented by: Levalbuterol HCl (Levalbuterol Hcl 1.25 Mg/3 Ml Neb) 1.25 mg NEB Q4H PRN PRN Reason: Shortness Of Breath Or Wheezing Stop: 02/23/21 02:16 Lidocaine (Lidocaine 5% 1 Patch) 1 patch TD DAILY PRN PRN Reason: pain Stop: 02/23/21 02:16 Metoprolol Succinate (Metoprolol Succ 25mg Ext Rel Tab) 25 mg PO QAM [facility] Stop: 02/23/21 08:59 Last Admin: 01/26/21 08:46 Dose: 25 mg Documented by: Miscellaneous (Remove Lidoderm Patch) 1 ea N/A DAILY@2100 PRN PRN Reason: IF PATCH WAS APPLIED IN AM Stop: 02/23/21 20:59 Miscellaneous (Cyclosporine [Restasis]: Order Awaiting Action) 1 ea N/A QS [facility] Stop: 02/23/21 07:59 Last Admin: 01/25/21 22:47 Dose: Not Given Documented by: Nitroglycerin (Nitroglycerin Sl 0.4 Mg/Tab Tab) 0.4 mg SL UD PRN PRN Reason: Chest Pain Stop: 02/23/21 02:16 Pantoprazole Sodium (Pantoprazole 40 Mg Tab) 40 mg PO QAM JUSTO Stop: 02/23/21 08:59 Last Admin: 01/26/21 08:46 Dose: 40 mg Documented by: Sodium Chloride (Sodium Chloride 0.9% 10ml Flush) 30 ml IV Q24H JUSTO Stop: 01/27/21 21:01 Last Admin: 01/25/21 21:23 Dose: 30 ml Documented by: Tamsulosin HCl (Tamsulosin Hcl 0.4 Mg Cap) 0.8 mg PO HS JUSTO Stop: 02/23/21 20:59 Last Admin: 01/25/21 21:23 Dose: 0.8 mg Documented by: Topiramate (Topiramate 50 Mg Tab) 50 mg PO BID JUSTO Stop: 02/23/21 08:59 Last Admin: 01/26/21 08:47 Dose: 50 mg Documented by: Umeclidinium/Vilanterol (Umeclidinium/Vilanterol 62.5/25mcg 7 Puffs/Inhaler) 1 puffs INH DAILY JUSTO Stop: 02/23/21 08:59 Last Admin: 01/26/21 08:45 Dose: 1 puffs Documented by: (1) COPD (chronic obstructive pulmonary disease) COPD type: unspecified COPD Qualified Code(s): J44.9 - Chronic obstructive pulmonary disease, unspecified (2) Fall Encounter type: initial encounter Qualified Code(s): W19.XXXA - Unspecified fall, initial encounter
[2021-01-26] MEDS: TAMSULOSIN HCL 0.4 MG CAP PO SCH (20:27)
[2021-01-26] MEDS: SODIUM CHLORIDE 0.9% 10ML FLUSH IV SCH (20:27)
[2021-01-26] MEDS: REMDESIVIR 100 MG in SODIUM CHLORIDE 0.9% 230 ML IV SCH (20:27)
[2021-01-27] MEDS: HYDROcodone/ACETAMINOPHEN 10/325 TAB PO PRN ×3 (05:51→22:25)
[2021-01-27] MEDS: TOPIRAMATE 50 MG TAB PO SCH ×2 (08:22→21:07)
[2021-01-27] MEDS: METOPROLOL SUCC 25MG EXT REL TAB PO SCH (08:23)
[2021-01-27] MEDS: UMECLIDINIUM/VILANTEROL 62.5/25MCG 7 PUFFS/INHALER INH SCH (08:23)
[2021-01-27] MEDS: FUROSEMIDE 20 MG TAB PO SCH (08:23)
[2021-01-27] MEDS: APIXABAN 5 MG TABLET PO SCH ×2 (08:23→21:06)
[2021-01-27] MEDS: PANTOprazole 40 MG TAB PO SCH (08:23)
[2021-01-27] MEDS: ASPIRIN 81 MG ECTAB PO SCH (08:23)
[2021-01-27] MEDS: ATORVASTATIN 40 MG TAB PO SCH (08:23)
[2021-01-27 08:26] LABS: Hematocrit (blood only) 31.1 % (42-52); Hemoglobin 10.3 g/dL (14.0-18.0); Mean Corpuscular Hemoglobin 32.3 pg (25-34); Mean Corpuscular Hgb Conc 33.1 g/dL (32-36); Mean Corpuscular Volume 97.5 fL (80-100); Mean Platelet Volume 9.1 fL (7.4-10.4); Platelet Count 398 K/uL (130-400); RDW Coefficient of Variation 13.2 % (11.5-14.5); RDW Standard Deviation 47.1 fL (36.4-46.3); Red Blood Count 3.19 M/uL (4.7-6.1); White Blood Count 11.63 K/uL (4.8-10.8)
[2021-01-27] MEDS: INSULIN GLARGINE SOLOSTAR 100 UNITS/ML 3 ML PEN SC SCH ×2 (08:30→21:33)
[2021-01-27] MEDS: INSULIN ASPART 100 UNITS/ML 3 ML PEN SC SCH ×4 (08:30→21:32)
[2021-01-27 08:55] LABS: BUN Creatinine Ratio 19.9 (10-20); Calcium 9.2 mg/dl (8.5-10.1); Creatinine Clr Calc Pharmacy 41.4 ml/min; Est GFR (Non-African American) 42.3 ml/min; Magnesium 2.3 mg/dl (1.8-2.4); Potassium 3.8 mmol/L (3.5-5.1)
[2021-01-27 08:56] LABS: C Reactive Protein 7.36 mg/dl (0-0.29); Phosphorus 3.4 mg/dl (2.5-4.9)
[2021-01-27] MEDS: dexAMETHasone 6 MG in SYRINGE 0 ML IV SCH (10:20)
[2021-01-27] MEDS ORDERED: FUROSEMIDE 40 MG/4 ML VIAL IV ONE (12:43)
--- NOTE | 2021-01-27 12:53 | Hospitalist Progress Note ---
Date of Service January 27, 2021 Assessment & Plan (1) Acute respiratory failure with hypoxia: Plan: Second COVID-19 pneumonia. Continue remdesivir and dexamethasone. Started on baricitinib out of concern for cytokine storm with an elevated CRP of 11. Continues on these treatments now. Transfer to PCU with escalating oxygen needs overnight for better monitoring. CXR ordered and additional Lasix given with new , progressed crackles on exam. Strict I/Os to monitor medication effetiveness. Family was updated regarding the escalation in care. (2) Pneumonia due to COVID-19 virus: Plan: Currently oxygenating 92% on 6 L/min via nasal cannula patient declines to prone. (3) COPD (chronic obstructive pulmonary disease): Plan: Chronic, stable, no wheezing. (4) CKD (chronic kidney disease), stage III: Plan: Patient is at baseline creatinine. Checked with pharmacy regarding the GFR cutoff that is appropriate for remdesivir--ok to give for short duration per director of safety and security recommendation. (5) Fall: Plan: likely 2/2 covid illness. PT/OT (6) Hypertension: Plan: chronic, stable, cont current therapy. (7) Diabetes mellitus, type II: Plan: Glucose is at goal. Cont basal bolus insulin with correction factor and carb coverage. (8) DVT prophylaxis: Plan: Apixaban Full Code Dispo-to PCU. Updated son John by phone who verbalized understanding of the care plan and father's move to PCU. Thanked me for the update. Morena Reveles DO [facility] Hospitalist Admission and Anticipated Discharge Date Admission Date: January 23, 2021 Subjective 65-year-old man with obesity and type 2 diabetes as well as COPD and history of tobacco use quitting smoking 2 years ago presented with Covid 19 infection. He is vaccinated x2 doses. He has a chronic cough from his COPD but denied any symptoms on admission. escalating oxygen needs overnight, now 92% on 6LPM somewhat more winded although O2 was off his face while eating when I went to see him denies pain, CP declines to prone. happy to move around independently no BM yet but not quite worried about that Review of Systems Review of Systems: All systems were reviewed and negative except as indicated above. Physical Exam Physical Exam: CONSTITUTIONAL: obese, vitals as above, generally well- appearing, NAD EYES: normal conjunctivae, no scleral icterus ENT: external ear and nose normal, MMM NECK: trachea midline RESPIRATORY: crackles throughout all lung bennett, no rales or wheezes, slightly increased respiratory effort CARDIOVASCULAR: regular rate and rhythm, S1 and 2 heard without murmurs, gallops or rubs, no JVD, no peripheral edema GASTROINTESTINAL: soft, nontender, ND, no guarding. MUSCULOSKELETAL: strength 5/5 throughout, head is normocephalic and atraumatic, ambulating independently SKIN: warm and dry NEUROLOGIC: CN 2-12 grossly intact, normal cognition, normal speech, no tremor. No gross focal deficits. PSYCHIATRIC: alert cooperative and oriented to person, place and time. Results & Data Results & Data ([facility]) Vital Signs (Past 12 Hours) Vital Signs Temp Pulse Pulse Resp BP Pulse Ox 01/27/21 11:58 36.3 C L 86 20 118/75 92 01/27/21 08:27 36.7 C 96 H 20 118/73 88 L 01/27/21 08:00 113 H 01/27/21 04:35 36.9 C 82 18 133/65 93 Laboratory Results Short CBC 01/27/21 Range/Units 07:58 WBC 11.63 H (4.8-10.8) K/uL Hgb 10.3 L (14.0-18.0) g/dL Hct 31.1 L (42-52) % Plt Count 398 (130-400) K/uL BMP 01/27/21 07:58 Sodium 139 Potassium 3.8 Chloride 109 H Carbon Dioxide 23 BUN 33 H Creatinine 1.67 H Glucose 92 Calcium 9.2 Liver Function 01/27/21 Range/Units 07:58 AST 23 (15-37) U/L ALT 21 (12-78) U/L Medications Administered Current Inpatient Medications Hydrocodone Bitart/Acetaminophen (Hydrocodone/Acetaminophen 10/325 Tab) 1 tab PO Q8H PRN PRN Reason: Pain Stop: 02/07/21 02:16 Last Admin: 01/27/21 05:51 Dose: 1 tab Documented by: Albuterol (Albuterol Hfa 8 Gm Inhaler) 2 puffs INH QID PRN PRN Reason: Shortness Of Breath Or Wheezin Stop: 02/23/21 02:16 Apixaban (Apixaban 5 Mg Tablet) 5 mg PO BID JUSTO Stop: 02/23/21 02:16 Last Admin: 01/27/21 08:23 Dose: 5 mg Documented by: Aspirin (Aspirin 81 Mg Ectab) [address] [facility] Stop: 02/23/21 08:59 Last Admin: 01/27/21 08:23 Dose: 81 mg Documented by: Atorvastatin Calcium (Atorvastatin 40 Mg Tab) [address] [facility] Stop: 02/23/21 08:59 Last Admin: 01/27/21 08:23 Dose: 40 mg Documented by: Baricitinib (Baricitinib 2 Mg Tab) [address] [facility] Stop: 02/08/21 13:29 Last Admin: 01/26/21 14:08 Dose: 2 mg Documented by: Furosemide (Furosemide 20 Mg Tab) [address] [facility] Stop: 02/23/21 08:59 Last Admin: 01/27/21 08:23 Dose: 20 mg Documented by: Remdesivir 100 mg/ Sodium (Chloride) 250 mls @ 250 mls/hr IV Q24H [facility]; Protocol Stop: 01/27/21 20:59 Last Infusion: 01/26/21 21:35 Dose: Infused Documented by: Dexamethasone 6 mg/ Syringe 1.5 mls @ 1 mls/min IV DAILY [facility] Stop: 02/03/21 08:59 Last Admin: 01/27/21 10:20 Dose: 1 mls/min Documented by: Insulin Aspart (Insulin Aspart 100 Units/Ml 3 Ml Pen) [address] [facility] Stop: 02/23/21 07:29 Last Admin: 01/27/21 12:42 Dose: 7 units Documented by: Insulin Glargine (Insulin Glargine Solostar 100 Units/Ml 3 Ml Pen) [address] [facility] Stop: 02/23/21 08:59 Last Admin: 01/27/21 08:30 Dose: 5 units Documented by: Levalbuterol HCl (Levalbuterol Hcl 1.25 Mg/3 Ml Neb) 1.25 mg NEB Q4H PRN PRN Reason: Shortness Of Breath Or Wheezing Stop: 02/23/21 02:16 Lidocaine (Lidocaine 5% 1 Patch) 1 patch TD DAILY PRN PRN Reason: pain Stop: 02/23/21 02:16 Metoprolol Succinate (Metoprolol Succ 25mg Ext Rel Tab) [address] [facility] Stop: 02/23/21 08:59 Last Admin: 01/27/21 08:23 Dose: 25 mg Documented by: Miscellaneous (Remove Lidoderm Patch) 1 ea N/A DAILY@2100 PRN PRN Reason: IF PATCH WAS APPLIED IN AM Stop: 02/23/21 20:59 Miscellaneous (Cyclosporine [Restasis]: Order Awaiting Action) 1 ea N/A QS JUSTO Stop: 02/23/21 07:59 Last Admin: 01/27/21 08:22 Dose: Not Given Documented by: Nitroglycerin (Nitroglycerin Sl 0.4 Mg/Tab Tab) 0.4 mg SL UD PRN PRN Reason: Chest Pain Stop: 02/23/21 02:16 Pantoprazole Sodium (Pantoprazole 40 Mg Tab) [address] [facility] Stop: 02/23/21 08:59 Last Admin: 01/27/21 08:23 Dose: 40 mg Documented by: Sodium Chloride (Sodium Chloride 0.9% 10ml Flush) 30 ml IV Q24H [facility] Stop: 01/27/21 21:01 Last Admin: 01/26/21 20:27 Dose: 30 ml Documented by: Tamsulosin HCl (Tamsulosin Hcl 0.4 Mg Cap) 0.8 mg PO HS JUSTO Stop: 02/23/21 20:59 Last Admin: 01/26/21 20:27 Dose: 0.8 mg Documented by: Topiramate (Topiramate 50 Mg Tab) 50 mg PO BID JUSTO Stop: 02/23/21 08:59 Last Admin: 01/27/21 08:22 Dose: 50 mg Documented by: Umeclidinium/Vilanterol (Umeclidinium/Vilanterol 62.5/25mcg 7 Puffs/Inhaler) 1 puffs INH DAILY [facility] Stop: 02/23/21 08:59 Last Admin: 01/27/21 08:23 Dose: 1 puffs Documented by: (1) COPD (chronic obstructive pulmonary disease) COPD type: unspecified COPD Qualified Code(s): J44.9 - Chronic obstructive pulmonary disease, unspecified (2) Fall Encounter type: initial encounter Qualified Code(s): W19.XXXA - Unspecified fall, initial encounter
[2021-01-27] MEDS: BARICITINIB 2 MG TAB PO SCH (14:46)
--- NOTE | 2021-01-27 15:11 | XRay Report ---
XR chest 1V portable HISTORY: covid, worsening hypoxia COMPARISON: Chest 01/23/2021. FINDINGS: No pneumothorax. No pleural effusions. Cervical spinal fusion hardware is again noted. The heart remains top normal in size. There is diffuse interstitial thickening patchy peripheral airspace opacities seen throughout the lungs. This is most mass within the right upper lobe and has slightly progressed in the interval. IMPRESSION: Slight progression of the patchy peripheral airspace opacities likely representing a viral pneumonia. ACT 112: Negative or not required by law. Electronically signed by: Arash Garcia M.D. 01/27/2021 3:10 PM
[2021-01-27] MEDS: REMDESIVIR 100 MG in SODIUM CHLORIDE 0.9% 230 ML IV SCH (19:51)
[2021-01-27] MEDS: SODIUM CHLORIDE 0.9% 10ML FLUSH IV SCH (21:05)
[2021-01-27] MEDS: TAMSULOSIN HCL 0.4 MG CAP PO SCH (21:06)
[2021-01-28] MEDS: HYDROcodone/ACETAMINOPHEN 10/325 TAB PO PRN ×3 (06:11→21:27)
[2021-01-28 08:12] LABS: Alanine Aminotransferase 22 U/L (12-78); Aspartate Aminotransferase 22 U/L (15-37)
[2021-01-28] MEDS: INSULIN ASPART 100 UNITS/ML 3 ML PEN SC SCH ×4 (08:25→21:48)
[2021-01-28] MEDS: INSULIN GLARGINE SOLOSTAR 100 UNITS/ML 3 ML PEN SC SCH ×2 (09:27→21:49)
[2021-01-28] MEDS: dexAMETHasone 6 MG in SYRINGE 0 ML IV SCH (09:41)
[2021-01-28] MEDS: TOPIRAMATE 50 MG TAB PO SCH ×2 (09:42→21:26)
[2021-01-28] MEDS: guaiFENesin 600 MG TABCR PO SCH ×2 (09:42→21:54)
[2021-01-28] MEDS: UMECLIDINIUM/VILANTEROL 62.5/25MCG 7 PUFFS/INHALER INH SCH (09:42)
[2021-01-28] MEDS: APIXABAN 5 MG TABLET PO SCH ×2 (09:42→21:27)
[2021-01-28] MEDS: FUROSEMIDE 20 MG TAB PO SCH (09:43)
[2021-01-28] MEDS: METOPROLOL SUCC 25MG EXT REL TAB PO SCH (09:43)
[2021-01-28] MEDS: ASPIRIN 81 MG ECTAB PO SCH (09:43)
[2021-01-28] MEDS: PANTOprazole 40 MG TAB PO SCH (09:43)
[2021-01-28] MEDS: ATORVASTATIN 40 MG TAB PO SCH (09:43)
[2021-01-28 12:10] LABS: BUN Creatinine Ratio 22.9 (10-20); Calcium 9.3 mg/dl (8.5-10.1); Creatinine Clr Calc Pharmacy 35.2 ml/min; Est GFR (African American) 39.7 ml/min; Est GFR (Non-African American) 34.2 ml/min; Potassium 3.6 mmol/L (3.5-5.1)
[2021-01-28 12:11] LABS: C Reactive Protein 8.05 mg/dl (0-0.29); Hemoglobin 9.9 g/dL (14.0-18.0); Mean Corpuscular Hemoglobin 31.8 pg (25-34); Mean Corpuscular Volume 96.5 fL (80-100); Mean Platelet Volume 9.3 fL (7.4-10.4); Platelet Count 415 K/uL (130-400); RDW Standard Deviation 45.3 fL (36.4-46.3); Red Blood Count 3.11 M/uL (4.7-6.1); White Blood Count 9.38 K/uL (4.8-10.8)
[2021-01-28] MEDS: BARICITINIB 2 MG TAB PO SCH (14:01)
--- NOTE | 2021-01-28 17:53 | Hospitalist Progress Note ---
Date of Service January 28, 2021 Assessment & Plan (1) Acute respiratory failure with hypoxia: Plan: Second COVID-19 pneumonia. Continue remdesivir and dexamethasone. Started on baricitinib out of concern for cytokine storm with an elevated CRP of 11. Continues on these treatments now. CRP is now down to 8. Hypoxia continues to worsen. Lasix given yesterday but slight worsening in creatinine on bloodwork today. Will cont with his home PO dose only. (2) Pneumonia due to COVID-19 virus: Plan: Currently oxygenating 92% on 15 L/min via hi flow green nasal canula, cont plan as above. (3) COPD (chronic obstructive pulmonary disease): Plan: Chronic, stable, no wheezing. (4) CKD (chronic kidney disease), stage III: Plan: Patient is at baseline creatinine. Checked with pharmacy regarding the GFR cutoff that is appropriate for remdesivir--ok to give for short duration per eligibility services representative recommendation. (5) Fall: Plan: likely 2/2 covid illness. PT/OT (6) Hypertension: Plan: chronic, stable, cont current therapy. (7) Diabetes mellitus, type II: Plan: Glucose is at goal. Cont basal bolus insulin with correction factor and carb coverage. (8) Anemia: Plan: appears to be chronic with a baseline Hb 10.3 in April of this year per record review. He is around that baseline now, on apixaban. Will order iron studies, B12 and folate as MCV slightly elevated. (9) DVT prophylaxis: Plan: Apixaban Full Code Dispo-to PCU. [facility] and [facility]tic[facility]ated Discharge Date Admission Date: January 23, 2021 Subjective 65-year-old man with obesity and type 2 diabetes as well as COPD and history of tobacco use quitting smoking 2 years ago presented with Covid 19 infection. He is vaccinated x2 doses. He has a chronic cough from his COPD but denied any symptoms on admission. escalating oxygen needs overnight, now on 15LPM via green wall hi flow canula. denies SOB or any other symptoms. denies pain, CP declines to prone. happy to move around independently but desaturates when he does per nursing staff. no BM yet but not quite worried about that He reportedly didn't understand "what this was all about" and I explained the need for oxygen keeping him in the hospital We discussed the pathophysiology of this pneumonia--all questions were answered and he verbalized understanding. Review of Systems Review of Systems: All systems were reviewed and negative except as indicated above. Physical Exam Physical Exam: CONSTITUTIONAL: obese, vitals as above, generally well- appearing, NAD EYES: normal conjunctivae, no scleral icterus ENT: external ear and nose normal, MMM NECK: trachea midline RESPIRATORY: crackles throughout all lung bennett, no rales or wheezes, slightly increased respiratory effort CARDIOVASCULAR: regular rate and rhythm, S1 and 2 heard without murmurs, gallops or rubs, no JVD, no peripheral edema GASTROINTESTINAL: soft, nontender, ND, no guarding. MUSCULOSKELETAL: strength 5/5 throughout, head is normocephalic and atraumatic, ambulating independently SKIN: warm and dry NEUROLOGIC: CN 2-12 grossly intact, normal cognition, normal speech, no tremor. No gross focal deficits. PSYCHIATRIC: alert cooperative and oriented to person, place and time. Results & Data Results & Data ([facility]) Vital Signs (Past 12 Hours) Vital Signs Temp Pulse Pulse Resp BP Pulse Ox 01/28/21 17:29 83 01/28/21 15:30 36.8 C 79 19 116/76 91 01/28/21 11:35 36.5 C 86 20 123/74 96 01/28/21 11:31 74 01/28/21 08:00 97 H 01/28/21 07:20 36.9 C 80 18 136/75 94 Laboratory Results Short CBC 01/28/21 Range/Units 07:26 WBC 9.38 (4.8-10.8) K/uL Hgb 9.9 L (14.0-18.0) g/dL Hct 30.0 L (42-52) % Plt Count 415 H (130-400) K/uL BMP 01/28/21 07:26 Sodium 135 L Potassium 3.6 Chloride 104 Carbon Dioxide 24 BUN 46 H Creatinine 1.99 H D Glucose 119 H Calcium 9.3 Liver Function 01/28/21 Range/Units 07:26 AST 22 (15-37) U/L ALT 22 (12-78) U/L Medications Administered Current Inpatient Medications Hydrocodone Bitart/Acetaminophen (Hydrocodone/Acetaminophen 10/325 Tab) 1 tab PO Q8H PRN PRN Reason: Pain Stop: 02/07/21 02:16 Last Admin: 01/28/21 14:01 Dose: 1 tab Documented by: Albuterol (Albuterol Hfa 8 Gm Inhaler) 2 puffs INH QID PRN PRN Reason: Shortness Of Breath Or Wheezin Stop: 02/23/21 02:16 Apixaban (Apixaban 5 Mg Tablet) 5 mg PO BID [facility] Stop: 02/23/21 02:16 Last Admin: 01/28/21 09:42 Dose: 5 mg Documented by: Aspirin (Aspirin 81 Mg Ectab) 81 mg PO QAM [facility] Stop: 02/23/21 08:59 Last Admin: 01/28/21 09:43 Dose: 81 mg Documented by: Atorvastatin Calcium (Atorvastatin 40 Mg Tab) 40 mg PO QAM [facility] Stop: 02/23/21 08:59 Last Admin: 01/28/21 09:43 Dose: 40 mg Documented by: Baricitinib (Baricitinib 2 Mg Tab) 2 mg PO Q24H [facility] Stop: 02/08/21 13:29 Last Admin: 01/28/21 14:01 Dose: 2 mg Documented by: Furosemide (Furosemide 20 Mg Tab) 20 mg PO DAILY [facility] Stop: 02/23/21 08:59 Last Admin: 01/28/21 09:43 Dose: 20 mg Documented by: Guaifenesin (Guaifenesin 600 Mg Tabcr) 600 mg PO Q12 [facility] Stop: 02/27/21 07:14 Last Admin: 01/28/21 09:42 Dose: 600 mg Documented by: Dexamethasone 6 mg/ Syringe 1.5 mls @ 1 mls/min IV DAILY [facility] Stop: 02/03/21 08:59 Last Admin: 01/28/21 09:41 Dose: 1 mls/min Documented by: Insulin Aspart (Insulin Aspart 100 Units/Ml 3 Ml Pen) 0 units SC ACHS [facility] Stop: 02/23/21 07:29 Last Admin: 01/28/21 17:28 Dose: 5 units Documented by: Insulin Glargine (Insulin Glargine Solostar 100 Units/Ml 3 Ml Pen) 5 units SC BID [facility] Stop: 02/23/21 08:59 Last Admin: 01/28/21 09:27 Dose: 5 units Documented by: Levalbuterol HCl (Levalbuterol Hcl 1.25 Mg/3 Ml Neb) 1.25 mg NEB Q4H PRN PRN Reason: Shortness Of Breath Or Wheezing Stop: 02/23/21 02:16 Lidocaine (Lidocaine 5% 1 Patch) 1 patch TD DAILY PRN PRN Reason: pain Stop: 02/23/21 02:16 Metoprolol Succinate (Metoprolol Succ 25mg Ext Rel Tab) 25 mg PO QAM [facility] Stop: 02/23/21 08:59 Last Admin: 01/28/21 09:43 Dose: 25 mg Documented by: Miscellaneous (Remove Lidoderm Patch) 1 ea N/A DAILY@2100 PRN PRN Reason: IF PATCH WAS APPLIED IN AM Stop: 02/23/21 20:59 Nitroglycerin (Nitroglycerin Sl 0.4 Mg/Tab Tab) 0.4 mg SL UD PRN PRN Reason: Chest Pain Stop: 02/23/21 02:16 Pantoprazole Sodium (Pantoprazole 40 Mg Tab) 40 mg PO QAM [facility] Stop: 02/23/21 08:59 Last Admin: 01/28/21 09:43 Dose: 40 mg Documented by: Tamsulosin HCl (Tamsulosin Hcl 0.4 Mg Cap) 0.8 mg PO HS [facility] Stop: 02/23/21 20:59 Last Admin: 01/27/21 21:06 Dose: 0.8 mg Documented by: Topiramate (Topiramate 50 Mg Tab) 50 mg PO BID [facility] Stop: 02/23/21 08:59 Last Admin: 01/28/21 09:42 Dose: 50 mg Documented by: Umeclidinium/Vilanterol (Umeclidinium/Vilanterol 62.5/25mcg 7 Puffs/Inhaler) 1 puffs INH DAILY [facility] Stop: 02/23/21 08:59 Last Admin: 01/28/21 09:42 Dose: 1 puffs Documented by: (1) COPD (chronic obstructive pulmonary disease) COPD type: unspecified COPD Qualified Code(s): J44.9 - Chronic obstructive pulmonary disease, unspecified (2) Fall Encounter type: initial encounter Qualified Code(s): W19.XXXA - Unspecified fall, initial encounter
[2021-01-28] MEDS: TAMSULOSIN HCL 0.4 MG CAP PO SCH (21:26)
[2021-01-29] MEDS: oxyCODONE HCL IR 5 MG TAB (IMMEDIATE RELEASE) PO PRN ×3 (04:10→23:41)
[2021-01-29 06:03] LABS: Hematocrit (blood only) 29.5 % (42-52); Hemoglobin 9.8 g/dL (14.0-18.0); Mean Corpuscular Hemoglobin 32.1 pg (25-34); Mean Corpuscular Hgb Conc 33.2 g/dL (32-36); Mean Corpuscular Volume 96.7 fL (80-100); Mean Platelet Volume 8.9 fL (7.4-10.4); Platelet Count 393 K/uL (130-400); RDW Standard Deviation 45.3 fL (36.4-46.3); Red Blood Count 3.05 M/uL (4.7-6.1); White Blood Count 10.65 K/uL (4.8-10.8)
[2021-01-29 06:32] LABS: BUN Creatinine Ratio 23.4 (10-20); C Reactive Protein 7.1 mg/dl (0-0.29); Creatinine Clr Calc Pharmacy 36.1 ml/min; Est GFR (African American) 41.2 ml/min; Est GFR (Non-African American) 35.5 ml/min; Potassium 3.9 mmol/L (3.5-5.1)
[2021-01-29 06:53] LABS: Folate (Folic Acid) 16.3 ng/ml (>5.38)
[2021-01-29] MEDS: UMECLIDINIUM/VILANTEROL 62.5/25MCG 7 PUFFS/INHALER INH SCH (08:04)
[2021-01-29] MEDS: PANTOprazole 40 MG TAB PO SCH (08:06)
[2021-01-29] MEDS: METOPROLOL SUCC 25MG EXT REL TAB PO SCH (08:06)
[2021-01-29] MEDS: guaiFENesin 600 MG TABCR PO SCH ×2 (08:06→19:40)
[2021-01-29] MEDS: TOPIRAMATE 50 MG TAB PO SCH ×2 (08:06→19:40)
[2021-01-29] MEDS: dexAMETHasone 6 MG in SYRINGE 0 ML IV SCH (08:06)
[2021-01-29] MEDS: ATORVASTATIN 40 MG TAB PO SCH (08:06)
[2021-01-29] MEDS: FUROSEMIDE 20 MG TAB PO SCH (08:06)
[2021-01-29] MEDS: APIXABAN 5 MG TABLET PO SCH ×2 (08:06→19:40)
[2021-01-29] MEDS: ASPIRIN 81 MG ECTAB PO SCH (08:06)
[2021-01-29] MEDS: INSULIN ASPART 100 UNITS/ML 3 ML PEN SC SCH ×4 (09:32→20:27)
[2021-01-29] MEDS: INSULIN GLARGINE SOLOSTAR 100 UNITS/ML 3 ML PEN SC SCH (09:32)
--- NOTE | 2021-01-29 14:48 | Hospitalist Progress Note ---
Date of Service January 29, 2021 Assessment & Plan (1) Acute respiratory failure with hypoxia: Plan: Second COVID-19 pneumonia. Completed 5 days of remdesivir and dexamethasone. With current agitation level will hold dexamethasone. Continue baricitinib titration per protocol. CRP continues to decrease. Hypoxia is staying steady. Patient continues to declined prone. Agreeable to stay in the hospital for continued therapy. Continue daily oral Lasix. (2) Pneumonia due to COVID-19 virus: Plan: Currently oxygenating 92% on 12 L/min via hi flow green nasal canula, cont plan as above. (3) COPD (chronic obstructive pulmonary disease): Plan: Chronic, stable, no wheezing. (4) CKD (chronic kidney disease), stage III: Plan: Patient is at baseline creatinine. Continue current therapies. Monitor BMP periodically. (5) Fall: Plan: Recurrent falls prior to arrival. Likely 2/2 covid illness. PT/OT recommend return home when medically stable. (6) Hypertension: Plan: chronic, stable, cont current therapy. (7) Diabetes mellitus, type II: Plan: Glucose is at goal. Stop glargine to minimize fingersticks and agitation. Glucose coverage with NovoLog only at this time., Notably holding steroids. (8) Anemia: Plan: appears to be chronic with a baseline Hb 10.3 in April of this year per record review. He is around that baseline now, on apixaban. Normal iron studies, B12 and folate. Continue to follow as outpatient and minimize phlebotomy. (9) DVT prophylaxis: Plan: Apixaban Full Code Dispo-continue hospital stay. I contacted his son by phone and spoke with him regarding his updated care plan. I explained to him that if he leaves the hospital at his current oxygen level this would be very problematic as we could not support him as an outpatient. His son agreed verbalized understanding that he would not come pick him up from the hospital until he was medically cleared. Morena Reveles DO [facility] Hospitalist Admission and Anticipated Discharge Date Admission Date: January 23, 2021 Subjective 65-year-old man with obesity and type 2 diabetes as well as COPD and history of tobacco use quitting smoking 2 years ago presented with Covid 19 infection. He is vaccinated x2 doses. He has a chronic cough from his COPD but denied any symptoms on admission. denies SOB or any other symptoms. denies pain, CP declines to prone. threw his oxygen on the ground this morning when the nurse requested that he put it back on He is upset about the oxygen levels being turned up and down even though it was explained that this is part of what the nursing staff is trained to do. He was ok with staying after another serious talk about leaving against medical advice and that he had a higher likelihood of dying if he left with his current oxygen needs. Tolerating p.o. and no other GI symptoms Ultimately resolved to transition to oxygen mask for comfort intermittently using the nasal cannula. Review of Systems Review of Systems: All systems were reviewed and negative except as indicated above. Physical Exam Physical Exam: CONSTITUTIONAL: obese, vitals as above, generally well- appearing, NAD EYES: normal conjunctivae, no scleral icterus ENT: external ear and nose normal, MMM NECK: trachea midline RESPIRATORY: crackles at bases bilaterally with diminished breath sounds throughout, no rales or wheezes, slightly increased respiratory effort CARDIOVASCULAR: regular rate and rhythm, S1 and 2 heard without murmurs, gallops or rubs, no JVD, no peripheral edema GASTROINTESTINAL: soft, nontender, ND, no guarding. MUSCULOSKELETAL: strength 5/5 throughout, head is normocephalic and atraumatic, ambulating independently SKIN: warm and dry NEUROLOGIC: CN 2-12 grossly intact, normal cognition, normal speech, no tremor. No gross focal deficits. PSYCHIATRIC: alert cooperative and oriented to person, place and time. Results & Data Results & Data ([facility]) Vital Signs (Past 12 Hours) Vital Signs Temp Pulse Pulse Resp BP BP Pulse Ox 01/29/21 12:11 36.5 C 88 16 118/81 92 01/29/21 08:00 77 01/29/21 07:56 36.6 C 103 H 19 118/81 75 L 01/29/21 07:01 77 01/29/21 03:19 37.3 C 94 H 24 106/68 94 Laboratory Results Short CBC 01/29/21 Range/Units 05:29 WBC 10.65 (4.8-10.8) K/uL Hgb 9.8 L (14.0-18.0) g/dL Hct 29.5 L (42-52) % Plt Count 393 (130-400) K/uL BMP 01/29/21 05:29 Sodium 137 Potassium 3.9 Chloride 105 Carbon Dioxide 22 BUN 45 H Creatinine 1.93 H Glucose 108 H Calcium 9.0 Medications Administered Current Inpatient Medications Albuterol (Albuterol Hfa 8 Gm Inhaler) 2 puffs INH QID PRN PRN Reason: Shortness Of Breath Or Wheezin Stop: 02/23/21 02:16 Apixaban (Apixaban 5 Mg Tablet) 5 mg PO BID [facility] Stop: 02/23/21 02:16 Last Admin: 01/29/21 08:06 Dose: 5 mg Documented by: Aspirin (Aspirin 81 Mg Ectab) 81 mg PO QAM [facility] Stop: 02/23/21 08:59 Last Admin: 01/29/21 08:06 Dose: 81 mg Documented by: Atorvastatin Calcium (Atorvastatin 40 Mg Tab) 40 mg PO QAM [facility] Stop: 02/23/21 08:59 Last Admin: 01/29/21 08:06 Dose: 40 mg Documented by: Baricitinib (Baricitinib 2 Mg Tab) 2 mg PO Q24H [facility] Stop: 02/08/21 13:29 Last Admin: 01/28/21 14:01 Dose: 2 mg Documented by: Furosemide (Furosemide 20 Mg Tab) 20 mg PO DAILY [facility] Stop: 02/23/21 08:59 Last Admin: 01/29/21 08:06 Dose: 20 mg Documented by: Guaifenesin (Guaifenesin 600 Mg Tabcr) 600 mg PO Q12 [facility] Stop: 02/27/21 07:14 Last Admin: 01/29/21 08:06 Dose: 600 mg Documented by: Dexamethasone 6 mg/ Syringe 1.5 mls @ 1 mls/min IV DAILY [facility] Stop: 02/03/21 08:59 Last Admin: 01/29/21 08:06 Dose: 1 mls/min Documented by: Insulin Aspart (Insulin Aspart 100 Units/Ml 3 Ml Pen) 0 units SC ACHS [facility] Stop: 02/23/21 07:29 Last Admin: 01/29/21 12:58 Dose: 7 units Documented by: Insulin Glargine (Insulin Glargine Solostar 100 Units/Ml 3 Ml Pen) 5 units SC BID [facility] Stop: 02/23/21 08:59 Last Admin: 01/29/21 09:32 Dose: 5 units Documented by: Levalbuterol HCl (Levalbuterol Hcl 1.25 Mg/3 Ml Neb) 1.25 mg NEB Q4H PRN PRN Reason: Shortness Of Breath Or Wheezing Stop: 02/23/21 02:16 Lidocaine (Lidocaine 5% 1 Patch) 1 patch TD DAILY PRN PRN Reason: pain Stop: 02/23/21 02:16 Metoprolol Succinate (Metoprolol Succ 25mg Ext Rel Tab) 25 mg PO QAM [facility] Stop: 02/23/21 08:59 Last Admin: 01/29/21 08:06 Dose: 25 mg Documented by: Miscellaneous (Remove Lidoderm Patch) 1 ea N/A DAILY@2100 PRN PRN Reason: IF PATCH WAS APPLIED IN AM Stop: 02/23/21 20:59 Nitroglycerin (Nitroglycerin Sl 0.4 Mg/Tab Tab) 0.4 mg SL UD PRN PRN Reason: Chest Pain Stop: 02/23/21 02:16 Oxycodone HCl (Oxycodone Hcl Ir 5 Mg Tab (Immediate Release)) 5 - 10 mg PO QID PRN PRN Reason: Pain Stop: 02/12/21 03:33 Last Admin: 01/29/21 04:10 Dose: 10 mg Documented by: Pantoprazole Sodium (Pantoprazole 40 Mg Tab) 40 mg PO QAM [facility] Stop: 02/23/21 08:59 Last Admin: 01/29/21 08:06 Dose: 40 mg Documented by: Tamsulosin HCl (Tamsulosin Hcl 0.4 Mg Cap) 0.8 mg PO HS [facility] Stop: 02/23/21 20:59 Last Admin: 01/28/21 21:26 Dose: 0.8 mg Documented by: Topiramate (Topiramate 50 Mg Tab) 50 mg PO BID [facility] Stop: 02/23/21 08:59 Last Admin: 01/29/21 08:06 Dose: 50 mg Documented by: Umeclidinium/Vilanterol (Umeclidinium/Vilanterol 62.5/25mcg 7 Puffs/Inhaler) 1 puffs INH DAILY [facility] Stop: 02/23/21 08:59 Last Admin: 01/29/21 08:04 Dose: 1 puffs Documented by: (1) COPD (chronic obstructive pulmonary disease) COPD type: unspecified COPD Qualified Code(s): J44.9 - Chronic obstructive pulmonary disease, unspecified (2) Fall Encounter type: initial encounter Qualified Code(s): W19.XXXA - Unspecified fall, initial encounter
[2021-01-29] MEDS: BARICITINIB 2 MG TAB PO SCH (15:05)
[2021-01-29] MEDS: TAMSULOSIN HCL 0.4 MG CAP PO SCH (19:40)
[2021-01-30] MEDS: INSULIN ASPART 100 UNITS/ML 3 ML PEN SC SCH ×4 (08:12→19:39)
[2021-01-30] MEDS: TOPIRAMATE 50 MG TAB PO SCH ×2 (08:36→19:38)
[2021-01-30] MEDS: METOPROLOL SUCC 25MG EXT REL TAB PO SCH (08:36)
[2021-01-30] MEDS: PANTOprazole 40 MG TAB PO SCH (08:36)
[2021-01-30] MEDS: ASPIRIN 81 MG ECTAB PO SCH (08:37)
[2021-01-30] MEDS: APIXABAN 5 MG TABLET PO SCH ×2 (08:37→19:37)
[2021-01-30] MEDS: ATORVASTATIN 40 MG TAB PO SCH (08:37)
[2021-01-30] MEDS: guaiFENesin 600 MG TABCR PO SCH ×2 (08:37→19:36)
[2021-01-30] MEDS: FUROSEMIDE 20 MG TAB PO SCH (08:37)
[2021-01-30] MEDS: UMECLIDINIUM/VILANTEROL 62.5/25MCG 7 PUFFS/INHALER INH SCH (08:37)
[2021-01-30] MEDS: oxyCODONE HCL IR 5 MG TAB (IMMEDIATE RELEASE) PO PRN ×2 (10:52→17:50)
[2021-01-30] MEDS: BARICITINIB 2 MG TAB PO SCH (13:42)
[2021-01-30] MEDS: POLYETHYLENE (MIRALAX) 17 GM PACK PO SCH (19:35)
[2021-01-30] MEDS: TAMSULOSIN HCL 0.4 MG CAP PO SCH (19:37)
[2021-01-30] MEDS: SODIUM CHLORIDE 0.65% NA SOLN 45 ML (OCEAN) NAE SCH ×2 (20:00→23:11)
--- NOTE | 2021-01-30 20:34 | Hospitalist Progress Note ---
Date of Service January 30, 2021 Assessment & Plan (1) Acute respiratory failure with hypoxia: Plan: Second COVID-19 pneumonia. Completed 5 days of remdesivir and dexamethasone. With current agitation level am holding dexamethasone. Continue baricitinib titration per protocol. CRP continues to decrease. Hypoxia is staying steady. Oxymask is more comfortable for him and he transitioned to nasal cannula and back again to the mask. We will add saline nasal spray for comfort. We continue to humidify oxygen. Patient continues to declined prone. Continue daily oral Lasix. (2) Pneumonia due to COVID-19 virus: Plan: Currently oxygenating 89% on 12 L/min via hi flow green nasal canula, cont plan as above. (3) COPD (chronic obstructive pulmonary disease): Plan: Chronic, stable, no wheezing. (4) CKD (chronic kidney disease), stage III: Plan: Patient is at baseline creatinine. Continue current therapies. Monitor BMP periodically. (5) Fall: Plan: Recurrent falls prior to arrival. Likely 2/2 covid illness. PT/OT recommend return home when medically stable. (6) Hypertension: Plan: chronic, stable, cont current therapy. (7) Diabetes mellitus, type II: Plan: Glucose is at goal. Stop glargine to minimize fingersticks and agitation. Glucose coverage with NovoLog only at this time., Notably holding steroids. (8) Anemia: Plan: appears to be chronic with a baseline Hb 10.3 in April of this year per record review. He is around that baseline now, on apixaban. Normal iron studies, B12 and folate. Continue to follow as outpatient and minimize phlebotomy. (9) Tobacco use: Plan: Patient with intermittent agitation found to be chewing tobacco by nurses. May be related to his agitation level. (10) Chronic back pain: Plan: Chronic back pain on consistent hydrocodone 10/325 at home every 8 hours. He has been getting oxycodone intermittently and this may be causing a relative withdrawal and agitation. He is less agitated today off of steroids but is reporting continuous back pain. We will change oxycodone to hydrocodone with T ylenol and schedule this every 8 hours consistent with his home regimen. He confirms to me know known allergy to acetaminophen. I reviewed PDMP and he does continuously get this drug at this dose. (11) Opiate dependence: Plan: Bowel regimen started with scheduled MiraLAX as patient has not had a bowel movement since admission. (12) DVT prophylaxis: Plan: Apixaban Full Code Dispo-continue hospital stay. Uncertain disposition at this time. DO [facility] Hospitalist Admission and Anticipated Discharge Date Admission Date: January 23, 2021 Subjective 65-year-old man with obesity and type 2 diabetes as well as COPD and history of tobacco use quitting smoking 2 years ago presented with Covid 19 infection. He is vaccinated x2 doses. He has a chronic cough from his COPD but denied any symptoms on admission. denies SOB or any other symptoms. denies pain, CP declines to prone. threw his oxygen on the ground this morning when the nurse requested that he put it back on He is upset about the oxygen levels being turned up and down even though it was explained that this is part of what the nursing staff is trained to do. He was ok with staying after another serious talk about leaving against medical advice and that he had a higher likelihood of dying if he left with his current oxygen needs. Tolerating p.o. and no other GI symptoms Ultimately resolved to transition to oxygen mask for comfort intermittently using the nasal cannula. Review of Systems Review of Systems: All systems were reviewed and negative except as indicated above. Physical Exam Physical Exam: CONSTITUTIONAL: obese, vitals as above, generally well- appearing, NAD EYES: normal conjunctivae, no scleral icterus ENT: external ear and nose normal, MMM NECK: trachea midline RESPIRATORY: clear bilaterally with diminished breath sounds throughout, no rales or wheezes, slightly increased respiratory effort CARDIOVASCULAR: regular rate and rhythm, S1 and 2 heard without murmurs, gallops or rubs, no JVD, no peripheral edema GASTROINTESTINAL: soft, nontender, ND, no guarding. MUSCULOSKELETAL: strength 5/5 throughout, head is normocephalic and atraumatic, ambulating independently SKIN: warm and dry NEUROLOGIC: CN 2-12 grossly intact, normal cognition, normal speech, no tremor. No gross focal deficits. PSYCHIATRIC: alert cooperative and oriented to person, place and time. Results & Data Results & Data ([facility]) Vital Signs (Past 12 Hours) Vital Signs Temp Pulse Pulse Resp BP BP Pulse Ox 01/30/21 19:43 37.6 C 122 H 19 119/86 89 L 01/30/21 16:00 121 H 01/30/21 15:36 36.4 C L 105 H 23 121/69 96 01/30/21 10:54 36.5 C 112 H 20 106/74 90 Medications Administered Current Inpatient Medications Hydrocodone Bitart/Acetaminophen (Hydrocodone/Acetaminophen 10/325 Tab) 1 tab PO Q8 [facility] Stop: 02/14/21 01:59 Albuterol (Albuterol Hfa 8 Gm Inhaler) 2 puffs INH QID PRN PRN Reason: Shortness Of Breath Or Wheezin Stop: 02/23/21 02:16 Apixaban (Apixaban 5 Mg Tablet) 5 mg PO BID [facility] Stop: 02/23/21 02:16 Last Admin: 01/30/21 19:37 Dose: 5 mg Documented by: Aspirin (Aspirin 81 Mg Ectab) 81 mg PO QAM [facility] Stop: 02/23/21 08:59 Last Admin: 01/30/21 08:37 Dose: 81 mg Documented by: Atorvastatin Calcium (Atorvastatin 40 Mg Tab) 40 mg PO QAM [facility] Stop: 02/23/21 08:59 Last Admin: 01/30/21 08:37 Dose: 40 mg Documented by: Baricitinib (Baricitinib 2 Mg Tab) 2 mg PO Q24H [facility] Stop: 02/08/21 13:29 Last Admin: 01/30/21 13:42 Dose: 2 mg Documented by: Furosemide (Furosemide 20 Mg Tab) 20 mg PO DAILY [facility] Stop: 02/23/21 08:59 Last Admin: 01/30/21 08:37 Dose: 20 mg Documented by: Guaifenesin (Guaifenesin 600 Mg Tabcr) 600 mg PO Q12 [facility] Stop: 02/27/21 07:14 Last Admin: 01/30/21 19:36 Dose: 600 mg Documented by: Dexamethasone 6 mg/ Syringe 1.5 mls @ 1 mls/min IV DAILY [facility] Stop: 02/03/21 08:59 Last Admin: 01/29/21 08:06 Dose: 1 mls/min Documented by: Insulin Aspart (Insulin Aspart 100 Units/Ml 3 Ml Pen) 0 units SC ACHS [facility] Stop: 02/23/21 07:29 Last Admin: 01/30/21 19:39 Dose: Not Given Documented by: Levalbuterol HCl (Levalbuterol Hcl 1.25 Mg/3 Ml Neb) 1.25 mg NEB Q4H PRN PRN Reason: Shortness Of Breath Or Wheezing Stop: 02/23/21 02:16 Lidocaine (Lidocaine 5% 1 Patch) 1 patch TD DAILY PRN PRN Reason: pain Stop: 02/23/21 02:16 Metoprolol Succinate (Metoprolol Succ 25mg Ext Rel Tab) 25 mg PO QAM [facility] Stop: 02/23/21 08:59 Last Admin: 01/30/21 08:36 Dose: 25 mg Documented by: Miscellaneous (Remove Lidoderm Patch) 1 ea N/A DAILY@2100 PRN PRN Reason: IF PATCH WAS APPLIED IN AM Stop: 02/23/21 20:59 Nitroglycerin (Nitroglycerin Sl 0.4 Mg/Tab Tab) 0.4 mg SL UD PRN PRN Reason: Chest Pain Stop: 02/23/21 02:16 Pantoprazole Sodium (Pantoprazole 40 Mg Tab) [facility] [place]: 02/23/21 08:59 Last Admin: 01/30/21 08:36 Dose: 40 mg Documented by: Polyethylene Glycol (Polyethylene (Miralax) 17 Gm Pack) 17 gm PO DAILY [facility] Stop: 03/01/21 18:44 Last Admin: 01/30/21 19:35 Dose: 17 gm Documented by: Sennosides (Senna 8.6 Mg Tab) 8.6 mg PO QAM [facility] Stop: 03/02/21 08:59 Sodium Chloride (Sodium Chloride 0.65% Na Soln 45 Ml ([place])) 2 sprays BRITTANY Q4H [facility] Stop: 03/01/21 18:44 Last Admin: 01/30/21 20:00 Dose: 2 sprays Documented by: Tamsulosin HCl (Tamsulosin Hcl 0.4 Mg Cap) 0.8 mg PO HS [facility] Stop: 02/23/21 20:59 Last Admin: 01/30/21 19:37 Dose: 0.8 mg Documented by: Topiramate (Topiramate 50 Mg Tab) 50 mg PO BID [facility] Stop: 02/23/21 08:59 Last Admin: 01/30/21 19:38 Dose: 50 mg Documented by: Umeclidinium/Vilanterol (Umeclidinium/Vilanterol 62.5/25mcg 7 Puffs/Inhaler) 1 puffs INH DAILY [facility] Stop: 02/23/21 08:59 Last Admin: 01/30/21 08:37 Dose: 1 puffs Documented by: (1) COPD (chronic obstructive pulmonary disease) COPD type: unspecified COPD Qualified Code(s): J44.9 - Chronic obstructive pulmonary disease, unspecified (2) Fall Encounter type: initial encounter Qualified Code(s): W19.XXXA - Unspecified fall, initial encounter
[2021-01-31] MEDS: HYDROcodone/ACETAMINOPHEN 10/325 TAB PO SCH ×4 (02:10→22:51)
[2021-01-31] MEDS: SODIUM CHLORIDE 0.65% NA SOLN 45 ML (OCEAN) NAE SCH ×6 (02:11→22:51)
[2021-01-31 08:39] LABS: Hemoglobin 10.1 g/dL (14.0-18.0); Mean Corpuscular Hemoglobin 32.4 pg (25-34); Mean Corpuscular Hgb Conc 32.6 g/dL (32-36); Mean Corpuscular Volume 99.4 fL (80-100); Platelet Count 440 K/uL (130-400); RDW Coefficient of Variation 13.3 % (11.5-14.5); RDW Standard Deviation 47.8 fL (36.4-46.3); Red Blood Count 3.12 M/uL (4.7-6.1); White Blood Count 12.95 K/uL (4.8-10.8)
[2021-01-31] MEDS: ASPIRIN 81 MG ECTAB PO SCH (08:45)
[2021-01-31] MEDS: ATORVASTATIN 40 MG TAB PO SCH (08:45)
[2021-01-31] MEDS: SENNA 8.6 MG TAB PO SCH (08:45)
[2021-01-31] MEDS: guaiFENesin 600 MG TABCR PO SCH ×2 (08:45→19:57)
[2021-01-31] MEDS: PANTOprazole 40 MG TAB PO SCH (08:45)
[2021-01-31] MEDS: POLYETHYLENE (MIRALAX) 17 GM PACK PO SCH ×3 (08:46→22:51)
[2021-01-31] MEDS: METOPROLOL SUCC 25MG EXT REL TAB PO SCH (08:46)
[2021-01-31] MEDS: APIXABAN 5 MG TABLET PO SCH ×2 (08:46→19:58)
[2021-01-31] MEDS: UMECLIDINIUM/VILANTEROL 62.5/25MCG 7 PUFFS/INHALER INH SCH (08:51)
[2021-01-31] MEDS: TOPIRAMATE 50 MG TAB PO SCH ×2 (08:52→20:00)
[2021-01-31 09:17] LABS: BUN Creatinine Ratio 21.9 (10-20); Calcium 8.7 mg/dl (8.5-10.1); Creatinine Clr Calc Pharmacy 35.3 ml/min; Est GFR (African American) 39.9 ml/min; Est GFR (Non-African American) 34.4 ml/min; Potassium 3.7 mmol/L (3.5-5.1)
[2021-01-31] MEDS: FUROSEMIDE 20 MG TAB PO SCH (10:06)
[2021-01-31] MEDS: INSULIN ASPART 100 UNITS/ML 3 ML PEN SC SCH ×4 (10:34→20:26)
[2021-01-31] MEDS: BARICITINIB 2 MG TAB PO SCH (12:45)
[2021-01-31] MEDS ORDERED: LORazepam 0.5 MG TAB PO PRN (15:58)
--- NOTE | 2021-01-31 19:24 | Hospitalist Progress Note ---
Date of Service January 31, 2021 Assessment & Plan (1) Acute respiratory failure with hypoxia: Plan: Second COVID-19 pneumonia. Completed 5 days of remdesivir and dexamethasone. With current agitation level am holding dexamethasone. We will plan to restart trial tomorrow. Continue baricitinib titration per protocol. CRP continues to decrease. Hypoxia is staying steady. Oxymask is more comfortable for him and he transitioned to nasal cannula and back again to the mask. We will continuesaline nasal spray for comfort. We continue to humidify oxygen. Patient continues to declined prone. Continue daily oral Lasix. (2) Pneumonia due to COVID-19 virus: Plan: Currently oxygenating 91% on 12 L/min via hi flow green nasal canula, cont plan as above. (3) COPD (chronic obstructive pulmonary disease): Plan: Chronic, stable, no wheezing. (4) CKD (chronic kidney disease), stage III: Plan: Patient is at baseline creatinine. Continue current therapies. Monitor BMP periodically. (5) Fall: Plan: Recurrent falls prior to arrival. Likely 2/2 covid illness. PT/OT recommend return home when medically stable. (6) Hypertension: Plan: chronic, stable, cont current therapy. (7) Diabetes mellitus, type II: Plan: Glucose is at goal. Stop glargine to minimize fingersticks and agitation. Glucose coverage with NovoLog only at this time., Notably holding steroids. (8) Anemia: Plan: appears to be chronic with a baseline Hb 10.3 in April of this year per record review. He is around that baseline now, on apixaban. Normal iron studies, B12 and folate. Continue to follow as outpatient and minimize phlebotomy. (9) Tobacco use: Plan: Patient with intermittent agitation found to be chewing tobacco again this reyna david. May be related to his agitation level. (10) Chronic back pain: Plan: Chronic back pain on consistent hydrocodone 10/325 at home every 8 hours. He has been getting oxycodone intermittently and this may be causing a relative withdrawal and agitation. We will change oxycodone to hydrocodone with Tylenol and schedule this every 8 hours consistent with his home regimen. (11) Opiate dependence: Plan: Bowel regimen started with scheduled MiraLAX as patient has not had a bowel movement since admission. This was increased to MiraLAX 3 times daily scheduled. Hold for loose stools. (12) DVT prophylaxis: Plan: Apixaban Full Code Dispo-continue hospital stay. Uncertain disposition at this time. DO Giselle Royal Hospitalist Admission and Anticipated Discharge Date Admission Date: January 23, 2021 Subjective 65-year-old man with obesity and type 2 diabetes as well as COPD and history of tobacco use quitting smoking 2 years ago presented with Covid 19 infection. He is vaccinated x2 doses. He has a chronic cough from his COPD but denied any sy mptoms on admission. denies SOB or any other symptoms. denies pain, CP declines to prone. +constipation He was telling me today he needs to bed lites to help him go to the bathroom. When I declined, he told me he would have his son sneak some beer into the hospital for him. I asked him if he was a heavy drinker and he told me he was in the past but not now. When he describes how much he can drink he reports he drinks "a 30 pack in a month". He told me he wanted to try a trial of the oxygen off his face and see what would happen. As he is oxygenating 91% on 12 L/min this was not advised. Updated primary nurse. Review of Systems Review of Systems: All systems were reviewed and negative except as indicated above. Physical Exam Physical Exam: CONSTITUTIONAL: obese, vitals as above, generally well- appearing, NAD EYES: normal conjunctivae, no scleral icterus ENT: external ear and nose normal, MMM NECK: trachea midline RESPIRATORY: clear bilaterally with diminished breath sounds throughout, no rales or wheezes, slightly increased respiratory effort CARDIOVASCULAR: regular rate and rhythm, S1 and 2 heard without murmurs, gallops or rubs, no JVD, no peripheral edema GASTROINTESTINAL: soft, nontender, ND, no guarding. MUSCULOSKELETAL: strength 5/5 throughout, head is normocephalic and atraumatic, ambulating independently SKIN: warm and dry NEUROLOGIC: CN 2-12 grossly intact, normal cognition, normal speech, no tremor. No gross focal deficits. PSYCHIATRIC: alert cooperative and oriented to person, place and time. Results & Data Results & Data ([facility]) Vital Signs (Past 12 Hours) Vital Signs Temp Pulse Pulse Resp BP BP Pulse Ox 01/31/21 17:00 36.6 C 103 H 21 123/68 91 01/31/21 15:56 102 H 01/31/21 11:40 36.7 C 106 H 20 110/67 97 01/31/21 08:01 110 H 01/31/21 07:42 36.9 C 105 H 20 135/74 98 Laboratory Results Short CBC 01/31/21 Range/Units 08:02 WBC 12.95 H (4.8-10.8) K/uL Hgb 10.1 L (14.0-18.0) g/dL Hct 31.0 L (42-52) % Plt Count 440 H (130-400) K/uL BMP 01/31/21 08:02 Sodium 135 L Potassium 3.7 Chloride 104 Carbon Dioxide 23 BUN 43 H Creatinine 1.98 H Glucose 101 H Calcium 8.7 Medications Administered Current Inpatient Medications Hydrocodone Bitart/Acetaminophen (Hydrocodone/Acetaminophen 10/325 Tab) 1 tab PO Q8 [facility] Stop: 02/14/21 01:59 Last Admin: 01/31/21 14:13 Dose: 1 tab Documented by: Albuterol (Albuterol Hfa 8 Gm Inhaler) 2 puffs INH QID PRN PRN Reason: Shortness Of Breath Or Wheezin Stop: 02/23/21 02:16 Apixaban (Apixaban 5 Mg Tablet) 5 mg PO BID [facility] Stop: 02/23/21 02:16 Last Admin: 01/31/21 08:46 Dose: 5 mg Documented by: Aspirin (Aspirin 81 Mg Ectab) 81 mg PO QAM [facility] Stop: 02/23/21 08:59 Last Admin: 01/31/21 08:45 Dose: 81 mg Documented by: Atorvastatin Calcium (Atorvastatin 40 Mg Tab) 40 mg PO QAM [facility] Stop: 02/23/21 08:59 Last Admin: 01/31/21 08:45 Dose: 40 mg Documented by: Baricitinib (Baricitinib 2 Mg Tab) 2 mg PO Q24H [facility] Stop: 02/08/21 13:29 Last Admin: 01/31/21 12:45 Dose: 2 mg Documented by: Dexamethasone (Dexamethasone 1 Mg Tab) 6 mg PO DAILY [facility] Stop: 03/03/21 08:59 Furosemide (Furosemide 20 Mg Tab) 20 mg PO DAILY [facility] Stop: 02/23/21 08:59 Last Admin: 01/31/21 10:06 Dose: 20 mg Documented by: Guaifenesin (Guaifenesin 600 Mg Tabcr) 600 mg PO Q12 [facility] Stop: 02/27/21 07:14 Last Admin: 01/31/21 08:45 Dose: 600 mg Documented by: Dexamethasone 6 mg/ Syringe 1.5 mls @ 1 mls/min IV DAILY [facility] Stop: 02/03/21 08:59 Last Admin: 01/29/21 08:06 Dose: 1 mls/min Documented by: Insulin Aspart (Insulin Aspart 100 Units/Ml 3 Ml Pen) 0 units SC ACHS [facility] Stop: 02/23/21 07:29 Last Admin: 01/31/21 18:10 Dose: 4 units Documented by: Levalbuterol HCl (Levalbuterol Hcl 1.25 Mg/3 Ml Neb) 1.25 mg NEB Q4H PRN PRN Reason: Shortness Of Breath Or Wheezing Stop: 02/23/21 02:16 Lidocaine (Lidocaine 5% 1 Patch) 1 patch TD DAILY PRN PRN Reason: pain Stop: 02/23/21 02:16 Lorazepam (Lorazepam 0.5 Mg Tab) 0.5 mg PO Q8H PRN PRN Reason: Anxiety Stop: 03/02/21 15:57 Metoprolol Tartrate (Metoprolol Tartrate 25 Mg Tab) 25 mg PO BID [facility] Stop: 03/02/21 20:59 Miscellaneous (Remove Lidoderm Patch) 1 ea N/A DAILY@2100 PRN PRN Reason: IF PATCH WAS APPLIED IN AM Stop: 02/23/21 20:59 Nitroglycerin (Nitroglycerin Sl 0.4 Mg/Tab Tab) 0.4 mg SL UD PRN PRN Reason: Chest Pain Stop: 02/23/21 02:16 Pantoprazole Sodium (Pantoprazole 40 Mg Tab) 40 mg PO QAM [facility] Stop: 02/23/21 08:59 Last Admin: 01/31/21 08:45 Dose: 40 mg Documented by: Polyethylene Glycol (Polyethylene (Miralax) 17 Gm Pack) 17 gm PO Q8H [facility] Stop: 03/02/21 15:59 Last Admin: 01/31/21 17:24 Dose: 17 gm Documented by: Sennosides (Senna 8.6 Mg Tab) 8.6 mg PO QAM [facility] Stop: 03/02/21 08:59 Last Admin: 01/31/21 08:45 Dose: 8.6 mg Documented by: Sodium Chloride (Sodium Chloride 0.65% Na Soln 45 Ml ([place])) 2 sprays BRITTANY Q4H [facility] Stop: 03/01/21 18:44 Last Admin: 01/31/21 18:10 Dose: 2 sprays Documented by: Tamsulosin HCl (Tamsulosin Hcl 0.4 Mg Cap) 0.8 mg PO HS [facility] Stop: 02/23/21 20:59 Last Admin: 01/30/21 19:37 Dose: 0.8 mg Documented by: Topiramate (Topiramate 50 Mg Tab) 50 mg PO BID [facility] Stop: 02/23/21 08:59 Last Admin: 01/31/21 08:52 Dose: 50 mg Documented by: Umeclidinium/Vilanterol (Umeclidinium/Vilanterol 62.5/25mcg 7 Puffs/Inhaler) 1 puffs INH DAILY [facility] Stop: 02/23/21 08:59 Last Admin: 01/31/21 08:51 Dose: 1 puffs Documented by: (1) COPD (chronic obstructive pulmonary disease) COPD type: unspecified COPD Qualified Code(s): J44.9 - Chronic obstructive pulmonary disease, unspecified (2) Fall Encounter type: initial encounter Qualified Code(s): W19.XXXA - Unspecified fall, initial encounter
[2021-01-31] MEDS: TAMSULOSIN HCL 0.4 MG CAP PO SCH (19:58)
[2021-01-31] MEDS: METOPROLOL TARTRATE 25 MG TAB PO SCH (20:00)
[2021-02-01] MEDS: SODIUM CHLORIDE 0.65% NA SOLN 45 ML (OCEAN) NAE SCH ×6 (03:25→22:35)
[2021-02-01] MEDS: HYDROcodone/ACETAMINOPHEN 10/325 TAB PO SCH ×3 (06:33→22:35)
[2021-02-01] MEDS: POLYETHYLENE (MIRALAX) 17 GM PACK PO SCH ×2 (08:59→17:20)
[2021-02-01] MEDS: TOPIRAMATE 50 MG TAB PO SCH ×2 (08:59→19:40)
[2021-02-01] MEDS: FUROSEMIDE 20 MG TAB PO SCH (09:00)
[2021-02-01] MEDS: ATORVASTATIN 40 MG TAB PO SCH (09:00)
[2021-02-01] MEDS: guaiFENesin 600 MG TABCR PO SCH ×2 (09:01→19:39)
[2021-02-01] MEDS: PANTOprazole 40 MG TAB PO SCH (09:01)
[2021-02-01] MEDS: ASPIRIN 81 MG ECTAB PO SCH (09:01)
[2021-02-01] MEDS: SENNA 8.6 MG TAB PO SCH (09:01)
[2021-02-01] MEDS: dexAMETHasone 1 MG TAB PO SCH (09:02)
[2021-02-01] MEDS: APIXABAN 5 MG TABLET PO SCH ×2 (09:02→19:39)
[2021-02-01] MEDS: UMECLIDINIUM/VILANTEROL 62.5/25MCG 7 PUFFS/INHALER INH SCH (09:03)
[2021-02-01] MEDS: METOPROLOL TARTRATE 25 MG TAB PO SCH ×2 (09:03→19:41)
[2021-02-01] MEDS: INSULIN ASPART 100 UNITS/ML 3 ML PEN SC SCH ×4 (09:16→21:51)
[2021-02-01] MEDS: BARICITINIB 2 MG TAB PO SCH (13:52)
[2021-02-01] MEDS: TAMSULOSIN HCL 0.4 MG CAP PO SCH (19:41)
--- NOTE | 2021-02-02 00:22 | Hospitalist Progress Note ---
Date of Service February 01, 2021 Assessment & Plan (1) Acute respiratory failure with hypoxia: Plan: Second COVID-19 pneumonia. Completed 5 days of remdesivir and dexamethasone. Held dexamethasone for agitation, improved. Restarted dexamethasone today. Continue baricitinib titration per protocol. CRP continues to decrease. Hypoxia is improved. Patient continues to declined prone. Continue daily oral Lasix. (2) Pneumonia due to COVID-19 virus: Plan: Currently oxygenating 98% on 6 L/min via hi flow green nasal canula, cont plan as above. (3) COPD (chronic obstructive pulmonary disease): Plan: Chronic, stable, no wheezing. (4) CKD (chronic kidney disease), stage III: Plan: Patient is at baseline creatinine. Continue current therapies. Monitor BMP periodically. (5) Fall: Plan: Recurrent falls prior to arrival. Likely 2/2 covid illness. PT/OT recommend return home when medically stable. (6) Hypertension: Plan: chronic, stable, cont current therapy. (7) Diabetes mellitus, type II: Plan: Glucose is at goal. Glucose coverage with NovoLog only at this time. Will add back glargine with addition of steroids this am. (8) Anemia: Plan: appears to be chronic with a baseline Hb 10.3 in April of this year per record review. He is around that baseline now, on apixaban. Normal iron studies, B12 and folate. Continue to follow as outpatient and minimize phlebotomy. (9) Tobacco use: Plan: Patient with intermittent agitation--chewing tobacco. May be related to his agitation level. (10) Chronic back pain: Plan: Chronic back pain on consistent hydrocodone 10/325 at home every 8 hours. He has been getting oxycodone intermittently and this may be causing a relative withdrawal and agitation. We will change oxycodone to hydrocodone with Tylenol and schedule this every 8 hours consistent with his home regimen. (11) Opiate dependence: Plan: Bowel regimen started with scheduled MiraLAX as patient has not had a bowel movement since admission. This was increased to MiraLAX 3 times daily scheduled. Hold for loose stools. (12) DVT prophylaxis: Plan: Apixaban Full Code Dispo-continue hospital stay. Uncertain disposition at this time. Morena Reveles DO [facility] Hospitalist Admission and Anticipated Discharge Date Admission Date: January 23, 2021 Subjective 65-year-old man with obesity and type 2 diabetes as well as COPD and history of tobacco use quitting smoking 2 years ago presented with Covid 19 infection. He is vaccinated x2 doses. He has a chronic cough from his COPD but denied any symptoms on admission. denies SOB or any other symptoms. denies pain, CP constipation resolved today and he feels better oxygen needs are improving--now down to 6LPM Review of Systems Review of Systems: All systems were reviewed and negative except as indicated above. Physical Exam Physical Exam: CONSTITUTIONAL: obese, vitals as above, generally well- appearing, NAD EYES: normal conjunctivae, no scleral icterus ENT: external ear and nose normal, MMM NECK: trachea midline RESPIRATORY: clear bilaterally with diminished breath sounds throughout, no rales or wheezes, slightly increased respiratory effort CARDIOVASCULAR: regular rate and rhythm, S1 and 2 heard without murmurs, gallops or rubs, no JVD, no peripheral edema GASTROINTESTINAL: soft, nontender, ND, no guarding. MUSCULOSKELETAL: strength 5/5 throughout, head is normocephalic and atraumatic, ambulating independently SKIN: warm and dry NEUROLOGIC: CN 2-12 grossly intact, normal cognition, normal speech, no tremor. No gross focal deficits. PSYCHIATRIC: alert cooperative and oriented to person, place and time. Results & Data Results & Data ([facility]) Vital Signs (Past 12 Hours) Vital Signs Temp Pulse Pulse Resp BP Pulse Ox Pulse Ox 02/01/21 22:00 36.8 C 88 20 108/46 L 98 02/01/21 19:00 36.7 C 94 H 20 119/73 96 02/01/21 16:00 108 H 02/01/21 15:22 36.5 C 103 H 22 127/82 90 02/01/21 12:31 91 Medications Administered Current Inpatient Medications Hydrocodone Bitart/Acetaminophen (Hydrocodone/Acetaminophen 10/325 Tab) 1 tab PO Q8 [facility] Stop: 02/14/21 01:59 Last Admin: 02/01/21 22:35 Dose: 1 tab Documented by: Albuterol (Albuterol Hfa 8 Gm Inhaler) 2 puffs INH QID PRN PRN Reason: Shortness Of Breath Or Wheezin Stop: 02/23/21 02:16 Apixaban (Apixaban 5 Mg Tablet) 5 mg PO BID [facility] Stop: 02/23/21 02:16 Last Admin: 02/01/21 19:39 Dose: 5 mg Documented by: Aspirin (Aspirin 81 Mg Ectab) 81 mg PO QAM [facility] Stop: 02/23/21 08:59 Last Admin: 02/01/21 09:01 Dose: 81 mg Documented by: Atorvastatin Calcium (Atorvastatin 40 Mg Tab) 40 mg PO QAM [facility] Stop: 02/23/21 08:59 Last Admin: 02/01/21 09:00 Dose: 40 mg Documented by: Baricitinib (Baricitinib 2 Mg Tab) 2 mg PO Q24H [facility] Stop: 02/08/21 13:29 Last Admin: 02/01/21 13:52 Dose: 2 mg Documented by: Dexamethasone (Dexamethasone 1 Mg Tab) 6 mg PO DAILY [facility] Stop: 03/03/21 08:59 Last Admin: 02/01/21 09:02 Dose: 6 mg Documented by: Furosemide (Furosemide 20 Mg Tab) 20 mg PO DAILY [facility] Stop: 02/23/21 08:59 Last Admin: 02/01/21 09:00 Dose: 20 mg Documented by: Guaifenesin (Guaifenesin 600 Mg Tabcr) 600 mg PO Q12 [facility] Stop: 02/27/21 07:14 Last Admin: 02/01/21 19:39 Dose: 600 mg Documented by: Dexamethasone 6 mg/ Syringe 1.5 mls @ 1 mls/min IV DAILY [facility] Stop: 02/03/21 08:59 Last Admin: 01/29/21 08:06 Dose: 1 mls/min Documented by: Insulin Aspart (Insulin Aspart 100 Units/Ml 3 Ml Pen) 0 units SC ACHS [facility] Stop: 02/23/21 07:29 Last Admin: 02/01/21 21:51 Dose: 8 units Documented by: Levalbuterol HCl (Levalbuterol Hcl 1.25 Mg/3 Ml Neb) 1.25 mg NEB Q4H PRN PRN Reason: Shortness Of Breath Or Wheezing Stop: 02/23/21 02:16 Lidocaine (Lidocaine 5% 1 Patch) 1 patch TD DAILY PRN PRN Reason: pain Stop: 02/23/21 02:16 Lorazepam (Lorazepam 0.5 Mg Tab) 0.5 mg PO Q8H PRN PRN Reason: Anxiety Stop: 03/02/21 15:57 Metoprolol Tartrate (Metoprolol Tartrate 25 Mg Tab) 25 mg PO BID [facility] Stop: 03/02/21 20:59 Last Admin: 02/01/21 19:41 Dose: 25 mg Documented by: Miscellaneous (Remove Lidoderm Patch) 1 ea N/A DAILY@2100 PRN PRN Reason: IF PATCH WAS APPLIED IN AM Stop: 02/23/21 20:59 Nitroglycerin (Nitroglycerin Sl 0.4 Mg/Tab Tab) 0.4 mg SL UD PRN PRN Reason: Chest Pain Stop: 02/23/21 02:16 Pantoprazole Sodium (Pantoprazole 40 Mg Tab) 40 mg PO QAM [facility] Stop: 02/23/21 08:59 Last Admin: 02/01/21 09:01 Dose: 40 mg Documented by: Polyethylene Glycol (Polyethylene (Miralax) 17 Gm Pack) 17 gm PO Q8H [facility] Stop: 03/02/21 15:59 Last Admin: 02/01/21 17:20 Dose: Not Given Documented by: Sennosides (Senna 8.6 Mg Tab) 8.6 mg PO QAM [facility] Stop: 03/02/21 08:59 Last Admin: 02/01/21 09:01 Dose: 8.6 mg Documented by: Sodium Chloride (Sodium Chloride 0.65% Na Soln 45 Ml ([place])) 2 sprays BRITTANY Q4H [facility] Stop: 03/01/21 18:44 Last Admin: 02/01/21 22:35 Dose: 2 sprays Documented by: Tamsulosin HCl (Tamsulosin Hcl 0.4 Mg Cap) 0.8 mg PO HS [facility] Stop: 02/23/21 20:59 Last Admin: 02/01/21 19:41 Dose: 0.8 mg Documented by: Topiramate (Topiramate 50 Mg Tab) 50 mg PO BID [facility] Stop: 02/23/21 08:59 Last Admin: 02/01/21 19:40 Dose: 50 mg Documented by: Umeclidinium/Vilanterol (Umeclidinium/Vilanterol 62.5/25mcg 7 Puffs/Inhaler) 1 puffs INH DAILY [facility] Stop: 02/23/21 08:59 Last Admin: 02/01/21 09:03 Dose: 1 puffs Documented by: (1) COPD (chronic obstructive pulmonary disease) COPD type: unspecified COPD Qualified Code(s): J44.9 - Chronic obstructive pulmonary disease, unspecified (2) Fall Encounter type: initial encounter Qualified Code(s): W19.XXXA - Unspecified fall, initial encounter
[2021-02-02] MEDS: SODIUM CHLORIDE 0.65% NA SOLN 45 ML (OCEAN) NAE SCH ×6 (03:56→23:11)
[2021-02-02] MEDS: HYDROcodone/ACETAMINOPHEN 10/325 TAB PO SCH ×3 (06:17→20:19)
[2021-02-02] MEDS: POLYETHYLENE (MIRALAX) 17 GM PACK PO SCH ×2 (07:23→09:10)
[2021-02-02] MEDS: INSULIN ASPART 100 UNITS/ML 3 ML PEN SC SCH ×4 (08:50→20:44)
[2021-02-02] MEDS: ATORVASTATIN 40 MG TAB PO SCH (09:04)
[2021-02-02] MEDS: ASPIRIN 81 MG ECTAB PO SCH (09:04)
[2021-02-02] MEDS: METOPROLOL TARTRATE 25 MG TAB PO SCH ×2 (09:04→20:20)
[2021-02-02] MEDS: FUROSEMIDE 20 MG TAB PO SCH (09:04)
[2021-02-02] MEDS: PANTOprazole 40 MG TAB PO SCH (09:04)
[2021-02-02] MEDS: SENNA 8.6 MG TAB PO SCH (09:05)
[2021-02-02] MEDS: guaiFENesin 600 MG TABCR PO SCH ×2 (09:05→20:20)
[2021-02-02] MEDS: APIXABAN 5 MG TABLET PO SCH ×2 (09:05→20:19)
[2021-02-02] MEDS: TOPIRAMATE 50 MG TAB PO SCH ×2 (09:05→20:20)
[2021-02-02] MEDS: dexAMETHasone 1 MG TAB PO SCH (09:05)
[2021-02-02] MEDS: UMECLIDINIUM/VILANTEROL 62.5/25MCG 7 PUFFS/INHALER INH SCH (09:06)
[2021-02-02] MEDS: INSULIN GLARGINE SOLOSTAR 100 UNITS/ML 3 ML PEN SC SCH ×2 (09:32→20:44)
[2021-02-02] MEDS: BARICITINIB 2 MG TAB PO SCH (13:22)
--- NOTE | 2021-02-02 16:33 | Hospitalist Progress Note ---
Date of Service February 02, 2021 Assessment & Plan (1) Acute respiratory failure with hypoxia: Plan: Second COVID-19 pneumonia. Completed 5 days of remdesivir and dexamethasone. Held dexamethasone for agitation, improved. Restarted dexamethasone. Continue baricitinib titration per protocol. CRP continues to decrease. Hypoxia is improved. Patient continues to declined prone. Continue daily oral Lasix. (2) Pneumonia due to COVID-19 virus: Plan: Currently oxygenating 90% on 4 L/min via hi flow green nasal canula, cont plan as above. (3) COPD (chronic obstructive pulmonary disease): Plan: Chronic, stable, no wheezing. (4) CKD (chronic kidney disease), stage III: Plan: Patient is at baseline creatinine. Continue current therapies. Monitor BMP periodically. (5) Fall: Plan: Recurrent falls prior to arrival. Likely 2/2 covid illness. PT/OT recommend return home when medically stable. (6) Hypertension: Plan: chronic, stable, cont current therapy. (7) Diabetes mellitus, type II: Plan: Glucose is at goal. Cont basal bolus insulin during this hospital stay (8) Anemia: Plan: appears to be chronic with a baseline Hb 10.3 in April of this year per record review. He is around that baseline now, on apixaban. Normal iron studies, B12 and folate. Continue to follow as outpatient and minimize phlebotomy. (9) Tobacco use: Plan: Patient with intermittent agitation--chewing tobacco. May be related to his agitation level. (10) Chronic back pain: Plan: Chronic back pain on consistent hydrocodone 10/325 at home every 8 hours. He has been getting oxycodone intermittently and this may be causing a relative withdrawal and agitation. We will change oxycodone to hydrocodone with Tylenol and schedule this every 8 hours consistent with his home regimen. (11) Opiate dependence: Plan: Bowel regimen with adjustments. (12) DVT prophylaxis: Plan: Apixaban Full Code Dispo-continue hospital stay. Uncertain disposition at this time. DO [facility] Hospital[facility] Admission and Anticipated Discharge Date Admission Date: January 23, 2021 Subjective 65-year-old man with obesity and type 2 diabetes as well as COPD and history of tobacco use quitting smoking 2 years ago presented with Covid 19 infection. He is vaccinated x2 doses. He has a chronic cough from his COPD but denied any symptoms on admission. denies SOB or any other symptoms. denies pain, CP eager to go home. Review of Systems Review of Systems: All systems were reviewed and negative except as indicated above. Physical Exam Physical Exam: CONSTITUTIONAL: obese, vitals as above, generally well-appearing, NAD EYES: normal conjunctivae, no scleral icterus ENT: external ear and nose normal, MMM NECK: trachea midline RESPIRATORY: bilateral crackles at the bases bilaterally, no rales or wheezes, slightly increased respiratory effort CARDIOVASCULAR: regular rate and rhythm, S1 and 2 heard without murmurs, gallops or rubs, no JVD, no peripheral edema GASTROINTESTINAL: soft, nontender, ND, no guarding. MUSCULOSKELETAL: strength 5/5 throughout, head is normocephalic and atraumatic, ambulating independently SKIN: warm and dry NEUROLOGIC: CN 2-12 grossly intact, normal cognition, normal speech, no tremor. No gross focal deficits. PSYCHIATRIC: alert cooperative and oriented to person, place and time. Results & Data Results & Data ([facility]) Vital Signs (Past 12 Hours) Vital Signs Temp Pulse Pulse Resp BP Pulse Ox Pulse Ox 02/02/21 16:00 87 02/02/21 15:23 36.8 C 85 19 111/74 97 02/02/21 12:01 36.4 C L 73 20 107/59 L 89 L 02/02/21 12:00 92 02/02/21 08:00 88 02/02/21 07:13 36.3 C L 92 H 19 118/76 88 L Medications Administered Current Inpatient Medications Hydrocodone Bitart/Acetaminophen (Hydrocodone/Acetaminophen 10/325 Tab) 1 tab PO Q8 [facility] Stop: 02/14/21 01:59 Last Admin: 02/02/21 13:22 Dose: 1 tab Documented by: Albuterol (Albuterol Hfa 8 Gm Inhaler) 2 puffs INH QID PRN PRN Reason: Shortness Of Breath Or Wheezin Stop: 02/23/21 02:16 Apixaban (Apixaban 5 Mg Tablet) 5 mg PO BID [facility] Stop: 02/23/21 02:16 Last Admin: 02/02/21 09:05 Dose: 5 mg Documented by: Aspirin (Aspirin 81 Mg Ectab) 81 mg PO QAM [facility] Stop: 02/23/21 08:59 Last Admin: 02/02/21 09:04 Dose: 81 mg Documented by: Atorvastatin Calcium (Atorvastatin 40 Mg Tab) 40 mg PO QAM [facility] Stop: 02/23/21 08:59 Last Admin: 02/02/21 09:04 Dose: 40 mg Documented by: Baricitinib (Baricitinib 2 Mg Tab) 2 mg PO Q24H [facility] Stop: 02/08/21 13:29 Last Admin: 02/02/21 13:22 Dose: 2 mg Documented by: Dexamethasone (Dexamethasone 1 Mg Tab) 6 mg PO DAILY [facility] Stop: 03/03/21 08:59 Last Admin: 02/02/21 09:05 Dose: 6 mg Documented by: Furosemide (Furosemide 20 Mg Tab) 20 mg PO DAILY [facility] Stop: 02/23/21 08:59 Last Admin: 02/02/21 09:04 Dose: 20 mg Documented by: Guaifenesin (Guaifenesin 600 Mg Tabcr) 600 mg PO Q12 [facility] Stop: 02/27/21 07:14 Last Admin: 02/02/21 09:05 Dose: 600 mg Documented by: Dexamethasone 6 mg/ Syringe 1.5 mls @ 1 mls/min IV DAILY [facility] Stop: 02/03/21 08:59 Last Admin: 01/29/21 08:06 Dose: 1 mls/min Documented by: Insulin Aspart (Insulin Aspart 100 Units/Ml 3 Ml Pen) 0 units SC ACHS [facility] Stop: 02/23/21 07:29 Last Admin: 02/02/21 13:18 Dose: 2 units Documented by: Insulin Glargine (Insulin Glargine Solostar 100 Units/Ml 3 Ml Pen) 10 units SC BID [facility] Stop: 03/04/21 08:59 Last Admin: 02/02/21 09:32 Dose: 10 units Documented by: Levalbuterol HCl (Levalbuterol Hcl 1.25 Mg/3 Ml Neb) 1.25 mg NEB Q4H PRN PRN Reason: Shortness Of Breath Or Wheezing Stop: 02/23/21 02:16 Lidocaine (Lidocaine 5% 1 Patch) 1 patch TD DAILY PRN PRN Reason: pain Stop: 02/23/21 02:16 Lorazepam (Lorazepam 0.5 Mg Tab) 0.5 mg PO Q8H PRN PRN Reason: Anxiety Stop: 03/02/21 15:57 Metoprolol Tartrate (Metoprolol Tartrate 25 Mg Tab) 25 mg PO BID [facility] Stop: 03/02/21 20:59 Last Admin: 02/02/21 09:04 Dose: 25 mg Documented by: Miscellaneous (Remove Lidoderm Patch) 1 ea N/A DAILY@2100 PRN PRN Reason: IF PATCH WAS APPLIED IN AM Stop: 02/23/21 20:59 Nitroglycerin (Nitroglycerin Sl 0.4 Mg/Tab Tab) 0.4 mg SL UD PRN PRN Reason: Chest Pain Stop: 02/23/21 02:16 Pantoprazole Sodium (Pantoprazole 40 Mg Tab) 40 mg PO QAM [facility] Stop: 02/23/21 08:59 Last Admin: 02/02/21 09:04 Dose: 40 mg Documented by: Polyethylene Glycol (Polyethylene (Miralax) 17 Gm Pack) 17 gm PO DAILY [facility] Stop: 03/04/21 08:59 Last Admin: 02/02/21 09:10 Dose: Not Given Documented by: Sennosides (Senna 8.6 Mg Tab) 8.6 mg PO QAM [facility] Stop: 03/02/21 08:59 Last Admin: 02/02/21 09:05 Dose: 8.6 mg Documented by: Sodium Chloride (Sodium Chloride 0.65% Na Soln 45 Ml ([place])) 2 sprays BRITTANY Q4H [facility] Stop: 03/01/21 18:44 Last Admin: 02/02/21 14:19 Dose: 2 sprays Documented by: Tamsulosin HCl (Tamsulosin Hcl 0.4 Mg Cap) 0.8 mg PO HS [facility] Stop: 02/23/21 20:59 Last Admin: 02/01/21 19:41 Dose: 0.8 mg Documented by: Topiramate (Topiramate 50 Mg Tab) 50 mg PO BID [facility] Stop: 02/23/21 08:59 Last Admin: 02/02/21 09:05 Dose: 50 mg Documented by: Umeclidinium/Vilanterol (Umeclidinium/Vilanterol 62.5/25mcg 7 Puffs/Inhaler) 1 puffs INH DAILY [facility] Stop: 02/23/21 08:59 Last Admin: 02/02/21 09:06 Dose: 1 puffs Documented by: (1) COPD (chronic obstructive pulmonary disease) COPD type: unspecified COPD Qualified Code(s): J44.9 - Chronic obstructive pulmonary disease, unspecified (2) Fall Encounter type: initial encounter Qualified Code(s): W19.XXXA - Unspecified fall, initial encounter
[2021-02-02] MEDS: TAMSULOSIN HCL 0.4 MG CAP PO SCH (20:20)
[2021-02-03] MEDS: SODIUM CHLORIDE 0.65% NA SOLN 45 ML (OCEAN) NAE SCH ×6 (03:50→22:31)
[2021-02-03] MEDS: HYDROcodone/ACETAMINOPHEN 10/325 TAB PO SCH ×3 (05:50→20:37)
[2021-02-03 08:11] LABS: Hematocrit (blood only) 29.4 % (42-52); Hemoglobin 9.5 g/dL (14.0-18.0); Mean Corpuscular Hemoglobin 32.1 pg (25-34); Mean Corpuscular Hgb Conc 32.3 g/dL (32-36); Mean Corpuscular Volume 99.3 fL (80-100); Mean Platelet Volume 9.3 fL (7.4-10.4); Platelet Count 451 K/uL (130-400); RDW Coefficient of Variation 13.1 % (11.5-14.5); RDW Standard Deviation 47.2 fL (36.4-46.3); Red Blood Count 2.96 M/uL (4.7-6.1); White Blood Count 15.43 K/uL (4.8-10.8)
[2021-02-03 08:30] LABS: BUN Creatinine Ratio 19.2 (10-20); Calcium 8.4 mg/dl (8.5-10.1); Creatinine Clr Calc Pharmacy 36.7 ml/min; Est GFR (African American) 41.4 ml/min; Est GFR (Non-African American) 35.7 ml/min; Potassium 3.5 mmol/L (3.5-5.1)
[2021-02-03 08:31] LABS: C Reactive Protein 6.03 mg/dl (0-0.29)
[2021-02-03] MEDS: METOPROLOL TARTRATE 25 MG TAB PO SCH ×2 (09:07→20:37)
[2021-02-03] MEDS: guaiFENesin 600 MG TABCR PO SCH ×2 (09:07→20:34)
[2021-02-03] MEDS: APIXABAN 5 MG TABLET PO SCH ×2 (09:07→20:35)
[2021-02-03] MEDS: TOPIRAMATE 50 MG TAB PO SCH ×2 (09:08→20:36)
[2021-02-03] MEDS: PANTOprazole 40 MG TAB PO SCH (09:08)
[2021-02-03] MEDS: ASPIRIN 81 MG ECTAB PO SCH (09:08)
[2021-02-03] MEDS: dexAMETHasone 1 MG TAB PO SCH (09:08)
[2021-02-03] MEDS: SENNA 8.6 MG TAB PO SCH (09:08)
[2021-02-03] MEDS: FUROSEMIDE 20 MG TAB PO SCH (09:08)
[2021-02-03] MEDS: ATORVASTATIN 40 MG TAB PO SCH (09:09)
[2021-02-03] MEDS: POLYETHYLENE (MIRALAX) 17 GM PACK PO SCH (09:09)
[2021-02-03] MEDS: UMECLIDINIUM/VILANTEROL 62.5/25MCG 7 PUFFS/INHALER INH SCH (09:09)
[2021-02-03] MEDS: INSULIN ASPART 100 UNITS/ML 3 ML PEN SC SCH ×4 (09:13→20:52)
[2021-02-03] MEDS: INSULIN GLARGINE SOLOSTAR 100 UNITS/ML 3 ML PEN SC SCH ×2 (09:14→20:52)
[2021-02-03] MEDS: BARICITINIB 2 MG TAB PO SCH (13:26)
--- NOTE | 2021-02-03 19:55 | Hospitalist Progress Note ---
Date of Service February 03, 2021 Assessment & Plan (1) Acute respiratory failure with hypoxia: Plan: Second COVID-19 pneumonia. Completed 5 days of remdesivir and dexamethasone. Held dexamethasone for agitation, improved. Restarted dexamethasone after two days. Continue baricitinib titration per protocol. CRP continues to decrease. Hypoxia is improved. Patient continues to decline to prone. Continue daily oral Lasix. (2) Pneumonia due to COVID-19 virus: Plan: Currently oxygenating 91% on 5 L/min via hi flow green nasal canula, cont plan as above. (3) COPD (chronic obstructive pulmonary disease): Plan: Chronic, stable, no wheezing. (4) CKD (chronic kidney disease), stage III: Plan: Patient is at baseline creatinine. Continue current therapies. Monitor BMP periodically. (5) Fall: Plan: Recurrent falls prior to arrival. Likely 2/2 covid illness. PT/OT recommend return home when medically stable. (6) Hypertension: Plan: chronic, stable, cont current therapy. (7) Diabetes mellitus, type II: Plan: Glucose is at goal. Cont basal bolus insulin during this hospital stay (8) Anemia: Plan: appears to be chronic with a baseline Hb 10.3 in April of this year per record randee prieto. He is around that baseline now, on apixaban. Normal iron studies, B12 and folate. Continue to follow as outpatient and minimize phlebotomy. (9) Tobacco use: Plan: Patient with intermittent agitation--chewing tobacco. May be related to his agitation level. (10) Chronic back pain: Plan: Chronic back pain on consistent hydrocodone 10/325 at home every 8 hours. He has been getting oxycodone intermittently and this may be causing a relative withdrawal and agitation. We will change oxycodone to hydrocodone with Tylenol and schedule this every 8 hours consistent with his home regimen. (11) Opiate dependence: Plan: Bowel regimen with adjustments. (12) DVT prophylaxis: Plan: Apixaban Full Code Dispo-continue hospital stay. Uncertain disposition at this time. [facility] Admission and Anticipated Discharge Date Admission Date: January 23, 2021 Subjective 65-year-old man with obesity and type 2 diabetes as well as COPD and history of tobacco use quitting smoking 2 years ago presented with Covid 19 infection. He is vaccinated x2 doses. He has a chronic cough from his COPD but denied any symptoms on admission. denies SOB or any other symptoms. denies pain, CP eager to go home. We discussed the importance of oxygen for the body and roughly what level he would need to be on prior to discharge. Review of Systems Review of Systems: All systems were reviewed and negative except as indicated above. Physical Exam Physical Exam: CONSTITUTIONAL: obese, vitals as above, generally well- appearing, NAD EYES: normal conjunctivae, no scleral icterus ENT: external ear and nose normal, MMM NECK: trachea midline RESPIRATORY: CTA bilaterally, no rales or wheezes, normal respiratory effort CARDIOVASCULAR: regular rate and rhythm, S1 and 2 heard without murmurs, gallops or rubs, no JVD, no peripheral edema GASTROINTESTINAL: soft, nontender, ND, no guarding. MUSCULOSKELETAL: strength 5/5 throughout, head is normocephalic and atraumatic, ambulating independently SKIN: warm and dry NEUROLOGIC: CN 2-12 grossly intact, normal cognition, normal speech, no tremor. No gross focal deficits. PSYCHIATRIC: alert cooperative and oriented to person, place and time. Results & Data Results & Data ([facility]) Vital Signs (Past 12 Hours) Vital Signs Temp Pulse Pulse Resp BP BP Pulse Ox 02/03/21 19:32 36.8 C 97 H 18 129/80 98 02/03/21 16:00 83 02/03/21 15:24 36.5 C 92 H 19 110/86 94 02/03/21 12:00 02/03/21 11:53 36.8 C 84 18 111/70 94 02/03/21 08:00 84 Pulse Ox 02/03/21 19:32 02/03/21 16:00 02/03/21 15:24 02/03/21 12:00 95 02/03/21 11:53 02/03/21 08:00 Laboratory Results Short CBC 02/03/21 Range/Units 07:18 WBC 15.43 H (4.8-10.8) K/uL Hgb 9.5 L (14.0-18.0) g/dL Hct 29.4 L (42-52) % Plt Count 451 H (130-400) K/uL BMP 02/03/21 07:18 Sodium 137 Potassium 3.5 Chloride 107 Carbon Dioxide 23 BUN 37 H Creatinine 1.92 H Glucose 153 H Calcium 8.4 L Medications Administered Current Inpatient Medications Hydrocodone Bitart/Acetaminophen (Hydrocodone/Acetaminophen 10/325 Tab) 1 tab PO Q8 [facility] Stop: 02/14/21 01:59 Last Admin: 02/03/21 13:26 Dose: 1 tab Documented by: Albuterol (Albuterol Hfa 8 Gm Inhaler) 2 puffs INH QID PRN PRN Reason: Shortness Of Breath Or Wheezin Stop: 02/23/21 02:16 Apixaban (Apixaban 5 Mg Tablet) 5 mg PO BID [facility] Stop: 02/23/21 02:16 Last Admin: 02/03/21 09:07 Dose: 5 mg Documented by: Aspirin (Aspirin 81 Mg Ectab) 81 mg PO QAM [facility] Stop: 02/23/21 08:59 Last Admin: 02/03/21 09:08 Dose: 81 mg Documented by: Atorvastatin Calcium (Atorvastatin 40 Mg Tab) 40 mg PO QAM [facility] Stop: 02/23/21 08:59 Last Admin: 02/03/21 09:09 Dose: 40 mg Documented by: Baricitinib (Baricitinib 2 Mg Tab) 2 mg PO Q24H [facility] Stop: 02/08/21 13:29 Last Admin: 02/03/21 13:26 Dose: 2 mg Documented by: Dexamethasone (Dexamethasone 1 Mg Tab) 6 mg PO DAILY [facility] Stop: 03/03/21 08:59 Last Admin: 02/03/21 09:08 Dose: 6 mg Documented by: Furosemide (Furosemide 20 Mg Tab) 20 mg PO DAILY [facility] Stop: 02/23/21 08:59 Last Admin: 02/03/21 09:08 Dose: 20 mg Documented by: Guaifenesin (Guaifenesin 600 Mg Tabcr) 600 mg PO Q12 [facility] Stop: 02/27/21 07:14 Last Admin: 02/03/21 09:07 Dose: 600 mg Documented by: Insulin Aspart (Insulin Aspart 100 Units/Ml 3 Ml Pen) 0 units SC ACHS [facility] Stop: 02/23/21 07:29 Last Admin: 02/03/21 17:54 Dose: 9 units Documented by: Insulin Glargine (Insulin Glargine Solostar 100 Units/Ml 3 Ml Pen) 10 units SC BID [facility] Stop: 03/04/21 08:59 Last Admin: 02/03/21 09:14 Dose: 10 units Documented by: Levalbuterol HCl (Levalbuterol Hcl 1.25 Mg/3 Ml Neb) 1.25 mg NEB Q4H PRN PRN Reason: Shortness Of Breath Or Wheezing Stop: 02/23/21 02:16 Lidocaine (Lidocaine 5% 1 Patch) 1 patch TD DAILY PRN PRN Reason: pain Stop: 02/23/21 02:16 Lorazepam (Lorazepam 0.5 Mg Tab) 0.5 mg PO Q8H PRN PRN Reason: Anxiety Stop: 03/02/21 15:57 Metoprolol Tartrate (Metoprolol Tartrate 25 Mg Tab) 25 mg PO BID [facility] Stop: 03/02/21 20:59 Last Admin: 02/03/21 09:07 Dose: 25 mg Documented by: Miscellaneous (Remove Lidoderm Patch) 1 ea N/A DAILY@2100 PRN PRN Reason: IF PATCH WAS APPLIED IN AM Stop: 02/23/21 20:59 Nitroglycerin (Nitroglycerin Sl 0.4 Mg/Tab Tab) 0.4 mg SL UD PRN PRN Reason: Chest Pain Stop: 02/23/21 02:16 Pantoprazole Sodium (Pantoprazole 40 Mg Tab) 40 mg PO QAM [facility] Stop: 02/23/21 08:59 Last Admin: 02/03/21 09:08 Dose: 40 mg Documented by: Polyethylene Glycol (Polyethylene (Miralax) 17 Gm Pack) 17 gm PO DAILY [facility] Stop: 03/04/21 08:59 Last Admin: 02/03/21 09:09 Dose: Not Given Documented by: Sennosides (Senna 8.6 Mg Tab) 8.6 mg PO QAM [facility] Stop: 03/02/21 08:59 Last Admin: 02/03/21 09:08 Dose: 8.6 mg Documented by: Sodium Chloride (Sodium Chloride 0.65% Na Soln 45 Ml ([place])) 2 sprays BRITTANY Q4H [facility] Stop: 03/01/21 18:44 Last Admin: 02/03/21 14:23 Dose: 2 sprays Documented by: Tamsulosin HCl (Tamsulosin Hcl 0.4 Mg Cap) 0.8 mg PO HS [facility] Stop: 02/23/21 20:59 Last Admin: 02/02/21 20:20 Dose: 0.8 mg Documented by: Topiramate (Topiramate 50 Mg Tab) 50 mg PO BID [facility] Stop: 02/23/21 08:59 Last Admin: 02/03/21 09:08 Dose: 50 mg Documented by: Umeclidinium/Vilanterol (Umeclidinium/Vilanterol 62.5/25mcg 7 Puffs/Inhaler) 1 puffs INH DAILY [facility] Stop: 02/23/21 08:59 Last Admin: 02/03/21 09:09 Dose: 1 puffs Documented by: (1) COPD (chronic obstructive pulmonary disease) COPD type: unspecified COPD Qualified Code(s): J44.9 - Chronic obstructive pulmonary disease, unspecified (2) Fall Encounter type: initial encounter Qualified Code(s): W19.XXXA - Unspecified fall, initial encounter
[2021-02-03] MEDS: TAMSULOSIN HCL 0.4 MG CAP PO SCH (20:36)
[2021-02-04] MEDS: SODIUM CHLORIDE 0.65% NA SOLN 45 ML (OCEAN) NAE SCH ×6 (01:54→22:40)
[2021-02-04] MEDS: HYDROcodone/ACETAMINOPHEN 10/325 TAB PO SCH ×3 (05:27→22:27)
[2021-02-04 08:34] LABS: Creatinine Clr Calc Pharmacy 37.6 ml/min; Est GFR (African American) 42.5 ml/min; Est GFR (Non-African American) 36.7 ml/min
[2021-02-04] MEDS ORDERED: INSULIN ASPART PER UNIT ONE (08:53)
[2021-02-04] MEDS: PANTOprazole 40 MG TAB PO SCH (09:00)
[2021-02-04] MEDS: FUROSEMIDE 20 MG TAB PO SCH (09:00)
[2021-02-04] MEDS: SENNA 8.6 MG TAB PO SCH (09:00)
[2021-02-04] MEDS: dexAMETHasone 1 MG TAB PO SCH (09:00)
[2021-02-04] MEDS: METOPROLOL TARTRATE 25 MG TAB PO SCH ×2 (09:01→22:32)
[2021-02-04] MEDS: ATORVASTATIN 40 MG TAB PO SCH (09:01)
[2021-02-04] MEDS: TOPIRAMATE 50 MG TAB PO SCH ×2 (09:01→22:30)
[2021-02-04] MEDS: APIXABAN 5 MG TABLET PO SCH ×2 (09:02→22:30)
[2021-02-04] MEDS: guaiFENesin 600 MG TABCR PO SCH ×2 (09:02→22:29)
[2021-02-04] MEDS: ASPIRIN 81 MG ECTAB PO SCH (09:03)
[2021-02-04] MEDS: POLYETHYLENE (MIRALAX) 17 GM PACK PO SCH (09:08)
[2021-02-04] MEDS: UMECLIDINIUM/VILANTEROL 62.5/25MCG 7 PUFFS/INHALER INH SCH (09:08)
[2021-02-04] MEDS: INSULIN ASPART 100 UNITS/ML 3 ML PEN SC SCH ×4 (09:25→22:40)
[2021-02-04] MEDS: INSULIN GLARGINE SOLOSTAR 100 UNITS/ML 3 ML PEN SC SCH ×2 (09:26→22:40)
[2021-02-04] MEDS: BARICITINIB 2 MG TAB PO SCH (14:18)
[2021-02-04] MEDS ORDERED: ALBUT/IPRATROP 3MG/0.5MG NEB 3 ML VIAL NEB ONE (15:29)
--- NOTE | 2021-02-04 15:33 | Hospitalist Progress Note ---
Date of Service February 04, 2021 Assessment & Plan (1) Acute respiratory failure with hypoxia: Plan: Second COVID-19 pneumonia. Completed 5 days of remdesivir and dexamethasone. Held dexamethasone for agitation, improved. Restarted dexamethasone after two days. Continue baricitinib titration per protocol. CRP continues to decrease. Hypoxia is improved. Patient continues to decline to prone. Continue daily oral Lasix. (2) Pneumonia due to COVID-19 virus: Plan: Currently oxygenating 91% on 5 L/min via hi flow green nasal canula, cont plan as above. (3) COPD (chronic obstructive pulmonary disease): Plan: Chronic, stable, no wheezing. (4) CKD (chronic kidney disease), stage III: Plan: Patient is at baseline creatinine. Continue current therapies. Monitor BMP periodically. (5) Fall: Plan: Recurrent falls prior to arrival. Likely 2/2 covid illness. PT/OT recommend return home when medically stable. (6) Hypertension: Plan: chronic, stable, cont current therapy. (7) Diabetes mellitus, type II: Plan: Glucose is at goal. Cont basal bolus insulin during this hospital stay (8) Anemia: Plan: appears to be chronic with a baseline Hb 10.3 in April of this year per record review. He is around that baseline now, on apixaban. Normal iron studies, B12 and folate. Continue to follow as outpatient and minimize phlebotomy. (9) Tobacco use: Plan: Patient with intermittent agitation--chewing tobacco. May be related to his agitation level. (10) Chronic back pain: Plan: Chronic back pain on consistent hydrocodone 10/325 at home every 8 hours. He has been getting oxycodone intermittently and this may be causing a relative withdrawal and agitation. We will change oxycodone to hydrocodone with Tylenol and schedule this every 8 hours consistent with his home regimen. (11) Opiate dependence: Plan: Bowel regimen with adjustments. (12) DVT prophylaxis: Plan: Apixaban Full Code Dispo-continue hospital stay. Uncertain disposition at this time. [facility] Admission and Anticipated Discharge Date Admission Date: January 23, 2021 Subjective 65-year-old man with obesity and type 2 diabetes as well as COPD and history of tobacco use quitting smoking 2 years ago presented with Covid 19 infection. He is vaccinated x2 doses. He has a chronic cough from his COPD but denied any symptoms on admission. denies SOB or any other symptoms. denies pain, CP eager to go home. We discussed the importance of oxygen for the body and roughly what level he would need to be on prior to discharge...again. He states he misses his recliner. Doesn't understand why "this stuff won't just break loose" He wants to try a breathing treatment which was ordered. Review of Systems Review of Systems: All systems were reviewed and negative except as indicated above. Physical Exam Physical Exam: CONSTITUTIONAL: obese, vitals as above, generally well- appearing, NAD EYES: normal conjunctivae, no scleral icterus ENT: external ear and nose normal, MMM NECK: trachea midline RESPIRATORY: CTA bilaterally, no rales or wheezes, normal respiratory effort CARDIOVASCULAR: regular rate and rhythm, S1 and 2 heard without murmurs, gallops or rubs, no JVD, no peripheral edema GASTROINTESTINAL: soft, nontender, ND, no guarding. MUSCULOSKELETAL: strength 5/5 throughout, head is normocephalic and atraumatic, ambulating independently SKIN: warm and dry NEUROLOGIC: CN 2-12 grossly intact, normal cognition, normal speech, no tremor. No gross focal deficits. PSYCHIATRIC: alert cooperative and oriented to person, place and time. Results & Data Results & Data ([facility]) Vital Signs (Past 12 Hours) Vital Signs Temp Pulse Pulse Resp BP BP Pulse Ox 02/04/21 14:20 93 H 19 123/80 91 02/04/21 13:52 02/04/21 11:53 36.6 C 81 21 118/63 95 02/04/21 09:11 02/04/21 07:41 36.4 C L 81 20 115/71 91 02/04/21 07:37 79 87 L Pulse Ox 02/04/21 14:20 02/04/21 13:52 88 L 02/04/21 11:53 02/04/21 09:11 78 L 02/04/21 07:41 02/04/21 07:37 Laboratory Results BMP 02/04/21 07:14 Creatinine 1.88 H Medications Administered Current Inpatient Medications Hydrocodone Bitart/Acetaminophen (Hydrocodone/Acetaminophen 10/325 Tab) 1 tab PO Q8 [facility] Stop: 02/14/21 01:59 Last Admin: 02/04/21 14:18 Dose: 1 tab Documented by: Albuterol (Albuterol Hfa 8 Gm Inhaler) 2 puffs INH QID PRN PRN Reason: Shortness Of Breath Or Wheezin Stop: 02/23/21 02:16 Apixaban (Apixaban 5 Mg Tablet) 5 mg PO BID [facility] Stop: 02/23/21 02:16 Last Admin: 02/04/21 09:02 Dose: 5 mg Documented by: Aspirin (Aspirin 81 Mg Ectab) 81 mg PO QAM [facility] Stop: 02/23/21 08:59 Last Admin: 02/04/21 09:03 Dose: 81 mg Documented by: Atorvastatin Calcium (Atorvastatin 40 Mg Tab) 40 mg PO QAM [facility] Stop: 02/23/21 08:59 Last Admin: 02/04/21 09:01 Dose: 40 mg Documented by: Baricitinib (Baricitinib 2 Mg Tab) 2 mg PO Q24H [facility] Stop: 02/08/21 13:29 Last Admin: 02/04/21 14:18 Dose: 2 mg Documented by: Furosemide (Furosemide 20 Mg Tab) 20 mg PO DAILY [facility] Stop: 02/23/21 08:59 Last Admin: 02/04/21 09:00 Dose: 20 mg Documented by: Guaifenesin (Guaifenesin 600 Mg Tabcr) 600 mg PO Q12 [facility] Stop: 02/27/21 07:14 Last Admin: 02/04/21 09:02 Dose: 600 mg Documented by: Insulin Aspart (Insulin Aspart 100 Units/Ml 3 Ml Pen) 0 units SC ACHS [facility] Stop: 02/23/21 07:29 Last Admin: 02/04/21 12:53 Dose: 3 units Documented by: Insulin Glargine (Insulin Glargine Solostar 100 Units/Ml 3 Ml Pen) 10 units SC BID [facility] Stop: 03/04/21 08:59 Last Admin: 02/04/21 09:26 Dose: 10 units Documented by: Levalbuterol HCl (Levalbuterol Hcl 1.25 Mg/3 Ml Neb) 1.25 mg NEB Q4H PRN PRN Reason: Shortness Of Breath Or Wheezing Stop: 02/23/21 02:16 Lidocaine (Lidocaine 5% 1 Patch) 1 patch TD DAILY PRN PRN Reason: pain Stop: 02/23/21 02:16 Lorazepam (Lorazepam 0.5 Mg Tab) 0.5 mg PO Q8H PRN PRN Reason: Anxiety Stop: 03/02/21 15:57 Metoprolol Tartrate (Metoprolol Tartrate 25 Mg Tab) 25 mg PO BID [facility] Stop: 03/02/21 20:59 Last Admin: 02/04/21 09:01 Dose: 25 mg Documented by: Miscellaneous (Remove Lidoderm Patch) 1 ea N/A DAILY@2100 PRN PRN Reason: IF PATCH WAS APPLIED IN AM Stop: 02/23/21 20:59 Nitroglycerin (Nitroglycerin Sl 0.4 Mg/Tab Tab) 0.4 mg SL UD PRN PRN Reason: Chest Pain Stop: 02/23/21 02:16 Pantoprazole Sodium (Pantoprazole 40 Mg Tab) 40 mg PO QAM [facility] Stop: 02/23/21 08:59 Last Admin: 02/04/21 09:00 Dose: 40 mg Documented by: Polyethylene Glycol (Polyethylene (Miralax) 17 Gm Pack) 17 gm PO DAILY [facility] Stop: 03/04/21 08:59 Last Admin: 02/04/21 09:08 Dose: 17 gm Documented by: Sennosides (Senna 8.6 Mg Tab) 8.6 mg PO QAM [facility] Stop: 03/02/21 08:59 Last Admin: 02/04/21 09:00 Dose: 8.6 mg Documented by: Sodium Chloride (Sodium Chloride 0.65% Na Soln 45 Ml ([place])) 2 sprays BRITTANY Q4H [facility] Stop: 03/01/21 18:44 Last Admin: 02/04/21 14:27 Dose: 2 sprays Documented by: Tamsulosin HCl (Tamsulosin Hcl 0.4 Mg Cap) 0.8 mg PO HS [facility] Stop: 02/23/21 20:59 Last Admin: 02/03/21 20:36 Dose: 0.8 mg Documented by: Topiramate (Topiramate 50 Mg Tab) 50 mg PO BID [facility] Stop: 02/23/21 08:59 Last Admin: 02/04/21 09:01 Dose: 50 mg Documented by: Umeclidinium/Vilanterol (Umeclidinium/Vilanterol 62.5/25mcg 7 Puffs/Inhaler) 1 puffs INH DAILY [facility] Stop: 02/23/21 08:59 Last Admin: 02/04/21 09:08 Dose: 1 puffs Documented by: (1) COPD (chronic obstructive pulmonary disease) COPD type: unspecified COPD Qualified Code(s): J44.9 - Chronic obstructive pulmonary disease, unspecified (2) Fall Encounter type: initial encounter Qualified Code(s): W19.XXXA - Unspecified fall, initial encounter
[2021-02-05] MEDS: TAMSULOSIN HCL 0.4 MG CAP PO SCH ×2 (00:33→21:54)
[2021-02-05] MEDS: SODIUM CHLORIDE 0.65% NA SOLN 45 ML (OCEAN) NAE SCH ×6 (02:45→21:55)
[2021-02-05] MEDS: HYDROcodone/ACETAMINOPHEN 10/325 TAB PO SCH ×3 (06:07→21:54)
[2021-02-05 06:24] LABS: Hematocrit (blood only) 28.6 % (42-52); Hemoglobin 8.9 g/dL (14.0-18.0); Mean Corpuscular Hemoglobin 31.9 pg (25-34); Mean Corpuscular Hgb Conc 31.1 g/dL (32-36); Mean Corpuscular Volume 102.5 fL (80-100); Mean Platelet Volume 9.2 fL (7.4-10.4); Platelet Count 484 K/uL (130-400); RDW Coefficient of Variation 13.1 % (11.5-14.5); RDW Standard Deviation 48.8 fL (36.4-46.3); Red Blood Count 2.79 M/uL (4.7-6.1); White Blood Count 11.98 K/uL (4.8-10.8)
[2021-02-05 06:52] LABS: BUN Creatinine Ratio 20.9 (10-20); Calcium 8.8 mg/dl (8.5-10.1); Creatinine Clr Calc Pharmacy 43.5 ml/min; Est GFR (African American) 50.9 ml/min; Est GFR (Non-African American) 43.9 ml/min; Potassium 3.7 mmol/L (3.5-5.1)
[2021-02-05 06:54] LABS: C Reactive Protein 5.22 mg/dl (0-0.29)
[2021-02-05] MEDS ORDERED: INSULIN ASPART PER UNIT ONE (08:44)
[2021-02-05] MEDS: ATORVASTATIN 40 MG TAB PO SCH (08:49)
[2021-02-05] MEDS: TOPIRAMATE 50 MG TAB PO SCH ×2 (08:49→21:53)
[2021-02-05] MEDS: ASPIRIN 81 MG ECTAB PO SCH (08:49)
[2021-02-05] MEDS: SENNA 8.6 MG TAB PO SCH (08:50)
[2021-02-05] MEDS: PANTOprazole 40 MG TAB PO SCH (08:50)
[2021-02-05] MEDS: METOPROLOL TARTRATE 25 MG TAB PO SCH ×2 (08:51→21:54)
[2021-02-05] MEDS: POLYETHYLENE (MIRALAX) 17 GM PACK PO SCH (08:51)
[2021-02-05] MEDS: guaiFENesin 600 MG TABCR PO SCH ×2 (08:51→21:54)
[2021-02-05] MEDS: APIXABAN 5 MG TABLET PO SCH ×2 (08:51→21:53)
[2021-02-05] MEDS: FUROSEMIDE 20 MG TAB PO SCH (08:51)
[2021-02-05] MEDS: UMECLIDINIUM/VILANTEROL 62.5/25MCG 7 PUFFS/INHALER INH SCH (08:55)
[2021-02-05] MEDS: INSULIN ASPART 100 UNITS/ML 3 ML PEN SC SCH ×4 (10:35→21:55)
[2021-02-05] MEDS: INSULIN GLARGINE SOLOSTAR 100 UNITS/ML 3 ML PEN SC SCH ×2 (10:36→21:55)
--- NOTE | 2021-02-05 11:10 | XRay Report ---
XR chest 1V portable CLINICAL HISTORY: Reassess pneumonia TECHNIQUE: Single frontal radiograph of the chest was obtained. Comparison: Comparison is made to chest one view 01/27/2021 FINDINGS: No lines and tubes are seen. The cardiomediastinal silhouette is normal. Multifocal airspace opacitie s, slightly more prominent than prior exam. No evidence of pleural effusion or pneumothorax. IMPRESSION: Multifocal airspace opacities, slightly more prior than the prior exam. ACT 112: Negative or not required by law. Electronically signed by: Tony Dutta M.D. 02/05/2021 11:09 AM
--- NOTE | 2021-02-05 11:26 | Hospitalist Progress Note ---
Date of Service February 05, 2021 Assessment & Plan (1) Acute respiratory failure with hypoxia: Plan: Secondary to COVID-19 pneumonia. Completed 5 days of remdesivir and dexamethasone. Dexamethasone was held briefly for agitation, improved and restarted after two days. Currently on baricitinib. CRP continues to decrease. CXR today still shows multifocal airspace opacities. However, patient does not usually have much symptoms for the level of hypoxia so metimes. I think that because of patient's COPD, he is used to oxygen running lower than for a normal person. Ox sat goal of 90% is acceptable Patient continues to decline to prone. Continue daily oral Lasix. (2) Pneumonia due to COVID-19 virus: Plan: As above (3) COPD (chronic obstructive pulmonary disease): Plan: Chronic, stable, no wheezing. (4) CKD (chronic kidney disease), stage III: Plan: Patient is at baseline creatinine. Continue current therapies. Monitor (5) Fall: Plan: Recurrent falls prior to arrival. Likely 2/2 covid illness. PT/OT recommend return home when medically stable. (6) Hypertension: Plan: chronic, stable, cont current therapy. (7) Diabetes mellitus, type II: Plan: Glucose is at goal. Cont basal bolus insulin during this hospital stay (8) Anemia: Plan: appears to be chronic with a baseline Hb 10.3 in April of this year per record review. He is around that baseline now, on apixaban. Normal iron studies, B12 and folate. Continue to follow as outpatient and minimize phlebotomy. (9) Tobacco use: Plan: Patient with intermittent agitation--chewing tobacco. May be related to his agitation level. (10) Chronic back pain: Plan: Chronic back pain on consistent hydrocodone 10/325 at home every 8 hours. He has been getting oxycodone intermittently and this may be causing a relative withdrawal and agitation. We will change oxycodone to hydrocodone with Tylenol and schedule this every 8 hours consistent with his home regimen. (11) Opiate dependence: Plan: Bowel regimen with adjustments. (12) DVT prophylaxis: Plan: Apixaban Full Code Dispo-continue hospital stay. Admission and Anticipated Discharge Date Admission Date: January 23, 2021 Subjective Patient seen and examined this morning. Reports cough, mostly dry. Reports chronic exertional dyspnea. Denies any chest pain, palpitation Denies any fevers, chills Denies any nausea, vomiting, diarrhea, abdominal pain Denies any anorexia Denies dysuria, frequency, urgency or hematuria Physical Exam Constitutional: + well hydrated; no acute distress Eyes: PERRL, conjunctivae normal, anicteric sclerae ENMT: external ear and nose normal, oropharynx normal Respiratory: Normal respiratory effort, on nasal cannula 5 L/min, chest is clear to auscultation without crackles Cardiovascular: RRR, S1-S2 Gastrointestinal (Abdomen): normal bowel sounds, soft, nontender, no hepatosplenomegaly Musculoskeletal: no cyanosis or clubbing, extremities motor strength 5/5 Neurologic: PERRL, EOMI, accommodation nl, no face palsy, no dysarthria Psychiatric: A+Ox3, euthymic affect Results & Data Results & Data ([facility]) Vital Signs (Past 12 Hours) Vital Signs Temp Pulse Resp BP BP Pulse Ox 02/05/21 08:04 36.5 C 94 H 20 122/73 93 02/05/21 03:36 36.7 C 87 19 129/71 93 02/04/21 23:23 36.7 C 100 H 18 143/87 H 90 Laboratory Results Abnormal lab results 02/04/21 02/04/21 02/04/21 Range/Units 11:51 16:45 20:07 WBC (4.8-10.8) K/uL RBC (4.7-6.1) M/uL Hgb (14.0-18.0) g/dL Hct (42-52) % MCV (80-100) fL MCHC (32-36) g/dL RDW Std Deviation (36.4-46.3) fL Plt Count (130-400) K/uL Chloride (98-107) mmol/L BUN (7-18) mg/dl Creatinine (0.6-1.4) mg/dl BUN/Creatinine Ratio (10-20) POC Glucose 110 H 192 H 256 H (70-99) mg/dl C-Reactive Protein (0-0.29) mg/dl 02/05/21 02/05/21 02/05/21 Range/Units 05:27 05:27 07:55 WBC 11.98 H (4.8-10.8) K/uL RBC 2.79 L (4.7-6.1) M/uL Hgb 8.9 L (14.0-18.0) g/dL Hct 28.6 L (42-52) % MCV 102.5 H (80-100) fL MCHC 31.1 L (32-36) g/dL RDW Std Deviation 48.8 H (36.4-46.3) fL Plt Count 484 H (130-400) K/uL Chloride 109 H (98-107) mmol/L BUN 34 H (7-18) mg/dl Creatinine 1.62 H (0.6-1.4) mg/dl BUN/Creatinine Ratio 20.9 H (10-20) POC Glucose 221 H (70-99) mg/dl C-Reactive Protein 5.22 H (0-0.29) mg/dl (1) COPD (chronic obstructive pulmonary disease) COPD type: unspecified COPD Qualified Code(s): J44.9 - Chronic obstructive pulmonary disease, unspecified (2) Fall Encounter type: initial encounter Qualified Code(s): W19.XXXA - Unspecified fall, initial encounter
[2021-02-05] MEDS: BARICITINIB 2 MG TAB PO SCH (14:11)
[2021-02-06] MEDS: SODIUM CHLORIDE 0.65% NA SOLN 45 ML (OCEAN) NAE SCH ×6 (05:16→21:18)
[2021-02-06] MEDS: HYDROcodone/ACETAMINOPHEN 10/325 TAB PO SCH ×3 (05:48→21:17)
[2021-02-06 08:07] LABS: Hematocrit (blood only) 28.5 % (42-52); Mean Corpuscular Hemoglobin 31.7 pg (25-34); Mean Corpuscular Hgb Conc 31.6 g/dL (32-36); Mean Corpuscular Volume 100.4 fL (80-100); Mean Platelet Volume 9.2 fL (7.4-10.4); Platelet Count 433 K/uL (130-400); RDW Coefficient of Variation 13.3 % (11.5-14.5); RDW Standard Deviation 48.2 fL (36.4-46.3); Red Blood Count 2.84 M/uL (4.7-6.1); White Blood Count 12.23 K/uL (4.8-10.8)
[2021-02-06 08:43] LABS: BUN Creatinine Ratio 16.6 (10-20); C Reactive Protein 6.19 mg/dl (0-0.29); Calcium 8.9 mg/dl (8.5-10.1); Creatinine Clr Calc Pharmacy 40.5 ml/min; Est GFR (African American) 46.3 ml/min; Potassium 4.4 mmol/L (3.5-5.1)
[2021-02-06] MEDS: ATORVASTATIN 40 MG TAB PO SCH (08:55)
[2021-02-06] MEDS: APIXABAN 5 MG TABLET PO SCH ×2 (08:55→20:22)
[2021-02-06] MEDS: FUROSEMIDE 20 MG TAB PO SCH (08:55)
[2021-02-06] MEDS: TOPIRAMATE 50 MG TAB PO SCH ×2 (08:56→20:22)
[2021-02-06] MEDS: SENNA 8.6 MG TAB PO SCH (08:56)
[2021-02-06] MEDS: PANTOprazole 40 MG TAB PO SCH (08:56)
[2021-02-06] MEDS: guaiFENesin 600 MG TABCR PO SCH ×2 (08:57→20:22)
[2021-02-06] MEDS: UMECLIDINIUM/VILANTEROL 62.5/25MCG 7 PUFFS/INHALER INH SCH (08:57)
[2021-02-06] MEDS: ASPIRIN 81 MG ECTAB PO SCH (08:57)
[2021-02-06] MEDS: METOPROLOL TARTRATE 25 MG TAB PO SCH ×2 (08:57→20:21)
[2021-02-06] MEDS: POLYETHYLENE (MIRALAX) 17 GM PACK PO SCH (08:58)
[2021-02-06] MEDS: INSULIN ASPART 100 UNITS/ML 3 ML PEN SC SCH ×3 (09:00→17:55)
[2021-02-06] MEDS: INSULIN GLARGINE SOLOSTAR 100 UNITS/ML 3 ML PEN SC SCH ×2 (09:00→20:22)
[2021-02-06] MEDS ORDERED: INSULIN ASPART PER UNIT ONE (12:39)
[2021-02-06] MEDS: BARICITINIB 2 MG TAB PO SCH (12:40)
--- NOTE | 2021-02-06 14:15 | Hospitalist Progress Note ---
Date of Service February 06, 2021 Assessment & Plan (1) Acute respiratory failure with hypoxia: Plan: Secondary to COVID-19 pneumonia. Completed 5 days of remdesivir and dexamethasone. Dexamethasone was held briefly for agitation, improved and restarted after two days. Currently on baricitinib. CRP went up slightly today CXR yesterday still shows multifocal airspace opacities. However, patient does not usually have much symptoms for the level of hypoxia sometimes. I think that because of patient's COPD, he is used to oxygen running lower than for a normal person. Ox sat goal of 90% is acceptable Patient continues to decline to prone. Continue daily oral Lasix. (2) Pneumonia due to COVID-19 virus: Plan: As above (3) COPD (chronic obstructive pulmonary disease): Plan: Chronic, stable, no wheezing. (4) CKD (chronic kidney disease), stage III: Plan: Patient is at baseline creatinine. Continue current therapies. Monitor (5) Fall: Plan: Recurrent falls prior to arrival. Likely 2/2 covid illness. PT/OT recommend return home when medically stable. (6) Hypertension: Plan: chronic, stable, cont current therapy. (7) Diabetes mellitus, type II: Plan: Glucose is at goal. Cont basal bolus insulin during this hospital stay (8) Anemia: Plan: appears to be chronic with a baseline Hb 10.3 in April of this year per record review. He is around that baseline now, on apixaban. Normal iron studies, B12 and folate. Continue to follow as outpatient and minimize phlebotomy. (9) Tobacco use: Plan: Patient with intermittent agitation--chewing tobacco. May be related to his agitation level. (10) Chronic back pain: Plan: Chronic back pain on consistent hydrocodone 10/325 at home every 8 hours. He had been getting oxycodone intermittently and this may be causing a relative withdrawal and agitation. Oxycodone was changed to hydrocodone with Tylenol and schedule this every 8 hours consistent with his home regimen. (11) Opiate dependence: Plan: Bowel regimen with adjustments. (12) DVT prophylaxis: Plan: Apixaban Full Code Dispo-continue hospital stay. Admission and Anticipated Discharge Date Admission Date: January 23, 2021 Subjective Patient seen and examined this morning. Reports cough, mostly dry. Reports chronic exertional dyspnea. Denies any chest pain, palpitation Denies any fevers, chills Denies any nausea, vomiting, diarrhea, abdominal pain Denies any anorexia Denies dysuria, frequency, urgency or hematuria Physical Exam Constitutional: + well hydrated; no acute distress Eyes: PERRL, conjunctivae normal, anicteric sclerae ENMT: external ear and nose normal, oropharynx normal Respiratory: On 6l/min nasal oxygen, scattered crackles, diminished breath sounds Cardiovascular: RRR S1 S2 Gastrointestinal (Abdomen): normal bowel sounds, soft, nontender, no hepatosplenomegaly Musculoskeletal: no cyanosis or clubbing, extremities motor strength 5/5 Neurologic: PERRL, EOMI, accommodation nl, no face palsy, no dysarthria Psychiatric: A+Ox3, euthymic affect Results & Data Results & Data ([facility]) Vital Signs (Past 12 Hours) Vital Signs Temp Pulse Pulse Resp BP Pulse Ox 02/06/21 12:19 36.7 C 96 H 22 116/70 93 02/06/21 08:02 36.4 C L 91 H 22 160/94 H 90 02/06/21 08:00 79 02/06/21 03:11 37.1 C 105 H 22 120/81 88 L Laboratory Results Abnormal lab results 02/05/21 02/06/21 02/06/21 Range/Units 19:54 07:18 07:18 WBC 12.23 H (4.8-10.8) K/uL RBC 2.84 L (4.7-6.1) M/uL Hgb 9.0 L (14.0-18.0) g/dL Hct 28.5 L (42-52) % MCV 100.4 H (80-100) fL MCHC 31.6 L (32-36) g/dL RDW Std Deviation 48.2 H (36.4-46.3) fL Plt Count 433 H (130-400) K/uL BUN 29 H (7-18) mg/dl Creatinine 1.75 H (0.6-1.4) mg/dl POC Glucose 187 H (70-99) mg/dl C-Reactive Protein 6.19 H (0-0.29) mg/dl 02/06/21 Range/Units 11:29 WBC (4.8-10.8) K/uL RBC (4.7-6.1) M/uL Hgb (14.0-18.0) g/dL Hct (42-52) % MCV (80-100) fL MCHC (32-36) g/dL RDW Std Deviation (36.4-46.3) fL Plt Count (130-400) K/uL BUN (7-18) mg/dl Creatinine (0.6-1.4) mg/dl POC Glucose 123 H (70-99) mg/dl C-Reactive Protein (0-0.29) mg/dl (1) COPD (chronic obstructive pulmonary disease) COPD type: unspecified COPD Qualified Code(s): J44.9 - Chronic obstructive pulmonary disease, unspecified (2) Fall Encounter type: initial encounter Qualified Code(s): W19.XXXA - Unspecified fall, initial encounter
[2021-02-06] MEDS ORDERED: INSULIN ASPART PER UNIT SC ONE (17:30)
[2021-02-06] MEDS: TAMSULOSIN HCL 0.4 MG CAP PO SCH (20:21)
[2021-02-06] MEDS: INSULIN ASPART PER UNIT SC SCH (20:22)
[2021-02-07] MEDS: SODIUM CHLORIDE 0.65% NA SOLN 45 ML (OCEAN) NAE SCH ×6 (02:45→21:14)
[2021-02-07] MEDS: HYDROcodone/ACETAMINOPHEN 10/325 TAB PO SCH ×3 (05:55→21:58)
[2021-02-07 07:17] LABS: Hematocrit (blood only) 27.2 % (42-52); Hemoglobin 8.7 g/dL (14.0-18.0); Mean Corpuscular Hemoglobin 32.1 pg (25-34); Mean Corpuscular Volume 100.4 fL (80-100); Mean Platelet Volume 9.1 fL (7.4-10.4); Platelet Count 414 K/uL (130-400); RDW Coefficient of Variation 13.4 % (11.5-14.5); RDW Standard Deviation 48.5 fL (36.4-46.3); Red Blood Count 2.71 M/uL (4.7-6.1); White Blood Count 11.41 K/uL (4.8-10.8)
[2021-02-07 07:41] LABS: BUN Creatinine Ratio 17.4 (10-20); Calcium 9.2 mg/dl (8.5-10.1); Est GFR (African American) 42.2 ml/min; Est GFR (Non-African American) 36.4 ml/min; Potassium 3.9 mmol/L (3.5-5.1)
[2021-02-07] MEDS: guaiFENesin 600 MG TABCR PO SCH ×2 (08:13→21:13)
[2021-02-07] MEDS: TOPIRAMATE 50 MG TAB PO SCH ×2 (08:14→21:13)
[2021-02-07] MEDS: PANTOprazole 40 MG TAB PO SCH (08:15)
[2021-02-07] MEDS: ASPIRIN 81 MG ECTAB PO SCH (08:15)
[2021-02-07] MEDS: APIXABAN 5 MG TABLET PO SCH ×2 (08:15→21:13)
[2021-02-07] MEDS: METOPROLOL TARTRATE 25 MG TAB PO SCH ×2 (08:15→21:13)
[2021-02-07] MEDS: FUROSEMIDE 20 MG TAB PO SCH (08:16)
[2021-02-07] MEDS: SENNA 8.6 MG TAB PO SCH (08:16)
[2021-02-07] MEDS: ATORVASTATIN 40 MG TAB PO SCH (08:16)
[2021-02-07] MEDS: UMECLIDINIUM/VILANTEROL 62.5/25MCG 7 PUFFS/INHALER INH SCH (08:16)
[2021-02-07] MEDS: POLYETHYLENE (MIRALAX) 17 GM PACK PO SCH (08:17)
[2021-02-07] MEDS: INSULIN ASPART PER UNIT SC SCH ×4 (09:01→21:15)
[2021-02-07] MEDS: INSULIN GLARGINE SOLOSTAR 100 UNITS/ML 3 ML PEN SC SCH ×2 (09:01→21:15)
[2021-02-07] MEDS: BARICITINIB 2 MG TAB PO SCH (13:33)
--- NOTE | 2021-02-07 17:13 | Hospitalist Progress Note ---
Date of Service February 07, 2021 Assessment & Plan (1) Acute respiratory failure with hypoxia: Plan: Secondary to COVID-19 pneumonia. Completed 5 days of remdesivir and dexamethasone. Dexamethasone was held briefly for agitation, improved and restarted after two days. He completed 14 days of baricitinib therapy which was stopped today. Continue supportive oxygen supplementation pending improvement. (2) Pneumonia due to COVID-19 virus: Plan: As above (3) COPD (chronic obstructive pulmonary disease): Plan: Chronic, stable, no wheezing. (4) CKD (chronic kidney disease), stage III: Plan: Patient is at baseline creatinine. Continue current therapies. Monitor (5) Fall: Plan: Recurrent falls prior to arrival. Likely 2/2 covid illness. PT/OT recommend return home when medically stable. (6) Hypertension: Plan: chronic, stable, cont current therapy. (7) Diabetes mellitus, type II: Plan: Glucose is at goal. Cont basal bolus insulin during this hospital stay (8) Anemia: Plan: appears to be chronic with a baseline Hb 10.3 in April of this year per record review. He is around that baseline now, on apixaban. Normal iron studies, B12 and folate. Continue to follow as outpatient and minimize phlebotomy. (9) Tobacco use: Plan: encouraged to quit (10) Chronic back pain: Plan: Chronic back pain on consistent hydrocodone 10/325 at home every 8 hours. He had been getting oxycodone intermittently thought to be causing a relative with drawal and agitation. Oxycodone was changed to hydrocodone with Tylenol and schedule this every 8 hours consistent with his home regimen. He continues to do well on this and is ambulating. (11) Opiate dependence: Plan: Bowel regimen with adjustments. (12) DVT prophylaxis: Plan: Apixaban Full Code Dispo-continue hospital stay pending improvement in oxygen needs. Morena Reveles DO [facility] Hospitalist Admission and Anticipated Discharge Date Admission Date: January 23, 2021 Subjective 65-year-old man with obesity and type 2 diabetes as well as COPD and history of tobacco use quitting smoking 2 years ago presented with Covid 19 infection. He is vaccinated x2 doses. He has a chronic cough from his COPD but denied any symptoms on admission. denies SOB or any other symptoms. denies pain, CP eager to go home. Reports that since Dr. Cuevas "spoke to the nurses" they have stopped reactively turning up his oxygen when he desaturates with movement. He feels this is making him improve and wants to continue to try to wean down his oxygen, which I confirmed with him with the goal. Review of Systems Review of Systems: All systems were reviewed and negative except as indicated above. Physical Exam Physical Exam: CONSTITUTIONAL: obese, vitals as above, generally well- appearing, NAD EYES: normal conjunctivae, no scleral icterus ENT: external ear and nose normal, MMM NECK: trachea midline RESPIRATORY: crackles at bases bilaterally, no rales or wheezes, normal respiratory effort CARDIOVASCULAR: regular rate and rhythm, S1 and 2 heard without murmurs, gallops or rubs, no JVD, no peripheral edema GASTROINTESTINAL: soft, nontender, ND, no guarding. MUSCULOSKELETAL: strength 5/5 throughout, head is normocephalic and atraumatic, ambulating independently SKIN: warm and dry NEUROLOGIC: CN 2-12 grossly intact, normal cognition, normal speech, no tremor. No gross focal deficits. PSYCHIATRIC: alert cooperative and oriented to person, place and time. Results & Data Results & Data ([facility]) Vital Signs (Past 12 Hours) Vital Signs Temp Pulse Pulse Resp BP Pulse Ox 02/07/21 15:32 91 H 02/07/21 14:56 36.7 C 90 18 107/72 92 02/07/21 09:08 91 02/07/21 07:33 36.8 C 93 H 20 109/61 84 L 02/07/21 07:15 99 H Laboratory Results Short CBC 02/07/21 Range/Units 05:46 WBC 11.41 H (4.8-10.8) K/uL Hgb 8.7 L (14.0-18.0) g/dL Hct 27.2 L (42-52) % Plt Count 414 H (130-400) K/uL BMP 02/07/21 05:46 Sodium 136 Potassium 3.9 Chloride 104 Carbon Dioxide 25 BUN 33 H Creatinine 1.89 H Glucose 78 Calcium 9.2 Medications Administered Current Inpatient Medications Hydrocodone Bitart/Acetaminophen (Hydrocodone/Acetaminophen 10/325 Tab) 1 tab PO Q8 [facility] Stop: 02/14/21 01:59 Last Admin: 02/07/21 13:34 Dose: 1 tab Documented by: Albuterol (Albuterol Hfa 8 Gm Inhaler) 2 puffs INH QID PRN PRN Reason: Shortness Of Breath Or Wheezin Stop: 02/23/21 02:16 Apixaban (Apixaban 5 Mg Tablet) 5 mg PO BID [facility] Stop: 02/23/21 02:16 Last Admin: 02/07/21 08:15 Dose: 5 mg Documented by: Aspirin (Aspirin 81 Mg Ectab) 81 mg PO QAM [facility] Stop: 02/23/21 08:59 Last Admin: 02/07/21 08:15 Dose: 81 mg Documented by: Atorvastatin Calcium (Atorvastatin 40 Mg Tab) 40 mg PO QAM [facility] Stop: 02/23/21 08:59 Last Admin: 02/07/21 08:16 Dose: 40 mg Documented by: Baricitinib (Baricitinib 2 Mg Tab) 2 mg PO Q24H [facility] Stop: 02/08/21 13:29 Last Admin: 02/07/21 13:33 Dose: 2 mg Documented by: Furosemide (Furosemide 20 Mg Tab) 20 mg PO DAILY [facility] Stop: 02/23/21 08:59 Last Admin: 02/07/21 08:16 Dose: 20 mg Documented by: Guaifenesin (Guaifenesin 600 Mg Tabcr) 600 mg PO Q12 [facility] Stop: 02/27/21 07:14 Last Admin: 02/07/21 08:13 Dose: 600 mg Documented by: Insulin Aspart (Insulin Aspart Per Unit) 0 units SC ACHS [facility] Stop: 03/08/21 20:59 Last Admin: 02/07/21 12:13 Dose: 5 units Documented by: Insulin Glargine (Insulin Glargine Solostar 100 Units/Ml 3 Ml Pen) 10 units SC BID [facility] Stop: 03/04/21 08:59 Last Admin: 02/07/21 09:01 Dose: 10 units Documented by: Levalbuterol HCl (Levalbuterol Hcl 1.25 Mg/3 Ml Neb) 1.25 mg NEB Q4H PRN PRN Reason: Shortness Of Breath Or Wheezing Stop: 02/23/21 02:16 Lidocaine (Lidocaine 5% 1 Patch) 1 patch TD DAILY PRN PRN Reason: pain Stop: 02/23/21 02:16 Lorazepam (Lorazepam 0.5 Mg Tab) 0.5 mg PO Q8H PRN PRN Reason: Anxiety Stop: 03/02/21 15:57 Metoprolol Tartrate (Metoprolol Tartrate 25 Mg Tab) 25 mg PO BID [facility] Stop: 03/02/21 20:59 Last Admin: 02/07/21 08:15 Dose: 25 mg Documented by: Miscellaneous (Remove Lidoderm Patch) 1 ea N/A DAILY@2100 PRN PRN Reason: IF PATCH WAS APPLIED IN AM Stop: 02/23/21 20:59 Nitroglycerin (Nitroglycerin Sl 0.4 Mg/Tab Tab) 0.4 mg SL UD PRN PRN Reason: Chest Pain Stop: 02/23/21 02:16 Pantoprazole Sodium (Pantoprazole 40 Mg Tab) 40 mg PO QAM [facility] Stop: 02/23/21 08:59 Last Admin: 02/07/21 08:15 Dose: 40 mg Documented by: Polyethylene Glycol (Polyethylene (Miralax) 17 Gm Pack) 17 gm PO DAILY [facility] Stop: 03/04/21 08:59 Last Admin: 02/07/21 08:17 Dose: Not Given Documented by: Sennosides (Senna 8.6 Mg Tab) 8.6 mg PO QAM [facility] Stop: 03/02/21 08:59 Last Admin: 02/07/21 08:16 Dose: 8.6 mg Documented by: Sodium Chloride (Sodium Chloride 0.65% Na Soln 45 Ml ([place])) 2 sprays BRITTANY Q4H [facility] Stop: 03/01/21 18:44 Last Admin: 02/07/21 13:34 Dose: 2 sprays Documented by: Tamsulosin HCl (Tamsulosin Hcl 0.4 Mg Cap) 0.8 mg PO HS [facility] Stop: 02/23/21 20:59 Last Admin: 02/06/21 20:21 Dose: 0.8 mg Documented by: Topiramate (Topiramate 50 Mg Tab) 50 mg PO BID [facility] Stop: 02/23/21 08:59 Last Admin: 02/07/21 08:14 Dose: 50 mg Documented by: Umeclidinium/Vilanterol (Umeclidinium/Vilanterol 62.5/25mcg 7 Puffs/Inhaler) 1 puffs INH DAILY [facility] Stop: 02/23/21 08:59 Last Admin: 02/07/21 08:16 Dose: 1 puffs Documented by: (1) COPD (chronic obstructive pulmonary disease) COPD type: unspecified COPD Qualified Code(s): J44.9 - Chronic obstructive pulmonary disease, unspecified (2) Fall Encounter type: initial encounter Qualified Code(s): W19.XXXA - Unspecified fall, initial encounter
[2021-02-07] MEDS: TAMSULOSIN HCL 0.4 MG CAP PO SCH (21:13)
[2021-02-08] MEDS: SODIUM CHLORIDE 0.65% NA SOLN 45 ML (OCEAN) NAE SCH ×6 (02:43→21:57)
[2021-02-08] MEDS: HYDROcodone/ACETAMINOPHEN 10/325 TAB PO SCH ×3 (06:06→21:56)
[2021-02-08] MEDS: INSULIN ASPART PER UNIT SC SCH ×4 (08:07→21:10)
[2021-02-08] MEDS: POLYETHYLENE (MIRALAX) 17 GM PACK PO SCH (08:16)
[2021-02-08] MEDS: UMECLIDINIUM/VILANTEROL 62.5/25MCG 7 PUFFS/INHALER INH SCH (08:16)
[2021-02-08] MEDS: FUROSEMIDE 20 MG TAB PO SCH (08:17)
[2021-02-08] MEDS: APIXABAN 5 MG TABLET PO SCH ×2 (08:17→21:03)
[2021-02-08] MEDS: METOPROLOL TARTRATE 25 MG TAB PO SCH ×2 (08:17→21:03)
[2021-02-08] MEDS: TOPIRAMATE 50 MG TAB PO SCH ×2 (08:17→21:03)
[2021-02-08] MEDS: ASPIRIN 81 MG ECTAB PO SCH (08:18)
[2021-02-08] MEDS: ATORVASTATIN 40 MG TAB PO SCH (08:19)
[2021-02-08] MEDS: guaiFENesin 600 MG TABCR PO SCH ×2 (08:19→21:03)
[2021-02-08] MEDS: PANTOprazole 40 MG TAB PO SCH (08:20)
[2021-02-08] MEDS: SENNA 8.6 MG TAB PO SCH (08:20)
[2021-02-08] MEDS: INSULIN GLARGINE SOLOSTAR 100 UNITS/ML 3 ML PEN SC SCH ×2 (08:22→21:03)
--- NOTE | 2021-02-08 11:53 | Hospitalist Progress Note ---
Date of Service February 08, 2021 Assessment & Plan (1) Acute respiratory failure with hypoxia: Plan: Secondary to COVID-19 pneumonia. Completed 5 days of remdesivir and dexamethasone. Dexamethasone was held briefly for agitation, improved and restarted after two days. He completed 14 days of baricitinib therapy which was stopped 02/07. Continue supportive oxygen supplementation pending improvement. Likely fibrosis present, evidenced by continued high oxygen needs and crackles on lungs that is diffuse. cont oxygen support. (2) Pneumonia due to COVID-19 virus: Plan: As above (3) COPD (chronic obstructive pulmonary disease): Plan: Chronic, stable, no wheezing. (4) CKD (chronic kidney disease), stage III: Plan: Patient is at baseline creatinine. Continue current therapies. Monitor (5) Fall: Plan: Recurrent falls prior to arrival. Likely 2/2 covid illness. PT/OT recommend return home when medically stable. (6) Hypertension: Plan: chronic, stable, cont current therapy. (7) Diabetes mellitus, type II: Plan: Glucose is at goal. Cont basal bolus insulin during this hospital stay (8) Anemia: Plan: appears to be chronic with a baseline Hb 10.3 in April of this year per record review. He is around that baseline now, on apixaban. Normal iron studies, B12 and folate. Continue to follow as outpatient and minimize phlebotomy. (9) Tobacco use: Plan: encouraged to quit, still chewing tobacco daily (10) Chronic back pain: Plan: Chronic back pain on consistent hydrocodone 10/325 at home every 8 hours. This is scheduled every 8 hours consistent with his home regimen. He continues to do well on this and is ambulating. (11) Opiate dependence: Plan: Bowel regimen with adjustments as needed. Patient reports regularity with BMs. (12) DVT prophylaxis: Plan: Apixaban Full Code Dispo-continue hospital stay pending improvement in oxygen needs. Morena Reveles DO [facility] Hospitalist Admission and Anticipated Discharge Date Admission Date: January 23, 2021 Subjective 65-year-old man with obesity and type 2 diabetes as well as COPD and history of tobacco use quitting smoking 2 years ago presented with Covid 19 infection. He is vaccinated x2 doses. He has a chronic cough from his COPD but denied any symptoms on admission. denies SOB or any other symptoms. denies pain, CP primary nurse reports that he continues to take himself off the oxygen and off h is monitor when she appropriately tried to turn up his oxygen after an episode of desaturation with movement, he told her "kiss my ass" Review of Systems Review of Systems: All systems were reviewed and negative except as indicated above. Physical Exam Physical Exam: CONSTITUTIONAL: obese, vitals as above, generally well- appearing, NAD EYES: normal conjunctivae, no scleral icterus ENT: external ear and nose normal, MMM NECK: trachea midline RESPIRATORY: crackles at bases bilaterally, no rales or wheezes, normal respiratory effort CARDIOVASCULAR: regular rate and rhythm, S1 and 2 heard without murmurs, gallops or rubs, no JVD, no peripheral edema GASTROINTESTINAL: soft, nontender, ND, no guarding. MUSCULOSKELETAL: strength 5/5 throughout, head is normocephalic and atraumatic, ambulating independently SKIN: warm and dry NEUROLOGIC: CN 2-12 grossly intact, normal cognition, normal speech, no tremor. No gross focal deficits. PSYCHIATRIC: alert cooperative and oriented to person, place and time. Results & Data Results & Data ([facility]) Vital Signs (Past 12 Hours) Vital Signs Temp Pulse Pulse Pulse Resp BP Pulse Ox 02/08/21 11:00 36.6 C 82 22 117/75 93 02/08/21 08:00 37.0 C 107 H 22 121/72 91 02/08/21 06:30 133 H 02/08/21 03:47 36.6 C 97 H 18 110/67 86 L 02/07/21 23:59 117 H Medications Administered Current Inpatient Medications Hydrocodone Bitart/Acetaminophen (Hydrocodone/Acetaminophen 10/325 Tab) 1 tab PO Q8 [facility] Stop: 02/14/21 01:59 Last Admin: 02/08/21 06:06 Dose: 1 tab Documented by: Albuterol (Albuterol Hfa 8 Gm Inhaler) 2 puffs INH QID PRN PRN Reason: Shortness Of Breath Or Wheezin Stop: 02/23/21 02:16 Apixaban (Apixaban 5 Mg Tablet) 5 mg PO BID [facility] Stop: 02/23/21 02:16 Last Admin: 02/08/21 08:17 Dose: 5 mg Documented by: Aspirin (Aspirin 81 Mg Ectab) 81 mg PO QAM [facility] Stop: 02/23/21 08:59 Last Admin: 02/08/21 08:18 Dose: 81 mg Documented by: Atorvastatin Calcium (Atorvastatin 40 Mg Tab) 40 mg PO QAM [facility] Stop: 02/23/21 08:59 Last Admin: 02/08/21 08:19 Dose: 40 mg Documented by: Furosemide (Furosemide 20 Mg Tab) 20 mg PO DAILY [facility] Stop: 02/23/21 08:59 Last Admin: 02/08/21 08:17 Dose: 20 mg Documented by: Guaifenesin (Guaifenesin 600 Mg Tabcr) 600 mg PO Q12 [facility] Stop: 02/27/21 07:14 Last Admin: 02/08/21 08:19 Dose: 600 mg Documented by: Insulin Aspart (Insulin Aspart Per Unit) 0 units SC ACHS [facility] Stop: 03/08/21 20:59 Last Admin: 02/08/21 08:07 Dose: 5 units Documented by: Insulin Glargine (Insulin Glargine Solostar 100 Units/Ml 3 Ml Pen) 10 units SC BID [facility] Stop: 03/04/21 08:59 Last Admin: 02/08/21 08:22 Dose: 10 units Documented by: Levalbuterol HCl (Levalbuterol Hcl 1.25 Mg/3 Ml Neb) 1.25 mg NEB Q4H PRN PRN Reason: Shortness Of Breath Or Wheezing Stop: 02/23/21 02:16 Lidocaine (Lidocaine 5% 1 Patch) 1 patch TD DAILY PRN PRN Reason: pain Stop: 02/23/21 02:16 Lorazepam (Lorazepam 0.5 Mg Tab) 0.5 mg PO Q8H PRN PRN Reason: Anxiety Stop: 03/02/21 15:57 Metoprolol Tartrate (Metoprolol Tartrate 25 Mg Tab) 25 mg PO BID [facility] Stop: 03/02/21 20:59 Last Admin: 02/08/21 08:17 Dose: 25 mg Documented by: Miscellaneous (Remove Lidoderm Patch) 1 ea N/A DAILY@2100 PRN PRN Reason: IF PATCH WAS APPLIED IN AM Stop: 02/23/21 20:59 Nitroglycerin (Nitroglycerin Sl 0.4 Mg/Tab Tab) 0.4 mg SL UD PRN PRN Reason: Chest Pain Stop: 02/23/21 02:16 Pantoprazole Sodium (Pantoprazole 40 Mg Tab) 40 mg PO QAM [facility] Stop: 02/23/21 08:59 Last Admin: 02/08/21 08:20 Dose: 40 mg Documented by: Polyethylene Glycol (Polyethylene (Miralax) 17 Gm Pack) 17 gm PO DAILY [facility] Stop: 03/04/21 08:59 Last Admin: 02/08/21 08:16 Dose: Not Given Documented by: Sennosides (Senna 8.6 Mg Tab) 8.6 mg PO QAM [facility] Stop: 03/02/21 08:59 Last Admin: 02/08/21 08:20 Dose: Not Given Documented by: Sodium Chloride (Sodium Chloride 0.65% Na Soln 45 Ml ([place])) 2 sprays BRITTANY Q4H [facility] Stop: 03/01/21 18:44 Last Admin: 02/08/21 10:43 Dose: 2 sprays Documented by: Tamsulosin HCl (Tamsulosin Hcl 0.4 Mg Cap) 0.8 mg PO HS [facility] Stop: 02/23/21 20:59 Last Admin: 02/07/21 21:13 Dose: 0.8 mg Documented by: Topiramate (Topiramate 50 Mg Tab) 50 mg PO BID [facility] Stop: 02/23/21 08:59 Last Admin: 02/08/21 08:17 Dose: 50 mg Documented by: Umeclidinium/Vilanterol (Umeclidinium/Vilanterol 62.5/25mcg 7 Puffs/Inhaler) 1 puffs INH DAILY [facility] Stop: 02/23/21 08:59 Last Admin: 02/08/21 08:16 Dose: 1 puffs Documented by: (1) COPD (chronic obstructive pulmonary disease) COPD type: unspecified COPD Qualified Code(s): J44.9 - Chronic obstructive pulmonary disease, unspecified (2) Fall Encounter type: initial encounter Qualified Code(s): W19.XXXA - Unspecified fall, initial encounter
[2021-02-08] MEDS: TAMSULOSIN HCL 0.4 MG CAP PO SCH (21:03)
[2021-02-09] MEDS: SODIUM CHLORIDE 0.65% NA SOLN 45 ML (OCEAN) NAE SCH ×6 (02:45→21:22)
[2021-02-09] MEDS: HYDROcodone/ACETAMINOPHEN 10/325 TAB PO SCH ×3 (05:25→21:19)
[2021-02-09] MEDS: guaiFENesin 600 MG TABCR PO SCH ×2 (09:01→21:14)
[2021-02-09] MEDS: SENNA 8.6 MG TAB PO SCH (09:01)
[2021-02-09] MEDS: POLYETHYLENE (MIRALAX) 17 GM PACK PO SCH (09:01)
[2021-02-09] MEDS: TOPIRAMATE 50 MG TAB PO SCH ×2 (09:02→21:15)
[2021-02-09] MEDS: ATORVASTATIN 40 MG TAB PO SCH (09:02)
[2021-02-09] MEDS: ASPIRIN 81 MG ECTAB PO SCH (09:02)
[2021-02-09] MEDS: FUROSEMIDE 20 MG TAB PO SCH (09:02)
[2021-02-09] MEDS: PANTOprazole 40 MG TAB PO SCH (09:02)
[2021-02-09] MEDS: APIXABAN 5 MG TABLET PO SCH ×2 (09:03→21:14)
[2021-02-09] MEDS: UMECLIDINIUM/VILANTEROL 62.5/25MCG 7 PUFFS/INHALER INH SCH (09:03)
[2021-02-09] MEDS: METOPROLOL TARTRATE 25 MG TAB PO SCH ×2 (09:03→21:13)
[2021-02-09] MEDS: INSULIN GLARGINE SOLOSTAR 100 UNITS/ML 3 ML PEN SC SCH ×2 (09:04→21:13)
[2021-02-09] MEDS: INSULIN ASPART PER UNIT SC SCH ×4 (09:11→21:18)
--- NOTE | 2021-02-09 19:38 | Hospitalist Progress Note ---
Date of Service February 09, 2021 Assessment & Plan (1) Acute respiratory failure with hypoxia: Plan: Secondary to COVID-19 pneumonia. Completed 5 days of remdesivir and dexamethasone. Dexamethasone was held briefly for agitation, improved and restarted after two days. He completed 14 days of baricitinib therapy which was stopped 02/07. Continue supportive oxygen supplementation pending improvement. Currently requiring 6 L. Likely fibrosis present, evidenced by continued high oxygen needs and crackles on lungs that is diffuse. cont oxygen support. Wean as tolerated. Patient encouraged to do incentive spirometer. (2) Pneumonia due to COVID-19 virus: Plan: As above (3) COPD (chronic obstructive pulmonary disease): Plan: Chronic, stable, no wheezing. (4) CKD (chronic kidney disease), stage III: Plan: Patient is at baseline creatinine. Continue current therapies. Monitor (5) Fall: Plan: Recurrent falls prior to arrival. Likely 2/2 covid illness. PT/OT recommend return home when medically stable. (6) Hypertension: Plan: chronic, stable, cont current therapy. (7) Diabetes mellitus, type II: Plan: Glucose is at goal. Cont basal bolus insulin during this hospital stay (8) Anemia: Plan: appears to be chronic with a baseline Hb 10.3 in April of this year per record review. He is around that baseline now, on apixaban. Normal iron studies, B12 and folate. Continue to follow as outpatient and minimize phlebotomy. (9) Tobacco use: Plan: encouraged to quit, still chewing tobacco daily (10) Chronic back pain: Plan: Chronic back pain on consistent hydrocodone 10/325 at home every 8 hours. This is scheduled every 8 hours consistent with his home regimen. He continues to do well on this and is ambulating. (11) Opiate dependence: Plan: Bowel regimen with adjustments as needed. Patient reports regularity with BMs. (12) DVT prophylaxis: Plan: Apixaban Full Code Dispo-continue hospital stay pending improvement in oxygen needs. Morena Reveles DO [facility] Hospitalist Admission and Anticipated Discharge Date Admission Date: January 23, 2021 Subjective Patient was lying semiupright in bed, on 6 L nasal cannula oxygen, NAD, no new acute events overnight. Patient reports eating and moving bowels okay. Patient denies fever/chills/headache/increased shortness of breath/chest pain/palpitations/other review of symptoms. Physical Exam Physical Exam: GENERAL: Alert and oriented x3. NAD, on 6L HEENT: No pallor, no icterus. Pupils equal, round and reactive to light. Oral mucosa moist. NECK: No JVD, no neck masses. HEART: S1 and S2 heard. Regular rate and rhythm. No murmur, no gallop. RESPIRATORY SYSTEM: Normal AP diameter. No accessory muscle use. No wheezing, bilateral mid to lower lung crackles. ABDOMEN: Soft, bowel sounds present, nontender, no distention. CENTRAL NERVOUS SYSTEM: No facial droop. Speech is clear. Obeys simple commands. Moves extremities. EXTREMITIES: No edema, no erythema seen. Results & Data Results & Data ([facility]) Vital Signs (Past 12 Hours) Vital Signs Temp Pulse Pulse Resp BP Pulse Ox Pulse Ox 02/09/21 19:10 91 02/09/21 15:37 37.4 C 106 H 20 130/77 90 02/09/21 15:27 107 H 02/09/21 11:00 37.0 C 105 H 24 119/69 94 02/09/21 08:00 100 H (1) COPD (chronic obstructive pulmonary disease) COPD type: unspecified COPD Qualified Code(s): J44.9 - Chronic obstructive pulmonary disease, unspecified (2) Fall Encounter type: initial encounter Qualified Code(s): W19.XXXA - Unspecified fall, initial encounter
[2021-02-09] MEDS: ALBUTEROL HFA 8 GM INHALER INH PRN (20:41)
[2021-02-09] MEDS: TAMSULOSIN HCL 0.4 MG CAP PO SCH (21:15)
[2021-02-10] MEDS: SODIUM CHLORIDE 0.65% NA SOLN 45 ML (OCEAN) NAE SCH ×6 (02:14→21:59)
[2021-02-10] MEDS: ALBUTEROL HFA 8 GM INHALER INH PRN (04:47)
[2021-02-10] MEDS: HYDROcodone/ACETAMINOPHEN 10/325 TAB PO SCH ×3 (05:45→21:59)
[2021-02-10 06:36] LABS: Hematocrit (blood only) 27.6 % (42-52); Hemoglobin 8.7 g/dL (14.0-18.0); Mean Corpuscular Hemoglobin 31.3 pg (25-34); Mean Corpuscular Hgb Conc 31.5 g/dL (32-36); Mean Corpuscular Volume 99.3 fL (80-100); Mean Platelet Volume 9.1 fL (7.4-10.4); Platelet Count 419 K/uL (130-400); RDW Coefficient of Variation 13.2 % (11.5-14.5); RDW Standard Deviation 47.6 fL (36.4-46.3); Red Blood Count 2.78 M/uL (4.7-6.1); White Blood Count 10.25 K/uL (4.8-10.8)
[2021-02-10 07:07] LABS: BUN Creatinine Ratio 15.3 (10-20); Creatinine Clr Calc Pharmacy 39.9 ml/min; Est GFR (Non-African American) 39.7 ml/min; Magnesium 2.3 mg/dl (1.8-2.4); Potassium 3.8 mmol/L (3.5-5.1)
[2021-02-10] MEDS: guaiFENesin 600 MG TABCR PO SCH ×2 (08:21→20:51)
[2021-02-10] MEDS: FUROSEMIDE 20 MG TAB PO SCH (08:21)
[2021-02-10] MEDS: SENNA 8.6 MG TAB PO SCH (08:21)
[2021-02-10] MEDS: APIXABAN 5 MG TABLET PO SCH ×2 (08:21→20:53)
[2021-02-10] MEDS: PANTOprazole 40 MG TAB PO SCH (08:21)
[2021-02-10] MEDS: ASPIRIN 81 MG ECTAB PO SCH (08:21)
[2021-02-10] MEDS: TOPIRAMATE 50 MG TAB PO SCH ×2 (08:21→20:52)
[2021-02-10] MEDS: ATORVASTATIN 40 MG TAB PO SCH (08:21)
[2021-02-10] MEDS: METOPROLOL TARTRATE 25 MG TAB PO SCH ×2 (08:22→20:53)
[2021-02-10] MEDS: INSULIN GLARGINE SOLOSTAR 100 UNITS/ML 3 ML PEN SC SCH ×2 (08:22→21:12)
[2021-02-10] MEDS: POLYETHYLENE (MIRALAX) 17 GM PACK PO SCH (08:23)
[2021-02-10] MEDS: UMECLIDINIUM/VILANTEROL 62.5/25MCG 7 PUFFS/INHALER INH SCH (08:23)
[2021-02-10] MEDS: INSULIN ASPART PER UNIT SC SCH ×4 (08:37→21:11)
--- NOTE | 2021-02-10 19:32 | Hospitalist Progress Note ---
Date of Service February 10, 2021 Assessment & Plan (1) Acute respiratory failure with hypoxia: Plan: Secondary to COVID-19 pneumonia. Completed 5 days of remdesivir and dexamethasone. Dexamethasone was held briefly for agitation, improved and restarted after two days. He completed 14 days of baricitinib therapy which was stopped 02/07. Continue supportive oxygen supplementation pending improvement. Currently requiring 6 L. Likely fibrosis present, evidenced by continued high oxygen needs and crackles on lungs that is diffuse. cont oxygen support. Wean as tolerated. Patient encouraged to do incentive spirometer. Patient can be off of isolation. (2) Pneumonia due to COVID-19 virus: Plan: As above (3) COPD (chronic obstructive pulmonary disease): Plan: Chronic, stable, no wheezing. (4) CKD (chronic kidney disease), stage III: Plan: Patient is at baseline creatinine. Continue current therapies. Monitor (5) Fall: Plan: Recurrent falls prior to arrival. Likely 2/2 covid illness. PT/OT recommend return home when medically stable. (6) Hypertension: Plan: chronic, stable, cont current therapy. (7) Diabetes mellitus, type II: Plan: Glucose is at goal. Cont basal bolus insulin during this hospital stay (8) Anemia: Plan: appears to be chronic with a baseline Hb 10.3 in April of this year per record review. He is around that baseline now, on apixaban. Normal iron studies, B12 and folate. Continue to follow as outpatient and minimize phlebotomy. (9) Tobacco use: Plan: encouraged to quit, still chewing tobacco daily (10) Chronic back pain: Plan: Chronic back pain on consistent hydrocodone 10/325 at home every 8 hours. This is scheduled every 8 hours consistent with his home regimen. He continues to do well on this and is ambulating. (11) Opiate dependence: Plan: Bowel regimen with adjustments as needed. Patient reports regularity with BMs. (12) DVT prophylaxis: Plan: Apixaban Full Code Dispo-continue hospital stay pending improvement in oxygen needs. Uncertain at this moment. Patient desaturates with minimal movement. Will encourage ambulation every 2-3 hours, communicated to the RN. We will get PT/OT on board, await recommendation. 02/10: Patient's son John ([phone]) updated over the phone about patient's status, that he is desaturating with minimal movement and requiring high oxygen, answered all his questions. He wanted to know when the patient will be able to make it home, made him aware that he is a still requiring high oxygen and desaturates easily. Patient and his son are strongly against any kind of SNF placement at this point, but agreed to physical therapy evaluation while inpatient. Out of blue, patient son also stated that if MD is not able to give him updates on a daily basis, he will think about switching to another doctor in the hospital. I updated him that if there is a significant developments or any questions that he wants specifically answered from me, I will give him a phone call. For regular updates on how he is doing, he could reach out to nursing desk and get updates, if unsatisfied can ask nursing staff to get call back from MD. Admission and Anticipated Discharge Date Admission Date: January 23, 2021 Subjective Patient was lying semiupright in bed, on 6 L via OM, NAD, no new acute events overnight. Patient reports eating and moving bowels okay. Patient denies fever/chills/headache/increased shortness of breath/chest pain/palpitations/other review of symptoms. Per RN, patient had been rough and rude to the nurses especially when his saturation goes down with minimal movement and they have to increase his oxygen level. Physical Exam Physical Exam: GENERAL: Alert and oriented x3. NAD, on 6L via Oxymask HEENT: No pallor, no icterus. Pupils equal, round and reactive to light. Oral mucosa moist. NECK: No JVD, no neck masses. HEART: S1 and S2 heard. Regular rate and rhythm. No murmur, no gallop. RESPIRATORY SYSTEM: Normal AP diameter. No accessory muscle use. No wheezing, bilateral mid to lower lung crackles - dry nature. ABDOMEN: Soft, bowel sounds present, nontender, no distention. CENTRAL NERVOUS SYSTEM: No facial droop. Speech is clear. Obeys simple commands. Moves extremities. EXTREMITIES: No edema, no erythema seen. Results & Data Results & Data ([facility]) Vital Signs (Past 12 Hours) Vital Signs Temp Pulse Pulse Pulse Resp BP Pulse Ox 02/10/21 14:31 36.6 C 119 H 22 144/68 H 90 02/10/21 11:22 36.9 C 105 H 22 126/75 92 02/10/21 08:00 112 H 02/10/21 07:25 36.7 C 118 H 18 102/64 90 (1) COPD (chronic obstructive pulmonary disease) COPD type: unspecified COPD Qualified Code(s): J44.9 - Chronic obstructive pulmonary disease, unspecified (2) Fall Encounter type: initial encounter Qualified Code(s): W19.XXXA - Unspecified fall, initial encounter
[2021-02-10] MEDS: TAMSULOSIN HCL 0.4 MG CAP PO SCH (20:52)
[2021-02-11] MEDS: SODIUM CHLORIDE 0.65% NA SOLN 45 ML (OCEAN) NAE SCH ×6 (03:12→22:49)
[2021-02-11] MEDS ORDERED: XOPENEX/ATROVENT 1.25mg/0.5MG NEB COMBO NEB STA (05:04)
[2021-02-11] MEDS ORDERED: ACETAMINOPHEN 325 MG TAB PO STA (05:05)
[2021-02-11] MEDS ORDERED: POTASSIUM CHLORIDE CRTAB 20 MEQ TABCR PO STA (05:14)
[2021-02-11] MEDS ORDERED: methylPREDNISolone 40 MG in SYRINGE 0 ML IV ONE (05:15)
[2021-02-11] MEDS ORDERED: IPRATROPIUM BROMIDE NEB SOLN 0.02% 2.5 ML VIAL INH STA (05:16)
[2021-02-11] MEDS ORDERED: LEVALBUTEROL 1.25MG/0.5ML NEB INH STA (05:16)
--- NOTE | 2021-02-11 05:37 | Communication Note ---
Date of Service: February 11, 2021 5 AM Patient O2 sats 70s on 6 L as per RN. Patient with new cough symptoms productive of junky white sputum. Some shortness of breath worse on exertion without chest pain as per patient Patient denies aspiration. PPE Obese, minimal respiratory stress Short neck Decreased breath sounds, expiratory wheezes Tachycardic Chest x-ray as per my interpretation bilateral infiltrates AP Worsening hypoxemic respiratory failure hx severe COVID-19 pneumonia COPD exacerbation Baseline ABG Supplemental O2 Doxycycline, nebs RTC, steroid course Patient son requesting for daily updates from a.m. provider. Will relay to AM provider.
[2021-02-11] MEDS ORDERED: ALBUMIN 25% 100 mL 25 GM/100 ML VIAL IV ONE (05:40)
[2021-02-11] MEDS ORDERED: DOXYCYCLINE HYCLATE 100 MG in DEXTROSE 5% 100 ML IV STA (05:53)
[2021-02-11 06:00] LABS: Basophils # (auto) 0.02 K/uL (0-0.2); Basophils % (auto) 0.2 %; Eosinophils # (auto) 0.38 K/uL (0-0.5); Eosinophils % (auto) 4.1 %; Hematocrit (blood only) 24.5 % (42-52); Hemoglobin 7.9 g/dL (14.0-18.0); Immature Granulocytes # (auto) 0.03 K/uL (0.00-0.02); Immature Granulocytes % (auto) 0.3 %; Lymphocytes # (auto) 1.13 K/uL (1.2-3.4); Lymphocytes % (auto) 12.1 %; Mean Corpuscular Hemoglobin 32.1 pg (25-34); Mean Corpuscular Hgb Conc 32.2 g/dL (32-36); Mean Corpuscular Volume 99.6 fL (80-100); Mean Platelet Volume 8.6 fL (7.4-10.4); Monocytes # (auto) 1.09 K/uL (0.11-0.59); Monocytes % (auto) 11.7 %; Neutrophils # (auto) 6.67 K/uL (1.4-6.5); Neutrophils % (auto) 71.6 %; Platelet Count 389 K/uL (130-400); RDW Coefficient of Variation 13.4 % (11.5-14.5); RDW Standard Deviation 48.4 fL (36.4-46.3); Red Blood Count 2.46 M/uL (4.7-6.1); White Blood Count 9.32 K/uL (4.8-10.8)
[2021-02-11 06:02] LABS: Partial Thromboplastin Time 26.5 Seconds (21.0-31.0)
[2021-02-11] MEDS: HYDROcodone/ACETAMINOPHEN 10/325 TAB PO SCH ×3 (06:04→22:49)
[2021-02-11 06:11] LABS: Base Excess VBG -1.6 mEq/L; HCO3 VBG 24 mmol/L; PCO2 VBG 44 mmHg (38-50); PO2 VBG 28 mmHg; pH VBG 7.35 (7.36-7.41)
[2021-02-11 06:28] LABS: Oxygen Saturation VBG < 60.0 %
[2021-02-11 06:37] LABS: BUN Creatinine Ratio 15.2 (10-20); Calcium 8.7 mg/dl (8.5-10.1); Creatinine Clr Calc Pharmacy 40.3 ml/min; Est GFR (African American) 46.7 ml/min; Est GFR (Non-African American) 40.3 ml/min; Magnesium 2.3 mg/dl (1.8-2.4); Potassium 3.7 mmol/L (3.5-5.1)
[2021-02-11 06:58] LABS: Rouleaux 1+
[2021-02-11] MEDS: METOPROLOL TARTRATE 25 MG TAB PO SCH ×2 (07:20→21:56)
--- NOTE | 2021-02-11 07:43 | XRay Report ---
XR chest 1V portable HISTORY: Covid pneumonia. Hypoxia. COMPARISON: Chest 02/05/2021. FINDINGS: The cardiac silhouette remains mildly enlarged. There is cervical spinal fusion hardware ag ain noted. Patchy peripheral airspace opacities seen within the lungs persist and are consistent with a viral pneumonia. There is diffuse interstitial thickening. No pleural effusions. No pneumothorax. IMPRESSION: No change in the patchy peripheral airspace opacities consistent with a viral pneumonia. ACT 112: Negative or not required by law. Electronically signed by: Arash Garcia M.D. 02/11/2021 7:42 AM
[2021-02-11] MEDS: FUROSEMIDE 20 MG TAB PO SCH (09:14)
[2021-02-11] MEDS: TOPIRAMATE 50 MG TAB PO SCH ×2 (09:14→21:53)
[2021-02-11] MEDS: guaiFENesin 600 MG TABCR PO SCH ×2 (09:14→21:53)
[2021-02-11] MEDS: ATORVASTATIN 40 MG TAB PO SCH (09:14)
[2021-02-11] MEDS: SENNA 8.6 MG TAB PO SCH (09:14)
[2021-02-11] MEDS: ASPIRIN 81 MG ECTAB PO SCH (09:14)
[2021-02-11] MEDS: APIXABAN 5 MG TABLET PO SCH ×2 (09:14→21:54)
[2021-02-11] MEDS: POLYETHYLENE (MIRALAX) 17 GM PACK PO SCH (09:15)
[2021-02-11] MEDS: PANTOprazole 40 MG TAB PO SCH (09:15)
[2021-02-11] MEDS: INSULIN GLARGINE SOLOSTAR 100 UNITS/ML 3 ML PEN SC SCH ×2 (09:16→21:56)
[2021-02-11] MEDS: UMECLIDINIUM/VILANTEROL 62.5/25MCG 7 PUFFS/INHALER INH SCH (09:16)
[2021-02-11] MEDS: INSULIN ASPART PER UNIT SC SCH ×4 (09:23→21:57)
[2021-02-11 10:02] LABS: Appearance Urine Clear (Clear); Bacteria Urine Automated Negative (Negative); Bilirubin Urine Negative (Negative); Blood Urine Negative (Negative); Color Urine Dark Yellow; Glucose Urine UA Negative (Negative); Ketones Urine Trace (Negative); Leukocyte Esterase Urine 1+ (Negative); Nitrite Urine Negative (Negative); Protein Urine 1+ (Negative); RBC Urine Automated 0-4 /hpf (0-4); Specific Gravity Urine 1.022 (1.000-1.030); Urobilinogen Urine Negative (Negative); pH Urine 5.5 (4.5-7.5)
[2021-02-11] MEDS ORDERED: IPRATROPIUM BROMIDE NEB SOLN 0.02% 2.5 ML VIAL INH SCH (13:00)
[2021-02-11] MEDS ORDERED: XOPENEX/ATROVENT 1.25mg/0.5MG NEB COMBO NEB SCH (13:00)
[2021-02-11] MEDS ORDERED: LEVALBUTEROL 1.25MG/0.5ML NEB INH SCH (13:00)
--- NOTE | 2021-02-11 17:16 | Hospitalist Progress Note ---
Date of Service February 11, 2021 Assessment & Plan (1) Acute respiratory failure with hypoxia: Plan: Secondary to COVID-19 pneumonia. Completed 5 days of remdesivir and completed dexamethasone. Dexamethasone was held briefly for agitation, improved and restarted after two days. He completed 14 days of baricitinib therapy which was stopped 02/07. Continue supportive oxygen supplementation pending improvement. Currently requiring 10 L. Likely fibrosis present, evidenced by continued high oxygen needs and crackles on lungs that is diffuse. cont oxygen support. Wean as tolerated. Patient encouraged to do incentive spirometer. Patient can be off of isolation. (2) Pneumonia due to COVID-19 virus: Plan: As above (3) COPD (chronic obstructive pulmonary disease): Plan: #. 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 Continue current therapies. Monitor (5) Fall: Plan: Recurrent falls prior to arrival. Likely 2/2 covid illness. PT/OT recommend return home when medically stable. (6) Hypertension: Plan: chronic, stable, cont current therapy. (7) Diabetes mellitus, type II: Plan: Glucose is at goal. Cont basal bolus insulin during this hospital stay (8) Anemia: Plan: appears to be chronic with a baseline Hb 10.3 in April of this year per record review. He is around that baseline now, on apixaban. Normal iron studies, B12 and folate. Continue to follow as outpatient and minimize phlebotomy. (9) Tobacco use: Plan: encouraged to quit, still chewing tobacco daily (10) Chronic back pain: Plan: Chronic back pain on consistent hydrocodone 10/325 at home every 8 hours. This is scheduled every 8 hours consistent with his home regimen. He continues to do well on this and is ambulating. (11) Opiate dependence: Plan: Bowel regimen with adjustments as needed. Patient reports regularity with BMs. (12) DVT prophylaxis: Plan: Apixaban Full Code Dispo-continue hospital stay pending improvement in oxygen needs. Uncertain at this moment. Patient desaturates with minimal movement. Will encourage ambulation every 2-3 hours, communicated to the RN. We will get PT/OT on board, await recommendation. 02/10: Patient's son John ([phone]) updated over the phone about patient's status, that he is desaturating with minimal movement and requiring high oxygen, answered all his questions. He wanted to know when the patient will be able to make it home, made him aware that he is a still requiring high oxygen and desaturates easily. Patient and his son are strongly against any kind of SNF placement at this point, but agreed to physical therapy evaluation while inpatient. Out of blue, patient son also stated that if MD is not able to give him updates on a daily basis, he will think about switching to another doctor in the hospital. I updated him that if there is a significant developments or any questions that he wants specifically answered from me, I will give him a phone call. For regular updates on how he is doing, he could reach out to nursing desk and get updates, if unsatisfied can ask nursing staff to get call back from MD. Admission and Anticipated Discharge Date Admission Date: January 23, 2021 Subjective Patient was lying semiupright in bed, on 10 L via OM, NAD. 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 Patient reports eating and moving bowels okay. Patient denies fever/chills/headache/increased shortness of breath at rest/ pain/palpitations/other review of symptoms. Per RN, patient still desaturates in 70s with minimal movement. They are working on moving him out of the Covid unit. Physical Exam Physical Exam: GENERAL: Alert and oriented x3. NAD, on 10L via Oxymask HEENT: No pallor, no icterus. Pupils equal, round and reactive to light. Oral mucosa moist. NECK: No JVD, no neck masses. HEART: S1 and S2 heard. Regular rate and rhythm. No murmur, no gallop. RESPIRATORY SYSTEM: Normal AP diameter. No accessory muscle use. occasional wheezing, bilateral mid to lower lung crackles - dry nature. ABDOMEN: Soft, bowel sounds present, nontender, no distention. CENTRAL NERVOUS SYSTEM: No facial droop. Speech is clear. Obeys simple commands. Moves extremities. EXTREMITIES: No edema, no erythema seen. Results & Data Results & Data ([facility]) Vital Signs (Past 12 Hours) Vital Signs Temp Pulse Pulse Pulse Pulse Resp BP 02/11/21 15:51 36.3 C L 102 H 20 101/66 02/11/21 12:56 02/11/21 12:43 97 H 20 02/11/21 11:50 37.6 C H 101 H 22 114/66 02/11/21 07:54 36.9 C 107 H 20 107/65 02/11/21 07:38 110 H 02/11/21 05:50 112 H 20 Pulse Ox 02/11/21 15:51 90 02/11/21 12:56 92 02/11/21 12:43 90 02/11/21 11:50 88 L 02/11/21 07:54 88 L 02/11/21 07:38 02/11/21 05:50 97 (1) COPD (chronic obstructive pulmonary disease) COPD type: COPD with acute exacerbation Qualified Code(s): J44.1 - Chronic obstructive pulmonary disease with (acute) exacerbation (2) Fall Encounter type: initial encounter Qualified Code(s): W19.XXXA - Unspecified fall, initial encounter
[2021-02-11] MEDS ORDERED: LEVALBUTEROL 1.25MG/0.5ML NEB INH PRN (17:21)
[2021-02-11] MEDS ORDERED: IPRATROPIUM BROMIDE NEB SOLN 0.02% 2.5 ML VIAL INH PRN (17:21)
[2021-02-11] MEDS: TAMSULOSIN HCL 0.4 MG CAP PO SCH (21:54)
[2021-02-11] MEDS: DOXYCYCLINE HYCLATE 100 MG CAP PO SCH (21:55)
[2021-02-12] MEDS: SODIUM CHLORIDE 0.65% NA SOLN 45 ML (OCEAN) NAE SCH ×6 (02:30→21:26)
[2021-02-12] MEDS ORDERED: XOPENEX/ATROVENT 1.25mg/0.5MG NEB COMBO NEB STA (05:52)
[2021-02-12] MEDS ORDERED: IPRATROPIUM BROMIDE NEB SOLN 0.02% 2.5 ML VIAL INH STA (05:54)
[2021-02-12] MEDS ORDERED: LEVALBUTEROL 1.25MG/0.5ML NEB INH STA (05:54)
[2021-02-12] MEDS ORDERED: methylPREDNISolone 40 MG in SYRINGE 0 ML IV ONE (06:00)
[2021-02-12] MEDS: HYDROcodone/ACETAMINOPHEN 10/325 TAB PO SCH ×3 (06:00→21:25)
--- NOTE | 2021-02-12 06:37 | XRay Report ---
SINGLE VIEW CHEST CLINICAL HISTORY: Hypoxia. Covid pneumonia. FINDINGS: An AP, portable, upright chest radiograph is compared to study dated 02/11/2021 and correla [place] with chest CT dated 03/04/2018. The heart is enlarged. Multifocal airspace consolidation appears mo destly worsened as compared to yesterday. No large pleural effusion or pneumothorax is seen. Chronic interstitial thickening is likely unchanged. The skeletal structures are osteopenic. The bony thorax is grossly intact. Fusion hardware is noted in the lower cervical spine. IMPRESSION: 1. Cardiomegaly. 2. Multifocal airspace consolidation appears modestly worsened as compared to yesterday. Follow-up to resolution is recommended. ACT 112: Negative or not required by law. Electronically signed by: Pasquale Andrea M.D. 02/12/2021 6:36 AM
[2021-02-12 07:04] LABS: Hematocrit (blood only) 23.6 % (42-52); Hemoglobin 7.5 g/dL (14.0-18.0); Mean Corpuscular Hemoglobin 31.5 pg (25-34); Mean Corpuscular Hgb Conc 31.8 g/dL (32-36); Mean Corpuscular Volume 99.2 fL (80-100); Mean Platelet Volume 8.8 fL (7.4-10.4); Platelet Count 372 K/uL (130-400); RDW Coefficient of Variation 13.5 % (11.5-14.5); RDW Standard Deviation 48.6 fL (36.4-46.3); Red Blood Count 2.38 M/uL (4.7-6.1); White Blood Count 10.54 K/uL (4.8-10.8)
[2021-02-12 07:29] LABS: BUN Creatinine Ratio 19.3 (10-20); Creatinine Clr Calc Pharmacy 38.7 ml/min; Est GFR (African American) 44.5 ml/min; Est GFR (Non-African American) 38.4 ml/min; Magnesium 2.1 mg/dl (1.8-2.4); Potassium 4.1 mmol/L (3.5-5.1)
[2021-02-12] MEDS: INSULIN ASPART PER UNIT SC SCH ×4 (08:11→21:25)
[2021-02-12] MEDS ORDERED: predniSONE 20 MG TAB PO SCH (09:00)
[2021-02-12] MEDS ORDERED: FUROSEMIDE INJ 20 MG/2 ML VIAL IV ONE ×2 (09:49→17:46)
[2021-02-12] MEDS: INSULIN GLARGINE SOLOSTAR 100 UNITS/ML 3 ML PEN SC SCH ×2 (11:33→21:17)
[2021-02-12] MEDS: UMECLIDINIUM/VILANTEROL 62.5/25MCG 7 PUFFS/INHALER INH SCH (11:33)
[2021-02-12] MEDS: APIXABAN 5 MG TABLET PO SCH ×2 (11:34→21:15)
[2021-02-12] MEDS: DOXYCYCLINE HYCLATE 100 MG CAP PO SCH ×2 (11:34→21:15)
[2021-02-12] MEDS: guaiFENesin 600 MG TABCR PO SCH ×2 (11:34→21:15)
[2021-02-12] MEDS: TOPIRAMATE 50 MG TAB PO SCH ×2 (11:34→21:16)
[2021-02-12] MEDS: PANTOprazole 40 MG TAB PO SCH (11:35)
[2021-02-12] MEDS: SENNA 8.6 MG TAB PO SCH (11:36)
[2021-02-12] MEDS: ATORVASTATIN 40 MG TAB PO SCH (11:36)
[2021-02-12] MEDS: ASPIRIN 81 MG ECTAB PO SCH (11:36)
[2021-02-12] MEDS: POLYETHYLENE (MIRALAX) 17 GM PACK PO SCH (11:37)
[2021-02-12] MEDS: FUROSEMIDE 20 MG TAB PO SCH (11:38)
[2021-02-12] MEDS: METOPROLOL TARTRATE 25 MG TAB PO SCH ×2 (11:42→21:16)
[2021-02-12 14:37] LABS: Hematocrit (blood only) 24.2 % (42-52); Hemoglobin 7.6 g/dL (14.0-18.0)
[2021-02-12] MEDS ORDERED: SODIUM CHLORIDE 0.9% 250 ML IV PRN (14:50)
[2021-02-12] MEDS ORDERED: SODIUM CHLORIDE 0.9% 500 ML IV SCH (15:00)
[2021-02-12 15:15] LABS: Troponin I < 0.015 ng/ml (0-0.045)
[2021-02-12] MEDS ORDERED: OPTIRAY 320 125ml IV ONE (16:39)
--- NOTE | 2021-02-12 17:24 | CT Scan Report ---
CT ANGIOGRAM OF THE CHEST CLINICAL HISTORY: Tachycardia. Tachypnea. COMPARISON STUDY: Chest x-ray dated 02/12/2021. Chest CT dated 03/04/2018. TECHNIQUE: Following the IV administration of 86 cc of Optiray 320, CT angiogram of the chest was per formed from the upper abdomen to the thoracic inlet utilizing the pulmonary embolus protocol. Images are reviewed in the axial, sagittal, and coronal planes. 3-D MIPS images are created and assessed. IV contrast was administered without complication. A dose lowering technique was utilized adhering to the principles of ALARA. CT DOSE: 611.63 mGy.cm FINDINGS: Thyroid: Imaged portions of the thyroid gland are normal in size and attenuation. Thoracic aorta: There is atherosclerotic calcification of the thoracic aorta, which is normal in moreno yarelis and demonstrates 4-vessel variant arch anatomy. No dissection is seen. Pulmonary vasculature: The pulmonary trunk is normal in caliber. There are no filling defects identif ied in main, lobar, or segmental pulmonary branches to suggest pulmonary embolus. Heart: The heart is mildly enlarged and without pericardial effusion. There are coronary artery calci fications. Lungs and pleural spaces: Evaluation of the lung parenchyma is degraded by motion artifact. Emphysema is unchanged. There is likely superimposed chronic interstitial lung disease. Extensive consolidatio n is present throughout both lungs, most confluent at the lung bases The trachea and central airways are clear. There is mild bronchiectasis. There is a 1.9 cm irregular nodule in the left upper lobe wi th small foci of central cavitation seen on image #147. No pleural effusion or pneumothorax is seen. Mediastinum: There are numerous enlarged mediastinal lymph nodes. Prevascular nodes measure up to 15 mm short axis. A subcarinal node measures 22 mm in short axis. Leila: There is hilar adenopathy. Enlarged hilar nodes measure up to 11 mm in short axis. Axillae: There is no axillary lymphadenopathy. Upper abdomen: There is a small to moderate hiatal hernia. Partially visualized upper abdominal visce ra is otherwise grossly unremarkable. Skeletal structures: The skeletal structures are osteopenic. Degenerative change is noted throughout the thoracic spine with associated hyperkyphosis. Extensive fusion hardware is seen in the lower cerv ical spine. No lytic or blastic bony lesions are seen. Arthritic change is noted in the shoulders. 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 IMPRESSION: 1. There is no evidence of pulmonary embolus in the main, lobar, or segmental pulmonary arteries. 2. Cardiomegaly and emphysema with probable changes of superimposed chronic interstitial lung disease . 3. Diffuse groundglass consolidation is seen throughout both lungs, most confluent at the lung bases. This likely represents a viral pneumonia. Correlate clinically for evidence of superimposed fluid ov erload/pulmonary edema and/or ARDS. 4. Mediastinal and hilar lymphadenopathy is likely reactive. 5. There is a 1.9 cm irregular nodule in the left upper lobe with small foci of central cavitation. T his is new from 03/04/2018 and may be on an infectious/inflammatory basis. A 3-4 month follow-up chest CT is recommended second resolution and exclude underlying pulmonary neoplasm. 6. Hiatal hernia. 7. Additional findings as above. ACT 112: Positive. There are findings on this exam that require communication between the performing entity and the patient following Patient Test Result Information Act ([place] Act 112) guidelines. Electronically signed by: Pasquale Andrea M.D. 02/12/2021 5:23 PM
[2021-02-12] MEDS: methylPREDNISolone 40 MG in SYRINGE 0 ML IV SCH ×2 (17:45→23:24)
--- NOTE | 2021-02-12 18:06 | Hospitalist Progress Note ---
Date of Service February 12, 2021 Assessment & Plan (1) Acute respiratory failure with hypoxia: Plan: Secondary to COVID-19 pneumonia. Patient has gotten 2 doses of Pfizer vaccine. Completed 5 days of remdesivir and completed dexamethasone. Dexamethasone was held briefly for agitation, improved and restarted after two days. He completed 14 days of baricitinib therapy which was stopped 02/07. Continue supportive oxygen supplementation pending improvement. Currently requiring BPAP Likely fibrosis present, evidenced by continued high oxygen needs and crackles on lungs that is diffuse. cont oxygen support. Wean as tolerated. Patient encouraged to do incentive spirometer. Patient off of isolation. 02/12 worsening respiratory failure, discussed with pulmonology Dr. Andre, sent EKG/troponin/CTA chest to rule out PE/echo/given Lasix Stop IV fluid after 4-6 hours of CTA chest. Per pulmonology, diuresis given elevated BNP, thinks unlikely that any intervention will change his outcome and recommends palliative care consultation. Will follow up with labs and imaging ordered today, will initiate discussion with him and son tomorrow regarding palliative care/goals of care. As of today's discussion, both patient and his son wants everything to be done including intubation. (2) Pneumonia due to COVID-19 virus: Plan: As above (3) COPD (chronic obstructive pulmonary disease): Plan: #. 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 (4) CKD (chronic kidney disease), stage III: Plan: Patient is at baseline creatinine. Continue current therapies. Monitor (5) Fall: Plan: Recurrent falls prior to arrival. Likely 2/2 covid illness. PT/OT recommend return home when medically stable. (6) Hypertension: Plan: chronic, stable, cont current therapy. (7) Diabetes mellitus, type II: Plan: Glucose is at goal. Cont basal bolus insulin during this hospital stay (8) Anemia: Plan: #. Acute on chronic anemia Baseline hemoglobin around 10 in April of this year per record review Patient on Eliquis, FOBT orderednone collected. Unknown source at this point, will likely need GI if FOBT is positive. Normal iron studies, vitamin B12 and folate this admission Hemoglobin downtrending, will order 1 unit PRBC 02/12 given tachyca rdia/tachypnea/worsening respiratory status Monitor hemoglobin daily (9) Tobacco use: Plan: encouraged to quit, still chewing tobacco daily (10) Chronic back pain: Plan: Chronic back pain on consistent hydrocodone 10/325 at home every 8 hours. This is scheduled every 8 hours consistent with his home regimen. He continues to do well on this and is ambulating. (11) Opiate dependence: Plan: Bowel regimen with adjustments as needed. Patient reports regularity with BMs. (12) DVT prophylaxis: Plan: Apixaban Full Code Dispo-continue hospital stay pending improvement in oxygen needs. Uncertain at this moment. Patient desaturates with minimal movement. Will encourage ambulation every 2-3 hours, communicated to the RN. We will get PT/OT on board, await recommendation. 02/10: Patient's son John ([phone]) updated over the phone about patient's status, that he is desaturating with minimal movement and requiring high oxygen, answered all his questions. He wanted to know when the patient will be able to make it home, made him aware that he is a still requiring high oxygen and desaturates easily. Patient and his son are strongly against any kind of SNF placement at this point, but agreed to physical therapy evaluation while inpatient. Out of blue, patient son also stated that if MD is not able to give him updates on a daily basis, he will think about switching to another doctor in the hospital. I updated him that if there is a significant developments or any questions that he wants specifically answered from me, I will give him a phone call. For regular updates on how he is doing, he could reach out to nursing desk and get updates, if unsatisfied can ask nursing staff to get call back from MD. !04/14: Updated son over the phone. !04/15: Updated son at the bedside, answered all his questions, he voiced understanding and was agreeable to the plan of care. 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 Patient reports as usual chronic low back pain but denies any chest pain/palpitation/dizziness/headache/other review of symptoms. Per RN, patient desats quickly down to fifties when BiPAP is taken off for medication administration purposes. Patient apparently was very angry and irritated with ABG, when trying to explain the importance of ABG patient said in loud voice many times " I am not going to do ABG, get that in your head". Physical Exam Physical Exam: GENERAL: Alert and oriented x3. NAD, on BPAP HEENT: No pallor, no icterus. Pupils equal, round and reactive to light. Oral mucosa moist. NECK: No JVD, no neck masses. HEART: S1 and S2 heard. Regular rate and rhythm. No murmur, no gallop. RESPIRATORY SYSTEM: Normal AP diameter. No accessory muscle use. occasional wheezing, bilateral mid to lower lung crackles. ABDOMEN: Soft, bowel sounds present, nontender, no distention. CENTRAL NERVOUS SYSTEM: No facial droop. Speech is clear. Obeys simple commands. Moves extremities. EXTREMITIES: No edema, no erythema seen. Results & Data Results & Data ([facility]) Vital Signs (Past 12 Hours) Vital Signs Temp Pulse Pulse Resp BP Pulse Ox 02/12/21 14:23 128 H 26 H 90 02/12/21 11:55 37.0 C 137 H 18 109/66 99 02/12/21 10:20 128 H 32 H 93 02/12/21 07:57 36.8 C 124 H 20 97/57 L 89 L 02/12/21 05:59 130 H 28 H 99 02/12/21 05:55 127 H 28 H 98 02/12/21 05:52 36.4 C L 131 H 26 H 122/71 92 (1) COPD (chronic obstructive pulmonary disease) COPD type: COPD with acute exacerbation Qualified Code(s): J44.1 - Chronic obstructive pulmonary disease with (acute) exacerbation (2) Fall Encounter type: initial encounter Qualified Code(s): W19.XXXA - Unspecified fall, initial encounter
[2021-02-12] MEDS ORDERED: ACETAMINOPHEN 325 MG TAB PO STA (20:23)
[2021-02-12] MEDS ORDERED: ACETAMINOPHEN 1,000 MG/100 ML VIAL IV STA (20:24)
[2021-02-12] MEDS: TAMSULOSIN HCL 0.4 MG CAP PO SCH (21:15)
[2021-02-13] MEDS: SODIUM CHLORIDE 0.65% NA SOLN 45 ML (OCEAN) NAE SCH ×3 (02:19→15:03)
[2021-02-13 05:58] LABS: Hematocrit (blood only) 25.8 % (42-52); Hemoglobin 8.4 g/dL (14.0-18.0); Mean Corpuscular Hemoglobin 32.2 pg (25-34); Mean Corpuscular Hgb Conc 32.6 g/dL (32-36); Mean Corpuscular Volume 98.9 fL (80-100); Platelet Count 366 K/uL (130-400); RDW Coefficient of Variation 15.1 % (11.5-14.5); RDW Standard Deviation 54.1 fL (36.4-46.3); Red Blood Count 2.61 M/uL (4.7-6.1); White Blood Count 7.61 K/uL (4.8-10.8)
[2021-02-13] MEDS: HYDROcodone/ACETAMINOPHEN 10/325 TAB PO SCH ×2 (06:22→15:18)
[2021-02-13 06:24] LABS: BUN Creatinine Ratio 19.5 (10-20); Calcium 9.2 mg/dl (8.5-10.1); Est GFR (Non-African American) 31.9 ml/min; Potassium 4.2 mmol/L (3.5-5.1)
--- NOTE | 2021-02-13 06:49 | Electrocardiogram Report ---
Test Reason : Blood Pressure : / mmHG Vent. Rate : 126 BPM Atrial Rate : 126 BPM P-R Int : 130 ms QRS Dur : 098 ms QT Int : 318 ms P-R-T Axes : 050 -10 020 degrees QTc Int : 460 ms Sinus tachycardia Incomplete right bundle branch block Borderline ECG When compared with ECG of 23-JAN-2021 21:50, Vent. rate has increased BY 46 BPM Incomplete right bundle branch block has replaced Right bundle branch block Confirmed by Brenden Knight ([id number]) on 02/13/2021 6:49:46 AM Referred By: REFERRED SELF Confirmed By:Brenden Knight
[2021-02-13] MEDS: PANTOprazole 40 MG TAB PO SCH (08:14)
[2021-02-13] MEDS: ATORVASTATIN 40 MG TAB PO SCH (08:14)
[2021-02-13] MEDS: TOPIRAMATE 50 MG TAB PO SCH (08:14)
[2021-02-13] MEDS: DOXYCYCLINE HYCLATE 100 MG CAP PO SCH (08:14)
[2021-02-13] MEDS: INSULIN ASPART PER UNIT SC SCH ×2 (08:14→15:03)
[2021-02-13] MEDS: ASPIRIN 81 MG ECTAB PO SCH (08:14)
[2021-02-13] MEDS: APIXABAN 5 MG TABLET PO SCH (08:14)
[2021-02-13] MEDS: SENNA 8.6 MG TAB PO SCH (08:14)
[2021-02-13] MEDS: METOPROLOL TARTRATE 25 MG TAB PO SCH (08:14)
[2021-02-13] MEDS: methylPREDNISolone 40 MG in SYRINGE 0 ML IV SCH (08:14)
[2021-02-13] MEDS: guaiFENesin 600 MG TABCR PO SCH (08:14)
[2021-02-13] MEDS: INSULIN GLARGINE SOLOSTAR 100 UNITS/ML 3 ML PEN SC SCH (08:15)
[2021-02-13] MEDS: POLYETHYLENE (MIRALAX) 17 GM PACK PO SCH (08:22)
[2021-02-13] MEDS: UMECLIDINIUM/VILANTEROL 62.5/25MCG 7 PUFFS/INHALER INH SCH (08:30)
[2021-02-13] MEDS ORDERED: predniSONE 20 MG TAB PO SCH (09:00)
[2021-02-13] MEDS ORDERED: FUROSEMIDE INJ 20 MG/2 ML VIAL IV SCH (09:00)
--- NOTE | 2021-02-13 10:15 | Critical Care Consultation ---
Date of Consultation February 13, 2021 Assessment & Plan (1) Pneumonia due to COVID-19 virus: (2) Acute respiratory failure with hypoxia: (3) COVID-19: (4) Hemoptysis: Impression: 65-year-old male with Covid pneumonitis in the setting of obstructive lung disease. He has refractory hypoxemia his chest x-ray and CT scan demonstrate severe fibrotic changes with some groundglass opacities. Recommendations: 1. Had a long and extensive discussion with the patient's son by phone with the patient at bedside. I advised them that given the fibrotic nature of his lung disease, mechanical ventilation and intubation would be unlikely to offer him a clinical benefit. It would necessitate sedation and placing the patient in medically induced coma where he could no longer effectively communicate with family members. Given the significant fibrosis, it would be unlikely that the patient would ever come off of the mechanical ventilator and would likely be talking about tracheostomy and PEG tube placement and long-term acute care facility. Patient's age would preclude him from lung transplant. After consideration, the patient's son although tearful, understands the severity of his father's illness. He does not wish to prolong his dying process. I advised him that CPAP and BiPAP have to be a bridge to something and we cannot remain on CPAP or BiPAP for prolonged period of time. I have encouraged to the primary service to engage palliative care. We are all in agreement to change his CODE STATUS to DO NOT RESUSCITATE DO NOT INTUBATE. I do not think there is a role for additional immune suppression given the dense fibrotic nature of the patient's lung disease currently. 2. Would continue to manage the patient expectantly. Diuresis can be helpful. I do not think there is a secondary infection going on. No role for additional immune suppression. If hemoptysis becomes an issue, discontinuation of the patient's anticoagulation might be appropriate. 3. Communicated to the boiling house hand. Do not think the patient would benefit from ICU level care at the current time. Communicated with the hospitalist directly. Not much else to offer from a pulmonary standpoint currently. Can continue to try to alternate between heated high flow oxygen with nonrebreather and/or CPAP or BiPAP but focusing on comfort should be a priority. We remain available to assist if needed. We will sign off at this point time. a total of 50 min CC time including end of life issues was spent coordinating care for this patient. History of Present Illness Attending Physician: Elizabeth Burdick MD History of Present Illness Asked by hospitalist to evaluate this patient with Covid pneumonitis, refractory hypoxemia, and hemoptysis today. History is obtained from discussion with the patient, review of the electronic medical record, and discussion with the hospitalist. Patient is a 65-year-old male who was initially hospitalized 01/23/2021 who was admitted with Covid pneumonia. Patient has been appropriately treated with remdesivir and completed a course of dexamethasone. Unfortunately, the patient's oxygen requirement has continued to increase. His chest x-ray demonstrates diffuse fibrotic changes. This morning the patient had some scant hemoptysis. He is to been dependent on CPAP or BiPAP. When it is taken off he drops into the 50% range fairly rapidly. There have been numerous discussions with the patient and family members regarding which interventions might be appropriate and they have always maintained full CODE STATUS up to this point. Over the last 24 hours the patient's had escalation in his oxygen requirement. He is currently on BiPAP but is breathing relatively comfortably and watching TV. He is deferred most of the discussion regarding medical interventions to his family. I contacted the son by phone. I reviewed the case with him. We discussed intubation. I advised him that given the fibrotic nature of the patient's lung disease and his failure to respond to interventions, I do not think that intubation mechanical ventilation will likely offer him a clinical benefit. Would likely place his father in a medically induced coma where he would no longer have the opportunity to visit with him. They understand the severity of the current illness and are agreeable to not pursuing invasive mechanical ventilation which I think is a reasonable step. Allergies Allergy/AdvReac Type Severity Reaction Status Date / Time propoxyphene Allergy Intermediate unsure Verified 01/23/21 22:37 acetaminophen Allergy Unknown Unknown Verified 01/23/21 22:37 [From [facility]] Home Medications Medication Instructions Recorded Confirmed Type apixaban 5 mg tablet 5 mg PO BID 03/04/18 01/23/21 History aspirin 81 mg tablet,delayed 81 mg PO QAM 03/04/18 01/23/21 History release atorvastatin 40 mg tablet 40 mg PO QAM 03/04/18 01/23/21 History metoprolol succinate 25 mg 25 mg PO QAM 03/04/18 01/23/21 History tablet,extended release 24 hr omeprazole 40 mg capsule,delayed 40 mg PO QAM 03/04/18 01/23/21 History release tamsulosin 0.4 mg capsule 0.8 mg PO HS 03/04/18 01/23/21 History albuterol sulfate 90 mcg/actuation 2 inha INH QID PRN 12/09/18 01/23/21 History aerosol inhaler cyclosporine 0.05 % eye drops in a 1 drp OPB BID 05/05/20 01/23/21 History dropperette (Restasis) hydrocodone 10 mg-acetaminophen 1 tab PO Q8H PRN 05/05/20 01/23/21 History 325 mg tablet topiramate 50 mg tablet 50 mg PO BID #60 tab 06/15/20 01/23/21 Rx furosemide 40 mg tablet 20 mg PO DAILY #0 tab 08/06/20 01/23/21 Rx lidocaine 5 % topical patch 1 patch TOP DAILY PRN #15 ea 01/19/21 01/23/21 Rx methylprednisolone 4 mg tablets in See Rx Instructions .ROUTE 01/19/21 01/23/21 Rx a dose pack .COMPLEX #21 ea dexamethasone 6 mg tablet 6 mg PO DAILY #10 tab 01/20/21 01/23/21 Rx umeclidinium 62.5 mcg-vilanterol 1 inh INHALATION DAILY #60 ea 01/20/21 01/23/21 Rx 25 mcg/actuation powdr for inhalation (Anoro Ellipta) metformin 500 mg tablet,extended 1,000 mg PO DAILY 01/23/21 01/23/21 History release 24 hr glipizide 5 mg tablet 5 mg PO BID 01/24/21 01/24/21 History Patient History Medical History Ambulatory dysfunction Back pain Back strain Chronic lower back pain Chronic obstructive pulmonary disease last exacerbation 3 wks ago during [address]. [facility] CKD (chronic kidney disease), stage III COPD (chronic obstructive pulmonary disease) Current use of jail anticoagulation Diabetes mellitus, type II GERD (gastroesophageal reflux disease) History of DVT (deep vein thrombosis) HLD (hyperlipidemia) Hypertension Hypoxia Neck pain PVD (peripheral vascular disease) Ruptured lumbar disc Thrombophilia TIA (transient ischemic attack) Surgical History History of back surgery History of eye surgery History of neck surgery Hx of tonsillectomy Family History Unknown Diabetes Mother Diabetes Heart disease Father Hypertension Social History Smoking Status: Unknown if ever smoked Tobacco Type: Smokeless Tobacco (Dip or Chew) Cigarettes Per Day: 1/2 -1ppd x 30 years. Quit 2019. Still chewing tobacco; Second Hand Exposure: Yes; Do You Dip or Chew Tobacco: Yes; Hx Alcohol Use: Yes Alcohol type: beer Hx Substance Use: No Preferred Language: Mongolian Communication Ability: Effective Ad Operations Coordinator Required: No Beliefs That Will Affect Care: None marital status: Single Current Living Situation: Family Current Living Situation Comment: lives with son and dil current occupational status: unemployed and retired Other Information That Helps Us Care for You: No Feels Safe at Home: Yes Safety Concerns: Feels Safe At This Time Assistive Devices: BiPap and Glasses Review of Systems Review of Systems: Please refer to hospitalist note Physical Exam Physical Exam: GENERAL: Alert and oriented x3. NAD, on BPAP HEENT: No pallor, no icterus. Pupils equal, round and reactive to light. Oral mucosa moist. NECK: No JVD, no neck masses. HEART: S1 and S2 heard. Regular rate and rhythm. No murmur, no gallop. RESPIRATORY SYSTEM: Normal AP diameter. No accessory muscle use. occasional wheezing, bilateral mid to lower lung crackles. ABDOMEN: Soft, bowel sounds present, nontender, no distention. CENTRAL NERVOUS SYSTEM: No facial droop. Speech is clear. Obeys simple commands. Moves extremities. EXTREMITIES: No edema, no erythema seen. Results & Data Results & Data ([facility]) Vital Signs (Past 12 Hours) Vital Signs Temp Pulse Pulse Resp BP BP Pulse Ox 02/13/21 08:08 36.2 C L 95 H 20 119/65 91 02/13/21 07:12 92 H 22 87 L 02/13/21 07:00 85 02/13/21 04:45 80 116/66 91 02/13/21 04:30 36.2 C L 91 H 20 97/72 L 90 02/13/21 03:15 84 20 98 02/13/21 00:00 69 02/12/21 23:05 21 98 Critical Care Results & Data Vital Signs (Past 12 Hours) Vital Signs Temp Pulse Pulse Resp BP BP Pulse Ox 02/13/21 08:08 36.2 C L 95 H 20 119/65 91 02/13/21 07:12 92 H 22 87 L 02/13/21 07:00 85 02/13/21 04:45 80 116/66 91 02/13/21 04:30 36.2 C L 91 H 20 97/72 L 90 02/13/21 03:15 84 20 98 02/13/21 00:00 69 02/12/21 23:05 21 98 Lab & Micro Results (Past 24 Hours) RBC 2.61 M/uL (4.7-6.1) L 02/13/21 WBC 7.61 K/uL (4.8-10.8) 02/13/21 Hgb 8.4 g/dL (14.0-18.0) L 02/13/21 Hct 25.8 % (42-52) L 02/13/21 MCV 98.9 fL (80-100) 02/13/21 MCH 32.2 pg (25-34) 02/13/21 MCHC 32.6 g/dL (32-36) 02/13/21 RDW Standard Deviation 54.1 fL (36.4-46.3) H 02/13/21 RDW Coefficient of Variation 15.1 % (11.5-14.5) H 02/13/21 Plt Count 366 K/uL (130-400) 02/13/21 MPV 9.0 fL (7.4-10.4) 02/13/21 Na 138 mmol/L (136-145) 02/13/21 K 4.2 mmol/L (3.5-5.1) 02/13/21 Cl 108 mmol/L (98-107) H 02/13/21 CO2 21 mmol/L (21-32) 02/13/21 Anion Gap 10.0 (3-11) 02/13/21 BUN 41 mg/dl (7-18) H 02/13/21 Creatinine 2.11 mg/dl (0.6-1.4) H 02/13/21 Estimated GFR ( Amer) 37.0 ml/min 02/13/21 Estimated GFR (Non-Af Amer) 31.9 ml/min 02/13/21 BUN/Creatinine Ratio 19.5 (10-20) 02/13/21 Glu 167 mg/dl (70-99) H 02/13/21 Ca 9.2 mg/dl (8.5-10.1) 02/13/21 Phosphorus Level 3.0 mg/dl (2.5-4.9) 02/12/21 Calcium Level 9.2 mg/dl (8.5-10.1) 02/13/21 05:41 02/13/21 Microbiology 02/11/21 05:30 Aerobic Blood Culture - Preliminary Blood No growth in Aerobic bottle after 48 hours. Anaerobic Blood Culture - Preliminary No growth in Anaerobic bottle after 48 hours. 02/11/21 05:54 Aerobic Blood Culture - Preliminary Blood No growth in Aerobic bottle after 48 hours. Anaerobic Blood Culture - Preliminary No growth in Anaerobic bottle after 48 hours. Diagnostic Findings (Past 24 Hours) Chest CTA 02/12/21 14:56 CT ANGIOGRAM OF THE CHEST CLINICAL HISTORY: Tachycardia. Tachypnea. COMPARISON STUDY: Chest x-ray dated 02/12/2021. Chest CT dated 03/04/2018. TECHNIQUE: Following the IV administration of 86 cc of Optiray 320, CT angiogram of the chest was performed from the upper abdomen to the thoracic inlet utilizing the pulmonary embolus protocol. Images are reviewed in the axial, sagittal, and coronal planes. 3-D MIPS images are created and assessed. IV contrast was administered without complication. A dose lowering technique was utilized adhering to the principles of ALARA. CT DOSE: 611.63 mGy.cm FINDINGS: Thyroid: Imaged portions of the thyroid gland are normal in size and attenuation. Thoracic aorta: There is atherosclerotic calcification of the thoracic aorta, which is normal in caliber and demonstrates 4-vessel variant arch anatomy. No dissection is seen. Pulmonary vasculature: The pulmonary trunk is normal in caliber. There are no filling defects identified in main, lobar, or segmental pulmonary branches to suggest pulmonary embolus. Heart: The heart is mildly enlarged and without pericardial effusion. There are coronary artery calcifications. Lungs and pleural spaces: Evaluation of the lung parenchyma is degraded by motion artifact. Emphysema is unchanged. There is likely superimposed chronic interstitial lung disease. Extensive consolidation is present throughout both lungs, most confluent at the lung bases The trachea and central airways are clear. There is mild bronchiectasis. There is a 1.9 cm irregular nodule in the left upper lobe with small foci of central cavitation seen on image #147. No pleural effusion or pneumothorax is seen. Mediastinum: There are numerous enlarged mediastinal lymph nodes. Prevascular nodes measure up to 15 mm short axis. A subcarinal node measures 22 mm in short axis. Leila: There is hilar adenopathy. Enlarged hilar nodes measure up to 11 mm in short axis. Axillae: There is no axillary lymphadenopathy. Upper abdomen: There is a small to moderate hiatal hernia. Partially visualized upper abdominal viscera is otherwise grossly unremarkable. Skeletal structures: The skeletal structures are osteopenic. Degenerative change is noted throughout the thoracic spine with associated hyperkyphosis. Extensive fusion hardware is seen in the lower cervical spine. No lytic or blastic bony lesions are seen. Arthritic change is noted in the shoulders. 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 IMPRESSION: 1. There is no evidence of pulmonary embolus in the main, lobar, or segmental pulmonary arteries. 2. Cardiomegaly and emphysema with probable changes of superimposed chronic interstitial lung disease. 3. Diffuse groundglass consolidation is seen throughout both lungs, most confluent at the lung bases. This likely represents a viral pneumonia. Correlate clinically for evidence of superimposed fluid overload/pulmonary edema and/or ARDS. 4. Mediastinal and hilar lymphadenopathy is likely reactive. 5. There is a 1.9 cm irregular nodule in the left upper lobe with small foci of central cavitation. This is new from 03/04/2018 and may be on an infectious/inflammatory basis. A 3-4 month follow-up chest CT is recommended second resolution and exclude underlying pulmonary neoplasm. 6. Hiatal hernia. 7. Additional findings as above. ACT 112: Positive. There are findings on this exam that require communication between the performing entity and the patient following Patient Test Result Information Act ([place] Act 112) guidelines. Electronically signed by: Pasquale Andrea M.D. 02/12/2021 5:23 PM I & O Totals 24 Hours 02/12/21 02/13/21 02/14/21 06:59 06:59 06:59 Intake Total 785 / 785 1078.333 / 1078.333 Output Total 1350 / 1350 1500 / 1500 Balance -565 / -565 -421.667 / -421.667 Cumulative 01/23/21 21:20 thru 02/13/21 06:23 Intake Total 40821.333 Output Total 81194 Balance -65531.667 RT Ventilator Mngmt (Last Documented) Ventilator Ordered Settings Respiratory Rate 20 02/13/21 08:08 Fraction of Inspired Oxygen 90 02/13/21 07:12 Ventilator - PT Measurements Respiratory Rate 20 Coding Level of Care Code Critical Care 1st 30-74 mins Diagnoses Pneumonia due to COVID-19 virus U07.1; J12.82 Acute respiratory failure with hypoxia J96.01 COVID-19 U07.1 Hemoptysis R04.2 Time Spent (min) 50
[2021-02-13] MEDS ORDERED: ACETAMINOPHEN 650 MG SUPP PR PRN (11:20)
[2021-02-13] MEDS ORDERED: ATROPINE SULFATE 1% OP SOLN 5 ML BTL SL PRN (11:20)
[2021-02-13] MEDS ORDERED: LORazepam 2 MG/4 ML VIAL IV PRN (11:20)
[2021-02-13] MEDS ORDERED: HYDROmorphone INJ 0.5 MG/0.5 ML SYR IV PRN (11:20)
[2021-02-13] MEDS ORDERED: PROMETHAZINE HCL 12.5 MG in SODIUM CHLORIDE 0.9% 50 ML IV PRN (11:20)
[2021-02-13] MEDS ORDERED: LORazepam 0.5 MG/1 ML VIAL IV PRN (11:20)
[2021-02-13] MEDS ORDERED: ACETAMINOPHEN 325 MG TAB PO PRN (11:20)
[2021-02-13] MEDS ORDERED: chlorproMAZINE HCL 25 MG TAB PO PRN (11:20)
[2021-02-13] MEDS ORDERED: MoRPHine SULFATE 5 MG/0.25 ML UDP PO PRN (11:20)
[2021-02-13] MEDS ORDERED: LORazepam 0.5 MG TAB PO PRN (11:20)
[2021-02-13] MEDS ORDERED: HYOSCYAMINE SULFATE 0.125 MG TAB SL PRN (11:20)
[2021-02-13] MEDS ORDERED: ONDANSETRON INJ 2 MG/ML 2 ML VIAL IV PRN (11:20)
[2021-02-13] MEDS ORDERED: ONDANSETRON 4 MG OD TAB SL PRN (11:20)
[2021-02-13] MEDS ORDERED: STAT IV Infusion **Titration per Protocol STA (11:20)
[2021-02-13] MEDS ORDERED: haloperidoL 1 MG TAB PO PRN (11:20)
[2021-02-13] MEDS ORDERED: GLYCOPYRROLATE 0.2 MG/ML VIAL IV PRN (11:20)
[2021-02-13] MEDS ORDERED: BACLOFEN 10 MG TAB PO PRN (11:20)
[2021-02-13] MEDS ORDERED: HYDROmorphone/NSS 100 MG/100 ML BAG IV SCH (11:30)
[2021-02-13] MEDS ORDERED: MoRPHine SULF/NSS 250 MG/250 ML BTL IV SCH (11:30)
[2021-02-13] MEDS ORDERED: LORazepam 0.5 MG/1 ML VIAL IV SCH (14:00)
--- NOTE | 2021-02-13 20:05 | Hospitalist Progress Note ---
Date of Service February 13, 2021 Assessment & Plan (1) Pneumonia due to COVID-19 virus: (2) Acute respiratory failure with hypoxia: (3) Comfort measures only status: Plan: (1) Acute respiratory failure with hypoxia: (2) Pneumonia due to COVID-19 virus: (3). Acute exacerbation of COPD (4) Comfort measures only status Plan: Secondary to COVID-19 pneumonia. Patient has gotten 2 doses of Pfizer vaccine. Completed 5 days of remdesivir and completed dexamethasone. Dexamethasone was held briefly for agitation, improved and restarted after two days. He completed 14 days of baricitinib therapy which was stopped 02/07. Worsening respiratory status, developed hemoptysis today, stopped eliquis, consulted Pulm, held extensive discussion with the family again regarding poor prognosis given fibrotic lung 2/2 COVID on the background of COPD All the meds were stopped per family request and comfort measures instituted. Admission and Anticipated Discharge Date Admission Date: January 23, 2021 Subjective Patient was lying in bed, on BiPAP, in mild distress. Per RN, patient is coughing up blood today morning. Patient is requiring BiPAP all the time, saturation dropping to 50s when off of BiPAP and on high flow to take medication. Eliquis has been stopped. Extensive discussion with family and the patient, they decided to go ahead with comfort measures. Patient had been afebrile but heart rate and respiratory rate has been increased lately. Patient has been deteriorating respiratory ha lately. Physical Exam Physical Exam: GENERAL: Alert and oriented x3. NAD, on BPAP HEENT: No pallor, no icterus. Pupils equal, round and reactive to light. Oral mucosa dry. NECK: No JVD, no neck masses. HEART: S1 and S2 heard. Regular rate and rhythm. No murmur, no gallop. RESPIRATORY SYSTEM: Normal AP diameter. No accessory muscle use. wheezing, bilateral lung crackles. ABDOMEN: Soft, bowel sounds present, nontender, no distention. CENTRAL NERVOUS SYSTEM: No facial droop. Speech is clear. Obeys simple commands. Moves extremities. EXTREMITIES: No edema, no erythema seen. Results & Data Results & Data ([facility]) Vital Signs (Past 12 Hours) Vital Signs Temp Pulse Pulse Resp BP Pulse Ox 02/13/21 15:10 105 H 26 H 92 02/13/21 10:42 85 22 91 02/13/21 08:08 36.2 C L 95 H 20 119/65 91
--- NOTE | 2021-02-14 14:02 | Discharge Summary ---
Date of Service February 14, 2021 Admission HPI Per Admitting Provider CHIEF COMPLAINT: Ongoing illness, hypoxia. HISTORY OF PRESENT ILLNESS: This is a 65-year-old male with past medical history significant for type 2 diabetes, hyperlipidemia, COPD, history of giant cell arteritis, hypertension, CAD, GERD, stage III chronic kidney disease, lumbar degenerative disk disease, depression, history of DVT, tobacco use disorder, the patient has quit smoking 2 years ago, generalized anxiety disorder, who lives with his son and [id number], presents with ongoing illness. The patient was here on 01/19/2021 and 01/20/2021 with frequent falls. At that time, he was diagnosed with COVID and he refused admission. He is vaccinated with [employer] vaccine, second dose was done in June as per the patient, he did not receive the booster dose. His daughter in law got COVID .Today his son sent him back to the hospital because oxygen saturation dropped to 81%, but the patient states he is doing fine, he does not have any symptoms. He has chronic cough from his COPD. Denies any chest pain, dizziness, or shortness of breath. Denies any headache. Denies any nausea or vomiting. Denies abdominal pain. Denies diarrhea. He says he is ambulating okay. He is somewhat weak, ambulating with a cane. Denies any body aches. No nausea or vomiting. No earache, no runny nose, no sore throat. In the ER, he is saturating okay on 4 liters. ALLERGIES: PROPOXYPHENE, DARVOCET. PAST MEDICAL HISTORY: As mentioned above. PAST SURGICAL HISTORY: Lumbosacral steroid shot, laminectomy, tonsillectomy, and adenoidectomy. MEDICATIONS: The patient is on albuterol 2 puffs inhalation q.i.d. p.r.n., Anoro Ellipta 1 inhalation daily, Eliquis 5 mg p.o. b.i.d., aspirin 81 mg p.o. a.m., atorvastatin 40 mg p.o. daily, dexamethasone 6 mg p.o. daily, furosemide 20 mg p.o. daily, glipizide 5 mg p.o. b.i.d., hydrocodone/acetaminophen 1 tab p.o. q. 8 hours p.r.n., lidocaine patch topical daily p.r.n., metformin 1000 mg p.o. daily, metoprolol succinate 25 mg p.o. a.m., omeprazole 40 mg p.o. a.m. Restasis one drop ophthalmic b.i.d., Flomax 0.8 mg p.o. at bedtime, topiramate 50 mg p.o. b.i.d. FAMILY HISTORY: No significant family history. SOCIAL HISTORY: , currently lives with son and family. Former smoker, quit in November 2018, smoked 1 pack a day for 30 years. Alcohol occasional. No drug use. REVIEW OF SYSTEMS: As per HPI. Rest of the review of systems is negative. Admission Exam Per Admitting Provider GENERAL: The patient is of moderate build, not in acute distress. VITAL SIGNS: Temperature 37.5, pulse 74, respiratory rate 18, blood pressure 123/68, oxygen 93% on 4 liters. HEENT: Pupils equal, round and reactive to light. Oral mucosa moist. NECK: No JVD, no neck masses. CARDIOVASCULAR: S1 and S2 heard. Regular rate and rhythm. No murmur, no gallop. RESPIRATORY SYSTEM: Normal AP diameter. No accessory muscle use. Occasional wheezing, no crackles. ABDOMEN: Soft, bowel sounds present, nontender, no distention. CENTRAL NERVOUS SYSTEM: Cranial nerves II-XII grossly intact, nonfocal. EXTREMITIES: No edema, no erythema. Principal Diagnosis (1) Acute respiratory failure with hypoxia: (2) Pneumonia due to COVID-19 virus: (3) Acute exacerbation of COPD (4) Hemoptysis Discharge Exam n/a after (02/13/21), for prior to exam refer to 02/13/21 progress note. Discharge Data Allergies Allergy/AdvReac Type Severity Reaction Status Date / Time propoxyphene Allergy Intermediate unsure Verified 01/23/21 22:37 acetaminophen Allergy Unknown Unknown Verified 01/23/21 22:37 [From [facility]] Consultations 01/23/21 22:37 ED Decision to Admit Stat 02/13/21 09:16 Consult Pulmonology Routine 02/13/21 11:20 Consult Palliative Care Routine Ordered Studies 02/12/21 14:56 CT angio chest PE protocol Urgent Hospital Course (1) Pneumonia due to COVID-19 virus: (2) Acute respiratory failure with hypoxia: (3) Comfort measures only status: 65-year-old male with PMH of type II DM, HLD, COPD, giant cell arteritis, HTN, CAD, GERD, stage III CKD, lumbar degenerative disc disease, depression, DVT on Eliquis, tobacco use disorder [quit smoking 2 years ago], DERREK who lived with his son and [id number] presented 01/24/2021 to our hospital with complaints of ongoing illness. The patient was here from 2020 with frequent falls. At that time he was diagnosed with Covid and he refused admission. He is vaccinated with Pfizer twice [last dose in June 2020 as per the patient] but has not gotten a chance to receive the booster dose. His [id number] had Covid. On the day of arrival this admission,, his oxygen saturation dropped to 81% and his son sent him to the hospital but the patient stated that he is doing fine and does not have any symptoms. He does have chronic cough from his COPD. In the hospital, patient was being managed for acute respiratory failure secondary to pneumonia owing to COVID-19 virus infection [diagnosed 01/20/2021] on background of chronic COPD with exacerbation towards later part of the admission complicated with hemoptysis leading to stopping of his Eliquis [patient has history of DVT]. Patient was on BiPAP and dropping his saturation with movement and was also having hemoptysis. Patient would drop down to saturation of 50s when placed on high flow for medication administration. Pulmonology was consulted and after discussion with the family and the patient about the poor prognosis of the patient if he were to get intubated given the circumstances, they decided to go with comfort measures. All his home medications were discontinued except for pain meds and comfort measures were instituted. Per nursing note, patient at 19:52 hrs. on 02/13/2021. Following were the acute clinical conditions that were being managed while he was in the hospital prior to along with his chronic medical conditions: (1) Acute respiratory failure with hypoxia: (2) Pneumonia due to COVID-19 virus: (3) Acute exacerbation of COPD (4) Hemoptysis (4) Comfort measures only status Secondary to pneumonia from COVID-19 virus infection. Patient has gotten 2 doses of Pfizer vaccine. Completed 5 days of remdesivir and completed dexamethasone. Dexamethasone was held briefly for agitation, improved and restarted after two days. He completed 14 days of baricitinib therapy which was stopped 02/07. on 02/13/21: All the meds were stopped per family request and comfort measures instituted. Total Time Total Time Spent Total Time Spent (In Minutes): 50 Discharge Plan Discharge Items Patient Disposition: Other Date/Time: 02/13/21 19:52
--- NOTE | 2021-02-15 06:35 | Electrocardiogram Report ---
Test Reason : Blood Pressure : / mmHG Vent. Rate : 081 BPM Atrial Rate : 081 BPM P-R Int : 120 ms QRS Dur : 108 ms QT Int : 384 ms P-R-T Axes : 065 -11 029 degrees QTc Int : 446 ms Sinus rhythm Incomplete right bundle branch block Borderline ECG When compared with ECG of 12-FEB-2021 17:21, Vent. rate has decreased BY 45 BPM Confirmed by Brenden Knight ([id number]) on 02/15/2021 6:34:36 AM Referred By: REFERRED SELF Confirmed By:Brenden Knight
--- NOTE | 2021-03-01 04:29 | Coding Query ---
CODING QUERY To promote full compliance with coding requirements relating to patient care, provider participation is requested in all cases of planning technician uncertainty. Please assist us with the question(s) below: Coding Question(s): Please document the cause of . Thank you . [facility] Physician's Response(s): Cause of : acute respiratory failure secondary to pneumonia owing to COVID-19 virus infection on background of chronic COPD complicated with exacerbation towards later part of the admission. Principal Diagnosis: "that condition established after study, to be chiefly responsible for occasioning the admission of the patient to the hospital for care." Co-Existing Principal Diagnosis: "when two or more diagnoses equally meet the criteria for principal diagnosis as determined by the circumstances of admission, diagnostic work up, and/or therapy provided, and the Alphabetic Index, Tabular List, or another coding guideline does not provide sequencing direction, any one of the diagnoses may be sequenced first." "When the physician has documented what appears to be a current diagnosis in the body of the record, but has not included the diagnosis in the final diagnostic statement, the physician should be asked whether the diagnosis should be added." ([facility] 2 QTR90. p3-4) [facility]
== END 2021-02-13 20:45 | disposition expired | DRG 177 ==
LOC: ED 21:30 → EDINP 23:35 → SUATTDRO 23:35 → 2N 01-24 02:18 → 2S 01-27 18:56 → 2W 02-07 21:52 → 2N 02-11 17:33